=== PATIENT | female | born 1950 | race Caucasian/White ===

== ENCOUNTER 2023-11-10 07:20 | Day surgery (SDC) | payer MEDICARE, SELFPAY ==
[2023-08-15 13:33] VITALS: BMI 27.5
[2023-10-28 14:02] VITALS: BMI 26.4
--- NOTE | 2023-11-04 12:11 | PM.HPGS ---
History of Present Illness History of Present Illness Consent: Risks, benefits, and alternatives have been discussed and questions answered. Patient agrees to proceed with procedure. Chief complaint: Neoplasm Screening Narrative: Liz Palacios is a 73 year old female Colonoscopy with possible biopsy or polypectomy or cautery or injection of substances. Review of Systems Review of Systems: All systems reviewed & are unremarkable except as noted in HPI and below PMFSH Family History Family History Mother Heart disease Social History Social History Smoking status: Never smoker Tobacco type: cigarettes Alcohol intake: current Substance use: never Substance use type: does not use Living arrangements: with family Spiritual care concerns: No Meds Home Medications and Allergies Home Medications Medication Instructions Recorded Confirmed Type acyclovir 400 mg tablet 400 mg PO PRN PRN Cold Symptoms 09/04/21 11/10/23 History albuterol sulfate 90 mcg/actuation 1 inh inhalation PRN PRN Shortness 09/04/21 11/10/23 History aerosol inhaler (Ventolin HFA) Of Breath aspirin 81 mg tablet,delayed 81 mg PO DAILY 09/04/21 11/10/23 History release (Adult Aspirin Regimen) azelastine 137 mcg (0.1 %) nasal 1 spray intranasal Q12H 09/04/21 11/10/23 History spray levothyroxine 88 mcg capsule 88 mcg PO DAILY 09/04/21 11/10/23 History lisinopril 20 1 tablet PO DAILY 09/04/21 11/10/23 History mg-hydrochlorothiazide 12.5 mg tablet multivitamin 1 tablet PO DAILY 09/04/21 11/10/23 History sertraline 50 mg tablet 50 mg PO DAILY 09/04/21 11/10/23 History simvastatin 20 mg tablet 20 mg PO DAILY 09/04/21 11/10/23 History Allergies Allergy/AdvReac Type Severity Reaction Status Date / Time No Known Allergies Allergy Mild Verified 11/10/23 07:49 Exam Resp: Auscultation: clear to auscultation bilaterally Cardio: Rate: regular rate Rhythm: regular rhythm GI: GI Palp: Yes Soft to palpation and No Tenderness to palpation present (GI) Assessment and Plan Assessment and plan (1) Colon cancer screening: Code(s): Z12.11 - Encounter for screening for malignant neoplasm of colon Status: Acute Assessment and Plan: Colonoscopy with possible biopsy or polypectomy or cautery or injection of substances.
--- NOTE | 2023-11-10 06:54 | WPDANESEPPF ---
Anes - Initial Pre Proc Eval Procedure: Operation Date: 11/10/23 09:00 Proposed Procedures p Screening Colonoscopy - Paramjit Iqbal MD Date/Time: 11/10/23 06:54 Surgeon: Paramjit Iqbal MD Pre Op Diagnosis: Neoplasm Screening Patient Data Age: 73 Gender: F Height: 1.63 m Weight: 70 kg Allergies Allergy/AdvReac Type Severity Reaction Status Date / Time No Known Allergies Allergy Mild Verified 11/10/23 07:49 Home Medications Medication Instructions Recorded Confirmed Type acyclovir 400 mg tablet 400 mg PO PRN PRN Cold Symptoms 09/04/21 11/10/23 History albuterol sulfate 90 mcg/actuation 1 inh inhalation PRN PRN Shortness 09/04/21 11/10/23 History aerosol inhaler (Ventolin HFA) Of Breath aspirin 81 mg tablet,delayed 81 mg PO DAILY 09/04/21 11/10/23 History release (Adult Aspirin Regimen) azelastine 137 mcg (0.1 %) nasal 1 spray intranasal Q12H 09/04/21 11/10/23 History spray levothyroxine 88 mcg capsule 88 mcg PO DAILY 09/04/21 11/10/23 History lisinopril 20 1 tablet PO DAILY 09/04/21 11/10/23 History mg-hydrochlorothiazide 12.5 mg tablet multivitamin 1 tablet PO DAILY 09/04/21 11/10/23 History sertraline 50 mg tablet 50 mg PO DAILY 09/04/21 11/10/23 History simvastatin 20 mg tablet 20 mg PO DAILY 09/04/21 11/10/23 History Patient hx anesthesia problems: none Family hx anesthesia problems: none Results Review: All pre-operative results and documents have been reviewed as part of the pre-operative evaluation. [facility] Past Medical History Medical History (Updated 11/10/23 @ 08:37 by Boom Shane DO) CAD (coronary artery disease) Hyperlipidemia Hypertension Surgical History Surgical History (Updated 11/10/23 @ 08:37 by Boom Shane DO) History of coronary artery stent placement 2003, 2004 Family History Family History Mother Heart disease Social History Social History Smoking status: Never smoker Tobacco type: cigarettes Alcohol intake: current Substance use: never Substance use type: does not use Living arrangements: with family Spiritual care concerns: No Anes - Eval Final PreProcedure Day of Procedure 11/10/23 06:54 Patient weight: overweight Heart: regular rate and rhythm Lungs: clear to auscultation Airway: Mallampati scale class II Neurological: alert and oriented Last oral intake: >/= 8 hours ASA classification: III Emergent: no Anesthetic plan: proceed Anesthesia type and monitoring: general GIVS and standard monitoring Results Review: All pre-operative results and documents have been reviewed as part of the pre-operative evaluation. Informed Consent: The patient's anesthetic plan and its attendant risks and benefits were discussed with the patient/family/POA. Questions were solicited and answers provided to the satisfaction of the patient/family/POA.
[2023-11-10 07:59] VITALS: BP 130/76; PULSE 72; RESP 20; TEMP 36.7; O2SAT 98; BMI 26.0
[2023-11-10] MEDS: LACTATED RINGERS 1,000 ML 150 ML IV CONT (08:16)
[2023-11-10 08:59] VITALS: BP 96/57; PULSE 58; RESP 18; O2SAT 97
[2023-11-10 09:09] VITALS: BP 83/52; PULSE 58; RESP 18; O2SAT 97
[2023-11-10 09:19] VITALS: BP 120/57; PULSE 65; RESP 20; O2SAT 100
[2023-11-10 09:27] VITALS: BP 121/72; PULSE 58; RESP 20; O2SAT 100
--- NOTE | 2023-11-10 11:13 | WPDANESPN ---
Anes - Prog Note Post-Op Date/Time: 11/10/23 11:13 Cardiovascular status: normal Respiratory status: normal Airway patency: baseline Mental status: baseline Post-Op hydration status: normal Vital Signs: Last Vital Signs Temp 36.7 C 11/10/23 07:59 Pulse 58 L 11/10/23 09:27 Resp 20 11/10/23 09:27 BP 121/72 11/10/23 09:27 Pulse Ox 100 11/10/23 09:27 O2 Del Method Room Air 11/10/23 09:27 Pain Score (VAS): 0 I/O: Intake & Output 11/09/23 11/10/23 11/10/23 23:59 07:59 15:59 Intake Total 575 Balance 575 Post-procedural complaints: none Patient Feedback: Patient satisfied with anesthetic care. Other Findings: Patient vital signs back to baseline. Patient denies nausea and vomiting. Patient's pain under control. Patient OK for discharge.
== END 2023-11-10 09:35 | disposition home or self-care (01) ==
PROVIDERS: PCP Nurse Practitioner Family; Visit Provider Internal Medicine Gastroenterology
PROC: 0DJD8ZZ Inspection of Lower Intestinal Tract, Via Natural or Artificial Opening Endoscopic (ICD-10-PCS; CPT 45378; principal; 2023-11-10 09:00)
DX: Z12.11 Encounter for screening for malignant neoplasm of colon (principal); D12.2 Benign neoplasm of ascending colon; K57.30 Diverticulosis of large intestine without perforation or abscess without bleeding; K64.8 Other hemorrhoids
CPT/HCPCS: 45380

== ENCOUNTER 2023-11-11 06:48 | Outpatient (RCR) | payer MEDICARE, SELFPAY | END 2023-11-11 07:00 | disposition home or self-care (01) | LOC: ANHLAB 06:48 | PROVIDERS: PCP Nurse Practitioner Family; Visit Provider Nurse Practitioner Family | DX: Z12.11 Encounter for screening for malignant neoplasm of colon (principal) | CPT/HCPCS: 88305 ==

== ENCOUNTER 2024-06-28 14:14 | Outpatient (CLI) | payer MEDICARE, SELFPAY ==
--- NOTE | ~2024-06-28 | DEXA_ITS ---
Bone Density Report Name: EZRA OLIVIER Age: 73 Sex: Female Ethnicity: White Date of : 1950 Indication: postmenopausal; screening for osteoporosis; height loss; Referring Provider: BERTIN BRITT Study: Bone densitometry was performed. Exam Date: June 28, 2024 Accession number: [id number] Bone Density: Region BMD T-score Z-score Classification AP Spine(L1-L4) 0.733 -2.9 -0.5 Osteoporosis Femoral Neck (Left) 0.562 -2.6 -0.6 Osteoporosis Total Hip (Left) 0.755 -1.5 0.2 Osteopenia Femoral Neck (Right) 0.576 -2.5 -0.4 Osteoporosis Total Hip (Right) 0.757 -1.5 0.2 Osteopenia Total Hip Mean 0.756 -1.5 0.2 Osteopenia World Health Organization criteria for BMD impression classify patients as: Normal (T-score at or above -1.0), Osteopenia (T-score between -1.0 and -2.5), or Osteoporosis (T-score at or below -2.5). 10-year Fracture Risk: FRAX not reported because: Some T-score for Spine Total or Hip Total or Femoral Neck at or below -2.5 Treated for osteoporosis Clinical Information Provided by Patient: Is being treated for osteoporosis Has used the following medications: Vitamin D, Calcium Patient maximum height was 66.0 Menopause Age: 55 No regular weight bearing exercise Drinks caffeinated beverages Onset of menses at age 14 Number of children 1 Impression: The patient has osteoporosis, based on the Total Spine T-score. Discussion: It is important to ask patients whether they are taking their medications and to encourage continued and appropriate compliance with their osteoporosis therapies to reduce fracture risk. It is also important to review their risk factors and encourage appropriate calcium and vitamin D intakes, exercise, fall prevention and other lifestyle measures. Follow-Up: Consider a repeat BMD and Vertebral Fracture Assessment (VFA) exam in 2 years or sooner if medically necessary, to reassess this patient's status. Reported by: PHILIP on 06/28/2024 2:47:00 PM. Reviewed, dictated and finalized at location A. SIL[facility]
--- OUTSIDE RECORDS SUMMARY | 2024-06-28 15:53 | XMS_ITS | Clinical Summary ---
Author Organization [facility] [address] Address [address] [place] [address] Care Team Providers Care Inspector Final [employer] Conveyor Line Name Role Phone Raymond Vitale MD Primary Care Provider + [phone] Allergies Active Allergy Reactions Criticality Noted Date Comments Prednisone Other (See comments) High 12/06/2014 Leg swelling with high dose, has done fine on lower doses Medications lisinopril-hydr oCHLOROthiazide (ZESTORETIC) 20-25 mg per tablet Take 1 tablet by mouth daily 2 Active levothyroxine (SYNTHROID) 88 mcg tablet daily Active montelukast (SINGULAIR) 10 mg tablet montelukast 10 mg tablet Active simvastatin (ZOCOR) 20 mg tablet simvastatin 20 mg tablet TAKE 1 TABLET BY MOUTH EVERY DAY 9 Active sertraline (ZOLOFT) 50 mg tablet Take 1 tablet (50 mg total) by mouth daily 2 Active azelastine (ASTELIN) 137 mcg (0.1 %) nasal spray azelastine 137 mcg (0.1 %) nasal spray aerosol USE 2 SPRAYS IN EACH NOSTRIL TWICE DAILY 9 Active aspirin 81 mg enteric coated tablet ASPIRIN 81 MG ORAL TABLET 0 Active albuterol HFA (PROVENTIL HFA,VENTOLIN HFA,PROAIR HFA) 90 mcg/actuation inhaler Ventolin HFA 90 mcg/actuation aerosol inhaler INHALE 2 PUFFS BY MOUTH EVERY 4 HOURS Active multivitamin tablet multivitamin tablet TAKE 1 TABLET BY MOUTH EVERY DAY Active alendronate (FOSAMAX) 70 mg tablet Take 1 tablet (70 mg total) by mouth once a week Active Active Problems No known active problems Surgical History Surgery Date Site/Laterality Comments CARDIAC STENT PLACEMENT Social History Tobacco Use Types Packs/Day Years Used Date Smoking Tobacco: Former Personal Safety Answer Date Recorded Getting School Help Needed Not on file 04/26 Comments Unknown Sex and Gender Information Value Date Recorded Sex Assigned at Not on file Legal Sex Female 8:14 PM [employer] Gender Identity Not on file Sexual Orientation Not on file Obstetrics History Last Filed Vital Signs Vital Sign Reading Time Taken Comments Blood Pressure 130/72 04/26/2023 5:37 PM [employer] Pulse 63 04/26/2023 5:37 PM [employer] Temperature 36.6 C (97.9 F) 04/26/2023 5:37 PM [employer] Respiratory Rate 22 04/26/2023 5:37 PM [employer] Oxygen Saturation 99% 04/26/2023 5:37 PM [employer] Inhaled Oxygen Concentration - - Weight 70.3 kg (155 lb) 04/26/2023 5:37 PM [employer] Height 165.1 cm (5' 5 ) 06/16/2021 5:31 PM CDT Body Mass Index 25.79 06/16/2021 5:31 PM CDT Plan of Treatment Health Maintenance Due Date Last Done Comments Colon Cancer Screening-Colonoscopy 1950 Depression Screening 1950 Fall Risk Assessment 1950 Hepatitis C Screening 1950 Osteoporosis Screening-Bone Density Scan 1950 DTaP/Tdap/Td Vaccine (1 - Tdap) 1961 Hepatitis B Screening 1968 Zoster Vaccine (1 of 2) 2000 Breast Cancer Screening-Mammogram 06/09/2015 06/08/2014, 06/10/2013, 06/03/2012, Additional history exists Well Visit 65+ 07/24/2015 Covid-19 Vaccine (4 - 2023-2 5 season) 2023 01/02/2021, 06/02/2020, 05/09/2020 Influenza Vaccine (#1) 2023 , 01/07/2020, 12/30/2018, Additional history exists Pneumococcal vaccine 65+ Completed 12/20/2021, 01/15 Procedures Procedure Name Priority Date/Time Associated Diagnosis Comments SCREENING MAMMOGRAM 2D BILATERAL Routine 06/08/2014 10:36 AM CDT from Last 3 Months or Most Recently Relevant to Health Maintenance Results * Screening Mammogram 2D Bilateral (06/08/2014 10:36 AM CDT) Anatomical Region Laterality Modality Breast Bilateral Mammography 06/08/2014 10:3 6 AM CDT Impressions 06/09/2014 10:39 AM CDT BIRADS 1: NEGATIVE There is no mammographic evidence of malignancy. A 1 year screening mammogram is recommended. The patient has been or will be contacted. The patient will be entered into an automated reminder system to schedule a mammogram in one year. Electronically signed by: Dr. Joel Ly nh/:06/09/2014 10:37:38 Motor Vehicle Light Assembler: Emperatriz MEANS (R)(M), [facility] letter sent: Normal Exam Reading location: BI-RADS: 1 Negative [EOD] Narrative 06/09/2014 10:39 AM CDT - [facility] BILATERAL SCREENING W/CAD BILATERAL DIGITAL SCREENING MAMMOGRAM WITH CAD: 06/08/2014 The study was acquired using full field digital technology and interpreted from soft copy. Current study was also evaluated with ICAD version 7.2. COMPARISONS: Comparison is made to exams dated: 06/10/2013 mammogram and 06/03/2012 mammogram - [facility]. BREAST TISSUE: There are scattered areas of fibroglandular density. FINDINGS: No significant masses, calcifications, or other findings are seen in either breast. There has been no significant interval change. Procedure Note Provider, MD Amairani - 08/01/2020 - [facility] BILATERAL SCREENING W/CAD BILATERAL DIGITAL SCREENING MAMMOGRAM WITH CAD: 06/08/2014 The study was acquired using full field digital technology and interpretedfrom soft copy. Current study was also evaluated with ICAD version 7.2. COMPARISONS: Comparison is made to exams dated: 06/10/2013 mammogram and 06/03/2012 mammogram - [facility]. BREAST TISSUE: There are scattered areas of fibroglandular density. FINDINGS: No significant masses, calcifications, or other findings areseen in either breast. There has been no significant interval change. IMPRESSION: BIRADS 1: NEGATIVE There is no mammographic evidence of malignancy. A 1 year screeningmammogram is recommended. The patient has been or will be contacted. The patient will be entered into an automated reminder system to schedulea mammogram in one year. Electronically signed by: Dr. Joel Ly nh/:06/09/2014 10:37:38 Motor Vehicle Light Assembler: Emperatriz Paez RT (R)(M), [facility] letter sent: Normal Exam Reading location: BI-RADS: 1 Negative [EOD] Ethan Mcrae MD IMG MAMMO PROCEDURES Final Result from Last 3 Months or Most Recently Relevant to Health Maintenance Insurance MEDICARE AET MEDICARE AETNA Care Teams Inspector Final Assembly Conveyor Line Relationship Specialty Start Date End Date Raymond Vitale MD PCP - General Internal Medicine 06/16/21
--- OUTSIDE RECORDS SUMMARY | 2024-06-28 15:53 | XMS_ITS | Data Portability ---
Author Organization [facility] [employer], Main Office Address [address] [place] [address] Care Team Providers Care Rolled Gold Plater Name Role Phone DIANE VITALE Primary Care Provider DIANE VITALE Referring Provider Assessment Encounter Date Assessment Date Assessment LastModified by Organization Details LastModified Time 10/24/2022 10/24/2022 Diagnosis in the assessment and plan have been discussed will continue with current therapy blood work been ordered to evaluate her disease processes biochemically see me back in 4 months [email or web address] Not available 01/12/2023 17:18:12 01/21/2023 01/21/2023 Had DEXA and mammogram this fall started fosamax this fall based on DEXA Need CT lung for lung cancer screen in May Take covid test at home today, okto continue levofloxacin 750 mg daily x 5 days (has old script at home) cardiology Dr. Giles [email or web address] Not available 01/21/2023 10:01:24 Plan of Treatment Reminders Order Date Submit Date Provider Last Modified By Organization Details Last Modified Time Details Appointments None recorded. Lab urinalysis, dipstick 2023 024 TARA [facility] [address], [place], [address], 4 09:43:42 urinalysis complete, reflex culture 2023 024 [email or web address] [facility] (Lab), [address] [facility], [place], [address], 4 09:42:55 urinalysis complete, reflex culture 2023 024 TARA Not available 4 07:41:49 CBC w/ auto diff 2023 024 TARA Not available 4 20:27:45 BMP, serum or plasma 2023 024 TARA Not available 4 20:38:43 lipid panel, serum 2023 024 TARA Not available 4 20:38:27 hepatic function panel, serum 2023 024 TARA Not available 4 20:38:32 TSH, serum or plasma 2023 024 TARA Not available 4 20:58:48 T4, free, serum 2023 024 TARA Not available 4 20:49:23 vitamin B12 + folate, serum or blood 2022 023 TARA Not available 3 08:27:50 CBC w/ auto diff 2022 023 TARA Not available 3 08:27:47 lipid panel, serum 2022 023 Not available 3 15:01:09 CMP, serum or plasma 2022 023 Not available 3 15:01:08 T3, free, serum or plasma 2022 023 TARA Not available 3 08:27:52 T4, free, serum 2022 023 TARA Not available 3 08:27:51 TSH, serum or plasma 2022 023 TARA Not available 3 15:01:29 vitamin B12 + folate, serum or blood 2022 023 [email or web address] Not available 4 11:14:07 CBC w/ auto diff 2022 023 [email or web address] Not available 4 11:14:06 lipid panel, serum 2022 023 [email or web address] Not available 4 11:14:06 CMP, serum or plasma 2022 023 [email or web address] Not available 4 11:14:06 T3, free, serum or plasma 2022 023 [email or web address] 25 Not available 4 11:14:06 T4, free, serum 2022 023 [email or web address] 25 Not available 4 11:14:06 TSH, serum or plasma 2022 023 [email or web address] 25 Not available 4 11:14:06 Referral None recorded. Procedures colonoscopy screening (PROC) - *Please call pt to schedule* 2023 024 [email or web address] 256 Paramjit Iqbal MD, [address], [address], [place], [address], 4 09:22:55 Surgeries None recorded. Imaging CT, chest, w/o contrast - *Please call pt to schedule* 2023 024 [email or web address] 256 [facility] (Radiology), [address] [place], [address], 4 09:17:50 Medication Orders sertraline 100 mg tablet 2023 024 [id number], [address], [place], [id number], 4 12:54:46 montelukast 10 mg tablet 2023 024 [facility] #[id number], [address], [place], [id number], 4 14:41:23 lisinopril 20 mg-hydrochl orothiazide 25 mg tablet 2023 024 [facility] #27655, [address], [place], [id number], 4 14:41:24 simvastatin 20 mg tablet 2023 024 [facility] #[id number], [address], [place], [id number], 4 14:41:22 levothyroxi ne 88 mcg tablet 2023 024 [facility] [employer] [facility] #36678, [address], [place], [id number], 4 14:41:23 levofloxaci n 750 mg tablet 2022 023 [email or web address] [address] [facility] [employer] [facility] #71970, [address], [place], [id number], 4 14:05:33 COVID-19 At-Home Test kit 2022 023 [facility] [employer] [facility] #[id number] [place], [id number], 3 09:49:10 Patient TargetsNo targets recorded. Patient Instructions Encounter Date Encounter Id Patient Instructions Last Modified By Organization Details Last Modified Time 07/22/2023 [id number] dementia rating scale-2* [email or web address] Not available 2023 08:02:20 physical therapy for pelvic health Not available 07/22/2023 14:41:16 Personalized [facility] Plan and Screening Recommendations Advance Directives - Do you have one? Advance Directives - Do we have your advance directive on file in your health record? Primary Prevention/Interven tion (prevents or decreases the chance of common diseases from occurring) Smoking Risk: Alcohol Misuse Screening: Weight: Physical activity: Nutrition: Fall Risk (screened today): Vaccines Pneumococcal: Influenza: Your next one in the fall of this year Chronic Disease Risks Stroke: I have no recommendations Act geovany diagnosis, Continue current treatment plan Heart Attack: I have no recommendations Act geovany diagnosis, Continue current treatment plan Clogging of the Arteries: I have no recommendations Act geovany diagnosis, Continue current treatment plan Diabetes: Active diagnosis, Continue current treatment plan Secondary Prevention/Interven tion (detects treatable diseases before they may cause symptoms, disability, or ) Breast Cancer Screening with mammogram: Cervical/Uterine/Ov eulogio Cancer Screening: Osteoporosis Screening: Date Screening Last Performed: Colon Cancer Screening: Date Screening Last Performed: Eye Disease Screening: Dementia Risk: Depression Screening: Active diagnosis, Continue current treatment plan Not available 08/03/2023 13:06:54 Reason for Referral None Reported. Results Created Date Observation Date Name Description Value Unit Range Abnormal Flag Note LastModifiedBy Organization Detail LastModifiedTime 02/14/2002/14/2023 CBC/D IFF AMBIG UOUS DEFAU LT WBC 3.0 x10e3 /uL 3.4-10 .8 below low normal Not Available [facility] ([facility]) [address] [place], [address], 02/14/2023 08:27:46 02/14/20 23 02/14/2023 CBC/D IFF AMBIG UOUS DEFAU LT RBC 4.42 x10e6 /uL 3.77-5 .28 Ovalo cytes prese nt. Not Available [facility] ([facility]) [address] [place], [address], 02/14/2023 08:27:46 02/14/20 23 02/14/2023 CBC/D IFF AMBIG UOUS DEFAU LT hemoglobin 14.2 g/dL 11.1-1 5.9 Not Available [facility] ([facility]) [address] [place], [address], 02/14/2023 08:27:46 11/30/02/14/2023 CBC/D IFF AMBIG UOUS DEFAU LT hematocrit 40.8 % 34.0-4 6.6 Not Available [facility] ([facility]) [address] [facility], [place], [address], 02/14/2023 08:27:46 02/14/20 23 02/14/2023 CBC/D IFF AMBIG UOUS DEFAU LT MCV 92 fL 79-97 Not Available [facility] ([facility]) [address] [facility], [place], [address], 02/14/2023 08:27:46 02/14/20 23 02/14/2023 CBC/D IFF AMBIG UOUS DEFAU LT MCH 32.1 pg 26.6-3 3.0 Not Available [facility] ([facility]) [address] [facility], [place], [address], 02/14/2023 08:27:46 02/14/20 23 02/14/2023 CBC/D IFF AMBIG UOUS DEFAU LT MCHC 34.8 g/dL 31.5-3 5.7 Not Available [facility] ([facility]) [address] [facility], [place], [address], 02/14/2023 08:27:46 02/14/20 23 02/14/2023 CBC/D IFF AMBIG UOUS DEFAU LT RDW 12.2 % 11.7-1 5.4 Not Available [facility] ([facility]) [address] [place], [address], 02/14/2023 08:27:46 02/14/20 23 02/14/2023 CBC/D IFF AMBIG UOUS DEFAU LT platelets 217 x10e3 /uL 150-45 0 Not Available [facility] ([facility]) [address] [facility], [place], [address], 02/14/2023 08:27:46 02/14/20 23 02/14/2023 CBC/D IFF AMBIG UOUS DEFAU LT neutrophils 37 % not estab. Not Available [facility] ([facility]) [address] [facility], [place], [address], 02/14/2023 08:27:46 02/14/20 23 02/14/2023 CBC/D IFF AMBIG UOUS DEFAU LT lymphs 52 % not estab. Not Available [facility] ([facility]) [address] [facility], [place], [address], 02/14/2023 08:27:46 02/14/20 23 02/14/2023 CBC/D IFF AMBIG UOUS DEFAU LT monocytes 9 % not estab. Not Available [facility] ([facility]) [address] [facility], [place], [address], 02/14/2023 08:27:46 02/14/20 23 02/14/2023 CBC/D IFF AMBIG UOUS DEFAU LT eos 1 % not estab. Not Available [facility] ([facility]) [address] [facility], [place], [address], 02/14/2023 08:27:46 02/14/20 23 02/14/2023 CBC/D IFF AMBIG UOUS DEFAU LT basos 1 % not estab. Not Available [facility] ([facility]) [address] [place], [address], 02/14/2023 08:27:46 02/14/20 23 02/14/2023 CBC/D IFF AMBIG UOUS DEFAU LT immature cells TAGMAN Not Available [facility] ([facility]) [address] [place], [address], 02/14/2023 08:27:46 02/14/20 23 02/14/2023 CBC/D IFF AMBIG UOUS DEFAU LT neutrophils (absolute) 1.1 x10e3 /uL 1.4-7. 0 below low normal Not Available [facility] ([facility]) [address] [place], [address], 02/14/2023 08:27:46 02/14/20 23 02/14/2023 CBC/D IFF AMBIG UOUS DEFAU LT lymphs (absolute) 1.6 x10e3 /uL 0.7-3. 1 Not Available [facility] ([facility]) [address] [facility], [place], [address], 02/14/2023 08:27:46 02/14/20 23 02/14/2023 CBC/D IFF AMBIG UOUS DEFAU LT monocytes(ab solute) 0.3 x10e3 /uL 0.1-0. 9 Not Available [facility] ([facility]) [address] [facility], [place], [address], 02/14/2023 08:27:46 02/14/20 23 02/14/2023 CBC/D IFF AMBIG UOUS DEFAU LT eos (absolute) 0.0 x10e3 /uL 0.0-0. 4 Not Available [facility] ([facility]) [address] [facility], [place], [address], 02/14/2023 08:27:46 02/14/20 23 02/14/2023 CBC/D IFF AMBIG UOUS DEFAU LT baso (absolute) 0.0 x10e3 /uL 0.0-0. 2 Not Available [facility] ([facility]) [address] [facility], [place], [address], 02/14/2023 08:27:46 02/14/20 23 02/14/2023 CBC/D IFF AMBIG UOUS DEFAU LT immature granulocytes TAGMAN Not Available [facility] ([facility]) [address] [facility], [place], [address], 02/14/2023 08:27:46 02/14/20 23 02/14/2023 CBC/D IFF AMBIG UOUS DEFAU LT immature grans (abs) TAGMAN Not Available [facility]) [address] [facility], [place], [address], 02/14/2023 08:27:46 02/14/20 23 02/14/2023 CBC/D IFF RICH ROTH ARGENT[place] LT NRBC TAGMAN Not Available [facility] ([facility]) [address] [facility], [place], [address], 02/14/2023 08:27:46 02/14/20 23 02/14/2023 CBC/D IFF RICH UOUS DEFAU LT hematology comments: NOTE: Amanda browning was perfo rmed. A hand- writt en panel /prof ile was recei lucinda from your offic e. In accor dance with the [facility] Rich roth Test Code Polic y dated September 2002, we have assig donovan CBC with Cherise browning/Pl dorcas t, Test Code #[address]. If this is not the testi ng you wishe d to recei ve on this speci men, pleas e conta ct the [facility] Clien t Inqui ry/ Techn ical Servi vaishali Depar tment to vaughn fy the test order . We appre ciate your busin ess. Not Available [facility] ([facility]) [address] [facility], [place], [address], 02/14/2023 08:27:46 02/14/20 23 02/14/2023 COMP. METAB OLIC PANEL (14) glucose 94 mg/dL 70-99 Not Available [facility] ([facility]) [address] [facility], [place], [address], 02/14/2023 08:27:48 02/14/20 23 02/14/2023 COMP. METAB OLIC PANEL (14) BUN 21 mg/dL 8-27 Not Available [facility] ([facility]) [address] [facility], [place], [address], 02/14/2023 08:27:48 02/14/20 23 02/14/2023 COMP. METAB OLIC PANEL (14) creatinine 0.95 mg/dL 0.57-1 .00 Not Available [facility] ([facility]) [address] [facility], [place], [address], 02/14/2023 08:27:48 02/14/20 23 02/14/2023 COMP. METAB OLIC PANEL (14) eGFR 64 mL/mi n/1.7 3 >59 Not Available [facility] ([facility]) [address] [facility], [place], [address], 02/14/2023 08:27:48 02/14/20 23 02/14/2023 COMP. METAB OLIC PANEL (14) BUN/creatini ne ratio 22 12-28 Not Available [facility] ([facility]) [address] [facility], [place], [address], 02/14/2023 08:27:48 02/14/20 23 02/14/2023 COMP. METAB OLIC PANEL (14) sodium 141 mmol/ L 134-14 4 Not Available [facility] ([facility]) [address] [facility], [place], [address], 02/14/2023 08:27:48 02/14/20 23 02/14/2023 COMP. METAB OLIC PANEL (14) potassium 4.7 mmol/ L 3.5-5. 2 Not Available [facility] ([facility]) [address] [place], [address], 02/14/2023 08:27:48 02/14/20 23 02/14/2023 COMP. METAB OLIC PANEL (14) chloride 102 mmol/ L 96-106 Not Available [facility] ([facility]) [address] [place], [address], 02/14/2023 08:27:48 02/14/20 23 02/14/2023 COMP. METAB OLIC PANEL (14) carbon dioxide, total 24 mmol/ L 20-29 Not Available [facility] ([facility]) [address] [place], [address], 02/14/2023 08:27:48 02/14/20 23 02/14/2023 COMP. METAB OLIC PANEL (14) calcium 9.6 mg/dL 8.7-10 .3 Not Available [facility] ([facility]) [address] [place], [address], 02/14/2023 08:27:48 02/14/20 23 02/14/2023 COMP. METAB OLIC PANEL (14) protein, total 7.0 g/dL 6.0-8. 5 Not Available [facility] ([facility]) [address] [place], [address], 02/14/2023 08:27:48 02/14/20 23 02/14/2023 COMP. METAB OLIC PANEL (14) albumin 4.6 g/dL 3.8-4. 8 Not Available [facility] ([facility]) [address] [place], [address], 02/14/2023 08:27:48 02/14/20 23 02/14/2023 COMP. METAB OLIC PANEL (14) globulin, total 2.4 g/dL 1.5-4. 5 Not Available [facility] ([facility]) [address] [place], [address], 02/14/2023 08:27:48 02/14/20 23 02/14/2023 COMP. METAB OLIC PANEL (14) A/G ratio 1.9 1.2-2. 2 Not Available [facility] ([facility]) [address] [place], [address], 02/14/2023 08:27:48 02/14/20 23 02/14/2023 COMP. METAB OLIC PANEL (14) bilirubin, total 0.6 mg/dL 0.0-1. 2 Not Available [facility] ([facility]) [address] [facility], [place], [address], 02/14/2023 08:27:48 02/14/20 23 02/14/2023 COMP. METAB OLIC PANEL (14) alkaline phosphatase 89 IU/L 44-121 Not Available [facility]) [address] [facility], [place], [address], 02/14/2023 08:27:48 02/14/20 23 02/14/2023 COMP. METAB OLIC PANEL (14) AST (SGOT) 19 IU/L 0-40 Not Available [facility] ([facility]) [address] [facility], [place], [address], 02/14/2023 08:27:48 02/14/20 23 02/14/2023 COMP. METAB OLIC PANEL (14) ALT (SGPT) 18 IU/L 0-32 Not Available [facility] ([facility]) [address] [facility], [place], [address], 02/14/2023 08:27:48 02/14/20 23 02/14/2023 LIPID PANEL cholesterol, total 152 mg/dL 100-19 9 Not Available [facility] ([facility]) [address] [facility], [place], [address], 02/14/2023 08:27:49 02/14/20 23 02/14/2023 LIPID PANEL triglyceride s 58 mg/dL 0-149 Not Available [facility]) [address] [facility], [place], [address], 02/14/2023 08:27:49 02/14/20 23 02/14/2023 LIPID PANEL HDL cholesterol 64 mg/dL >39 Not Available [facility]) [address] [facility], [place], [address], 02/14/2023 08:27:49 02/14/20 23 02/14/2023 LIPID PANEL VLDL cholesterol xander 12 mg/dL 5-40 Not Available [facility]) [address] [place], [address], 02/14/2023 08:27:49 02/14/20 23 02/14/2023 LIPID PANEL LDL chol calc ([facility]) 76 mg/dL 0-99 Not Available [facility]) [address] [place], [address], 02/14/2023 08:27:49 02/14/20 23 02/14/2023 LIPID PANEL comment: TAGMAN Not Available [facility] ([facility]) [address] [place], [address], 02/14/2023 08:27:49 02/14/20 23 02/14/2023 VITAM IN B12 AND FOLAT E vitamin B12 667 pg/mL 232-12 45 Not Available [facility] ([facility]) [address] [facility], [place], [address], 02/14/2023 08:27:50 02/14/2002/14/2023 VITAM IN B12 AND FOLAT E folate (folic acid), serum 17.5 NG/mL >3.0 A serum folat e jayden ntrat ion of less than 3.1 ng/mL is consi dered to repre sent clini xander defic iency . Not Available [facility] ([facility]) [address] [facility], [place], [address], 02/14/2023 08:27:50 02/14/20 23 02/14/2023 THYRO XINE (T4) FREE, DIREC T T4,free(dire ct) 1.48 NG/dL 0.82-1 .77 Not Available [facility] ([facility]) [address] [facility], [place], [address], 02/14/2023 08:27:51 02/14/20 23 02/14/2023 TSH TSH 1.700 uIU/m L 0.450- 4.500 Not Available Not Available 02/14/2023 08:27:52 02/14/20 23 02/14/2023 TRIIO DOTHY NELSON E (T3), FREE triiodothyro nine (T3), free 2.6 pg/mL 2.0-4. 4 Not Available [facility] ([facility]) [address] [facility], [place], [address], 02/14/2023 08:27:52 07/22/19 24 07/22/2023 CBC/C OMPLE TE BLD COUNT W/DIF F white blood cells 3.4 x10'3 /uL 4.2-10 .8 low Not Available [facility] ([facility]) [address] [place], [address], 07/22/2023 20:27:45 07/22/19 24 07/22/2023 CBC/C OMPLE TE BLD COUNT W/DIF F red blood cells 4.28 x10'6 /uL 3.80-5 .20 Not Available [facility] ([facility]) [address] [place], [address], 07/22/2023 20:27:45 07/22/19 24 07/22/2023 CBC/C OMPLE TE BLD COUNT W/DIF F hemoglobin 14.2 g/dL 12.0-1 5.6 Not Available [facility] ([facility]) [address] [place], [address], 07/22/2023 20:27:45 07/22/19 24 07/22/2023 CBC/C OMPLE TE BLD COUNT W/DIF F hematocrit 39.6 % 35.7-4 5.7 Not Available [facility] ([facility]) [address] [place], [address], 07/22/2023 20:27:45 07/22/19 24 07/22/2023 CBC/C OMPLE TE BLD COUNT W/DIF F mean red cell volume 92.5 fL 82.0-9 9.0 Not Available [facility] ([facility]) [address] [place], [address], 07/22/2023 20:27:45 07/22/19 24 07/22/2023 CBC/C OMPLE TE BLD COUNT W/DIF F mean red cell hemoglobin 33.2 pg 27.0-3 3.0 high Not Available [facility] ([facility]) [address] [place], [address], 07/22/2023 20:27:45 07/22/19 24 07/22/2023 CBC/C OMPLE TE BLD COUNT W/DIF F mean RBC HGB concentratio n 35.9 g/dL 31.0-3 6.0 Not Available [facility] ([facility]) [address] [place], [address], 07/22/2023 20:27:45 07/22/19 24 07/22/2023 CBC/C OMPLE TE BLD COUNT W/DIF F red cell distribution width 12.4 % 11.8-1 5.5 Not Available [facility] ([facility]) [address] [place], [address], 07/22/2023 20:27:45 07/22/19 24 07/22/2023 CBC/C OMPLE TE BLD COUNT W/DIF F platelets 237 x10'3 /uL 150-40 0 Not Available [facility] ([facility]) [address] [place], [address], 07/22/2023 20:27:45 07/22/19 24 07/22/2023 CBC/C OMPLE TE BLD COUNT W/DIF F mean platelet volume 11.3 fL 9.0-12 .4 Not Available [facility] ([facility]) [address] [place], [address], 07/22/2023 20:27:45 07/22/19 24 07/22/2023 CBC/C OMPLE TE BLD COUNT W/DIF F neutrophils 35.9 % 39.0-7 2.0 low Not Available [facility] ([facility]) [address] [place], [address], 07/22/2023 20:27:45 07/22/19 24 07/22/2023 CBC/C OMPLE TE BLD COUNT W/DIF F lymphocytes 40.9 % 16.0-4 7.0 Not Available [facility] ([facility]) [address] [place], [address], 07/22/2023 20:27:45 07/22/19 24 07/22/2023 CBC/C OMPLE TE BLD COUNT W/DIF F monocytes 19.4 % 5.0-12 .0 high Not Available [facility] ([facility]) [address] [place], [address], 07/22/2023 20:27:45 07/22/19 24 07/22/2023 CBC/C OMPLE TE BLD COUNT W/DIF F eosinophils 2.6 % 1.0-7. 0 Not Available [facility] ([facility]) [address] [place], [address], 07/22/2023 20:27:45 07/22/19 24 07/22/2023 CBC/C OMPLE TE BLD COUNT W/DIF F basophils 1.2 % 0.0-2. 0 Not Available [facility] ([facility]) [address] [place], [address], 07/22/2023 20:27:45 07/22/19 24 07/22/2023 CBC/C OMPLE TE BLD COUNT W/DIF F immature granulocytes 0.0 % 0.00-0 .50 Not Available [facility] ([facility]) [address] [place], [address], 07/22/2023 20:27:45 07/22/19 24 07/22/2023 CBC/C OMPLE TE BLD COUNT W/DIF F neutrophils, absolute count 1.22 x10'3 /uL 1.5-8. 0 low Not Available [facility] ([facility]) [address] [place], [address], 07/22/2023 20:27:45 07/22/19 24 07/22/2023 CBC/C OMPLE TE BLD COUNT W/DIF F lymphocytes, absolute count 1.39 x10'3 /uL 1.07-3 .43 Not Available [facility] ([facility]) [address] [place], [address], 07/22/2023 20:27:45 07/22/19 24 07/22/2023 CBC/C OMPLE TE BLD COUNT W/DIF F monocytes, absolute count 0.66 x10'3 /uL 0.29-0 .99 Not Available [facility] ([facility]) [address] [place], [address], 07/22/2023 20:27:45 07/22/19 24 07/22/2023 CBC/C OMPLE TE BLD COUNT W/DIF F eosinophils, absolute count 0.09 x10'3 /uL 0.02-0 .53 Not Available [facility] ([facility]) [address] [place], [address], 07/22/2023 20:27:45 07/22/19 24 07/22/2023 CBC/C OMPLE TE BLD COUNT W/DIF F basophils, absolute count 0.04 x10'3 /uL 0.01-0 .08 Not Available [facility] ([facility]) [address] [place], [address], 07/22/2023 20:27:45 07/22/19 24 07/22/2023 CBC/C OMPLE TE BLD COUNT W/DIF F immature granulocytes ,absolute 0.00 x10'3 /uL 0.00-0 .05 Not Available [facility] ([facility]) [address] [place], [address], 07/22/2023 20:27:45 07/22/19 24 07/22/2023 CBC/C OMPLE TE BLD COUNT W/DIF F nucleated red blood cells 0.0 % -0 Not Available [facility] (Lab) [address] [place], [address], 07/22/2023 20:27:45 07/22/19 24 07/22/2023 CBC/C OMPLE TE BLD COUNT W/DIF F NRBC# 0.00 x10'3 /uL Not Available [facility] ([facility]) [address] [place], [address], 07/22/2023 20:27:45 07/22/19 24 07/22/2023 LIPID PANEL cholesterol 161 mg/dL 140-19 9 NIH JAYDEN NSUS RECOM MENDA TION FOR IBIS STERO L: ADULT CHILD LOW RISK: <200 <170 BORDE RLINE : <200- 239 ----- HIGH RISK: >240 >200 Not Available [facility] ([facility]) [address] [place], [address], 07/22/2023 20:38:27 07/22/19 24 07/22/2023 LIPID PANEL triglyceride s 104 mg/dL 0-150 NIH JAYDEN NSUS REPOR T RECOM MENDA TION FOR TRIGL YCERI CAROLINE: ADULT CHILD LOW RISK: <150 ----- BODER LINE: 150-1 99 ----- HIGH RISK: >200 ----- Not Available [facility] ([facility]) [address] [place], [address], 07/22/2023 20:38:27 07/22/19 24 07/22/2023 LIPID PANEL HDL cholesterol 66 mg/dL 40- Not Available [facility] (Lab) [address] [place], [address], 07/22/2023 20:38:27 07/22/19 24 07/22/2023 LIPID PANEL LDL cholesterol, calculated 74 mg/dL 0-130 NIH JAYDEN NSUS REPOR T RECOM MENDA TIONS FOR LDL: ADULT CHILD LOW RISK <130 <110 (OPTI MAL LDL) <100 ----- BORDE RLINE : 130-1 59 ----- HIGH RISK: >160 >130 A TRIGL YCERI DE RESUL T >400 INVAL IDATE S THE CALCU LATIO N FOR LDL FRACT IONAT ION - THE LDL RESUL T WILL NOT BE REPOR ZEE. Not Available [facility] (Lab) [address] [place], [address], 07/22/2023 20:38:27 07/22/19 24 07/22/2023 HEPAT IC/LI ADRIEL PANEL alkaline phosphatase 83 U/L 38-126 Not Available [facility] (Lab) [address] [place], [address], 07/22/2023 20:38:32 07/22/19 24 07/22/2023 HEPAT IC/LI ADRIEL PANEL alanine aminotransfe rase 21 U/L 0-35 Not Available [facility] (Lab) [address] [place], [address], 07/22/2023 20:38:32 07/22/19 24 07/22/2023 HEPAT IC/LI ADRIEL PANEL aspartate aminotransfe rase 28 U/L 15-37 Not Available [facility] (Lab) [address] [place], [address], 07/22/2023 20:38:32 07/22/19 24 07/22/2023 HEPAT IC/LI ADRIEL PANEL bilirubin, total 0.90 mg/dL 0.20-1 .30 Not Available [facility] (Lab) [address] [place], [address], 07/22/2023 20:38:32 07/22/19 24 07/22/2023 HEPAT IC/LI ADRIEL PANEL bilirubin, conjugated (direct) 0.00 mg/dL 0.00-0 .30 Not Available [facility] (Lab) [address] [place], [address], 07/22/2023 20:38:32 07/22/19 24 07/22/2023 HEPAT IC/LI ADRIEL PANEL biliurubin,u ncong. (indirect) 0.70 mg/dL 0.00-1 .1 Not Available [facility] (Lab) [address] [place], [address], 07/22/2023 20:38:32 07/22/19 24 07/22/2023 HEPAT IC/LI ADRIEL PANEL total protein 7.2 g/dL 6.3-8. 2 Not Available [facility] (Lab) [address] [place], [address], 07/22/2023 20:38:32 07/22/19 24 07/22/2023 HEPAT IC/LI ADRIEL PANEL albumin 4.4 g/dL 3.0-4. 4 Not Available [facility] (Lab) [address] [place], [address], 07/22/2023 20:38:32 07/22/19 24 07/22/2023 HEPAT IC/LI ADRIEL PANEL globulin 2.8 g/dL 2.6-4. 2 Not Available [facility] (Lab) [address] [place], [address], 07/22/2023 20:38:32 07/22/19 24 07/22/2023 HEPAT IC/LI ADRIEL PANEL A/G ratio 1.6 ratio 1.0-2. 0 Not Available [facility] (Lab) [address] [place], [address], 07/22/2023 20:38:32 07/22/19 24 07/22/2023 BASIC METAB OLIC PANEL sodium 138 mmol/ L 137-14 5 Not Available [facility] (Lab) [address] [place], [address], 07/22/2023 20:38:43 07/22/19 24 07/22/2023 BASIC METAB OLIC PANEL potassium 4.1 mmol/ L 3.5-5. 1 Not Available [facility] (Lab) [address] [place], [address], 07/22/2023 20:38:43 07/22/19 24 07/22/2023 BASIC METAB OLIC PANEL chloride 104 mmol/ L 98-107 Not Available [facility] (Lab) [address] [place], [address], 07/22/2023 20:38:43 07/22/19 24 07/22/2023 BASIC METAB OLIC PANEL carbon dioxide 26 mmol/ L 22-30 Not Available [facility] (Lab) [address] [place], [address], 07/22/2023 20:38:43 07/22/19 24 07/22/2023 BASIC METAB OLIC PANEL anion gap 12.1 mmol/ L 14-22 low Not Available [facility] (Lab) [address] [place], [address], 07/22/2023 20:38:43 07/22/19 24 07/22/2023 BASIC METAB OLIC PANEL glucose 95 mg/dL 70-99 Not Available [facility] (Lab) [address] [place], [address], 07/22/2023 20:38:43 07/22/19 24 07/22/2023 BASIC METAB OLIC PANEL BUN 20 mg/dL 8-19 high Not Available [facility] (Lab) [address] [place], [address], 07/22/2023 20:38:43 07/22/19 24 07/22/2023 BASIC METAB OLIC PANEL creatinine 0.78 mg/dL 0.66-1 .25 Not Available [facility] (Lab) [address] [place], [address], 07/22/2023 20:38:43 07/22/19 24 07/22/2023 BASIC METAB OLIC PANEL GFR >60 Refer ence Range : Andrews ge GFR Healt hy Adult : >60 mL/mi n/1.7 3 m2 Chron ic Kidne y Disea se: 15-60 mL/mi n/1.7 3 m2 Kidne y Failu re: <15/m L/min /1.73 m2 www.n iddk. nih.g ov The MDRD study equat ion has not been valid ated in child ravi <18 years of age; pregn ant women ; the elder ly >85 years of age; or in some racia l or ethni c subgr oups, such as Hispa nics. Outsi de the valid ated silvestre eters , estim ated GFR is less accur ate, requi ring clini xander judgm ent on a case- by-ca se basis . Clini xander inter preta tion for other races and ages must be made by the clini afua. The MDRD study equat ion has not been valid ated for the evalu ation of serum creat inine relat ed to nutri jodi l statu s or medic ation usage . For perso ns <18 years of age, a pedia tric GFR calcu lator is avail able on the [facility] websi te: https ://cj [email or web address].damien gray/pr gissell buial s/kdo qi/gf r_cal culat or Not Available [facility] (Lab) [address] [place], [address], 07/22/2023 20:38:43 07/22/19 24 07/22/2023 BASIC METAB OLIC PANEL calcium 10.0 mg/dL 8.4-10 .2 Not Available [facility] (Lab) [address] [place], [address], 07/22/2023 20:38:43 07/22/19 24 07/22/2023 URINA LYSIS COMPL ETE/I RIS W/RFX color YELLOW Not Available Not Availa ble 07/22/2023 20:42:22 07/22/19 24 07/22/2023 URINA LYSIS COMPL ETE/I RIS W/RFX appear CLEAR Not Available Not Availa ble 07/22/2023 20:42:22 07/22/19 24 07/22/2023 URINA LYSIS COMPL ETE/I RIS W/RFX specific gravity 1.020 1.001- 1.030 Not Available Not Available 07/22/2023 20:42:22 07/22/19 24 07/22/2023 URINA LYSIS COMPL ETE/I RIS W/RFX pH 7.0 pH_un its 5.0-9. 0 Not Available Not Available 07/22/2023 20:42:22 07/22/19 24 07/22/2023 URINA LYSIS COMPL ETE/I RIS W/RFX leukocytes NEGATI VE girish/u L negati ve- Not Available Not Available 07/22/2023 20:42:22 07/22/19 24 07/22/2023 URINA LYSIS COMPL ETE/I RIS W/RFX nitrite NEGATI VE negati ve- Not Available Not Available 07/22/2023 20:42:22 07/22/19 24 07/22/2023 URINA LYSIS COMPL ETE/I RIS W/RFX protein NEGATI VE mg/dL negati ve- Not Available Not Available 07/22/2023 20:42:22 07/22/19 24 07/22/2023 URINA LYSIS COMPL ETE/I RIS W/RFX glucose NORMAL mg/dL normal - Not Available Not Available 07/22/2023 20:42:22 07/22/19 24 07/22/2023 URINA LYSIS COMPL ETE/I RIS W/RFX ketones NEGATI VE mg/dL negati ve- Not Available Not Available 07/22/2023 20:42:22 07/22/19 24 07/22/2023 URINA LYSIS COMPL ETE/I RIS W/RFX urobilinogen NORMAL mg/dL normal - Not Available Not Available 07/22/2023 20:42:22 07/22/19 24 07/22/2023 URINA LYSIS COMPL ETE/I RIS W/RFX bilirubin NEGATI VE mg/dL negati ve- Not Available Not Available 07/22/2023 20:42:22 07/22/19 24 07/22/2023 URINA LYSIS COMPL ETE/I RIS W/RFX blood NEGATI VE mg/dL negati ve- Not Available Not Available 07/22/2023 20:42:22 07/22/19 24 07/22/2023 URINA LYSIS COMPL ETE/I RIS W/RFX white blood cells 0-8 /i??h pfi?? 0-8 Not Available Not Available 07/22/19 20:42:22 07/22/19 24 07/22/2023 URINA LYSIS COMPL ETE/I RIS W/RFX red blood cells 0-4 /i??h pfi?? 0-4 Not Available Not Available 07/22/19 20:42:22 07/22/19 24 07/22/2023 URINA LYSIS COMPL ETE/I RIS W/RFX bacteria NONE Not Available Not Avail able 07/22/2023 20:42:22 07/22/19 24 07/22/2023 URINA LYSIS COMPL ETE/I RIS W/RFX squamous epithelial OCCASI ONAL /i??l pfi?? abnormal Not Available Not Available 07/22/19 20:42:22 07/22/19 24 07/22/2023 T4 FREE free T4 1.82 NG/dL 0.78-2 .19 Not Available [facility] (Lab) [address] [place], [address], 07/22/2023 20:49:23 07/22/19 24 07/22/2023 TSH thyroid-stim ulating hormone 1.330 uIU/m L 0.465- 4.680 Not Available [facility] (Lab) [address] [place], [address], 07/22/2023 20:58:48 09/26/19 24 09/26/2023 urina lysis , dipst ick Leukocytes (reference range: negative girish/ l) Negati ve Not Available [facility] [address], [place], [address], 09/26/2023 09:22:46 09/26/19 24 09/26/2023 urina lysis , dipst ick Nitrite (reference rage: negative mg/dl) negati ve Not Available [address], [place], [address], 09/26/2023 09:22:46 09/26/19 24 09/26/2023 urina lysis , dipst ick Urobilinogen (reference range: 0.2-1 mg/dl) 0.2 Not Available [address], [place], [address], 09/26/2023 09:22:46 09/26/1909/26/2023 urina lysis , dipst ick Protein (reference range: negative mg/dl) Negati ve Not Available [address], [place], [address], 09/26/2023 09:22:46 09/26/19 24 09/26/2023 urina lysis , dipst ick pH (reference range: 5-7) 7.5 Not Available [address], [place], [address], 09/26/2023 09:22:46 09/26/19 24 09/26/2023 urina lysis , dipst ick Blood (reference range: negative Quan/ l) Negati ve Not Available [address], [place], [address], 09/26/2023 09:22:46 09/26/1909/26/2023 urina lysis , dipst ick Specific [place] (reference range: 1.005-1.030) 1.030 Not Available [address], [place], [address], 09/26/2023 09:22:46 09/26/19 24 09/26/2023 urina lysis , dipst ick Ketone (reference range: negative mg/dl) Negati ve Not Available [address], [place], [address], 09/26/2023 09:22:46 09/26/19 24 09/26/2023 urina lysis , dipst ick Bilirubin (reference range: negative mg/dl) Negati ve Not Available [address], [place], [address], 09/26/2023 09:22:46 09/26/19 24 09/26/2023 urina lysis , dipst ick Glucose (reference range: negative mg/dl) Negati ve Not Available [address], [place], [address], 09/26/2023 09:22:46 09/26/19 24 09/26/2023 urina lysis , dipst ick Appearance Clear Not Available [address], [place], [address], 09/26/2023 09:22:46 09/26/19 24 09/26/2023 urina lysis , dipst ick Color Yellow Not Available [address], [place], [address], 09/26/2023 09:22:46 10/31/19 24 05/29/2022 CT, chest , w/o contr ast No observ ation record ed. [email or web address] [facility] [address] [place], [address], 11/06/2023 23:25:53 Result Notes None recorded. Problems Name Problem SNOMED Code Status Onset Date Resolution Date Notes Provider Name and Address Organization Details Recorded Time Acute bronchit is 67281618 Completed Not Available [facility] 3 01:37:17 Fracture of great toe 003345738 Active 2021 Not Available [facility] 4 05:10:22 Fracture of great toe 845750144 Active 2021 Not Available [facility] 4 05:10:22 Neuropat hy 970766551 Active 2022 Not Available [facility] 4 05:10:22 Hypothyr oidism 86185124 Active Not Available [facility] 4 05:10:23 Anxiety 29687979 Active 2018 Not Available [facility] 4 05:10:23 Cough 88224926 Active 2022 Not Available [facility] 4 05:10:23 Coronary arterios clerosis 82906472 Active Not Available [facility] 4 05:10:23 Upper respirat ory infectio n 77611270 Active 2021 Not Available [facility] 4 05:10:23 Essentia l hyperten jacque 98734649 Active Not Available [facility] 4 05:10:23 Urinary tract infectio us disease 58036485 Completed Not Available [facility] 3 01:37:18 Rhinitis 63317505 Completed Not Available [facility] 3 01:37:19 Nodule of lung 638708177 Active 2019 Not Available [facility] 4 05:10:23 Closed fracture of phalanx of foot 52423313 Active 2021 Not Available [facility] 4 05:10:23 Sciatica 50773810 Active 2022 Not Available [facility] 4 05:10:22 Sore throat 607587936 Active 2022 Not Available [facility] 4 05:10:22 Osteopor osis 91744588 Active 2022 Not Available [facility] 4 05:10:23 Pain in throat 178822696 Active 2022 Not Available [facility] 4 05:10:22 Leukopen ia 37637888 Active 2022 Normal work up with hematolo gy Morelia Gudino MD [address], [place], [address] , [facility] [employer] [facility] [employer] [facility] 4 14:34:54 Nausea 414851040 Active 2022 Not Available [facility] 4 05:10:23 Diarrhea 42017957 Active 2022 Not Available [facility] 4 05:10:23 Acute sinusiti s 22529206 Active 2022 Not Available [facility] 4 05:10:22 Microsco pic hematuri a 422308858 Active 2023 had normal work up with urology Morelia Gudino MD [address], [place], [address] , [facility] [employer] [facility] [email or web address] [facility] 4 14:34:08 Female stress incontin ence 57412141 Active 2023 Morelia Gudino MD [address] [email or web address], [place], [address] , [employer] [facility] [email or web address] [facility] 4 14:35:36 Urge incontin ence of urine 14752190 Active 2023 Morelia Gudino MD [address], [place], [address] , [employer] [facility] [email or web address] [facility] 4 14:38:20 Nausea, vomiting and diarrhea 7655295 Active 2023 SARAHI Morales [address], [place], [address] , [employer] [facility] [email or web address] [facility] 4 09:11:48 Dysuria 87654250 Active 2023 SARAHI Morales [address], [place], [address] , [employer] [facility] [email or web address] [facility] 4 09:22:44 Viral gastroen teritis 363820175 Active 2023 SARAHI Morales [address], [place], [address] , [facility] [employer] 4 12:42:59 Problem Notes None recorded. Procedures Surgical History Date Name Laterality Status Provider Name and Address Organization Details Recorded Time 07/22/19 24 Medicare Wellness CPT Code, subsequent completed Catherine Begum RN [facility] [employer] 07/22/2023 14:02:44 04/11/19 21 Most Recent Bone Density completed Not Available [facility] 05/15/2022 01:22:49 07/03/19 18 Date of Last Colonoscopy completed Not Available [facility] 05/15/2022 01:22:49 Tubal Ligation completed Not Available [facility] 05/15/2022 01:22:56 Cardiac Stent Placement completed Not Available [facility] 05/15/2022 01:22:56 Imaging Results Imaging Date Name Status LastModified by Organiz ation Details LastModified Time 05/29/2022 CT, chest, w/o contrast completed [email or web address] [address], [address], 11/06/2023 23:25:53 Procedure Notes None recorded. Medical Equipment None Reported. Allergies Allergen ID Allergen Name Allergen Category Reaction Reaction Severity Criticality Documentation Date Start Date Code Code System Note Provider Name and Address Organization Details Recorded Time 3030 prednison e medicatio n Not available Not available Not available 05/15/2022 8640 RxNorm bilat eral leg swell ing Not Available [facility] 3 01:55:14 Medications Name Sig Start Date Stop Date Status Note LastModified by Organization Details LastModified Time multivitami n tablet TAKE 1 TABLET BY MOUTH EVERY DAY active Not Available Not Available No t Available amoxicillin 500 mg capsule TAKE 1 CAPSULE BY MOUTH THREE TIMES DAILY UNTIL GONE active Not Available Not Available No t Available latanoprost 0.005 % eye drops INSTILL 1 DROP IN EACH EYE EVERY DAY IN THE EVENING active Not Available Not Available No t Available buspirone 5 mg tablet 05/20 completed Not Available Not Available Not Available bupropion HCl SR 150 mg tablet,12 hr sustained-r elease TK 1 T PO BID 10/31 completed Not Available Not Available Not Available prednisone 10 mg tablet Take 1 tablet every day by oral route. active Not Available Not Available No t Available cefuroxime axetil 250 mg tablet TK 1 T PO BID 11/11 completed Not Available Not Available Not Available Carafate 100 mg/mL oral suspension SHAKE LQ AND TK 10 ML PO B MEALS AND HS 04/03 completed Not Available Not Available Not Available albuterol sulfate 2.5 mg/3 mL (0.083 %) solution for nebulizatio n USE 3 ML VIA NEBULIZER EVERY 4 TO 6 HOURS NEEDED active Not Available Not Available No t Available cetirizine 10 mg tablet TAKE 1 TABLET BY MOUTH EVERY DAY active Not Available Not Available No t Available azithromyci n 250 mg tablet TAKE 2 TABLETS (500 MG) BY ORAL ROUTE ONCE DAILY FOR 1 DAY THEN 1 TABLET (250 MG) BY ORAL ROUTE ONCE DAILY FOR 4 DAYS 10/24 completed Not Available Not Available Not Available fluconazole 150 mg tablet 05/20 completed Not Available Not Available Not Available valacyclovi r 1 gram tablet TAKE 1 TABLET EVERY DAY BY MOUTH 06/27 completed Not Available Not Available Not Available hydrocodone 5 mg-acetamin ophen 325 mg tablet TAKE 1-2 TABLETS BY MOUTH EVERY 6 HOURS NEEDED FOR PAIN active Not Available Not Available No t Available ondansetron HCl 4 mg tablet TAKE 1 TABLET BY MOUTH EVERY 8 HOURS active Not Available Not Available No t Available methylpheni date 5 mg tablet TK 1 T PO QAM AND AT NOON 07/10 completed Not Available Not Available Not Available prednisone 20 mg tablet TAKE 2 TABLETS BY MOUTH EVERY DAY FOR 5 DAYS 07/21 completed Not Available Not Available Not Available alendronate 70 mg tablet TAKE 1 TABLET BY MOUTH EVERY WEEK active Not Available Not Available No t Available sertraline 100 mg tablet TAKE 1 TABLET BY MOUTH EVERY DAY active Not Available Not Available No t Available simvastatin 10 mg tablet TAKE 1 TABLET BY MOUTH EVERY DAY active Not Available Not Available No t Available Anucort-HC 25 mg suppository 07/04 completed Not Available Not Available Not Available diphenoxyla te-atropine 2.5 mg-0.025 mg tablet TAKE 1 TO 2 TABLETS BY MOUTH EVERY 6 HOURS NEEDED FOR DIARRHEA active Not Available Not Available No t Available penicillin V potassium 500 mg tablet 04/03 completed Not Available Not Available Not Available acetaminoph en 300 mg-codeine 30 mg tablet TK 1-2 TS PO Q 6 H PRN P 01/07 completed Not Available Not Available Not Available acyclovir 400 mg tablet TAKE 1 TABLET BY MOUTH TWICE DAILY active Not Available Not Available No t Available ciprofloxac in 500 mg tablet active Not Available Not Available Not Available sulfamethox azole 800 mg-trimetho prim 160 mg tablet 05/20 completed Not Available Not Available Not Available peg-electro lyte solution 420 gram oral solution 07/07 completed Not Available Not Available Not Available aspirin 81 mg tablet,golden yed release Take 1 tablet every day by oral route. 2020 active Not Available Not Available Not Avai lable triamcinolo ne acetonide 0.1 % topical cream APPLY TOPICALLY TO THE AFFECTED AREA TWICE DAILY active Not Available Not Available No t Available acyclovir 800 mg tablet TAKE 1 TABLET BY MOUTH EVERY DAY 06/21 completed Not Available Not Available Not Available ondansetron 8 mg disintegrat ing tablet DISSOLVE 1 TABLET ON THE TONGUE THREE TIMES DAILY NEEDED FOR NAUSEA active Not Available Not Available No t Available pantoprazol e 20 mg tablet,golden yed release TK 1 T PO D 04/03 completed Not Available Not Available Not Available levothyroxi ne 75 mcg tablet TK 1 T PO QD active Not Available Not Available No t Available levothyroxi ne 100 mcg tablet TAKE 1 TABLET BY MOUTH EVERY DAY active Not Available Not Available No t Available Tessalon Perles 100 mg capsule Take 2 capsules 3 times a day by oral route for 7 days. 03/04 completed Not Available Not Available Not Available levothyroxi ne 88 mcg tablet TAKE 1 TABLET BY MOUTH EVERY DAY active Not Available Not Available No t Available amoxicillin 875 mg tablet TAKE 1 TABLET BY MOUTH EVERY 12 HOURS FOR 7 DAYS 07/21 completed Not Available Not Available Not Available Nitrostat 0.4 mg sublingual tablet PRN 12/20 completed Not Available Not Available Not Available PreviDent 1.1 % gel USE UTD active Not Available Not Available No t Available ciprofloxac in 0.3 % eye drops INT 1 GTT IN EACH EYE QID FOR 1 WEEK. 10/31 completed Not Available Not Available Not Available simvastatin 20 mg tablet TAKE 1 TABLET BY MOUTH EVERY DAY active Not Available Not Available No t Available buspirone 10 mg tablet 06/10 completed Not Available Not Available Not Available lidocaine 5 % topical patch 12/05 completed Not Available Not Available Not Available gabapentin 300 mg capsule TAKE 1 CAPSULE BY MOUTH EVERY DAY AT NOON 06/27 completed Not Available Not Available Not Available sertraline 25 mg tablet TK 1 T PO QD 06/10 completed Not Available Not Available Not Available lisinopril 20 mg-hydrochl orothiazide 25 mg tablet TAKE 1 TABLET BY MOUTH DAILY active Not Available Not Available No t Available amoxicillin 250 mg capsule TK 1 C PO Q 8 H TAT 01/07 completed Not Available Not Available Not Available montelukast 10 mg tablet TAKE 1 TABLET BY MOUTH EVERY DAY active Not Available Not Available No t Available acyclovir 200 mg capsule TK 2 CS PO QD FOR GENITAL HERPES 02/28 completed Not Available Not Available Not Available mupirocin 2 % topical ointment APPLY TOPICALLY TO THE AFFECTED AREA TWICE DAILY 05/16 completed Not Available Not Available Not Available azelastine 137 mcg (0.1 %) nasal spray USE 2 SPRAYS IN EACH NOSTRIL TWICE DAILY 12/20 completed Not Available Not Available Not Available budesonide DR - ER 3 mg capsule,del ayed,extend ed release 11/11 completed Not Available Not Available Not Available cefuroxime axetil 500 mg tablet TAKE 1 TABLET BY MOUTH EVERY 12 HOURS FOR 7 DAYS 07/21 completed Not Available Not Available Not Available levofloxaci n 500 mg tablet TK 1 T PO Q 24 H 06/10 completed Not Available Not Available Not Available levofloxaci n 750 mg tablet TAKE 1 TABLET BY MOUTH EVERY DAY FOR 3 DAYS 07/21 completed Not Available Not Available Not Available methylpredn isolone 4 mg tablets in a dose pack FOLLOW PACKAGE DIRECTION S active Not Available Not Available No t Available albuterol sulfate HFA 90 mcg/actuati on aerosol inhaler INHALE 2 PUFFS BY MOUTH EVERY 4 HOURS active Not Available Not Available No t Available norethindro ne (contracept geovany) 0.35 mg tablet 12/08 completed Not Available Not Available Not Available fluticasone propionate 50 mcg/actuati on nasal spray,suspe nsion SHAKE LIQUID AND USE 1 TO 2 SPRAYS IN EACH NOSTRIL TWICE DAILY active Not Available Not Available No t Available sertraline 50 mg tablet TAKE 1 TABLET BY MOUTH EVERY DAY active Not Available Not Available No t Available diazepam 5 mg tablet TAKE 1 TABLET PO BID PRN 07/10 completed Not Available Not Available Not Available amoxicillin 875 mg-potassiu m clavulanate 125 mg tablet TAKE 1 TABLET BY MOUTH TWICE DAILY FOR 7 DAYS 07/21 completed Not Available Not Available Not Available Estrace 0.01% (0.1 mg/gram) vaginal cream APPLY 2 GRAMS PER VAGINA THREE TIMES PER WEEK 11/03 completed Not Available Not Available Not Available moxifloxaci n 0.5 % eye drops INSTILL 1 DROP IN RIGHT EYE FOUR TIMES DAILY FOR 5 DAYS 07/21 completed Not Available Not Available Not Available Benicar HCT 20 mg-12.5 mg tablet TK 1 T PO QD 01/29 completed Not Available Not Available Not Available bupropion HCl XL 150 mg 24 hr tablet, extended release 05/20 completed Not Available Not Available Not Available nitrofurant oin monohydrate /macrocryst als 100 mg capsule TAKE 1 CAPSULE BY MOUTH EVERY 12 HOURS WITH MEALS FOR 5 DAYS. DRINK PLENTY OF FLUIDS active Not Available Not Available No t Available duloxetine 60 mg capsule,del ayed release 07/10 completed Not Available Not Available Not Available chlorhexidi ne gluconate 0.12 % mouthwash RINSE WITH OUNCE BID AFTER BREAKFAST AND AT BEDTIME FOR 30 SECONDS . AVOID RINSING OR EATING FOR 30 MINUTES FOLLOWING TREATMENT 07/04 completed Not Available Not Available Not Available Oysco 500/D 500 mg-5 mcg (200 unit) tablet TAKE 2 TABLETS BY MOUTH EVERY DAY active Not Available Not Available No t Available calcium 600 mg (as carbonate)- vitamin D3 10 mcg (400 unit) tablet TAKE 1 TABLET BY MOUTH TWICE DAILY active Not Available Not Available No t Available Vyvanse 30 mg capsule 07/10 completed Not Available Not Available Not Available PreviDent 5000 Dry Mouth 1.1 % dental paste USE DIRECTED 01/10 completed Not Available Not Available Not Available Lumigan 0.01 % eye drops INT 1 GTT IN EACH EYE QD IN THE CHACE 01/10 completed Not Available Not Available Not Available Vicodin 5 mg-300 mg tablet TK 1 TO 2 TS PO Q 4 TO 6 H PRN P MAX OF 8 TABLETS PER 24 HOURS 11/03 completed Not Available Not Available Not Available Breo Ellipta 100 mcg-25 mcg/dose powder for inhalation INHALE 1 PUFF PO QD 04/03 completed Not Available Not Available Not Available Fluzone High-Dose Quad 2020-21 (PF) 240 mcg/0.7 mL IM syringe PHARMACY ADMINISTE RED 05/23 completed Not Available Not Available Not Available COVID-19 At-Home Test kit Use as directed 2022 active Not Available Not Available Not Avai lable Vitals Date Recorded Body height Body mass index (BMI) Body weight Body temperature Heart rate Systolic blood pressure Diastolic blood pressure Provider Name and Address Organization Details Last Updated DateTime 3 160.02 cm 27.6 kg/m2 24927.4 1 g 98.2 [degF] 76 /min 112 mm[Hg] 72 mm[Hg] Dedra dupree RN [facility] [employer] [facility] 3 15:06:12 Date Recorded Body height Body mass index (BMI) Body weight Body temperature Heart rate Oxygen saturation Oxygen saturation in Arterial blood by Pulse oximetry Systolic blood pressure Diastolic blood pressure Provider Name and Address Organization Details Last Updated DateTime 3 160.02 cm 28.2 kg/m2 80274.1 9 g 97.8 [degF] 68 /min 96 % 96 % 122 mm[Hg] 70 mm[Hg] Catherine Begum RN [facility] [employer] [facility] 3 09:26:32 Date Recorded Body height Body mass index (BMI) Body weight Body temperature Heart rate Oxygen saturation Oxygen saturation in Arterial blood by Pulse oximetry Systolic blood pressure Diastolic blood pressure Provider Name and Address Organization Details Last Updated DateTime 4 160.02 cm 28.3 kg/m2 75602.7 8 g 97.2 [degF] 67 /min 98 % 98 % 120 mm[Hg] 74 mm[Hg] Catherine Begum RN [facility] [employer] [facility] 4 14:04:52 Date Recorded Body height Body mass index (BMI) Body weight Body temperature Heart rate Oxygen saturation Oxygen saturation in Arterial blood by Pulse oximetry Systolic blood pressure Diastolic blood pressure Provider Name and Address Organization Details Last Updated DateTime 4 160.02 cm 27.5 kg/m2 23848.8 2 g 97.4 [degF] 69 /min 94 % 94 % 128 mm[Hg] 74 mm[Hg] Griselda Galvin RN [place] - [employer] 4 09:06:26 Date Recorded Body height Body mass index (BMI) Body weight Body temperature Heart rate Oxygen saturation Oxygen saturation in Arterial blood by Pulse oximetry Systolic blood pressure Diastolic blood pressure Provider Name and Address Organization Details Last Updated DateTime 4 160.02 cm 27.3 kg/m2 97523.2 2 g 97.7 [degF] 79 /min 95 % 95 % 122 mm[Hg] 76 mm[Hg] TIMOTHY Zacarias - [employer] 4 12:34:49 Social History Question Answer Notes LastModified by Organization Details LastModified Time Tobacco Smoking Status Former Smoker quit 01/[address] [facility] 05/15/2022 01:18:30 Do You Have An Advance Directive? No Information Provided MIGRATION.903 [id number] Information not available 05/15/2022 What Is Your Level Of Alcohol Consumption? Occasional MIGRATION.008 [id number] Information not available 05/15/2022 Are You Blind Or Do You Have Difficulty Seeing? No MIGRATION.538 4944451 Information not available 05/15/2022 What Is Your Level Of Caffeine Consumption? Moderate MIGRATION.437 1827329 Information not available 05/15/2022 How Much Tobacco Do You Chew? None MIGRATION.518 8249101 Information not available 05/15/2022 In The 14 Days Before Symptom Onset, Have You Had Close Contact With A Laboratory-conf irmed COVID-19 While That Case Was Ill? No MIGRATION.134 8474749 Information not available 05/15/2022 In The 14 Days Before Symptom Onset, Have You Had Close Contact With A Person Who Is Under Investigation For COVID-19 While That Person Was Ill? No MIGRATION.945 [id number] Information not available 05/15/2022 Are You Currently Employed? No [email or web address] Information not available 10/24/2022 Are You Deaf Or Do You Have Serious Difficulty Hearing? No MIGRATION.815 8277863 Information not available 05/15/2022 What Type Of Diet Are You Following? REGULAR MIGRATION.042 5654021 Information not available 05/15/2022 Which Illicit Or Recreational Drugs Have You Used? None MIGRATION.951 7102407 Information not available 05/15/2022 Do You Or Have You Ever Used E-cigarettes Or Vape? Never Used Electronic Cigarettes MIGRATION.307 5498181 Information not available 05/15/2022 What Is The Highest Grade Or Level Of School You Have Completed Or The Highest Degree You Have Received? 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 No MIGRATION.428 8757791 Information not available 05/15/2022 What Is The Fluoride Status Of Your Home? Unknown MIGRATION.755 6283068 Information not available 05/15/2022 When Did You Quit Smoking? 1-5yearssincelastc igarette MIGRATION.454 1815643 Information not available 05/15/2022 Are There Any Guns Present In Your Home? No MIGRATION.606 1109567 Information not available 05/15/2022 Do You Use Insect Repellent Routinely? Yes MIGRATION.983 8354490 Information not available 05/15/2022 Where Do You Live? SingleLevelHouse With Basement MIGRATION.775 4145099 Information not available 05/15/2022 Do You Have A Medical Power Of Building Components Designer? No MIGRATION.202 4502215 Information not available 05/15/2022 What Was The Date Of Your Most Recent Tobacco Screening? 01/21/2023 Information not available 01/21/2023 What Is Your Current Pack Years? 30ormorepackyears MIGRATION.369 5146158 Information not available 05/15/2022 Have You Ever Been Counseled For Unhealthy Alcohol Use? No MIGRATION.868 7050660 Information not available 05/15/2022 Do You Have Any Pets? No MIGRATION.441 7975308 Information not available 05/15/2022 What Is Your Relationship Status? MIGRATION.517 6610020 Information not available 05/15/2022 Do You Use Your Seat Belt Or Car Seat Routinely? Yes MIGRATION.007 3377090 Information not available 05/15/2022 Do You Have Smoke And Carbon Monoxide Detectors In Your Home? Yes MIGRATION.339 5043007 Information not available 05/15/2022 At What Age Did You Start Smoking Tobacco? 20 MIGRATION.439 0941305 Information not available 05/15/2022 Are You Passively Exposed To Smoke? No MIGRATION.155 1920058 Information not available 05/15/2022 Do You Or Have You Ever Used Smokeless Tobacco? Never Used Smokeless Tobacco MIGRATION.867 6934095 Information not available 05/15/2022 Are There Any Smokers In Your House? No MIGRATION.209 5008338 Information not available 05/15/2022 How Much Tobacco Do You Smoke? No MIGRATION.030 8260403 Information not available 05/15/2022 What Types Of Sporting Activities Do You Participate In? None MIGRATION.130 5472827 Information not available 05/15/2022 Do You Feel Stressed (tense, Restless, Nervous, Or Anxious, Or Unable To Sleep At Night)? [id number] MIGRATION.863 7261009 Information not available 05/15/2022 Do You Use Any Illicit Or Recreational Drugs? No MIGRATION.079 7216462 Information not available 05/15/2022 Do You Use Sunscreen Routinely? Yes MIGRATION.361 9351045 Information not available 05/15/2022 Has Tobacco Cessation Counseling Been Provided? No MIGRATION.796 5235108 Information not available 05/15/2022 Have You Recently Traveled Abroad? No MIGRATION.135 1104636 Information not available 05/15/2022 Do You Have Any Dietary Restrictions? No MIGRATION.328 5425533 Information not available 05/15/2022 Do You Or Have You Ever Used Any Other Forms Of Tobacco Or Nicotine? No MIGRATION.190 2267673 Information not available 05/15/2022 Sex: Female Functional Status Question Answer Note LastModified by Organizat ion Details LastModified Time Do you have difficulty walking or climbing stairs? No MIGRATION.[id number] 026 Information not available 05/15/2022 Do you have transportation difficulties? No MIGRATION.3899600 026 Information not available 05/15/2022 Are you able to walk? YESWOREST MIGRATION.5615423 026 Information not available 05/15/2022 Do you have difficulty doing errands alone? No MIGRATION.8632304 026 Information not available 05/15/2022 Are you able to care for yourself? Yes MIGRATION.4653304 026 Information not available 05/15/2022 Do you have difficulty dressing or bathing? No MIGRATION.4230666 026 Information not available 05/15/2022 What is your exercise level? Occasional MIGRATION.0459344 026 Information not available 05/15/2022 Mental Status Question Answer Note LastModified by Organizat ion Details LastModified Time Do you have difficulty concentrating, remembering or making decisions? No MIGRATION.[id number] 6 Information not available 05/15/2022 Family History Relationship Description Onset Age of this Age Resolved Age Notes LastModified by Organization Details LastModified Time Mother Rupture of aorta [email or web address] Not available 11/2023 12:28:57 Father Myocardial infarction MIGRATION.083 [id number] Not available 05/15/2022 01:23:04 Medical History Condition Response NERVE DISEASE N BLINDNESS N RHEUMATIC FEVER N KIDNEY STONES N BLADDER PROBLEMS N OTHER # 1 N POLIO N LUNG DISEASE/DISORDER Y RADIATION / CHEMOTHERAPY N COPD N Other # 2 N BLOOD DISEASES N SURGERY N EAR OR HEARING PROBLEMS N MUMPS N BOWEL PROBLEMS N DEPRESSION (INCLUDING POST ) N STROKE/TIA N ULCERS N BENIGN PROSTATIC HYPERPLASIA N MEASLES N MYOCARDIAL INFARCTION N OBESITY N GERD/NAUSEA N ANEURYSM N URINARY/BLADDER/KIDNEY PROBLEMS N INPATIENT PSYCH CARE N CORONARY ARTERY DISEASE (CAD) Y ADDICTION CONCERNS N ENDOMETRIOSIS N Impotence N USE OF BLOOD THINNERS N SKIN PROBLEMS N GASTROINTESTINAL DISORDER N PERIPHERAL VASCULAR DISEASE N MUSCLE,JOINT OR BONE PROBLEMS N GASTROINTESTINAL BLEEDING N BLOOD CLOTS N ASTHMA N CATARACTS N ERECTILE DYSFUNCTION N VARICOSITIES N GI PROBLEMS N Low Testosterone N INFERTILITY N AIDS/HIV N LIVER DISEASE N MALE HYPOGONADISM N HYPERTENSION Y Deficiency N ANXIETY DISORDER Y BLOOD TRANSFUSION N ANEMIA/BLOOD DISORDER N CHRONIC EAR INFECTIONS N BRONCHITIS Y TUBERCULOSIS N GLAUCOMA N FOOT PROBLEM N DIVERTICULITIS N SLEEP APNEA N CHICKENPOX N INFECTIOUS DISEASE N HEART ARRHYTHMIA N PROSTATE N INSOMNIA N HIGH CHOLESTEROL / HYPERLIPIDEMIA Y HYPERTHYROIDISM N EYE PROBLEMS N NEUROLOGICAL PROBLEMS N EDEMA N CHRONIC PAIN SYNDROME N HYPOTHYROIDISM Y CAROTID BLOCKAGE N CONSTIPATION N BACK / NECK PROBLEMS N HAVE YOU BEEN HOSPITALIZED OR SEEN IN [facility] IN THE PAST YEAR ? N ATHEROSCLEROSIS N BREAST PROBLEMS N DIALYSIS N ECZEMA N OSTEOPOROSIS N ARTHRITIS N APPENDICITIS N DIABETES, TYPE N BAD TEETH N ENT N HEARTBURN / REFLUX Y AUTISM SPECTRUM DISORDER (ASD) N HEPATITIS / LIVER DISEASE N PULMONARY DISEASE N GOUT N SLEEP DISORDER N ALZHEIMER'S DISEASE N Brain Problems N HERPES Y DEMENTIA N HEADACHES/MIGRAINES N SEIZURES/EPILEPSY N VASCULAR DISEASE N PACEMAKER N Blood Disorder N DIZZINESS N HEART DISEASE/HEART PROBLEMS N KIDNEY DISEASE N MULTIPLE SCLEROSIS N CARDIAC ARRHYTHMIA N CANCER: SPECIFY N ANESTHESIA COMPLICATIONS N ATRIAL FIBRILLATION N Gall Stones N PULMONARY EMBOLISM N AUTOIMMUNE DISEASE N Gynecological History Statement/Question Response Date of Last Pap Date of Last Mammogram Date of Last Colonoscopy 07/02/2017 Most Recent Bone Density 04/11/2020 Obstetrics History GPAL:G 0 P 0 0 0 0 Immunizations Vaccine Type Date Status Note Provider Nam e and Address Organization Details Recorded Time COVID-19, mRNA, LNP-S, PF, 30 mcg/0.3 mL dose 1 completed Not Available [facility] 04/09/2023 05:10:23 Influenza, split virus, trivalent, preservative 9 completed Not Available [facility] 04/09/2023 05:10:23 COVID-19, mRNA, LNP-S, PF, 30 mcg/0.3 mL dose 1 completed Not Available [facility] 04/09/2023 05:10:23 Influenza, high-dose, quadrivalent, PF 0 completed Not Available [facility] 04/09/2023 05:10:23 pneumococcal polysaccharide PPV23 2 completed Not Available [facility] 04/09/2023 05:10:23 Influenza, high-dose, trivalent, PF 8 completed Not Available [facility] 04/09/2023 05:10:23 Influenza, high-dose, trivalent, PF 7 completed Not Available [facility] 04/09/2023 05:10:23 Pneumococcal conjugate PCV 13 4 completed Not Available [facility] 04/09/2023 05:10:23 Past Encounters Encounter ID Performer Location Encounter Start Date Encounter Closed Date Diagnosis/Indication Diagnosis SNOMED-CT Code Diagnosis ICD10 Code Diagnosis Note [id number] [facility] Internal Med Aleena armendariz [address] [facility] [place] [address] 05/23/2020 00:00:00 05/23/2020 20:38:38 [id number] S_[facility] General Surgery [address], [address] [place] [address] 06/13/2020 00:00:00 06/13/2020 14:17:10 [id number] [facility] Internal Med [place] [address] [place] [address] y , [place] [address] 11/14/2020 00:00:00 11/20/2020 13:06:17 [id number] [facility] Internal Med [place] [address] [place] [address] y , [place] [address] 03/13/2021 00:00:00 03/15/2021 14:00:57 [id number] [facility] Internal Med [place] [address] [place] [address] y , [place] [address] 05/01/2021 00:00:00 05/12/2021 20:33:11 [id number] [facility] Internal Med [place] [address] [place] [address] y , [place] [address] 06/21/2021 00:00:00 06/21/2021 22:19:05 [id number] [facility] Podiatry [address], [address] [address] 06/25/2021 00:00:00 07/12/2021 13:49:39 [id number] [facility] Podiatry [address], [address] [address] 2021 00:00:00 2021 12:56:02 [id number] [facility] Internal Med [place] [address] [place] [address] y , [place] [address] 08/16/2021 00:00:00 09/17/2021 21:59:01 [id number] [facility] Internal Med [place] [address] [place] [address] [place] [address] 12/20/2021 00:00:00 12/20/2021 22:45:32 [id number] Diane Vitale MD [facility] Internal Med [place] [address] [place] [address] y , [place] [address] 05/16/2022 15:06:49 05/16/2022 16:06:01 Essential hypertension 08756185 I10 Nodule of lung 211064288 R91.1 Sciatica 70763274 M54.31 Anxiety 53677215 F41.9 Hypothyroidism 66833330 E03.9 [id number] Diane Vitale MD [facility] Internal [facility] [place] [address] [facility] y [facility] [place] [address] 06/27/2022 14:59:20 06/27/2022 16:14:33 Anxiety 60705648 F41.9 Nodule of lung 884844254 R91.1 Coronary arteriosclerosis 40534981 I25.10 Essential hypertension 58151028 I10 Sciatica 03253041 M54.31 [id number] Diane Vitale MD [facility] Internal Med [place] [address] [place] [address] Mic[place] [facility] [facility] [place] [address] 10/24/2022 14:57:05 10/24/2022 16:00:53 Essential hypertension 46375594 I10 Hypothyroidism 01216135 E03.9 Long-term drug therapy 664621665 Z79.899 Coronary arteriosclerosis 97497715 I25.10 Anxiety 23902719 F41.9 [id number] Morelia Gudino MD [facility] Primary Care [address] [place] [address] 01/21/2023 09:17:38 01/21/2023 10:05:15 Pain in throat 826963202 R07.0 take home covid test Coronary arteriosclerosis 86461831 I25.10 s/p cardiac stentsees Dr. Giles Osteoporosis 63993768 M8 1.0 DEXA 11/06starte d fosamax this yeardaily walking Essential hypertension 29897143 I10 stable Hypothyroidism 62725489 E03.9 stable Long-term drug therapy 176079535 Z79.944 [id number] Morelia Gudino MD [facility] Primary Care [facility] [address] [facility] [address] [facility] [place] [address] 07/22/2023 14:00:05 07/22/2023 14:59:21 Adult health examination 596855547 Z00.00 Mammogram done 8/23DEXA done 11/06RSV given 02/06Covid given 02/06Flu vaccine annuallyPr evnar 13 given 01/28Shing les series given 10/06, 01/06Pneum ovax 23 given 01/05Colon oscopy referral given Screening for disorder 698559341 Z13.9 Osteoporosis 73535367 M8 1.0 DEXA 11/06starte d fosamax this yeardaily walking 07/22/23: was on fosamax but had to d/c while having dental work doneshe is not done yet with dental workwill restart fosamax when dental work is completede clines referral to endocrinol ogycontinu e daily walking Screening for malignant neoplasm of colon 355729600 Z12.11 Coronary arteriosclerosis 48427893 I25.10 Z79.899 E78.5 s/p cardiac stentsees Dr. 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 Primary Care [facility] [address] [employer] [facility] [address] [place] [address] 09/26/2023 09:01:02 09/26/2023 09:46:40 Nausea, vomiting and diarrhea 1552282 R19.7 recently seen in UC for diarrhea and nauseawas given antibiotic s, completedw as given nausea medsdiarrh ea and nausea has resolvedco lonoscopy scheduled for end october Nodule of lung 969884025 R91.1 Dysuria 89903002 R30.0 [id number] SIRENA Morales-Sunil [facility] Primary Care [facility] [address] [employer] [facility] [address] [place] [address] 10/24/2023 12:27:28 10/24/2023 12:57:05 Viral gastroenteritis 030871984 A08.4 Anxiety 35326877 F41.9 currently uses sertraline 50mgfinds that it doesn't help on most daysincrea sing to sertraline 100mg Health Concerns Section Related Observation LastModified by Organization Detai ls LastModified Time None Recorded Concern Status LastModified by Organization Details LastModified Time None Recorded Advance Directives Directive N: Information provided Payers Encounter Date Sequence Insurance Name Policy Number Policy Roth Covered Member ID Roth Member ID Guarantor Name 10/24/2022 1 [place] Liz D Warrington [id number] Liz Yoanna Warrington 10/24/2022 2 [employer] LIFE [employer] (MEDICARE SUPPLEMENT) Liz D Warrington [id number] Liz Yoanna Warrington 01/21/2023 1 [place] Liz D Warrington [id number] Liz Yoanna Warrington 01/21/2023 2 [employer] LIFE [employer]URANCE [employer] (MEDICARE SUPPLEMENT) Liz D Warrington [id number] Liz Yoanna Warrington 07/22/2023 1 [place] Liz D Warrington [id number] Liz Yoanna Warrington 07/22/2023 2 [employer] LIFE INSURANCE [employer] (MEDICARE SUPPLEMENT) Liz D Warrington [id number] Liz Yoanna Warrington 09/26/2023 1 [place] Liz D Warrington [id number] Liz Yoanna Warrington 09/26/2023 2 [employer] LIFE INSURANCE [employer] (MEDICARE SUPPLEMENT) Liz D Warrington [id number] Liz Yoanna Warrington 10/24/2023 1 [place] Liz D Warrington [id number] Liz Yoanna Warrington 10/24/2023 2 [employer] LIFE [employer]URANCE [employer] (MEDICARE SUPPLEMENT) Liz D Warrington [id number] Liz Yoanna Warrington Notes Date Note Type Note Provider Name and Address Organization Details Recorded Time 10/24/2022 text/html hypertension no headache or dizzines LDCT largely unchanged maybe a little bit of fibrosi CAD no chest pain anxiety stabl dyslipidemia following low-fat diet. Hypothyroid no heat or cold intolerance and her anxiety stable Diane Vitale MD [address] [place] [address], [address], [place], [address], [employer] [facility] [employer] [facility] 01/12/2023 17:18:44 01/21/2023 text/html Here to ree rnig, started feeling a bit sick over weekend. Yesterday had hoarse voice. She found some old levofloxacin 750 mg and took 1 yesterday. She was able to cough up some sputum yesterday. Morelia Gudino MD [address], [address], [place], [address], [facility] [employer] [facility] [email or web address] [facility] 02/11/2023 21:04:43 07/22/2023 text/html Here for wellnes s exam increased urinary frequency, but not urinating as much at a timeno dysuria, no hematuria but she has h/o microscopic hematuria and had normal work up in past she has h/o stress incontinence, considered bladder lift in the past Morelia Gudino MD [address], [address], [place], [address], [employer] [facility] [email or web address] [facility] 08/03/2023 13:07:13 09/26/2023 text/html pt is here for U C f/u SARAHI Morales [address], [place], [address], [employer] [facility] [email or web address] [facility] 09/26/2023 09:26:08 10/24/2023 text/html pt is here for f/u SARAHI Velasquez [address], [address], [place], [address], [employer] [facility] [email or web address] [facility] 10/24/2023 12:55:11 OBGyn Episode No OBEpisode recorded.
--- OUTSIDE RECORDS SUMMARY | 2024-06-28 15:53 | XMS_ITS | CONTINUITY OF CARE DOCUMENT ---
Author Name joanne rubio Address Unknown Organization [facility] Address [address] [facility] [address] [place] [address] Phone [phone] Care Team Providers Care Hide Or Skin Buffer Name Role Phone Tisha MAYES, Wallace Unavailable [phone] DIANE COURTNEY MD Unavailable BALWINDER MAYES, BERTIN Unavailable [phone] PROBLEMS Condition Status Date Provider Notes HYPOTHYROIDISM active Fe Stahlschmidt OBESITY active Fe Stahlschmidt DEPRESSION active Fe Stahlschmidt HTN ESSENTIAL active Fe Stahlschmidt CAD active Fe Stahlschmidt Hyperlipidemia active Wallace Giles MD TOBACCO USE active Wallace Giles MD GERD-esophageal reflux active Wallace Giles MD Shortness of breath active 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 COPD active Irlanda Ventimiglia 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 ENCOUNTERS Date Type Provider Location Encounter Diag nosis - In-person encounter Office Visit Wallace Giles MD [facility] - In-person encounter Office Visit Wallace Giles MD [facility] COPD - In-person encounter Office Visit Wallace Giles MD [facility] - In-person encounter Office Visit Wallace Giles MD [facility] Shortness of breath - In-person encounter Office Visit Wallace Giles MD [facility] - In-person encounter Office Visit Wallace Giles MD [facility] - In-person encounter Office Visit Wallace Giles MD [facility] - In-person encounter Office Visit Wallace Giles MD [facility] Hyperlipidemia - In-person encounter Office Visit Wallace Giles MD [facility] - In-person encounter Office Visit Wallace Giles MD [facility] - In-person encounter Office Visit Wallace Giles MD [facility] GERD-esophageal reflux - In-person encounter Office Visit Candice Mejía MD [facility] - In-person encounter Office Visit Wallace Giles MD [facility] - In-person encounter Office Visit Wallace Giles MD [facility] - In-person encounter Office Visit Wallace Giles MD [facility] - In-person encounter Office Visit Wallace Giles MD [facility] TOBACCO USE - In-person encounter Office Visit Wallace Giles MD [facility] - In-person encounter Office Visit Wallace Giles MD [facility] - In-person encounter Office Visit Wallace Giles MD [facility] - In-person encounter Office Visit Wallace Giles MD [facility] - In-person encounter Office Visit Wallace Giles MD [facility] VITAL SIGNS Date Observation Value Provider Body Mass Index (Ratio) 26.62 kg/m2 Estevan Giles MD blood pressure, diastolic 74 mm[Hg] Randi lea Lynn blood pressure, systolic 133 mm[Hg] Monica steele Lynn oxygen saturation, oximetry 97 % Kiara Lynn pulse rate 61 /min Kiara Lynn respiratory rate E&M 12 /[facility] [lb_av] [facility] height E&M 65 [in_i] [facility] blood [facility], cuff size regular Randi lea Lynn Body Mass Index (Ratio) 26.62 kg/m2 Estevan Giles MD blood pressure, diastolic 70 mm[Hg] Randi lea Lynn blood pressure, systolic 124 mm[Hg] [facility], oximetry 97 % [facility] pulse [facility] 62 /min [facility] respiratory rate E&M 12 /min [facility] weight E&M 160 [lb_av] [facility] height E&M 65 [in_i] [facility] blood [facility], cuff size regular Randi lea Lynn blood pressure, diastolic 71 mm[Hg] nkLog blood pressure, systolic 120 mm[Hg] Erica kLog Body Mass Index (Ratio) 26.46 kg/m2 Estevan Giles MD blood pressure, cuff size regular Ja rret blood pressure, diastolic 71 mm[Hg] Ja rret blood pressure, systolic 120 mm[Hg] Jar ret pulse rate 63 /min Ken respiratory rate E&M 12 /min Ken oxygen saturation, oximetry 97 % Ken weight E&M 159 [lb_av] Ken y height E&M 65 [in_i] Ken y Body Mass Index (Ratio) 26.79 kg/m2 Estevan Giles MD blood pressure, diastolic 70 mm[Hg] Li nkLogic blood pressure, systolic 121 mm[Hg] Erica kLogic oxygen saturation, oximetry 95 % Peggy [place] pulse rate 63 /min Peggy Lexi perez blood pressure, diastolic 70 mm[Hg] Nona thomas [place] blood pressure, systolic 121 mm[Hg] [facility] nisreen [place] respiratory rate E&M 16 /min Daly jenny [place] blood pressure, cuff size large Nona thomas [place] weight E&M 161 [lb_av] Peggy perez height E&M 65 [in_i] Peggy perez Body Mass Index (Ratio) 27.62 kg/m2 Estevan Giles MD blood pressure, diastolic 70 mm[Hg] Li nkLogleatha blood pressure, systolic 110 mm[Hg] Erica Bermudezleatha blood pressure, cuff size large Tr gopal Sosa blood pressure, diastolic 70 mm[Hg] Tr gopal Sosa blood pressure, systolic 110 mm[Hg] Try misha Sosa oxygen saturation, oximetry 95 % Artemio Sosa respiratory rate E&M 18 /min Artemio Sosa pulse rate 70 /min Artemio Sosa weight E&M 166 [lb_av] Artemio Sosa height E&M 65 [in_i] Artemio Sosa Body Mass Index (Ratio) 26.96 kg/m2 Estevan Giles MD blood pressure, cuff size regular Erich La blood pressure, diastolic 60 mm[Hg] Erich Alvarezuenenfelder blood pressure, systolic 122 mm[Hg] Chung Gomezer oxygen saturation, oximetry 98 % Jacinda Gomezer respiratory rate E&M 18 /min Jacinda Presley gaganenenfelder pulse rate 65 /min Jacinda Metzger lder weight E&M 162 [lb_av] Jacinda Vernone lder height E&M 65 [in_i] Jacinda Metzger er Body Mass Index (Ratio) 24.96 kg/m2 Estevan Giles MD blood pressure, resting Yes Tom Levy weight E&M 150 [lb_av] Flavia Bowser blood pressure, diastolic 66 mm[Hg] Fazal ica Mildred blood pressure, systolic 120 mm[Hg] Santa yulisa Levy oxygen saturation, oximetry 97 % Flavia Levy pulse rate 59 /min Flavia Bowser height E&M 65 [in_i] Flavia Bowser Body Mass Index (Ratio) 24.13 kg/m2 Estevan Giles MD blood pressure, diastolic 80 mm[Hg] Da macho Haseeb blood pressure, systolic 130 mm[Hg] Dac ia Haseeb oxygen saturation, oximetry 96 % Mariana Haseeb respiratory rate E&M 16 /min Mariana V oss pulse rate 67 /min Mariana Haseeb weight E&M 145 [lb_av] Mariana Haseeb height E&M 65 [in_i] Mariana Haseeb Body Mass Index (Ratio) 24.39 kg/m2 Estevan Giles MD blood pressure, diastolic 78 mm[Hg] Fide Brower blood pressure, systolic 129 mm[Hg] Francisca Camarilloshalomerica Brower oxygen saturation, oximetry 97 % Jun Inocente respiratory rate E&M 18 /min Ethan Brower pulse rate 92 /min Jun molinaon weight E&M 146.6 [lb_av] Jun paezon height E&M 65 [in_i] Jun Zamorano on blood pressure, diastolic 70 mm[Hg] Me lozoya Quintanilla blood pressure, systolic 124 mm[Hg] Henna biswas Quintanilla pulse rate 92 /min Morelia Quintanilla oxygen saturation, oximetry 97 % Morelia Quintanilla respiratory rate E&M 15 /min Morelia Quintanilla Body Mass Index (Ratio) 27.12 kg/m2 Marcia heart Quintanilla weight E&M 163 [lb_av] Morelia Quintanilla blood pressure, diastolic 70 mm[Hg] Fide Brower blood pressure, systolic 124 mm[Hg] Francisca Camarilloshalomerica Brower pulse rate 74 /min Jun lopes oxygen saturation, oximetry 94 % Jun Inocente respiratory rate E&M 16 /min Ethan erica Inocente Body Mass Index (Ratio) 27.69 kg/m2 Chiqui Brower weight E&M 166.4 [lb_av] Jun paezon blood pressure, diastolic 92 mm[Hg] Fide Rick Brower blood pressure, systolic 154 mm[Hg] Francisca Brower pulse rate 93 /min Jun Zamorano tracyvladimir oxygen saturation, oximetry 95 % Jun Sarahenson respiratory rate E&M 16 /min LinaBrenda Sarahenson Body Mass Index (Ratio) 28.55 kg/m2 ChiquiKeyonna Brower weight E&M 171.6 [lb_av] Jun schneider blood pressure, diastolic 79 mm[Hg] Fide Brower blood pressure, systolic 135 mm[Hg] Francisca Brower pulse rate 73 /min Jun lopes oxygen saturation, oximetry 95 % Jun Brower respiratory rate E&M 16 /min Ethan Brower Body Mass Index (Ratio) 27.69 kg/m2 Lina Brower weight E&M 166.4 [lb_av] Jun schneider Body Mass Index (Ratio) 28.29 kg/m2 Ash carmelo Lloyd weight E&M 170 [lb_av] Kathy Lloyd blood pressure, diastolic 80 mm[Hg] As carmelo Desai blood pressure, systolic 126 mm[Hg] Jony divina Lloyd pulse rate 100 /min Kathy Lloyd oxygen saturation, oximetry 96 % Kathy Wheelerjose respiratory rate E&M 16 /min Kathy Lloyd blood pressure, diastolic 65 mm[Hg] Aj Perez blood pressure, systolic 108 mm[Hg] Kwasi Perez Body Mass Index (Ratio) 28.06 kg/m2 Maisha Perez pulse rate 74 /min Jeannine Perez oxygen saturation, oximetry 97 % Jeannine Perez respiratory rate E&M 16 /min Jeannine Perez weight E&M 168 [lb_av] Jeannine Perez height E&M 65 [in_i] Jeannine Perez blood pressure, diastolic 73 mm[Hg] Ch alden Rosen blood pressure, systolic 124 mm[Hg] Linda Rosen pulse rate 91 /min Angely Rosen oxygen saturation, oximetry 97 % Angely Rosen respiratory rate E&M 16 /min Angely Rosen weight E&M 160 [lb_av] Angely Rosen blood pressure, diastolic 68 mm[Hg] Fide ballard O'Paul blood pressure, systolic 122 mm[Hg] Francisca holden O'Paul pulse rate 101 /min Caryl O'Paul oxygen saturation, oximetry 99 % Caryl O'Paul respiratory rate E&M 18 /min Caryl O'Paul weight E&M 158 [lb_av] Caryl O'Paul blood pressure, diastolic, left arm 77 mm [Hg] Andrewsjeronimo Bruce MA blood pressure, systolic, left arm 134 mm [Hg] Reba Teo MA blood pressure, diastolic, right arm 74 m m[Hg] Reba Teo WILSON blood pressure, systolic, right arm 132 m m[Hg] Reba Kearneycristhian WILSON blood pressure, diastolic 74 mm[Hg] farhan Dukeslisa [place] blood pressure, systolic 132 mm[Hg] Hellen aviles Teo WILSON pulse rate 91 /min Reba Dukes rn, [place] oxygen saturation, oximetry 96 % Andrewsjeronimo Bruce MA respiratory rate E&M 16 /min Andrewsjeronimo Bruce MA weight E&M 151 [lb_av] Reba Dukes rn, [place] oxygen saturation, oximetry 98 % Latonia Mark MA blood pressure, diastolic 81 mm[Hg] Jessie Mark MA blood pressure, systolic 129 mm[Hg] Mauricio Mark MA pulse rate 68 /min Latonia Mark MA respiratory rate E&M 16 /min Latonia Mark MA weight E&M 149 [lb_av] Latonia Mark MA blood pressure, diastolic 92 mm[Hg] Jessie Mark MA blood pressure, systolic 152 mm[Hg] Mauricio Mark MA pulse rate 69 /min Latonia Mark MA oxygen saturation, oximetry 98 % Latonia Mark MA respiratory rate E&M 18 /min Latonia Mark MA weight E&M 138 [lb_av] Latonia Mark MA weight E&M 140 [lb_av] Salud Arianna blood pressure, diastolic 81 mm[Hg] Fe aniceto [place] blood pressure, systolic 163 mm[Hg] Fel icia [place] pulse rate 73 /min Salud Arianna oxygen saturation, oximetry 99 % Salud [place] respiratory rate E&M 16 /min Salud Arianna ALLERGIES Allergy Name Onset Date Reaction Criticality Status PREDNISONE High Criticality active RESULTS Date Observation Value Provider Reference Range Interpretation Location lipoprotein, beta, serum, point, quantitative, calculated 71 mg/dL [facility] 0-99 HDL cholesterol, serum 57 mg/dL [facility] >39 triglyceride, serum, random 97 mg/dL [facility] 0-149 cholesterol, serum 146 mg/dL [facility] [id number] 3434/05/ 17 thyroid stimulating hormone, serum 0.270 ??IU/ML [facility] 0.270 - 4.200 pro brain natriuretic peptide 178.1 pg/mL [facility] 0.0 - 125.0 High very low density lipoproteins 19.0 mg/dL [facility] 5.0 - 40.0 LDL/HDL (low-density lipoprotein/high-den sity lipoprotein) ratio 1.7 RATIO [facility] - lipoprotein, beta, serum, point, quantitative, calculated 118.0 (?) [facility] 0.0 - 100.0 High HDL cholesterol, serum 68.0 mg/dL [facility] 45.0 - 65.0 High cholesterol, serum 205.0 mg/dL [facility] 0.0 - 200.0 High triglyceride, serum, fasting 95.0 mg/dL [facility] 0.0 - 150.0 anion gap, serum 15.1 [facility] - albumin/globulin ratio, serum 2.9 g/dL [facility] 1.1 - 2.5 High globulin, serum 3.0 [facility] 2.3 - 3.8 urea nitrogen/creatinine ratio, serum 22.5 [facility] - Estimated Glomerular Filtration Rate (calc) 76.5 (?) [facility] 59.0 - chloride, serum 101.9 mmol/L [facility] 98.0 - 107.0 potassium, serum 4.0 mmol/L [facility] 3.5 - 5.1 sodium, serum 145.0 mmol/L [facility] 136.0 - 145.0 creatinine, serum 0.8 mg/dL [facility] 0.5 - 1.0 carbon dioxide, venous blood 28.0 mmol/L [facility] 23.0 - 31.0 albumin, serum 4.7 g/dL [facility] 3.5 - 5.2 calcium, serum 10.6 mg/dL [facility] 8.6 - 10.2 High aspartate aminotransferase (SGOT), serum 24.0 1/L [facility] 0.0 - 32.0 alkaline phosphatase, serum 113.0 1/L [facility] 40.0 - 130.0 alanine aminotransferase (SGPT), serum 24.0 1/L [facility] 0.0 - 33.0 protein, total, serum 7.7 g/dL [facility] 6.6 - 8.7 bilirubin, serum, total 0.5 mg/dL [facility] 0.0 - 1.2 urea nitrogen, blood 18.0 mg/dL [facility] 8.0 - 23.0 blood glucose, random 97.0 mg/dL [facility] 74.0 - 99.0 red blood cell distribution width, size density 40.2 fL [facility] - immature granulocytes, percentage of total cells, blood 0.0 % [facility] - nucleated red blood cells as percent of blood leukocytes 0.0 % [facility] - red blood cell (erythrocyte) count, per high power field 0.0 10*3/UL [facility] - eosinophils as percent of blood leukocytes 2.8 % [facility] - neutrophils as percent of blood leukocytes 29.1 % [facility] - Absolute Neutrophils 1.1 CELLS/UL [facility] 1.5 - 7.8 Low basophils as percent of blood leukocytes 1.1 % [facility] - Absolute Basophils 0.0 CELLS/UL [facility] 0.0 - 0.2 monocytes as percent of blood leukocytes 20.4 % [facility] - Absolute Monocytes 0.7 CELLS/UL [facility] 0.2 - 1.0 lymphocytes as percent of blood leukocytes 46.6 % [facility] - Absolute Lymphocytes 1.7 CELLS/UL [facility] 0.9 - 3.9 mean platelet volume 10.8 (?) [facility] - platelet count 294.0 THOUSAND/ UL [facility] 100.0 - 400.0 mean corpuscular hemoglobin concentration, RBC 34.8 G/DL [facility] 31.0 - 38.0 mean corpuscular hemoglobin, RBC 31.8 pg [facility] 25.0 - 35.0 mean corpuscular volume, RBC 91.3 fL [facility] 75.0 - 100.0 hematocrit, blood 43.1 % [facility] 35.0 - 55.0 hemoglobin, blood 15.0 g/dL [facility] 11.5 - 16.5 erythrocyte count, whole blood 4.7 MILLION/U L [facility] 3.5 - 5.5 hemoglobin A1C, blood, as % of total hemoglobin 5.6 % [facility] 4.0 - 6.0 alanine aminotransferase (SGPT), serum 13 L [facility] aspartate aminotransferase (SGOT), serum 16 1/L [facility] creatinine, serum 0.7 mg/dL [facility] urea nitrogen, blood 20 mg/dL [facility] potassium, serum 4.6 mmol/L [facility] sodium, serum 143 mmol/L [facility] triglyceride, serum, fasting 59 mg/dL [facility] HDL cholesterol, serum 60 mg/dL [facility] LDL cholesterol, serum 98 mg/dL [facility] cholesterol, serum 170 mg/dL [facility] HISTORY OF MEDICATION USE Medication Status Instructions Dates Provider Indications Com ments amoxicillin-pot clavulanate 875-125 mg tablet completed 1 tablet twice a day - Irlanda Ventimiglia 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 Take as directed - Wallace Giles MD Nitrostat 0.4 mg tablet, sublingual active Place 1 tablet under tongue as needed Candice Mejía MD CENTRUM ORAL TABLET active once a day Frank Hawk MD BUSPIRONE HCL 5 MG ORAL TABLET completed as needed - Mariana Membreno SYNTHROID 100 MCG TABS (LEVOTHYROXINE SODIUM) completed 1 tab by mouth daily - Kathy Al 0.01% drops active 1 drop into both eyes every night Frank Hawk MD ESTRACE CREAM completed 3 times a weeek - Jun Brower JENNIFER ALLERGY 60 MG ORAL TABLET completed ONE TAB. DAILY - Flavia Levy SIMVASTATIN 10 MG ORAL TABLET completed ONE TAB. AT BEDTIME - Flavia Levy CRESTOR 10 MG ORAL TABLET completed ONE TAB. DAILY - Angely Rosen CYMBALTA 60 MG ORAL CAPSULE DELAYED RELEASE PARTICLES completed once dialy - Jun Brower LEXAPRO 10 MG ORAL TABLET completed one per day - Reba Bruce MA lisinopril-hydro chlorothiazide 20-25 mg tablet completed Take 1 tablet by mouth once a day - Aidee Hugo LORAZEPAM TABLET completed .5 MG QD - Salud Keller BUPROPION HCL 150MG TABS (BUPROPION HCL TABS) completed take one tablet daily - Caryl Moran'Paul PROTONIX 40 MG ORAL TABLET DELAYED RELEASE completed ONE TAB. DAILY - Latonia Mark MA levothyroxine 75 mcg tablet completed 1 tablet once a day - Irlanda Ventimiglia [facility] ASPIRIN 81 MG ORAL TABLET active 1 tablet once a day Frank Hawk MD ZOCOR 40 MG ORAL TABLET completed ONE TAB. 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 cigar use no Irlanda Ventimig vikash 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 number of years as a smoker 10 years or m ore Irlanda Ventimiglia 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 smoking, date started 2011 Irlanda Ventimiglia 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 smoking history, tot al pack/year 5 Irlanda Ventimiglia 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 smoking history, tot al pack/day 1 Irlanda Ventimiglia 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 cigarette use yes Irlanda Ventimi glia 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 smoking status Former smoker Irlanda Venti miglia 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 personal history of marijuana use no Irlanda Ventimiglia [facility] drug use no Irlanda Ventimig vikash [facility] alcohol use, average drinks per day social Irlanda Ventimiglia [facility] alcohol use yes Irlanda Ventimig vikash [facility] passive cigarette sm andrea exposure no Irlanda Ventimiglia [facility] chewing tobacco use no Irlanda V entimiglia 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 cigar use no Irlanda Ventimig vikash [facility] number of years as a smoker 10 years or m ore Irlanda Ventimiglia 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 smoking, date started 2011 Irlanda Ventimiglia 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 smoking history, tot al pack/year 5 Irlanad Ventimiglia 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 smoking history, tot al pack/day 1 Irlanda Ventimiglia 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 cigarette use yes Irlanda Ventimi glia 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 smoking status Former smoker Irlanda Venti miglia [facility] drug use no Wallace Perez alcohol use, average drinks per day social Wallace Giles MD alcohol use yes Wallace Perez passive cigarette sm andrea exposure no Wallace Giles MD chewing tobacco use no Wallace cha MD cigar use no Wallace Mclaughlin D number of years as a smoker 10 years or m ore Wallace Giles MD smoking, date started 2011 Wallace Giles MD smoking history, tot al pack/year 5 Wallace Giles MD smoking history, tot al pack/day 1 Wallace Giles MD cigarette use yes Wallace Giles MD smoking status Former smoker Wallace dean MD drug use no Irlanda Ventimig vikash [facility] alcohol use, average drinks per day social 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 alcohol use yes Irlanda Ventimig vikash [facility] seatbelt usage 100 % Peggy Jackman physical exercise, frequency, days per week yes Peggy Concepcion caffeine use, averag e drinks per day yes Peggy Concepcion passive cigarette sm andrea exposure no Peggy Concepcion chewing tobacco use no Peggy Concepcion cigar use no Peggy perez number of years as a smoker 10 years or m ore Peggy Concepcion smoking, date started 2011 Larry evgeny Concepcion smoking history, tot al pack/year 5 Peggy Concepcion smoking history, tot al pack/day 1 Peggy Concepcion cigarette use yes Peggy Paulino nd smoking status Former smoker Peggy Menon dequan social history E&M Marital Statu s: L juan daniel alone E thnicity: Smoking History: Katie goodwin is a former smoker. Wallace Giles MD social history reviewed E&M revi ewed - no changes required Wallace Giles MD cigarette use yes Artemio Rojas s smoking status Former smoker Artemio landon social history E&M Marital Statu s: L juan daniel alone E thnicity: Smoking History: Katie goodwin is a former smoker. Wallace Giles MD social history reviewed E&M revi ewed - no changes required Wallace Giles MD smoking status Former smoker Jacinda alcantara social history E&M Marital Statu s: L juan daniel alone E thnicity: Smoking History: P atient currently smokes every day. P atient has been counseled to quit. Wallace Giles MD seatbelt usage 100 % Flavia Castano physical exercise, frequency, days per week yes Flavia Levy caffeine use, averag e drinks per day yes Flavia Levy passive cigarette sm andrea exposure no Flavia Levy smoking/tobacco cess ation, patient education and counseling yes Flavia Levy chewing tobacco use no Flavia Johnson cigar use no Flavia Bowser number of years as a smoker 10 years or m ore Flavia Levy smoking, date started 2011 Flavia Levy smoking history, tot al pack/year 5 Flavia Levy smoking history, tot al pack/day 1 Flavia Levy cigarette use yes Flavia Hoskins smoking status Current every day smoker Jenny Levy social history reviewed E&M revi ewed - no changes required Flavia Levy social history reviewed E&M revi ewed - no changes required Wallace Giles MD social history E&M Marital Statu s: L juan daniel alone E thnicity: Smoking History: Katie goodwin currently smokes every day. P atbetty has been counseled to quit. Wallace Giles MD seatbelt usage 100 % Mariana Membreno physical exercise, frequency, days per week yes Mariana Membreno alcohol counseling no Mariana Adri s alcohol use, average drinks per day social basis only [facility] alcohol use yes Mariana Haseeb caffeine use, averag e drinks per day yes [facility] drug use no Mariana Haseeb smoking/tobacco cess ation, patient education and counseling yes [facility] passive cigarette sm andrea exposure no Mariana Everett chewing tobacco use no Mariana Vo cigar use no [facility] number of years as a smoker 10 years or m ore [facility] smoking, date started 2011 [facility] smoking history, tot al pack/year 5 [facility] smoking history, tot al pack/day 1 [facility] cigarette use yes [facility] smoking status Current every day smoker [facility] social history E&M Marital Statu s: L juan daniel alone E thnicity: Smoking History: P christa currently smokes every day. P atbetty has been counseled to quit. Wallace Giles MD social history reviewed E&M jose r lorenzo - no changes required Wallace Giles MD seatbelt usage 100 % Jun Modi physical exercise, frequency, days per week yes Jun Brower alcohol counseling no Jun Brower alcohol use, average drinks per day social basis only Jun Brower alcohol use yes Jun lopes caffeine use, averag e drinks per day yes Jun Brower drug use no Jun lopes smoking/tobacco cess ation, patient education and counseling yes Jun Brower passive cigarette sm andrea exposure no Jun rBower chewing tobacco use no Adan Brower cigar use no Jun lopes number of years as a smoker 10 years or m ore Jun Brower smoking, date started 2011 Kiesha Brower smoking history, tot al pack/year 5 Jun Brower smoking history, tot al pack/day 1 Jun Brower cigarette use yes Jun schneider smoking status Current every day smoker Lissette Last Inocente smoking history, tot al pack/year 5 Jacinda Abhinav smoking history, tot al pack/year 5 Jacinda Abhinav smoking history, tot al pack/year 4 Alen Watts RN social history reviewed E&M revi ewed - no changes required Wallace Giles MD seatbelt usage 100 % Morelia dean physical exercise, frequency, days per week yes Morelia Quintanilla alcohol counseling no Moreliatrue Rhoades alcohol use, average drinks per day social basis only Morelia Quintanilla alcohol use yes Morelia Quintanilla caffeine use, averag e drinks per day yes Morelia Quintanilla drug use no Morelia Quintanilla smoking/tobacco cess ation, patient education and counseling yes Morelia Quintanilla passive cigarette sm andrea exposure no Morelia Quintanilla chewing tobacco use no Morelia Quintanilla cigar use no Morelia Quintanilla number of years as a smoker 10 years or m ore Morelia Quintanilla smoking, date started 2011 Lala rucker Quintanilla smoking history, tot al pack/year 4 Morelia Quintanilla smoking history, tot al pack/day 1 Morelia Quintanilla cigarette use yes Morelia Quintanilla smoking status Current every day smoker Lissette contreras Dwight smoking history, tot al pack/year 4 Lina Kerr RN social history reviewed E&M revi ewed - no changes required Wallace Giles MD seatbelt usage 100 % JunKeyonna Modi physical exercise, frequency, days per week yes JunKeyonna Sarahenson alcohol counseling no JunKeyonna Sarahenson alcohol use, average drinks per day social basis only Jun Brower alcohol use yes Jun Zamorano moses caffeine use, averag e drinks per day yes Jun Inocente drug use no Jun Zamorano tracyvladimir smoking/tobacco cess ation, patient education and counseling yes JunKeyonna Sarahenson passive cigarette sm andrea exposure no JunKeyonna Sarahenson chewing tobacco use no LinaCarol Brower cigar use no Jun Jaun tracyvladimir number of years as a smoker 10 years or m ore Jun Brower smoking, date started 2011 LinaJose briseida Brower smoking history, tot al pack/day 1 Jun Brower cigarette use yes Jun Tyrel wyatt smoking status Current every day smoker Lissette Hansenbriseida Brower social history reviewed E&M revi ewed - no changes required Candice Mejía MD seatbelt usage 100 % Jun Modi physical exercise, frequency, days per week yes Jun Brower alcohol counseling no Jun Sarahenson alcohol use, average drinks per day social basis only Jun Brower alcohol use yes JunKeyonna Sarahe moses caffeine use, averag e drinks per day yes Jun Brower drug use no Jun Jaun moses smoking/tobacco cess ation, patient education and counseling yes JunKeyonna Brower passive cigarette sm andrea exposure no Jun Sarahenson chewing tobacco use no Adan Brower cigar use no Jun Jaun moses number of years as a smoker 10 years or m ore Jun Brower smoking, date started 2011 Kiesha Brower smoking history, tot al pack/day 1 Jun Brower cigarette use yes Jun schneider smoking status Current every day smoker Lissette Brower social history reviewed E&M revi ewed - no changes required Wallace Giles MD seatbelt usage 100 % Jun Modi physical exercise, frequency, days per week yes Jun Brower alcohol counseling no JunKeyonna Sarahenson alcohol use, average drinks per day social basis only Jun Inocente alcohol use yes Jun Zamorano moses caffeine use, averag e drinks per day yes Jun Brower drug use no JunKeyonna Sarahe moses smoking/tobacco cess ation, patient education and counseling yes Jun Inocente passive cigarette sm andrea exposure no Jun Brower chewing tobacco use no Adan jermaine Inocente cigar use no Jun Zamorano tracyvladimir number of years as a smoker 10 years or m ore Jun Brower smoking, date started 2011 Kiesha Brower smoking history, tot al pack/day 0.5 Jun Inocente cigarette use yes Jun Tyrel vladimir smoking status Current every day smoker Lissette Brower smoking/tobacco cess ation, patient education and counseling yes Wallace Giles MD social history reviewed E&M revi ewed - no changes required Wallace Giles MD smoking, date started 2011 Kathy Desai smoking history, tot al pack/day 1 Kathy Desai cigarette use yes Kathy Desai smoking status Current every day smoker A sydni Desai seatbelt usage 100 % Wallace Giles MD alcohol counseling no Wallace del toro MD drug use no Wallace Perez passive cigarette sm andrea exposure no Wallace Giles MD smoking/tobacco cess ation, patient education and counseling yes Wallace Giles MD chewing tobacco use no Wallace cha MD cigar use no Wallace Perez cigarette use yes Wallace Giles MD social history reviewed E&M reviewed Wallace Giles MD smoking status smoker - current status unknown Tashia Mahan smoking status Smoker Wallace Giles MD social history reviewed E&M reviewed Wallace Giles MD social history reviewed E&M reviewed Wallace Giles MD social history reviewed E&M reviewed Wallace Giles MD social history reviewed E&M reviewed Wallace Giles MD social history reviewed E&M reviewed Wallace iGles MD social history E&M Marital Statu s: L juan daniel alone E thnicity: Wallace Giles MD drug use none Wallace Perez social history reviewed E&M reviewed Wallace Giles MD physical exercise, frequency, days per week yes LinkLogic caffeine use, averag e drinks per day yes [employer]Logic alcohol use, average drinks per day social basis only [employer] number of years as a smoker 10 years or m ore [employer]Logic smoking status Quit LinkLog FUNCTIONAL STATUS Date Observation Value Provider HRA, CV Assess/Plan, Angina (inactive) Management Plan continue current therapy Irlanda PRUITTP HRA, CV Assess/Plan, Angina (inactive) Management Plan continue current therapy Irlanda PRUITTP HRA, CV Assess/Plan, Angina (inactive) Management Plan continue current therapy Wallace Giles MD HRA, CV Assess/Plan, Angina (inactive) Management Plan continue current therapy Wallace Giles MD HRA, CV Assess/Plan, Angina (inactive) Management Plan continue current therapy Wallace Giles MD HRA, CV Assess/Plan, Angina (inactive) Management Plan continue current therapy Wallace Giles MD HRA, CV Assess/Plan, Angina (inactive) Management Plan continue current therapy Wallace Giles MD HRA, CV Assess/Plan, Angina (inactive) Management Plan continue current therapy Wallace Giles MD HRA, CV Assess/Plan, Angina (inactive) Management Plan continue current therapy Wallace Giles MD HRA, CV Assess/Plan, Angina (inactive) Management Plan continue current therapy Candice Mejía MD MENTAL STATUS Date Observation Value Provider assessment of judgme nt and insight E&M Alert and oriented to time, place and person. Mood and affect are normal. Wallace Giles MD assessment of judgme nt and insight E&M Alert and oriented to time, place and person. Mood and affect are normal. Wallace Giles MD assessment of judgme nt and insight E&M Alert and oriented to time, place and person. Mood and affect are normal. Wallace Giles MD assessment of judgme nt and insight E&M Alert and oriented to time, place and person. Mood and affect are normal. Wallace Giles MD assessment of judgme nt and insight E&M Alert and oriented to time, place and person. Mood and affect are normal. Wallace Giles MD assessment of judgme nt and insight E&M Alert and oriented to time, place and person. Mood and affect are normal. Wallace Giles MD assessment of judgme nt and insight E&M Alert and oriented to time, place and person. Mood and affect are normal. 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 continued cessation encouraged Irlanda Wright [facility] [id number],C,L DL 82 on recent labs per PCP. Will continue statin therapy H er updated medication list for this problem includes: Simvastatin 20 Mg Tablet (Simvastatin) ..... 1 tablet once a day Irlanda Wright [facility] [id number],C,c urrently chest pain free. EKG done and reviewed no acute ST/T wave changes. Will update echo. f/u in a year or sooner if needed. H er updated medication list for this problem includes: Lisinopril-hydrochlorothiazide 20-25 Mg Tablet (Lisinopril-hydrochlorothiazide) ..... Take 1 tablet by mouth daily Nitrostat 0.4 Mg Tablet, Sublingual (Nitroglycerin) ..... Place 1 tablet under tongue as needed Irlanda Wright [facility] [id number],C,P christa has had chronic SOB every since PNA in 2018. She has had f/u CT of chest per PCP. She is reporting exertional SOB. Will do f/u echo and PFT. H er updated medication list for this problem includes: Lisinopril-hydrochlorothiazide 20-25 Mg Tablet (Lisinopril-hydrochlorothiazide) ..... Take 1 tablet by mouth daily Orders: 9 9214 MOD 30-39min (CPT-50816) Complete Echo (CPT-67897) F VC - 03193 (12837) F RC - 46200 (31830) D LCO - 75736 (40070) Irlanda Wright [facility] [id number],B, Wallace dean MD [id number],S, Wallace dean MD [id number],S, Wallace dean MD [id number],S, Wallace dean MD [id number],S, Wallace dean MD Cardiology [place] [facility] Cardiology: H er updated medication list for this problem includes: Simvastatin 20 Mg Tablet (Simvastatin) ..... 1 tablet once a day [place] [facility] Cardiology:BP at goa l continue present medication regimen H er updated medication list for this problem includes: Lisinopril-hydrochlorothiazide 20-25 Mg Tablet (Lisinopril-hydrochlorothiazide) ..... Take 1 tablet by mouth daily [place] [facility] Cardiology:No new ch est pain or shortness of breath S he had PET/CT stress that showed small fixed lateral wall defect c ontinues medical management at this time H er updated medication list for this problem includes: Lisinopril-hydrochlorothiazide 20-25 Mg Tablet (Lisinopril-hydrochlorothiazide) ..... Take 1 tablet by mouth daily Nitrostat 0.4 Mg Tablet, Sublingual (Nitroglycerin) ..... Place 1 tablet under tongue as needed Irlanda Shayydom [facility] Cardiology: H er updated medication list for this problem includes: Levothyroxine 88 Mcg Tablet (Levothyroxine) [facility] Cardiology:continued cessation e ncouraged [facility] Cardiology: H er updated medication list for this problem includes: Simvastatin 20 Mg Tablet (Simvastatin) ..... 1 tablet once a day [place] [facility] [facility] Cardiology:severe ob structive airway disease r ecommend f/u PFTs C onsgoleta Tharos study [facility] Cardiology:BP 124/70 well controlled c ontinue present medication regimen H er updated medication list for this problem includes: Lisinopril-hydrochlorothiazide 20-25 Mg Tablet (Lisinopril-hydrochlorothiazide) ..... Take 1 tablet by mouth daily Irlandadaryn Wright [facility] Cardiology:She has r emote history of stents H ad chest discomfort while shoveling snow G najmaen known CAD have recommended PET/CT stress Her updated medication list for this problem includes: Lisinopril-hydrochlorothiazide 20-25 Mg Tablet (Lisinopril-hydrochlorothiazide) ..... Take 1 tablet by mouth daily Nitrostat 0.4 Mg Tablet, Sublingual (Nitroglycerin) ..... Place 1 tablet under tongue as needed [facility] Cardiology Wallace Giles MD Cardiology Wallace Giles MD Cardiology Wallace Giles MD Cardiology Wallace Giles MD Cardiology Wallace Giles MD Cardiology:lifestyle modificatio n encouraged [facility] Cardiology:she quit 12 years ago. continued cessation encouraged [facility] Cardiology:LDL 82 on recent labs per PCP. Will continue statin therapy H er updated medication list for this problem includes: Simvastatin 20 Mg Tablet (Simvastatin) ..... 1 tablet once a day [facility] Cardiology:currently chest pain free. EKG done and reviewed no acute ST/T wave changes. Will update echo. f/u in a year or sooner if needed. H er updated medication list for this problem includes: Lisinopril-hydrochlorothiazide 20-25 Mg Tablet (Lisinopril-hydrochlorothiazide) ..... Take 1 tablet by mouth daily Nitrostat 0.4 Mg Tablet, Sublingual (Nitroglycerin) ..... Place 1 tablet under tongue as needed [facility] Cardiology:Patient h as had chronic SOB every since PNA in 2018. She has had f/u CT of chest per PCP. She is reporting exertional SOB. Will do f/u echo and PFT. H er updated medication list for this problem includes: Lisinopril-hydrochlorothiazide 20-25 Mg Tablet (Lisinopril-hydrochlorothiazide) ..... Take 1 tablet by mouth daily Orders: 9 9214 MOD 30-39min (CPT-44988) C omplete Echo (CPT-90594) F VC - 88513 (18853) F RC - 53140 (41858) D LCO - 30706 (23269) Irlanda Wright 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 Cardiology Wallace Tisha MAYES Cardiology Wallace Giles MD Cardiology Wallace Giles MD Cardiology Wallace Giles MD Cardiology Wallace Giles MD Cardiology Follow up Wallace waters MD Cardiology Follow up Wallace waters MD Cardiology Follow up Wallace waters MD Cardiology Follow up Wallacemarybeth waters MD Cardiology Follow up Wallace waters MD Cardiology Wallace Tisha MAYES Cardiology Wallace Giles MD Cardiology Wallace Giles MD Cardiology Wallace Tisha MAYES Cardiology Wallace Giles MD Cardiology follow up Wallace waters MD Cardiology follow up Wallace waters MD Cardiology follow up Wallace waters MD Cardiology follow up Wallace waters MD Cardiology follow up Wallace waters MD Cardiology Wallace Giles MD Cardiology Wallace Giles MD Cardiology Wallace Tisha MAYES Cardiology Wallace Tisha MAYES Cardiology Wallace Tisha MAYES Cardiology Wallace Giles MD Cardiology Wallace Giles MD Cardiology Wallace Tisha MAYES Cardiology Wallace Giles MD Cardiology Wallace Giles MD Cardiology Wallace Giles MD Cardiology Wallace Giles MD Cardiology Wallace Giles MD Cardiology Wallace Giles MD Cardiology Wallace Giles MD Cardiology Wallace Giles MD Cardiology Wallace Giles MD Cardiology Wallacemarybeth Giles MD Cardiology Wallace Giles MD Cardiology Wallace Giles MD Cardiology Candice Mejía MD Cardiology Candice Mejía MD Cardiology Candice Mejía MD Cardiology Candice Mejía MD Cardiology Wallace Giles MD Cardiology Wallace Giles MD Cardiology Wallace Giles MD Cardiology Wallace Giles MD Cardiology:S/P LA wi th stent 2003 S econd stent 2004 Wallace Giles MD f/u Wallace Giles MD f/u Wallace Giles MD f/u Wallace Giles MD f/u Wallace Giles MD f/u: H er updated medication list for this problem includes: Levothroid 100 Mcg Tabs (Levothyroxine sodium) ..... One tab. daily Wallace Giles MD f/u: H er updated medication list for this problem includes: Aspirin 81 Mg Tabs (Aspirin) ..... One tab. daily Benicar Hct 20-12.5 Mg Tabs (Olmesartan medoxomil-hctz) ..... One tab. daily Orders: E KG (CPT-21279) C omplete Echo (CPT-69335) Wallace Giles MD follow up: O rders: E KG (CPT-59263) Wallace Giles MD follow up: H er updated medication list for this problem includes: Levothroid 100 Mcg Tabs (Levothyroxine sodium) ..... One tab. daily Wallace Giles MD follow up: T he following medications were removed from the medication list: Crestor 10 Mg Tabs (Rosuvastatin calcium) ..... One tab. daily Her updated medication list for this problem includes: Simvastatin 10 Mg Tabs (Simvastatin) ..... One tab. at bedtime BP today: 124/73 Prior BP: 122/68 (04/29/2011) C HOL: 170 (12/04/2007) LDL: 98 (12/04/2007) HDL: 60 (12/04/2007) T (12/04/2007) Wallace Giles MD follow up: H er updated medication list for this problem includes: Levothroid 100 Mcg Tabs (Levothyroxine sodium) ..... One tab. daily Synthroid 25 Mcg Tabs (Levothyroxine sodium) ..... 1 tab by mouth daily Labs Reviewed: C hol: 170 (12/04/2007) HDL: 60 (12/04/2007) LDL: 98 (12/04/2007) T (12/04/2007) Wallace Giles MD follow up: T he following medications were removed from the medication list: Crestor 10 Mg Tabs (Rosuvastatin calcium) ..... One tab. daily Her updated medication list for this problem includes: Aspirin 81 Mg Tabs (Aspirin) ..... One tab. daily Simvastatin 10 Mg Tabs (Simvastatin) ..... One tab. at bedtime BP today: 124/73 Prior BP: 122/68 (04/29/2011) N uclear Stress Findings: 1. Normal Josue protocol exercise tolerance test. 2 . Normal left ventricular size and function with a calculated ejection fraction of 69%. 3 . Myocardial scintigraphy is normal without evidence for previous myocardial infarction or reversible ischemia. CNE (05/13/2011) C ardiac Cath: EF 60%. Progressive CAD with involvement of new LAD lesion. Moderate in-stent restenosis, circumflex artery. Normal LV wall motion systolic function. Successful LAD stent implantation. Successful cutting balloon angioplasty of the circumflex artery with no residual stenosis. (10/21/2003) C ardiac Cath Comments: 2.5 x 12mm Taxus medicated stent LAD (10/21/2003) C HOL: 170 (12/04/2007) LDL: 98 (12/04/2007) HDL: 60 (12/04/2007) T (12/04/2007) B UN: 20 (12/04/2007) Creat: 0.7 (12/04/2007) Na+: 143 (12/04/2007) K+: 4.6 (12/04/2007) Wallace Giles MD follow up: H er updated medication list for this problem includes: Levothroid 100 Mcg Tabs (Levothyroxine sodium) ..... One tab. daily Synthroid 25 Mcg Tabs (Levothyroxine sodium) ..... 1 tab by mouth daily Labs Reviewed: C hol: 170 (12/04/2007) HDL: 60 (12/04/2007) LDL: 98 (12/04/2007) T (12/04/2007) Wallace Giles MD follow up: H er updated medication list for this problem includes: Crestor 10 Mg Tabs (Rosuvastatin calcium) ..... One tab. daily BP today: 122/68 Prior BP: 132/74 (05/10/2010) C HOL: 170 (12/04/2007) LDL: 98 (12/04/2007) HDL: 60 (12/04/2007) T (12/04/2007) Wallace Giles MD follow up: H er updated medication list for this problem includes: Aspirin 81 Mg Tabs (Aspirin) ..... One tab. daily Benicar Hct 20-12.5 Mg Tabs (Olmesartan medoxomil-hctz) ..... One tab. daily Orders: C omplete Echo (CPT-42647) BP today: 122/68 P rior BP: 132/74 (05/10/2010) Labs Reviewed: C reat: 0.7 (12/04/2007) C hol: 170 (12/04/2007) HDL: 60 (12/04/2007) LDL: 98 (12/04/2007) T (12/04/2007) Wallace Giles MD follow up: H er updated medication list for this problem includes: Aspirin 81 Mg Tabs (Aspirin) ..... One tab. daily Crestor 10 Mg Tabs (Rosuvastatin calcium) ..... One tab. daily & #13;Orders: E KG (CPT-48997) S tress Test - Nuclear (20633) C omplete Echo (CPT-96769) BP today: 122/68 Prior BP: 132/74 (05/10/2010) N uclear Stress Findings: 1. Normal Josue protocol exercise tolerance test. 2 . Normal left ventricular size and function with a calculated ejection fraction of 66%. 3 . Myocardial scintigraphy is normal without evidence for previous myocardial infarction or reversible ischemia. CNE (10/17/2009) C ardiac Cath: EF 60%. Progressive CAD with involvement of new LAD lesion. Moderate in-stent restenosis, circumflex artery. Normal LV wall motion systolic function. Successful LAD stent implantation. Successful cutting balloon angioplasty of the circumflex artery with no residual stenosis. (10/21/2003) C ardiac Cath Comments: 2.5 x 12mm Taxus medicated stent LAD (10/21/2003) C HOL: 170 (12/04/2007) LDL: 98 (12/04/2007) HDL: 60 (12/04/2007) T (12/04/2007) B UN: 20 (12/04/2007) Creat: 0.7 (12/04/2007) Na+: 143 (12/04/2007) K+: 4.6 (12/04/2007) Wallace Giles MD follow up: H er updated medication list for this problem includes: Levothroid 100 Mcg Tabs (Levothyroxine sodium) ..... One tab. daily Synthroid 25 Mcg Tabs (Levothyroxine sodium) ..... 1 tab by mouth daily Labs Reviewed: C hol: 170 (12/04/2007) HDL: 60 (12/04/2007) LDL: 98 (12/04/2007) T (12/04/2007) Wallace Giles MD follow up: B P today: 132/74 Prior BP: 129/81 (10/09/2009) C HOL: 170 (12/04/2007) LDL: 98 (12/04/2007) HDL: 60 (12/04/2007) T (12/04/2007) Wallace Giles MD follow up: H er updated medication list for this problem includes: Aspirin 81 Mg Tabs (Aspirin) ..... One tab. daily Benicar Hct 20-12.5 Mg Tabs (Olmesartan medoxomil-hctz) ..... One tab. daily BP today: 132/74 P rior BP: 129/81 (10/09/2009) Labs Reviewed: C reat: 0.7 (12/04/2007) C hol: 170 (12/04/2007) HDL: 60 (12/04/2007) LDL: 98 (12/04/2007) T (12/04/2007) Wallace Giles MD follow up: H er updated medication list for this problem includes: Aspirin 81 Mg Tabs (Aspirin) ..... One tab. daily BP today: 132/74 Prior BP: 129/81 (10/09/2009) N uclear Stress Findings: 1. Normal Josue protocol exercise tolerance test. 2 . Normal left ventricular size and function with a calculated ejection fraction of 66%. 3 . Myocardial scintigraphy is normal without evidence for previous myocardial infarction or reversible ischemia. CNE (10/17/2009) C ardiac Cath: EF 60%. Progressive CAD with involvement of new LAD lesion. Moderate in-stent restenosis, circumflex artery. Normal LV wall motion systolic function. Successful LAD stent implantation. Successful cutting balloon angioplasty of the circumflex artery with no residual stenosis. (10/21/2003) C ardiac Cath Comments: 2.5 x 12mm Taxus medicated stent LAD (10/21/2003) C HOL: 170 (12/04/2007) LDL: 98 (12/04/2007) HDL: 60 (12/04/2007) T (12/04/2007) B UN: 20 (12/04/2007) Creat: 0.7 (12/04/2007) Na+: 143 (12/04/2007) K+: 4.6 (12/04/2007) Wallace Giles MD fo;;ow up: H er updated medication list for this problem includes: Aspirin 81 Mg Tabs (Aspirin) ..... One tab. daily Benicar Hct 20-12.5 Mg Tabs (Olmesartan medoxomil-hctz) ..... One tab. daily BP today: 129/81 P rior BP: 152/92 (02/03/2008) Labs Reviewed: C reat: 0.7 (12/04/2007) C hol: 170 (12/04/2007) HDL: 60 (12/04/2007) LDL: 98 (12/04/2007) T (12/04/2007) Orders: C omplete Echo (CPT-[id number]) Wallace Giles MD fo;;ow up: H er updated medication list for this problem includes: Aspirin 81 Mg Tabs (Aspirin) ..... One tab. daily Orders: E KG (CPT-15942) S tress Test - Nuclear (31421) BP today: 129/81 Prior BP: 152/92 (02/03/2008) N uclear Stress Findings: 1. Normal Josue protocol exercise tolerance test. 2 . Normal left ventricular size and function with a calculated ejection fraction of 75%. 3 . Myocardial scintigraphy is normal without evidence for previous myocardial infarction or reversible ischemia. (01/12/2008) C ardiac Cath: EF 60%. Progressive CAD with involvement of new LAD lesion. Moderate in-stent restenosis, circumflex artery. Normal LV wall motion systolic function. Successful LAD stent implantation. Successful cutting balloon angioplasty of the circumflex artery with no residual stenosis. (10/21/2003) C ardiac Cath Comments: 2.5 x 12mm Taxus medicated stent LAD (10/21/2003) C HOL: 170 (12/04/2007) LDL: 98 (12/04/2007) HDL: 60 (12/04/2007) T (12/04/2007) B UN: 20 (12/04/2007) Creat: 0.7 (12/04/2007) Na+: 143 (12/04/2007) K+: 4.6 (12/04/2007) Wallace Giles MD fo;;ow up: H er updated medication list for this problem includes: Levothroid 100 Mcg Tabs (Levothyroxine sodium) ..... One tab. daily Labs Reviewed: C hol: 170 (12/04/2007) HDL: 60 (12/04/2007) LDL: 98 (12/04/2007) T (12/04/2007) Wallace Giles MD fo;;ow up: B P today: 129/81 Prior BP: 152/92 (02/03/2008) C HOL: 170 (12/04/2007) LDL: 98 (12/04/2007) HDL: 60 (12/04/2007) T (12/04/2007) Wallace Giles MD fo;;ow up: H er updated medication list for this problem includes: Aspirin 81 Mg Tabs (Aspirin) ..... One tab. daily Benicar Hct 20-12.5 Mg Tabs (Olmesartan medoxomil-hctz) ..... One tab. daily BP today: 129/81 P rior BP: 152/92 (02/03/2008) Labs Reviewed: C reat: 0.7 (12/04/2007) C hol: 170 (12/04/2007) HDL: 60 (12/04/2007) LDL: 98 (12/04/2007) T (12/04/2007) Wallace Giles MD fo;;ow up: H er updated medication list for this problem includes: Aspirin 81 Mg Tabs (Aspirin) ..... One tab. daily Orders: E KG (CPT-44430) BP today: 129/81 Prior BP: 152/92 (02/03/2008) N uclear Stress Findings: 1. Normal Josue protocol exercise tolerance test. 2 . Normal left ventricular size and function with a calculated ejection fraction of 75%. 3 . Myocardial scintigraphy is normal without evidence for previous myocardial infarction or reversible ischemia. (01/12/2008) C ardiac Cath: EF 60%. Progressive CAD with involvement of new LAD lesion. Moderate in-stent restenosis, circumflex artery. Normal LV wall motion systolic function. Successful LAD stent implantation. Successful cutting balloon angioplasty of the circumflex artery with no residual stenosis. (10/21/2003) C ardiac Cath Comments: 2.5 x 12mm Taxus medicated stent LAD (10/21/2003) C HOL: 170 (12/04/2007) LDL: 98 (12/04/2007) HDL: 60 (12/04/2007) T (12/04/2007) B UN: 20 (12/04/2007) Creat: 0.7 (12/04/2007) Na+: 143 (12/04/2007) K+: 4.6 (12/04/2007) Wallace Giles MD FU: H er updated medication list for this problem includes: Levothroid 100 Mcg Tabs (Levothyroxine sodium) ..... One tab. daily Labs Reviewed: C hol: 170 (12/04/2007) HDL: 60 (12/04/2007) LDL: 98 (12/04/2007) T (12/04/2007) Wallace Giles MD FU: B P today: 152/92 Prior BP: 163/81 (12/30/2007) C HOL: 170 (12/04/2007) LDL: 98 (12/04/2007) HDL: 60 (12/04/2007) T (12/04/2007) Wallace Giles MD FU: H er updated medication list for this problem includes: Aspirin 81 Mg Tabs (Aspirin) ..... One tab. daily Benicar Hct 20-12.5 Mg Tabs (Olmesartan medoxomil-hctz) ..... One tab. daily B P today: 152/92 P rior BP: 163/81 (12/30/2007) Labs Reviewed: C reat: 0.7 (12/04/2007) C hol: 170 (12/04/2007) HDL: 60 (12/04/2007) LDL: 98 (12/04/2007) T (12/04/2007) Wallace Giles MD FU: H er updated medication list for this problem includes: Aspirin 81 Mg Tabs (Aspirin) ..... One tab. daily BP today: 152/92 Prior BP: 163/81 (12/30/2007) N uclear Stress Findings: 1. Normal Josue protocol exercise tolerance test. 2 . Normal left ventricular size and function with a calculated ejection fraction of 75%. 3 . Myocardial scintigraphy is normal without evidence for previous myocardial infarction or reversible ischemia. (01/12/2008) C ardiac Cath: EF 60%. Progressive CAD with involvement of new LAD lesion. Moderate in-stent restenosis, circumflex artery. Normal LV wall motion systolic function. Successful LAD stent implantation. Successful cutting balloon angioplasty of the circumflex artery with no residual stenosis. (10/21/2003) C ardiac Cath Comments: 2.5 x 12mm Taxus medicated stent LAD (10/21/2003) C HOL: 170 (12/04/2007) LDL: 98 (12/04/2007) HDL: 60 (12/04/2007) T (12/04/2007) B UN: 20 (12/04/2007) Creat: 0.7 (12/04/2007) Na+: 143 (12/04/2007) K+: 4.6 (12/04/2007) Wallace Giles MD : H er updated medication list for this problem includes: Levothroid 100 Mcg Tabs (Levothyroxine sodium) ..... One tab. daily Wallace Giles MD : T he following medications were removed from the medication list: Zocor 40 Mg Tabs (Simvastatin) ..... One tab. at bedtime BP today: 163/81 Prior BP: / () Wallace Giles MD : H er updated medication list for this problem includes: Aspirin 81 Mg Tabs (Aspirin) ..... One tab. daily Orders: E KG (CPT-28928) C omplete Echo (CPT-76644) BP today: 163/81 Wallace Giles MD : T he following medications were removed from the medication list: Zocor 40 Mg Tabs (Simvastatin) ..... One tab. at bedtime Her updated medication list for this problem includes: Aspirin 81 Mg Tabs (Aspirin) ..... One tab. daily Orders: S tress Test - Nuclear (86827) BP today: 163/81 Prior BP: / () N uclear Stress Findings: Excellent exercise tolerance. No EKG changes diagnostic of ischemia at 92% of the maimum predicted heart rate. Normal myocardial perfusion without infarct or ischemia. Normal gated study with LVEF of 50%. (01/29/2006) C ardiac Cath: EF 60%. Progressive CAD with involvement of new LAD lesion. Moderate in-stent restenosis, circumflex artery. Normal LV wall motion systolic function. Successful LAD stent implantation. Successful cutting balloon angioplasty of the circumflex artery with no residual stenosis. (10/21/2003) C ardiac Cath Comments: 2.5 x 12mm Taxus medicated stent LAD (10/21/2003) Wallace Giles MD Date Name LIPID PANEL LIPID PANEL myocardial blood fabien w (PET) Stress Cardiac PET-C T DLCO - 61443 FRC - 37129 FVC - 30050 DLCO - 61035 FRC - 60342 FVC - 37623 Complete Echo TSH, 3RD GENERATION W/REFLEX TO FT4 HEMOGLOBIN A1c CBC (INCLUDES DIFF/P LT) LIPID PANEL COMPREHENSIVE METABO LIC PANEL W/EGFR B TYPE NATRIURETIC P EPTIDE (BNP) Complete Echo Complete Echo Stress Test - Nuclea r Stress Test - Nuclea r Complete Echo Stress Test - Nuclea r Complete Echo Stress Test - Nuclea r HISTORY OF PROCEDURES Procedure Date Procedure Name Provider Procedure Notes S tatus EKG Wallace Giles MD complete d Spirometry Wallace Giles MD complete d FVC / MVV with bronchodilator - 42586 Wallace Giles MD completed BLOOD COUNT HEMOGLOBIN Wallace Giles MD completed FRC - 99604 Wallace Giles MD complet ed SpO2 w/o 6min walk/titration Wallace Giles MD completed SVC - 10825 Wallace Giles MD complet ed DLCO - 39933 Wallace Giles MD comple apolonia EKG Wallace Giles MD complete d EKG Wallace Giles MD complete d EKG Wallace Giles MD complete d EKG Wallace Giles MD complete d SNOMED-CT: 633199253 836373 Current Medications Documented Wallace Giles MD completed SNOMED-CT: 544682454 784960 Current Medications Documented Wallace Giles MD completed SNOMED-CT: 718676366 Smoking Cessation Counseling Wallace Giles MD completed SNOMED-CT: 613774816 743367 Current Medications Documented Wallace Giles MD completed Stress EKG Rogelio Fu MD complete d Regadenoson, 4 units Wallace Giles MD completed Cardiolite, 2 units Wallace Giles MD completed SPECT Images Candice Mejía MD complet ed SNOMED-CT: 71082015 Physical Exam, Performed: Pulse Exam of Foot Candice Mejía MD completed EKG Candice Mejía MD completed SNOMED-CT: 396231021 868999 Current Medications Documented Candice Mejía MD completed SNOMED-CT: 933621862 583991 Current Medications Documented Wallace Giles MD completed SNOMED-CT: 689427448 Smoking Cessation Counseling Wallace Giles MD completed EKG Wallace Giles MD complete d EKG Wallace Giles MD complete d EKG Wallace Giles MD complete d EKG Wallace Giles MD complete d EKG Wallace Giles MD complete d EKG Wallace Giles MD complete d
--- OUTSIDE RECORDS SUMMARY | 2024-06-28 15:53 | XMS_ITS | Referral Summary ---
Author Organization [facility] [address] Address [address] [place] [id number] Care Team Providers Care Parks Recreation Coordinator Name Role Phone Raymond Vitale MD Primary Care Provider + [phone] Allergies Active Allergy Reactions Criticality Noted Date [...] Active Active Problems No known active problems Social History Tobacco Use Types Packs/Day Years Used Date Smoking Tobacco: Former Personal Safety Answer Date Recorded Getting School Help Needed Not on file 04/26 Comments Unknown Sex and Gender Information Value Date Recorded Sex Assigned at Not on file 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 Gender Identity Not on file Sexual Orientation Not on file Last Filed Vital Signs Vital Sign Reading Time Taken Comments Blood Pressure 130/72 04/26/2023 5:37 PM GLOBAL CMO Pulse 63 04/26/2023 5:37 PM GLOBAL CMO Temperature 36.6 C (97.9 F) 04/26/2023 5:37 PM GLOBAL CMO Respiratory Rate 22 04/26/2023 5:37 PM GLOBAL CMO Oxygen Saturation 99% 04/26/2023 5:37 PM GLOBAL CMO Inhaled Oxygen Concentration - - Weight 70.3 kg (155 lb) 04/26/2023 5:37 PM GLOBAL CMO Height 165.1 cm (5' 5 ) 06/16/2021 5:31 PM CDT Body Mass Index 25.79 06/16/2021 5:31 PM CDT Plan of Treatment Not on file Procedures Procedure Name Priority Date/Time Associated Diagnosis [...] signed by: Dr. Joel Ly nh/:06/09/2014 10:37:38 Radio Maintainer: Emperatriz Paez RT (R)(M), [facility] letter sent: Normal Exam Reading location: BI-RADS: 1 Negative [EOD] Narrative 06/09/2014 10:39 AM CDT - TERESA BILATERAL SCREENING W/CAD BILATERAL DIGITAL SCREENING MAMMOGRAM WITH CAD: 06/08/2014 The study was acquired using full field digital technology and interpreted from soft copy. Current study was also evaluated with ICAD version 7.2. COMPARISONS: Comparison is made to exams dated: 06/10/2013 mammogram and 06/03/2012 mammogram - [facility]. BREAST TISSUE: There are scattered areas of fibroglandular density. FINDINGS: No significant masses, calcifications, or other findings are seen in either breast. There has been no significant interval change. Procedure Note Provider, MD Amairani - 08/01/2020 - TERESA BILATERAL SCREENING W/CAD BILATERAL DIGITAL SCREENING MAMMOGRAM WITH CAD: 06/08/2014 The study was acquired using full field digital technology and interpretedfrom soft copy. Current study was also evaluated with ICAD version 7.2. COMPARISONS: Comparison is made to exams dated: 06/10/2013 mammogram and 06/03/2012 mammogram - [facility]. BREAST TISSUE: There are scattered areas of [...] signed by: Dr. Joel Ly nh/:06/09/2014 10:37:38 Radio Maintainer: Emperatriz Paez RT (R)(M), [facility] letter sent: Normal Exam Reading location: BI-RADS: 1 Negative [EOD] us Ethan Mcrae MD IMG MAMMO PROCEDURES Final Result from Last 3 Months or Most Recently Relevant to Health Maintenance Insurance MEDICARE AETNA MEDICARE AETNA Care Teams Parks Recreation Coordinator Relationship Specialty Start Date End Date Raymond Vitale MD PCP - General Internal Medicine 06/16/21
--- OUTSIDE RECORDS SUMMARY | 2024-06-28 15:54 | XMS_ITS | Clinical Summary ---
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 Gender Identity Not on file Sexual Orientation Not on file Plan of Treatment Health Maintenance Due Date Last Done Comments DTAP/TDAP/TD VACCINES (1 - Tdap) 1969 COLORECTAL SCREENING 07/24/1995 Colorectal Cancer Screening 07/24/1995 FIT-DNA Q 3 years 07/24/1995 FIT/FOBT Q 1 year 07/24/1995 Flex Sig/CT Colonography Q 5 years 07/24/1995 PNEUMOCOCCAL VACCINE 50+ YEARS (1 of 1 - PCV) 07/24/19 ZOSTER VACCINE (1 of 2) 2000 BREAST CANCER SCREENING 05/30/2010 05/30/2009 OSTEOPOROSIS SCREENING 07/24/2015 INFLUENZA VACCINE (#1) 2023 RSV VACCINE (60+ or ) (1 - 1-dose 75+ series) 2025 Procedures Procedure Name Priority Date/Time Associated Diagnosis Comments MAMMO SCREENING BILAT Routine 05/30/2009 from Last 3 Months or Most Recently Relevant to Health Maintenance Results * MAMMO SCREENING BILAT (05/30/2009) Anatomical Region Laterality Modality Breast Bilateral Other us Herve Mcrae MD MAMMO ORDERABLES Final Resul t from Last 3 Months or Most Recently Relevant to Health Maintenance
--- OUTSIDE RECORDS SUMMARY | 2024-06-28 15:54 | XMS_ITS | Data Portability ---
Author Organization [facility] Address [address] [place] [address] Care Team Providers Care Dye Expert Name Role Phone KING DUCKWORTH Top Executive Assessment Encounter Date Assessment Date Assessment LastModified by Organization Details LastModified Time 06/05/2021 06/05/2021 IMMANUEL Moore Not available 06/05/2021 22:26:39 Plan of Treatment Reminders Order Date Submit Date Provider Last Modified By Organization Details Last Modified Time Details Appointments None recorded . Lab urinalys is, dipstick 2021 022 [email or web address] In-Office Order, Internal Use Only DO Not Attach Compendium DO Not Attach Compendium, Do Not Delete/merge, [id number] 17:27:43 urinalys is, dipstick 2018 019 meenu In-Office Order, Internal Use Only DO Not Attach Compendium DO Not Attach Compendium, Do Not Delete/merge, [id number] 9 12:58:41 methicil ofelia resistan t staphylo coccus aureus, culture, unspecif ied specimen 2018 019 [place] [facility], [address], [address] [address], [place], [address], 9 16:08:20 Referral None recorded . Procedures None recorded . Surgeries None recorded . [facility] , [place], [address], 3 22:53:32 MAMMO, screenin g, bilatera l 2022 023 [facility], [address] [place], [address], 3 13:23:40 MAMMO, screenin g, bilatera l [email or web address] ([facility]), [address] [place], [address], 2 10:04:21 Medication Orders acyclovi r 400 mg tablet [address] [facility]80, [address], [place], [id number], 3 14:24:06 Calcium 600 with Vitamin D3 600 mg-10 mcg (400 unit) chewable tablet [address] [facility]70, [address], [place], [id number], 3 15:35:28 acyclovi r 400 mg tablet 2021 022 [facility] #97407, [address], [place], [id number], 2 15:46:18 multivit garcia tablet 2018 019 [address] [facility] #78298, [address], [place], [id number], 3 09:26:46 Calcium with Vitamin D 600 mg-10 mcg (400 unit) tablet [address] [facility] #22862, [address], [place], [id number], 14:56:16 norethin drone (contrac eptive) 0.35 mg tablet [address] [facility] #03615, [address], [place], [id number], 14:57:44 sertrali ne 100 mg tablet [address] [facility] #77533, [address], [place], [id number], 14:57:08 Cipro [address] [facility] [address], [place], [id number], 14:56:21 Patient TargetsNo targets recorded. Patient Instructions Encounter Date Encounter Id Patient Instructions Last Modified By Organization Details Last Modified Time 11/12/2018 [id number] learning about mood disorders mwasserman Not available 11/12/2018 13:00:45 06/05/2021 [id number] learning about breast cancer screening Not available 06/05/2021 15:45:57 angelica exercises: care instructions [email or web address] Not available 06/05/2021 16:00:30 10/23/2022 [id number] learning about breast cancer screening Not available 10/23/2022 15:50:46 Reason for Referral None Reported. Results Created Date Observation Date Name Description Value Unit Range Abnormal Flag Note LastModifiedBy Organization Detail LastModifiedTime 11/13/1911/12/2018 urina lysis , dipst ick Leukocytes Negati ve Not Available In-Office Order Internal Use Only DO Not Attach Compendium DO Not Attach Compendium, Do Not Delete/merge, [id number] 11/12/2018 12:37:00 11/13/19 19 11/12/2018 urina lysis , dipst ick Nitrite negati ve Not Available In-Office Order Internal Use Only DO Not Attach Compendium DO Not Attach Compendium, Do Not Delete/merge, 11/12/2018 12:37:00 11/13/1911/12/2018 urina lysis , dipst ick Urobilinogen .2 Not Available In-Of fice Order Internal Use Only DO Not Attach Compendium DO Not Attach Compendium, Do Not Delete/merge, 11/12/2018 12:37:00 11/13/19 19 11/12/2018 urina lysis , dipst ick Protein Negati ve Not Available In-Office Order Internal Use Only DO Not Attach Compendium DO Not Attach Compendium, Do Not Delete/merge, 11/12/2018 12:37:00 11/13/1911/12/2018 urina lysis , dipst ick pH 6.0 Not Available In-Office Order Internal Use Only DO Not Attach Compendium DO Not Attach Compendium, Do Not Delete/merge, 11/12/2018 12:37:00 11/13/1911/12/2018 urina lysis , dipst ick Blood Non-He molyze d: Trace Not Available In-Office Order Internal Use Only DO Not Attach Compendium DO Not Attach Compendium, Do Not Delete/merge, 11/12/2018 12:37:00 11/13/1911/12/2018 urina lysis , dipst ick Specific Chelsea 1.020 Not Available In-Off ice Order Internal Use Only DO Not Attach Compendium DO Not Attach Compendium, Do Not Delete/merge, 11/12/2018 12:37:00 11/13/1911/12/2018 urina lysis , dipst ick Ketone Negati ve Not Available In-Office Order Internal Use Only DO Not Attach Compendium DO Not Attach Compendium, Do Not Delete/merge, 11/12/2018 12:37:00 11/13/1911/12/2018 urina lysis , dipst ick Bilirubin Negati ve Not Available In-Office Order Internal Use Only DO Not Attach Compendium DO Not Attach Compendium, Do Not Delete/merge, 11/12/2018 12:37:00 11/13/19 19 11/12/2018 urina lysis , dipst ick Glucose Negati ve Not Available In-Office Order Internal Use Only DO Not Attach Compendium DO Not Attach Compendium, Do Not Delete/merge, [id number] 11/12/2018 12:37:00 11/13/19 19 11/14/2018 methi cilli n resis tant staph yloco ccus aureu s, cultu re, unspe cifie d speci men MRSA screening culture Negati ve Not Available [facility] ([facility]) [address] [facility], [place], [address], 11/14/2018 16:08:20 06/06/19 22 06/05/2021 urina lysis , dipst ick Leukocytes Negati ve Not Available In-Office Order Internal Use Only DO Not Attach Compendium DO Not Attach Compendium, Do Not Delete/merge, [id number] 06/05/2021 15:51:32 06/06/19 22 06/05/2021 urina lysis , dipst ick Nitrite negati ve Not Available In-Office Order Internal Use Only DO Not Attach Compendium DO Not Attach Compendium, Do Not Delete/merge, [id number] 06/05/2021 15:51:32 06/06/19 22 06/05/2021 urina lysis , dipst ick Urobilinogen .2 Not Available In-Of fice Order Internal Use Only DO Not Attach Compendium DO Not Attach Compendium, Do Not Delete/merge, [id number] 06/05/2021 15:51:32 06/06/19 22 06/05/2021 urina lysis , dipst ick Protein Negati ve Not Available In-Office Order Internal Use Only DO Not Attach Compendium DO Not Attach Compendium, Do Not Delete/merge, 06/05/2021 15:51:32 06/06/1906/05/2021 urina lysis , dipst ick pH 6.0 Not Available In-Office Order Internal Use Only DO Not Attach Compendium DO Not Attach Compendium, Do Not Delete/merge, 06/05/2021 15:51:32 03/22/06/05/2021 urina lysis , dipst ick Blood Negati ve Not Available In-Office Order Internal Use Only DO Not Attach Compendium DO Not Attach Compendium, Do Not Delete/merge, 06/05/2021 15:51:32 06/06/19 22 06/05/2021 urina lysis , dipst ick Specific Chelsea 1.030 Not Available In-Off ice Order Internal Use Only DO Not Attach Compendium DO Not Attach Compendium, Do Not Delete/merge, 06/05/2021 15:51:32 06/06/19 22 06/05/2021 urina lysis , dipst ick Ketone Negati ve Not Available In-Office Order Internal Use Only DO Not Attach Compendium DO Not Attach Compendium, Do Not Delete/merge, 06/05/2021 15:51:32 06/06/19 22 06/05/2021 urina lysis , dipst ick Bilirubin Negati ve Not Available In-Office Order Internal Use Only DO Not Attach Compendium DO Not Attach Compendium, Do Not Delete/merge, 06/05/2021 15:51:32 06/06/19 22 06/05/2021 urina lysis , dipst ick Glucose Negati ve Not Available In-Office Order Internal Use Only DO Not Attach Compendium DO Not Attach Compendium, Do Not Delete/merge, 06/05/2021 15:51:32 12/19/19 23 12/19/2022 CREAT ININE creatinine 0.76 mg/dL 0.57-1 .00 Not Available [facility] ([facility]) [address] [facility], [place], [address], 12/19/2022 20:08:51 12/19/19 23 12/19/2022 CREAT ININE eGFR 83 mL/mi n/1.7 3 >59 Not Available [facility] ([facility]) [address] [facility], [place], [address], 12/19/2022 20:08:51 12/19/19 23 12/19/2022 CALCI UM, IONIZ ED, SERUM calcium, ionized, serum 5.0 mg/dL 4.5-5. 6 Not Available [facility] ([facility]) [address] [facility], [place], [address], 12/19/2022 20:08:51 12/19/19 23 12/19/2022 VITAM IN D, 25-HY DROXY vitamin D, 25-hydroxy 43.7 NG/mL 30.0-1 00.0 Vitam in D defic iency has been defin ed by the Insti tute of Medic ine and an Endoc rine Socie ty pract ice guide line as a level of serum 25-OH vitam in D less than 20 ng/mL (1,2) . The Endoc rine Socie ty went on to furth er defin e vitam in D insuf ficie ncy as a level betwe en 21 and 29 ng/mL (2). 1. IOM (Inst itute of Medic ine). 2010. Shaun ry refer ence mariely es for calci um and D. Bill muller [place]: The [facility] Press . 2. Mohit chavira MF, Bon johnson [place], Debbi off-F errar i MORRIS, et al. Evalu ation , treat ment, and preve ntion of vitam in D defic iency : an Endoc rine Socie ty clini xander pract ice guide line. JCEM. 2010; 96(7) :1911 -30. Not Available [facility] ([facility]) [address] [facility], [place], [address], 12/19/2022 20:08:52 04/12/19 21 04/11/2020 DEXA No observ ation record ed. [address] ([facility]) [address] [place], [address], 06/05/2021 15:21:05 04/14/19 21 04/11/2020 MAMMO , scree alex, digit al, bilat eral No observ ation record ed. [address] ([facility]) [address] [place], [address], 06/05/2021 15:21:05 10/12/19 22 10/11/2021 MAMMO , scree alex, bilat eral No observ ation record ed. [address] [facility] [address] [place], [address], 10/23/2022 15:42:04 10/25/19 22 10/24/2021 MAMMO , diagn ostic , unila teral No observ ation record ed. [address] [facility] [address] [place], [address], 10/23/2022 15:42:04 10/25/19 22 10/24/2021 US, breas t, unila teral No observ ation record ed. [address] [facility] [address] [place], [address], 10/23/2022 15:42:04 12/06/19 23 12/05/2022 DEXA No observ ation record ed. [facility] [address] [place], [address], 12/11/2022 15:25:32 12/10/19 23 12/05/2022 MAMMO , scree alex, bilat eral No observ ation record ed. [facility] [address] [place], [address], 12/10/2022 23:28:27 05/25/19 25 05/17/2024 PET-C T, myoca rdial perfu jacque, multi ple studi es at rest and stres s No observ ation record ed. [facility] [address], [place], [address], 05/25/2024 09:46:26 05/26/19 25 05/17/2024 PET-C T, myoca rdial perfu jacque, singl e study at rest or stres s No observ ation record ed. nathan [facility] [address], [place], [address], 05/25/2024 10:05:03 Result Notes None recorded. 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 Procedures Surgical History Date Name Laterality Status Provider Name and Address Organization Details Recorded Time 2 Date of Last Mammogram completed Louise Marcial MA [facility] 10/22/2022 11:08:02 8 Most Recent Mammogram completed Louise Marcial MA [facility] 11/25/2018 17:17:38 Tubal Ligation completed Lina Lees MA [facility] 05/21/2016 16:34:57 Other completed Lina Lees MA [facility] 05/21/2016 16:35:47 Heart Surgery completed Lina Lees MA [facility] 05/21/2016 16:36:06 Imaging Results Imaging Date Name Status LastModified by [facility] Details LastModified Time 04/11/2020 DEXA completed [address] ([facility]) [address] [place], [address], 06/05/2021 15:21:05 04/11/2020 MAMMO, screening, digital, bilateral completed [address] ([facility]) [address] [place], [address], 06/05/2021 15:21:05 10/11/2021 MAMMO, screening, bilateral completed [email or web address] [facility] [address] [place], [address], 10/23/2022 15:42:04 10/24/2021 MAMMO, diagnostic, unilateral completed [email or web address] [facility] [address] [place], [address], 10/23/2022 15:42:04 10/24/2021 US, breast, unilateral completed [email or web address] [facility] [address] [place], [address], 10/23/2022 15:42:04 12/05/2022 DEXA completed [facility] [address] [place], [address], 12/11/2022 15:25:32 12/05/2022 MAMMO, screening, bilateral completed [facility] [address] [place], [address], 12/10/2022 23:28:27 05/17/2024 PET-CT, myocardial perfusion, multiple studies at rest and stress completed [facility] [address], [place], [address], 05/25/2024 09:46:26 05/17/2024 PET-CT, myocardial perfusion, single study at rest or stress completed [facility] [address], [place], [address], 05/25/2024 10:05:03 Procedure Notes None recorded. Medical Equipment None Reported. Allergies No known drug allergies Medications Name Sig Start Date Stop Date Status Note LastModified by Organization Details LastModified Time multivitami n tablet TAKE 1 TABLET BY MOUTH EVERY DAY active Not Available Not Available No t Available amoxicillin 500 mg capsule TAKE 1 CAPSULE BY MOUTH THREE TIMES DAILY FOR 7 DAYS 09/04 completed Not Available Not Available Not Available latanoprost 0.005 % eye drops INSTILL 1 DROP IN EACH EYE EVERY DAY IN THE EVENING active Not Available Not Available No t Available cefuroxime axetil 250 mg tablet 11/12 completed Not Available Not Available Not Available albuterol sulfate 2.5 mg/3 mL (0.083 %) solution for nebulizatio n USE 3 ML VIA NEBULIZER EVERY 4 TO 6 HOURS NEEDED active Not Available Not Available No t Available azithromyci n 250 mg tablet 10/23 completed Not Available Not Available Not Available valacyclovi r 1 gram tablet TAKE 1 TABLET EVERY DAY BY MOUTH 06/05 completed Not Available Not Available Not Available prednisone 20 mg tablet TAKE 3 TABLETS BY MOUTH EVERY DAY FOR 5 DAYS 06/05 completed Not Available Not Available Not Available alendronate 70 mg tablet TAKE 1 TABLET BY MOUTH EVERY WEEK active Not Available Not Available No t Available sertraline 100 mg tablet Take 1 tablet every day by oral route. 06/05 completed Not Available Not Available Not Available penicillin V potassium 500 mg tablet 09/01 completed Not Available Not Available Not Available acyclovir 400 mg tablet Take 1 tablet twice a day by oral route. active Not Available Not Available No t Available ciprofloxac in 500 mg tablet TAKE 1 TABLET BY MOUTH EVERY 12 HOURS FOR 7 DAYS 06/05 completed Not Available Not Available Not Available peg-electro lyte solution 420 gram oral solution 06/05 completed Not Available Not Available Not Available acyclovir 800 mg tablet TAKE 1 TABLET BY MOUTH EVERY DAY 04/13 completed Not Available Not Available Not Available hydrocortis one acetate 25 mg rectal suppository Insert 1 supposito ry twice a day by rectal route for 14 days. 09/01 completed Not Available Not Available Not Available pantoprazol e 20 mg tablet,golden yed release 05/21 completed Not Available Not Available Not Available levothyroxi ne 75 mcg tablet TK 1 T PO QD 06/05 completed Not Available Not Available Not Available levothyroxi ne 100 mcg tablet TAKE 1 TABLET BY MOUTH EVERY DAY 06/05 completed Not Available Not Available Not Available levothyroxi ne 88 mcg tablet TAKE 1 TABLET BY MOUTH EVERY DAY active Not Available Not Available No t Available Nitrostat 0.4 mg sublingual tablet 09/01 completed Not Available Not Available Not Available PreviDent 1.1 % gel 06/05 completed Not Available Not Available Not Available simvastatin 20 mg tablet TAKE 1 TABLET BY MOUTH EVERY DAY active Not Available Not Available No t Available buspirone 10 mg tablet 09/01 completed Not Available Not Available Not Available gabapentin 300 mg capsule TAKE 1 CAPSULE BY MOUTH EVERY DAY AT NOON active Not Available Not Available No t Available sertraline 25 mg tablet 09/01 completed Not Available Not Available Not Available lisinopril 20 mg-hydrochl orothiazide 25 mg tablet TAKE 1 TABLET BY MOUTH DAILY active Not Available Not Available No t Available montelukast 10 mg tablet TAKE 1 TABLET BY MOUTH EVERY DAY active Not Available Not Available No t Available azelastine 137 mcg (0.1 %) nasal spray USE 2 SPRAYS IN EACH NOSTRIL TWICE DAILY active Not Available Not Available No t Available levofloxaci n 500 mg tablet 11/12 completed Not Available Not Available Not Available levofloxaci n 750 mg tablet TAKE 1 TABLET BY MOUTH EVERY DAY FOR 10 DAYS 06/05 completed Not Available Not Available Not Available methylpredn isolone 4 mg tablets in a dose pack FOLLOW PACKAGE DIRECTION S 10/23 completed Not Available Not Available Not Available albuterol sulfate HFA 90 mcg/actuati on aerosol inhaler INHALE 2 PUFFS BY MOUTH EVERY 4 HOURS active Not Available Not Available No t Available norethindro ne (contracept geovany) 0.35 mg tablet Take 1 tablet every day by oral route. 06/05 completed Not Available Not Available Not Available sertraline 50 mg tablet TAKE 1 TABLET BY MOUTH EVERY DAY active Not Available Not Available No t Available acyclovir 5 % topical cream APPLY TO THE AFFECTED AREA(S) BY TOPICAL ROUTE 2 TIMES PER DAY 06/05 completed Not Available Not Available Not Available Benicar HCT 20 mg-12.5 mg tablet 05/21 completed Not Available Not Available Not Available nitrofurant oin monohydrate /macrocryst als 100 mg capsule TAKE 1 CAPSULE BY MOUTH TWICE DAILY FOR 5 DAYS 06/05 completed Not Available Not Available Not Available duloxetine 60 mg capsule,del ayed release 05/21 completed Not Available Not Available Not Available Oysco 500/D 500 mg-5 mcg (200 unit) tablet TAKE 2 TABLETS BY MOUTH EVERY DAY active Not Available Not Available No t Available calcium 600 mg (as carbonate)- vitamin D3 10 mcg (400 unit) tablet TAKE 1 TABLET BY MOUTH TWICE DAILY active Not Available Not Available No t Available Vyvanse 30 mg capsule 05/21 completed Not Available Not Available Not Available Calcium 600 with Vitamin D3 600 mg-10 mcg (400 unit) chewable tablet Take 2 tablets every day by oral route. 10/23 completed Not Available Not Available Not Available PreviDent 5000 Dry Mouth 1.1 % dental paste 06/05 completed Not Available Not Available Not Available BinaxNOW COVID-19 Ag Self Test kit TEST DIRECTED TODAY 10/23 completed Not Available Not Available Not Available Vitals Date Recorded Body height Body mass index (BMI) Body weight Systolic blood pressure Diastolic blood pressure Provider Name and Address Organization Details Last Updated DateTime 11/12/2018 162.56 cm 24.2 kg/m2 15636.52 g 116 mm[Hg] 60 mm[Hg] Morelia Bruno MA [facility] SI 9 12:44:42 Date Recorded Body height Body mass index (BMI) Body weight Systolic blood pressure Diastolic blood pressure Provider Name and Address Organization Details Last Updated DateTime 11/25/2018 162.56 cm 24.5 kg/m2 23804.71 g 108 mm[Hg] 74 mm[Hg] Louise Marcial MA [facility] SIF 9 17:19:32 Date Recorded Body height Body mass index (BMI) Body weight Systolic blood pressure Diastolic blood pressure Provider Name and Address Organization Details Last Updated DateTime 06/05/2021 165.1 cm 27.3 kg/m2 25170.15 g 114 mm[Hg] 70 mm[Hg] Louise Marcial MA [facility] SIF 2 15:03:20 Date Recorded Body height Body mass index (BMI) Body weight Systolic blood pressure Diastolic blood pressure Provider Name and Address Organization Details Last Updated DateTime 10/23/2022 165.1 cm 25.8 kg/m2 10263.82 g 122 mm[Hg] 72 mm[Hg] Louise Marcial MA [facility] SIF 3 15:38:45 Social History Question Answer Notes LastModified by Organizat ion Details LastModified Time Tobacco Smoking Status Former Smoker Louise STEVE Marcial [facility], [place] - SI 06/05/2021 15:01:26 Do You Have An Advance Directive? No Information not available 05/21/2016 What Is Your Level Of Alcohol Consumption? Occasional Information not available 05/21/2016 Is Blood Transfusion Acceptable In An Emergency? Yes Information not available 05/21/2016 What Is Your Level Of Caffeine Consumption? Moderate Information not available 05/21/2016 How Much Tobacco Do You Chew? None Information not available 05/21/2016 Are You Currently Employed? Yes Information not available 05/21/2016 What Type Of Diet Are You Following? REGULAR Information not available 05/21/2016 Which Illicit Or Recreational Drugs Have You Used? None Information not available 05/21/2016 Do You Or Have You Ever Used E-cigarettes Or Vape? Never Used Electronic Cigarettes Information not available 11/12/2018 Education 12 Information no t available 05/21/2016 What Is Your Occupation? Retired [email or web address] Information not available 09/01/2018 Live Alone Or With Others? Alone Information not available 05/21/2016 What Was The Date Of Your Most Recent Tobacco Screening? 10/23/2022 Information not available 10/23/2022 How Many Children Do You Have? 1 Information not available 05/21/2016 What Is Your Current Pack Years? 10-19packyears Information not available 06/05/2021 Performs Monthly Self-breast Exam? Yes Information not available 05/21/2016 What Is Your Relationship Status? Information not available 05/21/2016 Seat Belts Used Routinely Yes Information not available 05/21/2016 Are You Sexually Active? No Information not available 05/21/2016 Do You Have Smoke And Carbon Monoxide Detectors In Your Home? Yes Information not available 06/05/2021 At What Age Did You Start Smoking Tobacco? 18 Information not available 05/21/2016 Are You Passively Exposed To Smoke? No Information not available 06/05/2021 Do You Or Have You Ever Used Smokeless Tobacco? Never Used Smokeless Tobacco [email or web address] Information not available 11/12/2018 How Much Tobacco Do You Smoke? 0.5 PPD Information not available 05/21/2016 General Stress Level Medium Information not available 05/21/2016 Do You Use Any Illicit Or Recreational Drugs? No Information not available 06/05/2021 Do You Use Sunscreen Routinely? Yes Information not available 05/21/2016 Has Tobacco Cessation Counseling Been Provided? Yes Information not available 10/23/2022 On What Date Was Tobacco Cessation Counseling Provided? 10/23/2022 Information not available 10/23/2022 How Many Years Have You Smoked Tobacco? 2 06/05/2021 Pt Stopped Smoking 2 Yrs Ago, Cb-rma Information not available 06/05/2021 Do You Or Have You Ever Used Any Other Forms Of Tobacco Or Nicotine? No Information not available 06/05/2021 Sex: Unknown Functional Status Question Answer Note LastModified by [employer] ion Details LastModified Time What is your exercise level? Occasional Information not available 05/21/2016 Mental Status None recorded. Family History Relationship Description Onset Age of this Age Resolved Age Notes LastModified by Organization Details LastModified Time Mother Osteoporosis Not availa ble 05/21/2016 16:31:12 Mother Heart disease Not available 2016 16:31:31 Medical History Condition Response Other N High Blood Pressure Y Breast Cancer N Thyroid Problems N Kidney or Bladder Problems N GI Problems N Depression Y Blood Clots N Lung Disease N Acne N Breast Problem N Eating Disorder N Anemia N Anesthesia Complications N Headaches/Migraines N Anxiety Disorder N Diabetes N Ovarian Cancer N Muscle, Joint, or Bone Problems N Blood Transfusions N Seizures/Epilepsy N Polyps N Infertility N Acid Reflux (GERD) N Cancer N Abuse/Domestic Violence N Asthma N Endometriosis N High Cholesterol Y Hepatitis Y Liver Disease N Heart Disease N Pre-Eclampsia N Osteoporosis N Gynecological History Statement/Question Response Abnormal Pap N Date of Last Mammogram 10/24/2021 On BCP's at Conception? N STIs/STDs Y HPV Vaccine N Most Recent Mammogram 03/13/2018 Age at Menarche 13 Current Control Method Tubal Ligat ion Age at First Child 18 If Post Menopausal, Age at Menopause 52 Sexually Active? N Menses Monthly N Sexual Problems? N LMP Unknown Desired Control Method Unknown Obstetrics History GPAL:G 1 P 0 1 0 1 Type Value Multiple Births 0 Full Term 0 Induced 0 Spontaneous 0 Premature 1 Living 1 Ectopics 0 Total 1 Immunizations Vaccine Type Date Status Note Provider Nam e and Address Organization Details Recorded Time Influenza, split virus, quadrivalent, preservative 6 completed MARGARITA LOYOLA Attn: Accounting,[address] [place], [place], [address] [place] [address], [place] [facility] 10/23/2022 15:49:57 zoster recombinant 3 completed MARGARITA LOYOLA Attn: Accounting,[address] [place], [place], [address] [place] [address], [place] [facility] 10/23/2022 15:49:57 Influenza, high-dose, quadrivalent, PF 1 completed MARGARITA LOYOLA Attn: Accounting,[address] [place], [place], [address] [place] [address], [place] [facility] 10/23/2022 15:49:57 Influenza, high-dose, quadrivalent, PF 2 completed MARGARITA LOYOLA Attn: Accounting,[address] [place], [address] [place] [address], [place] [facility] 10/23/2022 15:49:57 Influenza, high-dose, quadrivalent, PF 0 completed MARGARITA LOYOLA Attn: Accounting,[address] [place], [address] [place] [address], [place] [facility] 10/23/2022 15:49:57 COVID-19, mRNA, LNP-S, PF, 30 mcg/0.3 mL dose 1 completed MARGARITA LOYOLA Attn: Accounting,[address] [place], [address] [place] [address], [place] [facility] 10/23/2022 15:49:57 COVID-19, mRNA, LNP-S, PF, 30 mcg/0.3 mL dose 1 completed MARGARITA LOYOLA Attn: Accounting,[address] [facility], [place], [place], [address] [place] [address], [place] [facility] 10/23/2022 15:49:57 COVID-19, mRNA, LNP-S, PF, 30 mcg/0.3 mL dose 1 completed MARGARITA LOYOLA Attn: Accounting,[address] [facility], [place], [address] [place] [address], [facility] - [facility] 10/23/2022 15:49:57 pneumococcal polysaccharide PPV23 2 completed MARGARITA LOYOLA Attn: Accounting,[address] [facility], [place], [address] [place] [address], [facility] - [facility] 10/23/2022 15:49:57 Pneumococcal conjugate PCV 13 4 completed MARGARITA LOYOLA Attn: Accounting,[address] [facility], [place], [address] [place] [address], [facility] - [facility] 10/23/2022 15:49:57 Influenza, high-dose, trivalent, PF 8 completed MARGARITA LOYOLA Attn: Accounting,[address] [facility], [place], [address] [place] [address], [place] [facility] 10/23/2022 15:49:57 Influenza, high-dose, trivalent, PF 7 completed MARGARITA LOYOLA Attn: Accounting,[address] [facility], [place], [address] [place] [address], [place] [facility] 10/23/2022 15:49:57 Influenza, split virus, trivalent, preservative 9 completed MARGARITA LOYOLA Attn: Accounting,[address] 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) [address] [place] [id number] 05/21/2016 16:03:14 05/22/2016 16:06:13 Screening mammography 14945204 Z12.31 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 Hemorrhoids 38870421 K64 .9 Gynecologi c examination 81451018 Z01.441 [id number] 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) [address] [place] [address] 0 09/01/2018 11:04:57 09/02/2018 12:05:41 Gynecologic examination 04538468 Z01.419 Z11.51 Herpes simplex 32499169 B00.9 Female str ess incontinence 69408042 N39.3 Screening for malignant neoplasm of ovary 101833216 Z12.73 Screening for osteoporosis 065713258 Z13.820 Vitamin B1 2 deficiency (non anemic) 14755021 E53.8 [id number] 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) [address] [place] [id number] 11/12/2018 11:35:19 11/13/2018 13:53:39 Folliculitis 39988670 L73.9 Menopausal flushing 1984 03428 N95.1 Depressive disorder 3548 9007 F32.9 Gynecologi c examination 79551933 Z01.419 Z11.51 [id number] 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 No breast complaints such as lumps, tenderness , or discharge. MAMMO ordered as part of routine annual screening. Herpes simplex 89071620 B00.9 Patient takes antiviral when she feels the onset of an outbreak with tingling/p ruritis on her lips. Her last outbreak was about 3 years ago. Seeking return to acyclovir as valacyclov ir caused her jitterinmehran s. Osteoporosis 56772724 M8 1.0 DEXA scan performed 04/11/2020 demonstrat es osteoporos is of the lumbar spine and osteopenia of the bilateral hips. She takes a vitamin D3 pill daily. Reports history of poor tolerance to alendronat e due to nausea and difficulty taking pills. No history of pathologic fractures. Ordered chewable Calcium and D3 supplement to assist patient in taking pills. Discussed weight bearing exercises. Urinary incontinence 165 795146 R32 Patient complains of urinary incontinen ce x several years. She explains that she has dribbling urination several times per day that is worse with coughing or laughing. Reports a normal post-void residual volume. She had a surgical consult, but was nervous about an invasive procedure. Educated on conservati ve options available such as pelvic floor PT, pessary, kegel exercises. Pt ultimately opting for kegel exercises as conservati ve first-line approach. 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 MAMMO ordered as part of routine annual screening. Osteoporosis 32296140 M8 1.0 DEXA scan performed 04/11/2020 demonstrat es osteoporos is of the lumbar spine and osteopenia of the bilateral hips. She takes Calcium/Vi tamin D pill daily. Repeat DEXA this year. Discussed weight bearing exercises. Herpes simplex 87688569 B00.9 Patient takes antiviral when she feels the onset of an outbreak with tingling/p ruritis. Seeking return to acyclovir. Health Concerns Section Related Observation LastModified by Organization Detai ls LastModified Time None Recorded Concern Status LastModified by Organization Details LastModified Time None Recorded Advance Directives Directive N: Payers Encounter Date Sequence Insurance Name Policy Number Policy Roth Covered Member ID Roth Member ID Guarantor Name 11/12/2018 1 [place] Liz D [place] [id number] Liz [place] 11/12/2018 2 [employer] (MEDICARE SUPPLEMENT) Liz [place] [id number] Liz [place] 11/25/2018 1 [place] Liz D [place] [id number] Liz [place] 11/25/2018 2 [employer] (MEDICARE SUPPLEMENT) Liz [place] [id number] Liz [place] 06/05/2021 1 [place] Liz D [place] [id number] Liz [place] 06/05/2021 2 [employer] [place] ON [place] AFTER 2020 (MEDICAID REPLACEMENT - HMO) Liz D [place] [id number] Liz [place] 10/23/2022 1 [place] Liz D [place] [id number] Liz [place] 10/23/2022 2 [employer] [place] AFTER 2020 (MEDICAID REPLACEMENT - [place]MO) Liz D [place] [id number] Liz [place] Notes Date Note Type Note Provider Name and Address Organization Details Recorded Time 11/12/2018 text/html 68 YO post menopausal CF presents today with c/o infected hair follicle on left inner thigh and groin x 3 weeks. Patient also states she is having hot flashes and flushing at night as well as increased irritability. Ethan sellers, [place] - [facility] 11/12/2018 18:44:07 11/25/2018 text/html 68 YO post menopausal CF presents today with c/o infected hair follicle on left inner thigh and groin x 3 weeks. Patient also states she is having hot flashes and flushing at night as well as increased irritability. Ethan sellers, [facility] 11/25/2018 17:59:01 06/05/2021 text/html 70 yo femal e presenting for clinical breast exam and mammogram order. She reports no breast complaints such as lumps, tenderness, or discharge. She also complains of urinary incontinence x several years. Patient explains that she has dribbling urination several times per day that is worse with coughing or laughing. When she does use the bathroom, she feels like she is able to completely empty her bladder. She explains that her test for post-void residual volume was normal. Further explains that she had a consult for surgery, but is hesitant to move forward with surgery. She denies vaginal bulge or prolapse, dysuria, hematuria. Patient takes valacyclovir 1g daily when she feels an outbreak coming on, such as when she has tingling or pruritis of her lip. Last outbreak ~3 years ago. Seeking return to acyclovir instead of valacyclovir as she has experienced some jitteriness with valacyclovir. Patient also reports history of osteoporosis. She had previously been prescribed Alendronate, but she was unable to continue due to nausea and difficulty taking pills. She has continued taking vitamin D3 daily. Denies history of pathologic fractures. Pt further denies pelvic pain, abnormal bleeding, vaginal symptoms, n/v/f, or chest pain. MARGARITA LOYOLA Attn: Accounting,[address] [place], [address], [facility] 06/05/2021 22:29:19 10/23/2022 text/html 72 yo femal e with h/o HSV presenting for clinical breast exam and mammogram order. She reports no breast complaints such as lumps, tenderness, or discharge. Patient takes valacyclovir 1g daily when she feels an outbreak coming on, such as when she has tingling. Seeking return to acyclovir instead of valacyclovir as she has experienced some jitteriness with valacyclovir. Patient also reports history of osteoporosis. She had previously been prescribed Alendronate, but she was unable to continue due to nausea and difficulty taking pills. She has continued taking Calcium/vitamin D3 daily. Denies history of pathologic fractures. Pt further denies pelvic pain, abnormal bleeding, vaginal symptoms, n/v/f, or chest pain. MARGARITA LOYOLA Attn: Accounting[address] , [place], [address], [place] - [facility] 10/30/2022 14:29:24 OBGyn Episode Ob Episode Information Episode Created Date Number of Fetuses Patient Bloodtype Patient rh Status Prepregnancy Weight lbs Domestic Partner Domestic Partner Phone Father Name Youth Care Professional Status 05/22/19 17 1 CLOSED Fetus Data First Name Last Name Admitted to NICU Weight (g) Sex Living Outcome Pediatric Complications Fetus ID Race Codes Race Delivery Type 1983.46 5 F Prematur e [id number] Vaginal Javan Calculation Initial Javan Date Initial Exam Date Initial Exam Provider Initial Ultrasound Date Last Menstrual Period Date Ultra Sound Weeks Gestation 0 Eighteen To Twenty Week Javan Update Ultra Sound Date Fundal Height At Umbil Quickening Date Ultra Sound Latest Weeks Gestation Final Javan Confirmed By Final Javan Confirmed Date Final Javan Date Ultra Sound Latest Days Gestation 0 0 Menstrual History Last Menstrual Date Menses Monthly On Bcp Conception Prior Menses Frequency Hcg Plus Date Menarche Onset Age Delivery Information Delivery Date Delivery Type Labor Anesthesia Weeks Gestation Incision Type Labor Labor Length Hrs Delivered By Post Complications Tubal Sterilization Discharge Date Comments 8 None 36 false Discharge Information Feeding Method Contraceptive Method Maternal HG B and HCT Levels
--- OUTSIDE RECORDS SUMMARY | 2024-06-28 15:54 | XMS_ITS | Continuity of Care Document ---
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 [address] [facility], [place], [address], [place]. tel: [phone] Family History Family Member Type Diagnosis Age At Onset No Information Payers Payer name Insurance type Covered constitution party ID Authoriza tivladimir(s) [employer] CI [id number] Social History Type Description Quantity Date Captured [...]
== END 2024-06-28 14:15 | disposition home or self-care (01) ==
LOC: ANHIMG 14:15
PROVIDERS: PCP Family Medicine; Visit Provider Family Medicine
DX: Z78.0 Asymptomatic menopausal state (principal); M81.0 Age-related osteoporosis without current pathological fracture; M85.852 Other specified disorders of bone density and structure, left thigh; M85.851 Other specified disorders of bone density and structure, right thigh
CPT/HCPCS: 77080

== ENCOUNTER 2024-07-23 14:23 | Outpatient (CLI) | payer MEDICARE, SELFPAY ==
--- NOTE | ~2024-07-23 | MM_ITS ---
EXAMINATION: MM screening leonora BI w ariane HISTORY: Screening TECHNIQUE: Craniocaudal and mediolateral oblique 3-D tomosynthesis images were obtained and synthetic 2-D images were generated. CAD analysis was submitted and interpreted. COMPARISON: No prior mammogram is available for comparison at this institution. BREAST PARENCHYMAL COMPOSITION: Not dense: There are scattered areas of fibroglandular density. FINDINGS: There are asymmetries in the left breast. There is no mammographic evidence for malignancy in the right breast. IMPRESSION: 1. Left breast asymmetries. 2. Additional mammographic views and possible breast ultrasound are recommended. BI-RADS Category 0: Incomplete: Needs additional imaging evaluation. Reviewed, dictated and finalized at location A. IMPRESSION: 1. Left breast asymmetries. 2. Additional mammographic views and possible breast ultrasound are recommended . BI-RADS Category 0: Incomplete: Needs additional imaging evaluation.
--- OUTSIDE RECORDS SUMMARY | 2024-07-23 14:26 | XMS_ITS | Data Portability ---
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 Lab urinalysis, dipstick 2023 024 [facility] [address], [place], [address], 4 09:43:42 urinalysis complete, reflex culture 2023 024 [email or web address] [facility] (Lab), [address] [facility], [place], [address], 4 09:42:55 urinalysis complete, reflex culture 2023 [...] MD, [address], [address], [place], [address], 4 09:22:55 Surgeries None recorded. Imaging CT, chest, w/o contrast - *Please call pt to schedule* 2023 024 [email or web address] 256 [facility] (Radiology), [address] [place], [address], 4 09:17:50 Medication Orders sertraline 100 mg tablet 2023 024 [facility] #[id number], [address] [place], [place], [id number], 4 12:54:46 montelukast 10 mg tablet 2023 024 [facility] #[id number], [address] [place], [place], [id number], 4 14:41:23 lisinopril 20 mg-hydrochl orothiazide 25 mg tablet 2023 024 [facility] #[id number], [address] [place], [place], [id number], 4 14:41:24 simvastatin 20 mg tablet 2023 024 [facility] #[id number], [address] [place], [place], [id number], 4 14:41:22 levothyroxi ne 88 mcg tablet 2023 024 [facility] #[id number], [address] [place], [place], [id number], 4 14:41:23 levofloxaci n 750 mg tablet 2022 023 [email or web address] 477 [facility] #[id number], [address] [place], [place], [id number], 4 14:05:33 COVID-19 At-Home Test kit 2022 023 [facility] #[id number] [place], [place], [id number], 3 09:49:10 Patient TargetsNo targets recorded. Patient Instructions Encounter Date Encounter Id Patient Instructions Last Modified By Organization Details Last Modified Time 07/22/2023 [id number] dementia rating scale-2* Not available 2023 08:02:20 physical therapy for pelvic health Not available 07/22/2023 14:41:16 Personalized a [employer] health Plan and Screening Recommendations Advance Directives - [...] .8 below low normal Not Available [facility] ([facility]) [address] [place], [address], 02/14/2023 08:27:46 02/14/20 23 02/14/2023 CBC/D IFF AMBIG UOUS DEFAU LT RBC 4.42 x10e6 /uL 3.77-5 .28 Ovalo cytes prese nt. Not Available [facility] ([facility]) [address] [place], [address], 02/14/2023 08:27:46 02/14/20 23 02/14/2023 CBC/D IFF AMBIG UOUS DEFAU LT hemoglobin 14.2 g/dL 11.1-1 5.9 Not Available [facility] ([facility]) [address] [place], [address], 02/14/2023 08:27:46 11/30/02/14/2023 CBC/D IFF AMBIG UOUS DEFAU LT hematocrit 40.8 % 34.0-4 6.6 Not Available [facility] ([facility]) [address] [facility], [place], [address], 02/14/2023 08:27:46 02/14/20 23 02/14/2023 CBC/D IFF AMBIG UOUS DEFAU LT MCV 92 fL 79-97 Not Available [facility] ([facility]) [address] [facility], [place], [address], 02/14/2023 08:27:46 02/14/20 23 02/14/2023 CBC/D IFF AMBIG UOUS DEFAU LT MCH 32.1 pg 26.6-3 3.0 Not Available [facility] ([facility]) [address] [facility], [place], [address], 02/14/2023 08:27:46 02/14/20 23 02/14/2023 CBC/D IFF AMBIG UOUS DEFAU LT MCHC 34.8 g/dL 31.5-3 5.7 Not Available [facility] ([facility]) [address] [facility], [place], [address], 02/14/2023 08:27:46 02/14/20 23 02/14/2023 CBC/D IFF AMBIG UOUS DEFAU LT RDW 12.2 % 11.7-1 5.4 Not Available [facility] ([facility]) [address] [place], [address], 02/14/2023 08:27:46 02/14/20 23 02/14/2023 CBC/D IFF AMBIG UOUS DEFAU LT platelets 217 x10e3 /uL 150-45 0 Not Available [facility] ([facility]) [address] [facility], [place], [address], 02/14/2023 08:27:46 02/14/20 23 02/14/2023 CBC/D IFF AMBIG UOUS DEFAU LT neutrophils 37 % not estab. Not Available [facility] ([facility]) [address] [facility], [place], [address], 02/14/2023 08:27:46 02/14/20 23 02/14/2023 CBC/D IFF AMBIG UOUS DEFAU LT lymphs 52 % not estab. Not Available [facility] ([facility]) [address] [facility], [place], [address], 02/14/2023 08:27:46 02/14/20 23 02/14/2023 CBC/D IFF AMBIG UOUS DEFAU LT monocytes 9 % not estab. Not Available [facility] ([facility]) [address] [facility], [place], [address], 02/14/2023 08:27:46 02/14/20 23 02/14/2023 CBC/D IFF AMBIG UOUS DEFAU LT eos 1 % not estab. Not Available [facility] ([facility]) [address] [facility], [place], [address], 02/14/2023 08:27:46 02/14/20 23 02/14/2023 CBC/D IFF AMBIG UOUS DEFAU LT basos 1 % not estab. 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 0 below low normal Not Available [facility] ([facility]) [address] [facility] [place], [address], 02/14/2023 08:27:46 02/14/20 23 02/14/2023 CBC/D IFF AMBIG UOUS DEFAU LT lymphs (absolute) 1.6 x10e3 /uL 0.7-3. 1 Not Available [facility] ([facility]) [address] [facility], [place], [address], 02/14/2023 08:27:46 02/14/20 23 02/14/2023 CBC/D IFF AMBIG UOUS DEFAU LT monocytes(ab solute) 0.3 x10e3 /uL 0.1-0. 9 Not Available [facility] ([facility]) [address] [facility], [place], [address], 02/14/2023 08:27:46 02/14/20 23 02/14/2023 CBC/D IFF AMBIG UOUS DEFAU LT eos (absolute) 0.0 x10e3 /uL 0.0-0. 4 Not Available [facility] ([facility]) [address] [facility], [place], [address], 02/14/2023 08:27:46 02/14/20 23 02/14/2023 CBC/D IFF AMBIG UOUS DEFAU LT baso (absolute) 0.0 x10e3 /uL 0.0-0. 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 Not Available [facility] ([facility]) [address] [facility], [place], [address], 02/14/2023 08:27:46 02/14/20 23 02/14/2023 COMP. METAB OLIC PANEL (14) glucose 94 mg/dL 70-99 Not Available [facility] ([facility]) [address] [facility], [place], [address], 02/14/2023 08:27:48 02/14/20 23 02/14/2023 COMP. METAB OLIC PANEL (14) BUN 21 mg/dL 8-27 Not Available [facility] ([facility]) [address] [facility], [place], [address], 02/14/2023 08:27:48 02/14/20 23 02/14/2023 COMP. METAB OLIC PANEL (14) creatinine 0.95 mg/dL 0.57-1 .00 Not Available [facility] ([facility]) [address] [facility], [place], [address], 02/14/2023 08:27:48 02/14/20 23 02/14/2023 COMP. METAB OLIC PANEL (14) eGFR 64 mL/mi n/1.7 3 >59 Not Available [facility] ([facility]) [address] [facility], [place], [address], 02/14/2023 08:27:48 02/14/20 23 02/14/2023 COMP. METAB OLIC PANEL (14) BUN/creatini ne ratio 22 12-28 Not Available [facility] ([facility]) [address] [facility], [place], [address], 02/14/2023 08:27:48 02/14/20 23 02/14/2023 COMP. METAB OLIC PANEL (14) sodium 141 mmol/ L 134-14 4 Not Available [facility] ([facility]) [address] [facility], [place], [address], 02/14/2023 08:27:48 02/14/20 23 02/14/2023 COMP. METAB OLIC PANEL (14) potassium 4.7 mmol/ L 3.5-5. 2 Not Available [facility] ([facility]) [address] [facility] [place], [address], 02/14/2023 08:27:48 02/14/20 23 02/14/2023 COMP. METAB OLIC PANEL (14) chloride 102 mmol/ L 96-106 Not Available [facility] ([facility]) [address] [place], [address], 02/14/2023 08:27:48 02/14/20 23 02/14/2023 COMP. METAB OLIC PANEL (14) carbon dioxide, total 24 mmol/ L 20-29 Not Available [facility] ([facility]) [address] [place], [address], 02/14/2023 08:27:48 02/14/20 23 02/14/2023 COMP. METAB OLIC PANEL (14) calcium 9.6 mg/dL 8.7-10 .3 Not Available [facility] ([facility]) [address] [place], [address], 02/14/2023 08:27:48 02/14/20 23 02/14/2023 COMP. METAB OLIC PANEL (14) protein, total 7.0 g/dL 6.0-8. 5 Not Available [facility] ([facility]) [address] [place], [address], 02/14/2023 08:27:48 02/14/20 23 02/14/2023 COMP. METAB OLIC PANEL (14) albumin 4.6 g/dL 3.8-4. 8 Not Available [facility] ([facility]) [address] [place], [address], 02/14/2023 08:27:48 02/14/20 23 02/14/2023 COMP. METAB OLIC PANEL (14) globulin, total 2.4 g/dL 1.5-4. 5 Not Available [facility] ([facility]) [address] [place], [address], 02/14/2023 08:27:48 02/14/20 23 02/14/2023 COMP. METAB OLIC PANEL (14) A/G ratio 1.9 1.2-2. 2 Not Available [facility] ([facility]) [address] [place], [address], 02/14/2023 08:27:48 02/14/20 23 02/14/2023 COMP. METAB OLIC PANEL (14) bilirubin, total 0.6 mg/dL 0.0-1. 2 Not Available [facility] ([facility]) [address] [facility], [place], [address], 02/14/2023 08:27:48 02/14/20 23 02/14/2023 COMP. METAB OLIC PANEL (14) alkaline phosphatase 89 IU/L 44-121 Not Available [facility] ([facility]) [address] [facility], [place], [address], 02/14/2023 08:27:48 02/14/20 23 02/14/2023 COMP. METAB OLIC PANEL (14) AST (SGOT) 19 IU/L 0-40 Not Available [facility] ([facility]) [address] [facility], [place], [address], 02/14/2023 08:27:48 02/14/20 23 02/14/2023 COMP. METAB OLIC PANEL (14) ALT (SGPT) 18 IU/L 0-32 Not Available [facility] ([facility]) [address] [facility], [place], [address], 02/14/2023 08:27:48 02/14/20 23 02/14/2023 LIPID PANEL cholesterol, total 152 mg/dL 100-19 9 Not Available [facility] ([facility]) [address] [facility], [place], [address], 02/14/2023 08:27:49 02/14/20 23 02/14/2023 LIPID PANEL triglyceride s 58 mg/dL 0-149 Not Available [facility] ([facility]) [address] [facility], [place], [address], 02/14/2023 08:27:49 02/14/20 23 02/14/2023 LIPID PANEL HDL cholesterol 64 mg/dL >39 Not Available [facility] ([facility]) [address] [facility], [place], [address], 02/14/2023 08:27:49 02/14/20 23 02/14/2023 LIPID PANEL VLDL cholesterol xander 12 mg/dL 5-40 Not Available [facility] ([facility]) [address] [facility] [place], [address], 02/14/2023 08:27:49 02/14/20 23 02/14/2023 LIPID PANEL LDL chol calc ([facility]) 76 mg/dL 0-99 Not Available [facility] ([facility]) [address] [facility] [place], [address], 02/14/2023 08:27:49 02/14/20 23 02/14/2023 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 Not Available [facility] ([facility]) [address] [facility], [place], [address], 02/14/2023 08:27:50 02/14/20 23 02/14/2023 THYRO XINE (T4) FREE, DIREC T T4,free(dire ct) 1.48 NG/dL 0.82-1 .77 Not Available [facility] ([facility]) [address] [facility], [place], [address], 02/14/2023 08:27:51 02/14/20 23 02/14/2023 TSH TSH 1.700 uIU/m L 0.450- 4.500 Not Available Not Available 02/14/2023 08:27:52 02/14/20 23 02/14/2023 TRIIO DOTHY NELSON E (T3), FREE triiodothyro nine (T3), free 2.6 pg/mL 2.0-4. 4 Not Available [facility] ([facility]) [address] [facility], [place], [address], 02/14/2023 08:27:52 07/22/19 24 07/22/2023 CBC/C OMPLE TE BLD COUNT W/DIF F white blood cells 3.4 x10'3 /uL 4.2-10 .8 low Not Available [facility] (Lab) [address] [place], [address], 07/22/2023 20:27:45 07/22/19 24 07/22/2023 CBC/C OMPLE TE BLD COUNT W/DIF F red blood cells 4.28 x10'6 /uL 3.80-5 .20 Not Available [facility] (Lab) [address] [place], [address], 07/22/2023 20:27:45 07/22/19 24 07/22/2023 CBC/C OMPLE TE BLD COUNT W/DIF F hemoglobin 14.2 g/dL 12.0-1 5.6 Not Available [facility] (Lab) [address] [place], [address], 07/22/2023 20:27:45 07/22/19 24 07/22/2023 CBC/C OMPLE TE BLD COUNT W/DIF F hematocrit 39.6 % 35.7-4 5.7 Not Available [facility] (Lab) [address] [place], [address], 07/22/2023 20:27:45 07/22/19 24 07/22/2023 CBC/C OMPLE TE BLD COUNT W/DIF F mean red cell volume 92.5 fL 82.0-9 9.0 Not Available [facility] (Lab) [address] [place], [address], 07/22/2023 20:27:45 07/22/19 24 07/22/2023 CBC/C OMPLE TE BLD COUNT W/DIF F mean red cell hemoglobin 33.2 pg 27.0-3 3.0 high Not Available [facility] (Lab) [address] [place], [address], 07/22/2023 20:27:45 07/22/19 24 07/22/2023 CBC/C OMPLE TE BLD COUNT W/DIF F mean RBC HGB concentratio n 35.9 g/dL 31.0-3 6.0 Not Available [facility] (Lab) [address] [place], [address], 07/22/2023 20:27:45 07/22/19 24 07/22/2023 CBC/C OMPLE TE BLD COUNT W/DIF F red cell distribution width 12.4 % 11.8-1 5.5 Not Available [facility] (Lab) [address] [place], [address], 07/22/2023 20:27:45 07/22/19 24 07/22/2023 CBC/C OMPLE TE BLD COUNT W/DIF F platelets 237 x10'3 /uL 150-40 0 Not Available [facility] (Lab) [address] [place], [address], 07/22/2023 20:27:45 07/22/19 24 07/22/2023 CBC/C OMPLE TE BLD COUNT W/DIF F mean platelet volume 11.3 fL 9.0-12 .4 Not Available [facility] (Lab) [address] [place], [address], 07/22/2023 20:27:45 07/22/19 24 07/22/2023 CBC/C OMPLE TE BLD COUNT W/DIF F neutrophils 35.9 % 39.0-7 2.0 low Not Available [facility] (Lab) [address] [place], [address], 07/22/2023 20:27:45 07/22/19 24 07/22/2023 CBC/C OMPLE TE BLD COUNT W/DIF F lymphocytes 40.9 % 16.0-4 7.0 Not Available [facility] (Lab) [address] [place], [address], 07/22/2023 20:27:45 07/22/19 24 07/22/2023 CBC/C OMPLE TE BLD COUNT W/DIF F monocytes 19.4 % 5.0-12 .0 high Not Available [facility] (Lab) [address] [place], [address], 07/22/2023 20:27:45 07/22/19 24 07/22/2023 CBC/C OMPLE TE BLD COUNT W/DIF F eosinophils 2.6 % 1.0-7. 0 Not Available [facility] (Lab) [address] [place], [address], 07/22/2023 20:27:45 07/22/19 24 07/22/2023 CBC/C OMPLE TE BLD COUNT W/DIF F basophils 1.2 % 0.0-2. 0 Not Available [facility] (Lab) [address] [place], [address], 07/22/2023 20:27:45 07/22/19 24 07/22/2023 CBC/C OMPLE TE BLD COUNT W/DIF F immature granulocytes 0.0 % 0.00-0 .50 Not Available [facility] (Lab) [address] [place], [address], 07/22/2023 20:27:45 07/22/19 24 07/22/2023 CBC/C OMPLE TE BLD COUNT W/DIF F neutrophils, absolute count 1.22 x10'3 /uL 1.5-8. 0 low Not Available [facility] (Lab) [address] [place], [address], 07/22/2023 20:27:45 07/22/19 24 07/22/2023 CBC/C OMPLE TE BLD COUNT W/DIF F lymphocytes, absolute count 1.39 x10'3 /uL 1.07-3 .43 Not Available [facility] (Lab) [address] [place], [address], 07/22/2023 20:27:45 07/22/19 24 07/22/2023 CBC/C OMPLE TE BLD COUNT W/DIF F monocytes, absolute count 0.66 x10'3 /uL 0.29-0 .99 Not Available [facility] (Lab) [address] [place], [address], 07/22/2023 20:27:45 07/22/19 24 07/22/2023 CBC/C OMPLE TE BLD COUNT W/DIF F eosinophils, absolute count 0.09 x10'3 /uL 0.02-0 .53 Not Available [facility] (Lab) [address] [place], [address], 07/22/2023 20:27:45 07/22/19 24 07/22/2023 CBC/C OMPLE TE BLD COUNT W/DIF F basophils, absolute count 0.04 x10'3 /uL 0.01-0 .08 Not Available [facility] (Lab) [address] [place], [address], 07/22/2023 20:27:45 07/22/19 24 07/22/2023 CBC/C OMPLE TE BLD COUNT W/DIF F immature granulocytes ,absolute 0.00 x10'3 /uL 0.00-0 .05 Not Available [facility] (Lab) [address] [place], [address], 07/22/2023 20:27:45 07/22/19 24 07/22/2023 CBC/C OMPLE TE BLD COUNT W/DIF F nucleated red blood cells 0.0 % -0 Not Available [facility] (Lab) [address] [place], [address], 07/22/2023 20:27:45 07/22/19 24 07/22/2023 CBC/C OMPLE TE BLD COUNT W/DIF F NRBC# 0.00 x10'3 /uL Not Available [facility] (Lab) [address] [place], [address], 07/22/2023 20:27:45 07/22/19 24 07/22/2023 LIPID PANEL cholesterol 161 mg/dL 140-19 9 NIH JAYDEN NSUS RECOM MENDA TION FOR IBIS STERO L: ADULT CHILD LOW RISK: <200 <170 BORDE RLINE : <200- 239 ----- HIGH RISK: >240 >200 Not Available [facility] (Lab) [address] [place], [address], 07/22/2023 20:38:27 07/22/19 24 07/22/2023 LIPID PANEL triglyceride s 104 mg/dL 0-150 NIH JAYDEN NSUS REPOR T RECOM MENDA TION FOR TRIGL YCERI CAROLINE: ADULT CHILD LOW RISK: <150 ----- BODER LINE: 150-1 99 ----- HIGH RISK: >200 ----- Not Available [facility] (Lab) [address] [place], [address], 07/22/2023 20:38:27 07/22/19 24 07/22/2023 LIPID PANEL HDL cholesterol 66 mg/dL 40- Not Available [facility] (Lab) [address] [place], [address], 07/22/2023 20:38:27 07/22/19 24 07/22/2023 LIPID PANEL [...] WILL NOT BE REPOR ZEE. Not Available [facility] (Lab) [address] [place], [address], 07/22/2023 20:38:27 07/22/19 24 07/22/2023 HEPAT IC/LI ADRIEL PANEL alkaline phosphatase 83 U/L 38-126 Not Available [facility] (Lab) [address] [place], [address], 07/22/2023 20:38:32 07/22/19 24 07/22/2023 HEPAT IC/LI ADRIEL PANEL alanine aminotransfe rase 21 U/L 0-35 Not Available [facility] (Lab) [address] [place], [address], 07/22/2023 20:38:32 07/22/19 24 07/22/2023 HEPAT IC/LI ADRIEL PANEL aspartate aminotransfe rase 28 U/L 15-37 Not Available [facility] (Lab) [address] [place], [address], 07/22/2023 20:38:32 07/22/19 24 07/22/2023 HEPAT IC/LI ADRIEL PANEL bilirubin, total 0.90 mg/dL 0.20-1 .30 Not Available [facility] (Lab) [address] [place], [address], 07/22/2023 20:38:32 07/22/19 24 07/22/2023 HEPAT IC/LI ADRIEL PANEL bilirubin, conjugated (direct) 0.00 mg/dL 0.00-0 .30 Not Available [facility] (Lab) [address] [place], [address], 07/22/2023 20:38:32 07/22/19 24 07/22/2023 HEPAT IC/LI ADRIEL PANEL biliurubin,u ncong. (indirect) 0.70 mg/dL 0.00-1 .1 Not Available [facility] (Lab) [address] [place], [address], 07/22/2023 20:38:32 07/22/19 24 07/22/2023 HEPAT IC/LI ADRIEL PANEL total protein 7.2 g/dL 6.3-8. 2 Not Available [facility] (Lab) [address] [place], [address], 07/22/2023 20:38:32 07/22/19 24 07/22/2023 HEPAT IC/LI ADRIEL PANEL albumin 4.4 g/dL 3.0-4. 4 Not Available [facility] (Lab) [address] [place], [address], 07/22/2023 20:38:32 07/22/19 24 07/22/2023 HEPAT IC/LI ADRIEL PANEL globulin 2.8 g/dL 2.6-4. 2 Not Available [facility] (Lab) [address] [place], [address], 07/22/2023 20:38:32 07/22/19 24 07/22/2023 HEPAT IC/LI ADRIEL PANEL A/G ratio 1.6 ratio 1.0-2. 0 Not Available [facility] (Lab) [address] [place], [address], 07/22/2023 20:38:32 07/22/19 24 07/22/2023 BASIC METAB OLIC PANEL sodium 138 mmol/ L 137-14 5 Not Available [facility] (Lab) [address] [place], [address], 07/22/2023 20:38:43 07/22/19 24 07/22/2023 BASIC METAB OLIC PANEL potassium 4.1 mmol/ L 3.5-5. 1 Not Available [facility] (Lab) [address] [place], [address], 07/22/2023 20:38:43 07/22/19 24 07/22/2023 BASIC METAB OLIC PANEL chloride 104 mmol/ L 98-107 Not Available [facility] (Lab) [address] [place], [address], 07/22/2023 20:38:43 07/22/19 24 07/22/2023 BASIC METAB OLIC PANEL carbon dioxide 26 mmol/ L 22-30 Not Available [facility] (Lab) [address] [place], [address], 07/22/2023 20:38:43 07/22/19 24 07/22/2023 BASIC METAB OLIC PANEL anion gap 12.1 mmol/ L 14-22 low Not Available [facility] (Lab) [address] [place], [address], 07/22/2023 20:38:43 07/22/19 24 07/22/2023 BASIC METAB OLIC PANEL glucose 95 mg/dL 70-99 Not Available [facility] (Lab) [address] [place], [address], 07/22/2023 20:38:43 07/22/19 24 07/22/2023 BASIC METAB OLIC PANEL BUN 20 mg/dL 8-19 high Not Available [facility] (Lab) [address] [place], [address], 07/22/2023 20:38:43 07/22/19 24 07/22/2023 BASIC METAB OLIC PANEL creatinine 0.78 mg/dL 0.66-1 .25 Not Available [facility] (Lab) [address] [place], [address], 07/22/2023 20:38:43 07/22/19 24 07/22/2023 BASIC METAB OLIC PANEL GFR >60 Refer ence Range : [place] ge GFR Healt hy Adult : >60 [...] calcu lator is avail able on the [facility] websi te: [email or web address] or Not Available [facility] (Lab) [address] [place], [address], 07/22/2023 20:38:43 07/22/19 24 07/22/2023 BASIC METAB OLIC PANEL calcium 10.0 mg/dL 8.4-10 .2 Not Available [facility] (Lab) [address] [place], [address], 07/22/2023 20:38:43 07/22/19 24 07/22/2023 URINA LYSIS [...] T4 1.82 NG/dL 0.78-2 .19 Not Available [facility] (Lab) [address] [place], [address], 07/22/2023 20:49:23 07/22/19 24 07/22/2023 TSH thyroid-stim ulating hormone 1.330 uIU/m L 0.465- 4.680 Not Available [facility] (Lab) [address] [place], [address], 07/22/2023 20:58:48 09/26/19 24 09/26/2023 urina lysis , dipst ick Leukocytes (reference range: negative girish/ l) Negati ve Not Available [facility] [address], [place], [address], 09/26/2023 09:22:46 09/26/19 24 09/26/2023 urina lysis , dipst ick Nitrite (reference rage: negative mg/dl) negati ve Not Available [address], [place], [address], 09/26/2023 09:22:46 09/26/19 24 09/26/2023 urina lysis , dipst ick Urobilinogen (reference range: 0.2-1 mg/dl) 0.2 Not Available [address], [place], [address], 09/26/2023 09:22:46 09/26/1909/26/2023 urina lysis , dipst ick Protein (reference range: negative mg/dl) Negati ve Not Available [address], [place], [address], 09/26/2023 09:22:46 09/26/19 24 09/26/2023 urina lysis , dipst ick pH (reference range: 5-7) 7.5 Not Available [address], [place], [address], 09/26/2023 09:22:46 09/26/19 24 09/26/2023 urina lysis , dipst ick Blood (reference range: negative Quan/ l) Negati ve Not Available [address], [place], [address], 09/26/2023 09:22:46 09/26/1909/26/2023 urina lysis , dipst ick Specific [place] (reference range: 1.005-1.030) 1.030 Not Available [address], [place], [address], 09/26/2023 09:22:46 09/26/19 24 09/26/2023 urina lysis , dipst ick Ketone (reference range: negative mg/dl) Negati ve Not Available [address], [place], [address], 09/26/2023 09:22:46 09/26/19 24 09/26/2023 urina lysis , dipst ick Bilirubin (reference range: negative mg/dl) Negati ve Not Available [address], [place], [address], 09/26/2023 09:22:46 09/26/19 24 09/26/2023 urina lysis , dipst ick Glucose (reference range: negative mg/dl) Negati ve Not Available [address], [place], [address], 09/26/2023 09:22:46 09/26/19 24 09/26/2023 urina lysis , dipst ick Appearance Clear Not Available [address], [place], [address], 09/26/2023 09:22:46 09/26/19 24 09/26/2023 urina lysis , dipst ick Color Yellow Not Available [address], [place], [address], 09/26/2023 09:22:46 10/31/19 24 05/29/2022 CT, chest , w/o contr ast No observ ation record ed. [email or web address] [facility] [address] [place], [address], 11/06/2023 23:25:53 Result Notes None recorded. Problems Name Problem SNOMED Code Status Onset Date Resolution Date Notes Provider Name and Address Organization Details Recorded Time Acute bronchit is 22132193 Completed Not Available [facility] 3 01:37:17 Fracture of great toe 485125721 Active 2021 Not Available [facility] 4 05:10:22 Fracture of great toe 777844026 Active 2021 Not Available [facility] 4 05:10:22 Neuropat hy 501680456 Active 2022 Not Available [facility] 4 05:10:22 Hypothyr oidism 57666611 Active Not Available [facility] 4 05:10:23 Anxiety 18550600 Active 2018 Not Available [facility] 4 05:10:23 Cough 03863701 Active 2022 Not Available [facility] 4 05:10:23 Coronary arterios clerosis 78146945 Active Not Available [facility] 4 05:10:23 Upper respirat ory infectio n 77930436 Active 2021 Not Available [facility] 4 05:10:23 Essentia l hyperten jacque 17036188 Active Not Available [facility] 4 05:10:23 Urinary tract infectio us disease 64020912 Completed Not Available [facility] 3 01:37:18 Rhinitis 94264797 Completed Not Available [facility] 3 01:37:19 Nodule of lung 012374634 Active 2019 Not Available [facility] 4 05:10:23 Closed fracture of phalanx of foot 05181500 Active 2021 Not Available [facility] 4 05:10:23 Sciatica 62063615 Active 2022 Not Available [facility] 4 05:10:22 Sore throat 881019373 Active 2022 Not Available [facility] 4 05:10:22 Osteopor osis 03042590 Active 2022 Not Available [facility] 4 05:10:23 Pain in throat 871366230 Active 2022 Not Available [facility] 4 05:10:22 Leukopen ia 83687287 Active 2022 Normal work up with hematolo gy Morelia Gudino MD [address], [place], [address] , [facility] [employer] [facility] [employer] [facility] 4 14:34:54 Nausea 362432940 Active 2022 Not Available [facility] 4 05:10:23 Diarrhea 71183221 Active 2022 Not Available [facility] 4 05:10:23 Acute sinusiti s 01803568 Active 2022 Not Available [facility] 4 05:10:22 Microsco pic hematuri a 120661103 Active 2023 had normal work up with urology Morelia Gudino MD [address], [address], [place], [address] , [facility] [employer] [facility] [employer] [facility] 4 14:34:08 Female stress incontin ence 17428493 Active 2023 Morelia Gudino MD [address], [address] [employer], [place], [address] , [employer] [facility] [employer] [facility] 4 14:35:36 Urge incontin ence of urine 56177194 Active 2023 Morelia Gudino MD [address], [address], [place], [address] , [employer] [facility] [employer] [facility] 4 14:38:20 Nausea, vomiting and diarrhea 6676917 Active 2023 SARAHI Morales [address], [place], [address] , [employer] [facility] [employer] [facility] 4 09:11:48 Dysuria 33388190 Active 2023 SARAHI Morales [address], [place], [address] , [employer] [facility] [employer] [facility] 4 09:22:44 Viral gastroen teritis 651041325 Active 2023 SARAHI Morales [address], [place], [address] , [facility] [employer] 4 12:42:59 Problem Notes None recorded. Procedures Surgical History Date Name Laterality Status Provider Name and Address Organization Details Recorded Time 07/22/19 24 Medicare Wellness CPT Code, subsequent completed Catherine Begum RN [facility] [employer] 07/22/2023 14:02:44 04/11/19 21 Most Recent Bone Density completed Not Available [facility] 05/15/2022 01:22:49 07/03/19 18 Date of Last Colonoscopy completed Not Available [facility] 05/15/2022 01:22:49 Tubal Ligation completed Not Available [facility] 05/15/2022 01:22:56 Cardiac Stent Placement completed Not Available [facility] 05/15/2022 01:22:56 Imaging Results Imaging Date Name Status LastModified by Organiz ation Details LastModified Time 05/29/2022 CT, chest, w/o contrast completed [email or web address] [address], [address], 11/06/2023 23:25:53 Procedure Notes None recorded. Medical Equipment None Reported. Allergies Allergen ID Allergen Name Allergen Category Reaction Reaction Severity Criticality Documentation Date Start Date Code Code System Note Provider Name and Address Organization Details Recorded Time 3030 prednison e medicatio n Not available Not available Not available 05/15/2022 8640 RxNorm bilat eral leg swell ing Not Available [facility] 3 01:55:14 Medications Name Sig Start Date [...] Updated DateTime 3 160.02 cm 27.6 kg/m2 96027.4 1 g 98.2 [degF] 76 /min 112 mm[Hg] 72 mm[Hg] Dedra dupree RN [facility] [employer] [facility] 3 15:06:12 Date Recorded Body height Body mass index (BMI) Body weight Body temperature Heart rate Oxygen saturation Oxygen saturation in Arterial blood by Pulse oximetry Systolic blood pressure Diastolic blood pressure Provider Name and Address Organization Details Last Updated DateTime 3 160.02 cm 28.2 kg/m2 08066.1 9 g 97.8 [degF] 68 /min 96 % 96 % 122 mm[Hg] 70 mm[Hg] Catherine Begum RN [facility] [employer] [facility] 3 09:26:32 Date Recorded Body height Body mass index (BMI) Body weight Body temperature Heart rate Oxygen saturation Oxygen saturation in Arterial blood by Pulse oximetry Systolic blood pressure Diastolic blood pressure Provider Name and Address Organization Details Last Updated DateTime 4 160.02 cm 28.3 kg/m2 12406.7 8 g 97.2 [degF] 67 /min 98 % 98 % 120 mm[Hg] 74 mm[Hg] Catherine Begum RN [facility] [employer] [facility] 4 14:04:52 Date Recorded Body height Body mass index (BMI) Body weight Body temperature Heart rate Oxygen saturation Oxygen saturation in Arterial blood by Pulse oximetry Systolic blood pressure Diastolic blood pressure Provider Name and Address Organization Details Last Updated DateTime 4 160.02 cm 27.5 kg/m2 46929.8 2 g 97.4 [degF] 69 /min 94 % 94 % 128 mm[Hg] 74 mm[Hg] Griselda Galvin RN [place] - [employer] 4 09:06:26 Date Recorded Body height Body mass index (BMI) Body weight Body temperature Heart rate Oxygen saturation Oxygen saturation in Arterial blood by Pulse oximetry Systolic blood pressure Diastolic blood pressure Provider Name and Address Organization Details Last Updated DateTime 4 160.02 cm 27.3 kg/m2 06899.2 2 g 97.7 [degF] 79 /min 95 % 95 % 122 mm[Hg] 76 mm[Hg] TIMOTHY Zacarias - [employer] 4 12:34:49 Social History Question Answer Notes LastModified by Organization Details LastModified Time Tobacco Smoking Status Former Smoker quit 01/2019 Not Available [facility] 05/15/2022 01:18:30 Do You Have An Advance Directive? No Information Provided MIGRATION.240 [id number] Information not available 05/15/2022 What Is Your Level Of Alcohol Consumption? Occasional MIGRATION.065 0244500 Information not available 05/15/2022 Are You Blind Or Do You Have Difficulty Seeing? No MIGRATION.845 0123500 Information not available 05/15/2022 What Is Your Level Of Caffeine Consumption? Moderate MIGRATION.988 3447040 Information not available 05/15/2022 How Much Tobacco Do You Chew? None MIGRATION.372 6353407 Information not available 05/15/2022 In The 14 Days Before Symptom Onset, Have You Had Close Contact With A Laboratory-conf irmed COVID-19 While That Case Was Ill? No MIGRATION.378 0602239 Information not available 05/15/2022 In The 14 Days Before Symptom Onset, Have You Had Close Contact With A Person Who Is Under Investigation For COVID-19 While That Person Was Ill? No MIGRATION.860 3900818 Information not available 05/15/2022 Are You Currently Employed? No [email or web address] Information not available 10/24/2022 Are You Deaf Or Do You Have Serious Difficulty Hearing? No MIGRATION.809 8259460 Information not available 05/15/2022 What Type Of Diet Are You Following? REGULAR MIGRATION.195 9660539 Information not available 05/15/2022 Which Illicit Or Recreational Drugs Have You Used? None MIGRATION.062 4158375 Information not available 05/15/2022 Do You Or Have You Ever Used E-cigarettes Or Vape? Never Used Electronic Cigarettes MIGRATION.341 5387606 Information not available 05/15/2022 What Is The Highest Grade Or Level Of School You Have Completed Or The Highest Degree You Have Received? 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 No MIGRATION.054 6490865 Information not available 05/15/2022 What Is The Fluoride Status Of Your Home? Unknown MIGRATION.609 7629054 Information not available 05/15/2022 When Did You Quit Smoking? 1-5yearssincelastc igarette MIGRATION.296 5033656 Information not available 05/15/2022 Are There Any Guns Present In Your Home? No MIGRATION.567 4172554 Information not available 05/15/2022 Do You Use Insect Repellent Routinely? Yes MIGRATION.425 0595058 Information not available 05/15/2022 Where Do You Live? SingleLevelHouse With Basement MIGRATION.531 6621038 Information not available 05/15/2022 Do You Have A Medical Power Of Boiler Tender? No MIGRATION.985 9605419 Information not available 05/15/2022 What Was The Date Of Your Most Recent Tobacco Screening? 01/21/2023 Information not available 01/21/2023 What Is Your Current Pack Years? 30ormorepackyears MIGRATION.892 8601410 Information not available 05/15/2022 Have You Ever Been Counseled For Unhealthy Alcohol Use? No MIGRATION.435 0398511 Information not available 05/15/2022 Do You Have Any Pets? No MIGRATION.012 2329402 Information not available 05/15/2022 What Is Your Relationship Status? MIGRATION.215 0622772 Information not available 05/15/2022 Do You Use Your Seat Belt Or Car Seat Routinely? Yes MIGRATION.014 4916471 Information not available 05/15/2022 Do You Have Smoke And Carbon Monoxide Detectors In Your Home? Yes MIGRATION.066 3403037 Information not available 05/15/2022 At What Age Did You Start Smoking Tobacco? 20 MIGRATION.377 7744539 Information not available 05/15/2022 Are You Passively Exposed To Smoke? No MIGRATION.402 0949484 Information not available 05/15/2022 Do You Or Have You Ever Used Smokeless Tobacco? Never Used Smokeless Tobacco MIGRATION.277 9696854 Information not available 05/15/2022 Are There Any Smokers In Your House? No MIGRATION.333 4368693 Information not available 05/15/2022 How Much Tobacco Do You Smoke? No MIGRATION.439 3235619 Information not available 05/15/2022 What Types Of Sporting Activities Do You Participate In? None MIGRATION.274 0094940 Information not available 05/15/2022 Do You Feel Stressed (tense, Restless, Nervous, Or Anxious, Or Unable To Sleep At Night)? [id number] MIGRATION.391 0609374 Information not available 05/15/2022 Do You Use Any Illicit Or Recreational Drugs? No MIGRATION.458 6565810 Information not available 05/15/2022 Do You Use Sunscreen Routinely? Yes MIGRATION.726 2474403 Information not available 05/15/2022 Has Tobacco Cessation Counseling Been Provided? No MIGRATION.805 0159185 Information not available 05/15/2022 Have You Recently Traveled Abroad? No MIGRATION.467 0814503 Information not available 05/15/2022 Do You Have Any Dietary Restrictions? No MIGRATION.773 9468092 Information not available 05/15/2022 Do You Or Have You Ever Used Any Other Forms Of Tobacco Or Nicotine? No MIGRATION.363 3292727 Information not available 05/15/2022 Sex: Female Functional Status Question Answer Note LastModified by Organizat ion Details LastModified Time Do you have difficulty walking or climbing stairs? No MIGRATION.3651467 026 Information not available 05/15/2022 Do you have transportation difficulties? No MIGRATION.2205622 026 Information not available 05/15/2022 Are you able to walk? YESWOREST MIGRATION.3491643 026 Information not available 05/15/2022 Do you have difficulty doing errands alone? No MIGRATION.6161711 026 Information not available 05/15/2022 Are you able to care for yourself? Yes MIGRATION.0145390 026 Information not available 05/15/2022 Do you have difficulty dressing or bathing? No MIGRATION.9148017 026 Information not available 05/15/2022 What is your exercise level? Occasional MIGRATION.5895827 026 Information not available 05/15/2022 Mental Status Question Answer Note LastModified by Organizat ion Details LastModified Time Do you have difficulty concentrating, remembering or making decisions? No MIGRATION.274754980 6 Information not available 05/15/2022 Family History Relationship Description Onset Age of this Age Resolved Age Notes LastModified by Organization Details LastModified Time Mother Rupture of aorta frivastorres Not available 11/2023 12:28:57 Father Myocardial infarction MIGRATION.577 [id number] Not available 05/15/2022 01:23:04 Medical History Condition [...] HAVE YOU BEEN HOSPITALIZED OR SEEN IN [facility] IN THE PAST YEAR ? N ATHEROSCLEROSIS [...] mcg/0.3 mL dose 1 completed Not Available [facility] 04/09/2023 05:10:23 Influenza, split virus, trivalent, preservative 9 completed Not Available [facility] 04/09/2023 05:10:23 COVID-19, mRNA, LNP-S, PF, 30 mcg/0.3 mL dose 1 completed Not Available [facility] 04/09/2023 05:10:23 Influenza, high-dose, quadrivalent, PF 0 completed Not Available [facility] 04/09/2023 05:10:23 pneumococcal polysaccharide PPV23 2 completed Not Available [facility] 04/09/2023 05:10:23 Influenza, high-dose, trivalent, PF 8 completed Not Available [facility] 04/09/2023 05:10:23 Influenza, high-dose, trivalent, PF 7 completed Not Available [facility] 04/09/2023 05:10:23 Pneumococcal conjugate PCV 13 4 completed Not Available [facility] 04/09/2023 05:10:23 Past Encounters Encounter ID Performer Location Encounter Start Date Encounter Closed Date Diagnosis/Indication Diagnosis SNOMED-CT Code Diagnosis ICD10 Code Diagnosis Note [id number] [facility] Internal Med Aleena armendariz [address] [facility] [place] [address] 05/23/2020 00:00:00 05/23/2020 20:38:[id number] [facility] General Surgery [address] , [facility] [address] [place] [address] 06/13/2020 00:00:00 06/13/2020 14:17:[id number] [facility] Internal Med [place] [address] [facility] y , [place] [address] 11/14/2020 00:00:00 11/20/2020 13:06:[id number] [facility] Internal Med [place] [address] [facility] [address] , [place] [address] 03/13/2021 00:00:00 03/15/2021 14:00:[id number] [facility] Internal Med [place] [address] [place] [address] y , [place] [address] 05/01/2021 00:00:00 05/12/2021 20:33:11 [id number] Diane Vitale MD [facility] Internal Med [place] [address] [place] [address] y , [place] [address] 06/21/2021 00:00:00 06/21/2021 22:19:05 [id number] Jairo Munoz DPM [facility] Podiatry [address] [address] 06/25/2021 00:00:00 07/12/2021 13:49:39 [id number] Jairo Munoz DPM [facility] Podiatry [address] [address] 2021 00:00:00 2021 12:56:[id number] [facility] Internal Med [place] [address] [place] [address] y , [place] [address] 08/16/2021 00:00:00 09/17/2021 21:59:[id number] [facility] Internal Med [place] [address] [place] [address] y , [place] [address] 12/20/2021 00:00:00 12/20/2021 22:45:32 [id number] Diane Vitale MD [facility] Internal Med [place] [address] [facility] [place] [address] 05/16/2022 15:06:49 05/16/2022 16:06:01 Essential hypertension 42281269 I10 Nodule of lung 666101134 R91.1 Sciatica 32396186 M54.31 Anxiety 82518828 F41.9 Hypothyroidism 93497634 E03.9 [id number] Diane Vitale MD [facility] Internal Med [place] [address] [place] [address] [place] [address] 06/27/2022 14:59:20 06/27/2022 16:14:33 Anxiety 80543726 F41.9 Nodule of lung 495652235 R91.1 Coronary arteriosclerosis 39136511 I25.10 Essential hypertension 47909815 I10 Sciatica 85030407 M54.31 [id number] Diane Vitale MD [facility] Internal Med [place] [address] [place] [address] [place] [address] 10/24/2022 14:57:05 10/24/2022 16:00:53 Essential hypertension 47208890 I10 Hypothyroidism 09104071 E03.9 Long-term drug therapy 806971884 Z79.899 Coronary arteriosclerosis 03530221 I25.10 Anxiety 36499104 F41.9 [id number] Morelia Gudino MD [facility] Primary Care [facility] [address] [facility] [address] [place] [address] 01/21/2023 09:17:38 01/21/2023 10:05:15 Pain in throat 243455223 R07.0 take home covid test Coronary arteriosclerosis 92508511 I25.10 s/p cardiac stentsees Dr. Giles Osteoporosis 76134746 M8 1.0 DEXA 11/06starte d fosamax this yeardaily walking Essential hypertension 72770813 I10 stable Hypothyroidism 12639123 E03.9 stable Long-term drug therapy 925120985 Z79.681 [id number] Morelia Gudino MD [facility] Primary Care [facility] [address] [facility] [address] [place] [address] 07/22/2023 14:00:05 07/22/2023 14:59:21 Adult health examination 423915760 Z00.00 Mammogram done 11/06DEXA done 11/06RSV given 02/06Covid given 02/06Flu vaccine annuallyPr evnar 13 given 01/28Shing les series given 10/06, 01/06Pneum ovax 23 given 01/05Colon oscopy referral given Screening for disorder 358703800 Z13.9 Osteoporosis 11845995 M8 1.0 DEXA 11/06starte d fosamax this yeardaily walking 07/22/23: was on fosamax but had to d/c while having dental work doneshe is not done yet with dental workwill restart fosamax when dental work is completede clines referral to endocrinol ogycontinu e daily walking Screening for malignant neoplasm of colon 284889751 Z12.11 Coronary arteriosclerosis 72192913 I25.10 Z79.899 E78.5 s/p cardiac stentsees Dr. Giles Essential hypertension 62789866 I10 stable Hypothyroidism 00371397 E03.9 stable Renewal of prescription 060666816 Z76.[address] ess incontinence 66046600 N39.3 Urge incon tinence of urine 42975515 N39.41 [id number] SARAHI Morales [facility] Primary Care [facility] [address] [facility] [address] [place] [address] 09/26/2023 09:01:02 09/26/2023 09:46:40 Nausea, vomiting and diarrhea 1886847 R19.7 recently seen in UC for diarrhea and nauseawas given antibiotic s, completedw as given nausea medsdiarrh ea and nausea has resolvedco lonoscopy scheduled for end october Nodule of lung 586395422 R91.1 Dysuria 52386235 R30.0 [id number] SARAHI Morales [facility] Primary Care [facility] [address] [facility] [address] [place] [address] 10/24/2023 12:27:28 10/24/2023 12:57:05 Viral gastroenteritis 367518801 A08.4 Anxiety 84667885 F41.9 currently uses sertraline 50mgfinds that it [...] Name 10/24/2022 1 [place] Liz D Bussey [id number] Liz Yoanna Bussey 10/24/2022 2 [employer] (MEDICARE SUPPLEMENT) Liz Chris Bussey [id number] Liz Yoanna Bussey 01/21/2023 1 [place] Liz D Bussey [id number] Liz Yoanna Bussey 01/21/2023 2 [employer] (MEDICARE SUPPLEMENT) Liz D Bussey [id number] Liz Yoanna Bussey 07/22/2023 1 [place] Liz D Bussey [id number] Liz Yoanna Bussey 07/22/2023 2 [employer] (MEDICARE SUPPLEMENT) Liz D Bussey [id number] Liz Yoanna Bussey 09/26/2023 1 [place] Liz D Bussey [id number] Liz Yoanna Bussey 09/26/2023 2 [employer] (MEDICARE SUPPLEMENT) Liz D Bussey [id number] Liz Yoanna Bussey 10/24/2023 1 [place] Liz D Bussey [id number] Liz Yoanna Bussey 10/24/2023 2 [employer] (MEDICARE SUPPLEMENT) Liz D Bussey [id number] Liz Yoanna Bussey Notes Date Note Type Note Provider Name and Address Organization Details Recorded Time 10/24/2022 text/html hypertension no headache or dizzines LDCT largely unchanged maybe a little bit of fibrosi CAD no chest pain anxiety stabl dyslipidemia following low-fat diet. Hypothyroid no heat or cold intolerance and her anxiety stable Diane Vitale MD [address], [address], [place], [address], [employer] [facility] [employer] 01/12/2023 17:18:44 01/21/2023 text/html Here to errolvincent ring, started feeling a bit sick over weekend. Yesterday had hoarse voice. She found some old levofloxacin 750 mg and took 1 yesterday. She was able to cough up some sputum yesterday. Morelia Gudino MD [address], [address], [place], [address], [employer] [facility] [employer] 02/11/2023 21:04:43 07/22/2023 text/html Here for wellnes s exam increased urinary frequency, but not urinating as much at a timeno dysuria, no hematuria but she has h/o microscopic hematuria and had normal work up in past she has h/o stress incontinence, considered bladder lift in the past Morelia Gudino MD [address], [address], [place], [address], [employer] [facility] [employer] 08/03/2023 13:07:13 09/26/2023 text/html pt is here for U C f/u SIRENA Morales-C [address], [address], [place], [address], [employer] [facility] [employer] 09/26/2023 09:26:08 10/24/2023 text/html pt is here for f/u EDMOND VelasquezP-C [address], [address], [place], [address], [employer] [facility] [employer] 10/24/2023 12:55:11 OBGyn Episode No OBEpisode recorded.
--- OUTSIDE RECORDS SUMMARY | 2024-07-23 14:26 | XMS_ITS | Clinical Summary ---
Author Organization [facility] [address] [place] Address [address] [place] [phone] Care Team Providers Care Associate Professor Of Medicine Name Role Phone Raymond Vitale MD Primary Care Provider + [phone] Allergies Active Allergy Reactions Criticality Noted Date [...] on file Legal Sex Female 8:14 PM RN CAMP Gender Identity Not on file Sexual Orientation Not on file Obstetrics History Last Filed Vital Signs Vital Sign Reading Time Taken Comments Blood Pressure 130/72 04/26/2023 5:37 PM RN CAMP Pulse 63 04/26/2023 5:37 PM RN CAMP Temperature 36.6 C (97.9 F) 04/26/2023 5:37 PM RN CAMP Respiratory Rate 22 04/26/2023 5:37 PM RN CAMP Oxygen Saturation 99% 04/26/2023 5:37 PM RN CAMP Inhaled Oxygen Concentration - - Weight 70.3 kg (155 lb) 04/26/2023 5:37 PM RN CAMP Height 165.1 cm (5' 5 ) 06/16/2021 [...] season) 2023 01/02/2021, 06/02/2020, 05/09/2020 Influenza Vaccine (Season Ended) 2024 12/14/2020, 01/07/2020, 12/30/2018, Additional history exists Pneumococcal vaccine [...] signed by: Dr. Joel Ly nh/:06/09/2014 10:37:38 Administration Clerk: Emperatriz MEANS (R)(M), [facility] letter sent: Normal Exam Reading location: BI-RADS: 1 Negative [EOD] Narrative 06/09/2014 10:39 AM CDT - [facility] BILATERAL SCREENING W/CAD BILATERAL DIGITAL SCREENING MAMMOGRAM WITH CAD: 06/08/2014 The study was acquired using full field digital technology and interpreted from soft copy. Current study was also evaluated with ICAD version 7.2. COMPARISONS: Comparison is made to exams dated: 06/10/2013 mammogram and 06/03/2012 mammogram - [facility]. BREAST TISSUE: There are scattered areas of fibroglandular density. FINDINGS: No significant masses, calcifications, or other findings are seen in either breast. There has been no significant interval change. Procedure Note Provider, MD Amairani - 08/01/2020 - [facility] BILATERAL SCREENING W/CAD BILATERAL DIGITAL SCREENING MAMMOGRAM WITH CAD: 06/08/2014 The study was acquired using full field digital technology and interpretedfrom soft copy. Current study was also evaluated with ICAD version 7.2. COMPARISONS: Comparison is made to exams dated: 06/10/2013 mammogram and 06/03/2012 mammogram - [facility]. BREAST TISSUE: There are scattered areas [...] signed by: Dr. Joel Ly nh/:06/09/2014 10:37:38 Administration Clerk: Emperatriz Paez RT (R)(M), [facility] letter sent: Normal Exam Reading location: BI-RADS: 1 Negative [EOD] Ethan Mcrae MD IMG MAMMO PROCEDURES Final Result from Last 3 Months or Most Recently Relevant to Health Maintenance Insurance MEDICARE AET MEDICARE AETNA Care Teams Associate Professor Of Medicine Relationship Specialty Start Date End Date Raymond Vitale MD PCP - General Internal Medicine 06/16/21
--- OUTSIDE RECORDS SUMMARY | 2024-07-23 14:26 | XMS_ITS | CONTINUITY OF CARE DOCUMENT ---
Author Name joanne rubio Address Unknown Organization [facility] [address] [address] Address [address] [facility] [address] [place] [address] Phone [phone] Care Team Providers Care Sleeve Turner Name Role Phone Tisha MAYES, Wallace Unavailable DIANE COURTNEY MD Unavailable BALWINDER MAYES, BERTIN Unavailable [phone] PROBLEMS Condition Status Date Provider Notes HYPOTHYROIDISM active Fe Stahlschmidt OBESITY active Fe Stahlschmidt DEPRESSION active Fe Stahlschmidt HTN ESSENTIAL active Fe Stahlschmidt CAD active Fe Stahlschmidt Hyperlipidemia active Wallace Giles MD TOBACCO USE active Wallace Giles MD GERD-esophageal reflux active Wallace Giles MD Shortness of breath active Irlanda Ventimigl ia [employer] COPD active Irlanda Ventimiglia [employer] ENCOUNTERS Date Type Provider Location Encounter Diag nosis - In-person encounter Office Visit Wallace Giles MD [facility] - In-person encounter Office Visit Wallace Giles MD [facility] COPD - In-person encounter Office Visit Wallace Giles MD [facility] - In-person encounter Office Visit Wallace Giles MD [facility] Shortness of breath - In-person encounter Office Visit Wallace Giles MD [facility] - In-person encounter Office Visit Wallace Giles MD [facility] - In-person encounter Office Visit Wallace Giles MD [facility] - In-person encounter Office Visit Wallace Giles MD [facility] Hyperlipidemia - In-person encounter Office Visit Wallace Giles MD [facility] - In-person encounter Office Visit Wallace Giles MD [facility] - In-person encounter Office Visit Wallace Giles MD [facility] GERD-esophageal reflux - In-person encounter Office Visit Candice Mejía MD [facility] - In-person encounter Office Visit Wallace Giles MD [facility] - In-person encounter Office Visit Wallace Giles MD [facility] - In-person encounter Office Visit Wallace Giles MD [facility] - In-person encounter Office Visit Wallace Giles MD [facility] TOBACCO USE - In-person encounter Office Visit Wallace Giles MD [facility] - In-person encounter Office Visit Wallace Giles MD [facility] - In-person encounter Office Visit Wallace Giles MD [facility] - In-person encounter Office Visit Wallace Giles MD [facility] - In-person encounter Office Visit Wallace Giles MD [facility] VITAL SIGNS Date Observation Value Provider Body Mass Index (Ratio) 26.62 kg/m2 Estevan Giles MD blood pressure, diastolic 74 mm[Hg] Randi lea [place] blood pressure, systolic 133 mm[Hg] Monica steele [place] oxygen saturation, oximetry 97 % Kiara [place] pulse rate 61 /min Kiara [place] respiratory rate E&M 12 /[facility] 160 [lb_av] [facility] height E&M 65 [in_i] [facility] blood pressure, cuff size regular Randi lea [place] Body Mass Index (Ratio) 26.62 kg/m2 Estevan Giles MD blood pressure, diastolic 70 mm[Hg] Randi lea [place] blood pressure, systolic 124 mm[Hg] [facility], oximetry 97 % [facility] pulse [facility] 62 /min [facility] respiratory rate E&M 12 /min [facility] weight E&M 160 [lb_av] [facility] height E&M 65 [in_i] [facility] blood pressure, cuff size regular Randi lea [place] blood pressure, diastolic 71 mm[Hg] [facility]Log blood [...] [facility]ic oxygen saturation, oximetry 95 % Peggy [place] pulse rate 63 /min Peggy Lexi perez blood pressure, diastolic 70 mm[Hg] Nona thomas [place] blood pressure, systolic 121 mm[Hg] [facility] nisreen [place] respiratory rate E&M 16 /min Daly jneny [place] blood pressure, cuff size large Nona thomas [place] weight E&M 161 [lb_av] Peggy perez height [...] Quintanilla blood pressure, diastolic 70 mm[Hg] Fide Brwoer blood pressure, systolic 124 mm[Hg] Francisca Camarilloshalomerica [...] Lloyd blood pressure, diastolic 80 mm[Hg] As carmeol Desai blood pressure, systolic 126 mm[Hg] Jony [...] blood pressure, diastolic 74 mm[Hg] farhan Dukeslisa [place] blood pressure, systolic 132 mm[Hg] Hellen aviles [...] blood pressure, diastolic 81 mm[Hg] Fe aniceto Arianna blood pressure, systolic 163 mm[Hg] Fel icia [place] pulse rate 73 /min Salud [place] oxygen saturation, oximetry 99 % Salud [place] respiratory rate E&M 16 /min Salud [place] ALLERGIES Allergy Name Onset Date Reaction Criticality Status PREDNISONE High Criticality active RESULTS Date Observation Value Provider Reference Range Interpretation Location lipoprotein, beta, serum, point, quantitative, calculated 71 mg/dL [facility] 0-99 HDL cholesterol, serum 57 mg/dL [facility] >39 triglyceride, serum, random 97 mg/dL [facility] 0-149 cholesterol, serum 146 mg/dL [facility] [id number] 0678/05/ 17 thyroid stimulating hormone, serum 0.270 ??IU/ML [...] 6.0 alanine aminotransferase (SGPT), serum 13 L [facility] aspartate aminotransferase (SGOT), serum 16 1/L [facility] creatinine, serum 0.7 mg/dL [facility] urea nitrogen, blood 20 mg/dL [facility] potassium, serum 4.6 mmol/L [facility] sodium, serum 143 mmol/L [facility] triglyceride, serum, fasting 59 mg/dL [facility] HDL cholesterol, serum 60 mg/dL [facility] LDL cholesterol, serum 98 mg/dL [facility] cholesterol, serum 170 mg/dL [facility] HISTORY OF MEDICATION USE Medication Status Instructions Dates Provider Indications Com ments amoxicillin-pot clavulanate 875-125 mg tablet completed 1 tablet twice a day - Irlanda Ventimiglia [employer] ART[employer] levothyroxine 88 mcg tablet active 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 AT BEDTIME - Salud Arianna SOCIAL HISTORY Date Observation Value Provider personal history of marijuana use no Irlanda Ventimiglia [facility] drug use no Irlanda Ventimig vikash [employer] alcohol use, average drinks per day social Irlanda Ventimiglia [facility] alcohol use yes Irlanda Ventimig vikash [facility] passive cigarette sm andrea exposure no Irlanda Ventimiglia [employer] chewing tobacco use no Irlanda V entimiglia [employer]IST cigar use no Irlanda Ventimig vikash [employer] number of years as a smoker 10 years or m ore Irlanda Ventimiglia [employer] smoking, date started 2011 Irlanda Ventimiglia [employer] smoking history, tot al pack/year 5 Irlanda Ventimiglia [employer] smoking history, tot al pack/day 1 Irlanda Ventimiglia [employer] cigarette use yes Irlanda Ventimi glia [employer] smoking status Former smoker Irlanda Venti miglia [employer] ARTIST personal history of marijuana use no Irlanda Ventimiglia [facility] drug use no Irlanda Ventimig vikash [facility] alcohol use, average drinks per day social Irlanda Ventimiglia [facility] alcohol use yes Irlanda Ventimig vikash [facility] passive cigarette sm andrea exposure no Irlanda Ventimiglia [facility] chewing tobacco use no Irlanda V entimiglia [employer] ARTIST cigar use no Irlanda Ventimig vikash [facility] number of years as a smoker 10 years or m ore Irlanda Ventimiglia [employer] ART[employer] smoking, date started 2011 Irlanda Ventimiglia [employer] ARTIST smoking history, tot al pack/year 5 Irlanda Ventimiglia [employer] ART[employer] smoking history, tot al pack/day 1 Irlanda Ventimiglia [employer] ARTIST cigarette use yes Irlanda Ventimi glia [employer] ARTIST smoking status Former smoker Irlanda Venti miglia [facility] drug use no Wallace Perez alcohol use, [...] MD drug use no Irlanda Ventimig vikash [facility] alcohol use, average drinks per day social Irlanda Ventimiglia [employer] alcohol use yes Irlanda Ventimig vikash [facility] seatbelt usage 100 % Peggy Jackman physical exercise, frequency, days per week yes Peggy Concepcion caffeine use, averag e drinks per day yes Peggy Concepcion passive cigarette sm anrdea exposure no Peggy Concepcion chewing tobacco use no Peggy Concepcion cigar use no Pegyg perez number of years as a smoker [...] Artemio Rojas s smoking status Former smoker Artemoi landon social history E&M Marital Statu s: [...] average drinks per day social basis only [facility] alcohol use yes Mariana Haseeb caffeine use, averag e drinks per day yes [facility] drug use no Mariana Haseeb smoking/tobacco cess ation, patient education and counseling yes [facility] passive cigarette sm andrea exposure no Mariana [place] chewing tobacco use no Mariana Vo cigar use no [facility] number of years as a smoker 10 years or m ore [facility] smoking, date started 2011 [facility] smoking history, tot al pack/year 5 [facility] smoking history, tot al pack/day 1 [facility] cigarette use yes [facility] smoking status Current every day smoker D 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 continued cessation encouraged Irlanda Wright [facility] [id number],C,L DL 82 on recent labs per PCP. Will continue statin therapy H er updated medication list for this problem includes: Simvastatin 20 Mg Tablet (Simvastatin) ..... 1 tablet once a day Irlanda Wright [facility] [id number],C,c urrently chest pain free. EKG done and reviewed no acute ST/T wave changes. Will update echo. f/u in a year or sooner if needed. H er updated medication list for this problem includes: Lisinopril-hydrochlorothiazide 20-25 Mg Tablet (Lisinopril-hydrochlorothiazide) ..... Take 1 tablet by mouth daily Nitrostat 0.4 Mg Tablet, Sublingual (Nitroglycerin) ..... Place 1 tablet under tongue as needed Irlanda Wright [facility] [id number],C,P christa has had chronic SOB every since PNA in 2018. She has had f/u CT of chest per PCP. She is reporting exertional SOB. Will do f/u echo and PFT. H er updated medication list for this problem includes: Lisinopril-hydrochlorothiazide 20-25 Mg Tablet (Lisinopril-hydrochlorothiazide) ..... Take 1 tablet by mouth daily Orders: 9 9214 MOD 30-39min (CPT-03334) Complete Echo (CPT-15390) F VC - 22800 (92216) F RC - 31429 (03290) D LCO - 11539 (75413) Irlanda Wright [facility] [id number],B, Wallace dean MD [id number],S, Wallace dean MD [id number],S, Wallace dean MD [id number],S, Wallace dean MD [id number],S, Wallace dean MD Cardiology [place] Shayydereje bla [facility] Cardiology: H er updated medication list for this problem includes: Simvastatin 20 Mg Tablet (Simvastatin) ..... 1 tablet once a day Denton Hersonnonadom [facility] Cardiology:BP at goa l continue present medication regimen H er updated medication list for this problem includes: Lisinopril-hydrochlorothiazide 20-25 Mg Tablet (Lisinopril-hydrochlorothiazide) ..... Take 1 tablet by mouth daily [place] Hersonnonadom [facility] Cardiology:No new ch est pain or shortness [...] tablet under tongue as needed Irlanda Shayydom [facility] Cardiology: H er updated medication list for this problem includes: Levothyroxine 88 Mcg Tablet (Levothyroxine) [facility] Cardiology:continued cessation e ncouraged [facility] Cardiology: H er updated medication list for this problem includes: Simvastatin 20 Mg Tablet (Simvastatin) ..... 1 tablet once a day [place] Shayyglmally [facility] Cardiology:severe ob structive airway disease r ecommend f/u PFTs C onsbut[place]field Tharos study [facility] Cardiology:BP 124/70 well controlled c ontinue present medication regimen H er updated medication list for this problem includes: Lisinopril-hydrochlorothiazide 20-25 Mg Tablet (Lisinopril-hydrochlorothiazide) ..... Take 1 tablet by mouth daily Irlandadaryn rWight [facility] Cardiology:She has r emote history of stents H ad chest discomfort while shoveling snow G najmaen known CAD have recommended PET/CT stress Her updated medication list for this problem includes: Lisinopril-hydrochlorothiazide 20-25 Mg Tablet (Lisinopril-hydrochlorothiazide) ..... Take 1 tablet by mouth daily Nitrostat 0.4 Mg Tablet, Sublingual (Nitroglycerin) ..... Place 1 tablet under tongue as needed [facility] Cardiology Wallace Giles MD Cardiology Wallace Giles MD Cardiology Wallace Giles MD Cardiology Wallace Giles MD Cardiology Wallace Giles MD Cardiology:lifestyle modificatio n [facility] Cardiology:she quit 12 years ago. continued cessation [facility] Cardiology:LDL 82 on recent labs per PCP. Will continue statin therapy H er updated medication list for this problem includes: Simvastatin 20 Mg Tablet (Simvastatin) ..... 1 tablet once a day [facility] Cardiology:currently chest pain free. EKG done and reviewed no acute ST/T wave changes. Will update echo. f/u in a year or sooner if needed. H er updated medication list for this problem includes: Lisinopril-hydrochlorothiazide 20-25 Mg Tablet (Lisinopril-hydrochlorothiazide) ..... Take 1 tablet by mouth daily Nitrostat 0.4 Mg Tablet, Sublingual (Nitroglycerin) ..... Place 1 tablet under tongue as needed [facility] Cardiology:Patient h as had chronic SOB every since PNA in 2018. She has had f/u CT of chest per PCP. She is reporting exertional SOB. Will do f/u echo and PFT. H er updated medication list for this problem includes: Lisinopril-hydrochlorothiazide 20-25 Mg Tablet (Lisinopril-hydrochlorothiazide) ..... Take 1 tablet by mouth daily Orders: 9 9214 MOD 30-39min (CPT-28838) C omplete Echo (CPT-24389) F VC - 62133 (44167) F RC - 70393 (53047) D LCO - 57061 (77216) Irlanda Wright [employer] Cardiology Wallace Tisha MAYES Cardiology Wallace Giles [...] Giles MD Cardiology Wallace Giles MD Cardiology:S/P SC wi th stent 2003 S econd stent [...] ..... One tab. daily Orders: E KG (CPT-81171) C omplete Echo (CPT-09073) Wallace Giles MD follow up: O rders: E KG (CPT-27047) Wallace Giles MD follow up: H er [...] One tab. daily Orders: C omplete Echo (CPT-28275) BP today: 122/68 P rior BP: 132/74 (05/10/2010) Labs Reviewed: C reat: 0.7 (12/04/2007) C hol: 170 (12/04/2007) HDL: 60 (12/04/2007) LDL: 98 (12/04/2007) T (12/04/2007) Wallace Giles MD follow up: H er updated medication list for this problem includes: Aspirin 81 Mg Tabs (Aspirin) ..... One tab. daily Crestor 10 Mg Tabs (Rosuvastatin calcium) ..... One tab. daily & #13;Orders: E KG (CPT-58684) S tress Test - Nuclear (34050) C omplete Echo (CPT-90600) BP today: 122/68 Prior BP: 132/74 (05/10/2010) [...] (12/04/2007) T (12/04/2007) Orders: C omplete Echo (CPT-46159) Wallace Giles MD fo;;ow up: H er updated medication list for this problem includes: Aspirin 81 Mg Tabs (Aspirin) ..... One tab. daily Orders: E KG (CPT-24349) S tress Test - Nuclear (34539) BP today: 129/81 Prior BP: 152/92 (02/03/2008) [...] ..... One tab. daily Orders: E KG (CPT-70683) BP today: 129/81 Prior BP: 152/92 (02/03/2008) [...] (12/04/2007) HDL: 60 (12/04/2007) T (12/04/2007) Wallace Giels MD FU: H er updated medication list [...] ..... One tab. daily Orders: E KG (CPT-23201) C omplete Echo (CPT-84732) BP today: 163/81 Wallace Giles MD : T he following medications were removed from the medication list: Zocor 40 Mg Tabs (Simvastatin) ..... One tab. at bedtime Her updated medication list for this problem includes: Aspirin 81 Mg Tabs (Aspirin) ..... One tab. daily Orders: S tress Test - Nuclear (94211) BP today: 163/81 Prior BP: / () [...] (PET) Stress Cardiac PET-C T DLCO - 38888 FRC - 50766 FVC - 99700 DLCO - 74220 FRC - 59168 FVC - 25121 Complete Echo TSH, 3RD GENERATION W/REFLEX TO [...] d FVC / MVV with bronchodilator - 07254 Wallace Giles MD completed BLOOD COUNT HEMOGLOBIN Wallace Giles MD completed FRC - 92077 Wallace Giles MD complet ed SpO2 w/o 6min walk/titration Wallace Giles MD completed SVC - 10696 Wallace Giles MD complet ed DLCO - 30818 Wallace Giles MD comple apolonia EKG Wallace Giles MD complete d EKG Wallace Giles MD complete d EKG Wallace Giles MD complete d EKG Wallace Giles MD complete d SNOMED-CT: 459793420 401799 Current Medications Documented Wallace Giles MD completed SNOMED-CT: 626591248 598448 Current Medications Documented Wallace Giles MD completed SNOMED-CT: 857524433 Smoking Cessation Counseling Wallace Giles MD completed SNOMED-CT: 398188114 387579 Current Medications Documented Wallace Giles MD completed Stress EKG Rogelio Fu MD complete d Regadenoson, 4 units Wallace Giles MD completed Cardiolite, 2 units Wallace Giles MD completed SPECT Images Candice Mejía MD complet ed SNOMED-CT: 25401003 Physical Exam, Performed: Pulse Exam of Foot Candice Mejía MD completed EKG Candice Mejía MD completed SNOMED-CT: 915359047 203791 Current Medications Documented Candice Mejía MD completed SNOMED-CT: 428725215 740379 Current Medications Documented Wallace Giles MD completed SNOMED-CT: 003700341 Smoking Cessation Counseling Wallace Giles MD completed EKG Wallace Giles MD complete d EKG Wallace Giles MD complete d EKG Wallace Giles MD complete d EKG Wallace Giles MD complete d EKG Wallace Giles MD complete d EKG Wallace Giles MD complete d
--- OUTSIDE RECORDS SUMMARY | 2024-07-23 14:26 | XMS_ITS | Referral Summary ---
Author Organization [facility] [address] [place] [address] Care Team Providers Care Ui Architect Name Role Phone Raymond Vitale MD Primary Care Provider + [phone] Allergies Active Allergy Reactions Criticality Noted Date [...] on file Legal Sex Female 8:14 PM GAMING MANAGER Gender Identity Not on file Sexual Orientation Not on file Last Filed Vital Signs Vital Sign Reading Time Taken Comments Blood Pressure 130/72 04/26/2023 5:37 PM GAMING MANAGER Pulse 63 04/26/2023 5:37 PM GAMING MANAGER Temperature 36.6 C (97.9 F) 04/26/2023 5:37 PM GAMING MANAGER Respiratory Rate 22 04/26/2023 5:37 PM GAMING MANAGER Oxygen Saturation 99% 04/26/2023 5:37 PM GAMING MANAGER Inhaled Oxygen Concentration - - Weight 70.3 kg (155 lb) 04/26/2023 5:37 PM GAMING MANAGER Height 165.1 cm (5' 5 ) 06/16/2021 [...] signed by: Dr. Joel Ly nh/:06/09/2014 10:37:38 Tearer Press Clipping: Emperatriz Paez RT (R)(M), [facility] letter sent: Normal Exam Reading location: BI-RADS: 1 Negative [EOD] Narrative 06/09/2014 10:39 AM CDT - TERESA BILATERAL SCREENING W/CAD BILATERAL DIGITAL SCREENING MAMMOGRAM WITH CAD: 06/08/2014 The study was acquired using full field digital technology and interpreted from soft copy. Current study was also evaluated with ICAD version 7.2. COMPARISONS: Comparison is made to exams dated: 06/10/2013 mammogram and 06/03/2012 mammogram - [facility]. BREAST TISSUE: There are scattered areas [...] dated: 06/10/2013 mammogram and 06/03/2012 mammogram - [facility]. BREAST TISSUE: There are scattered areas [...] signed by: Dr. Joel Ly nh/:06/09/2014 10:37:38 Tearer Press Clipping: Emperatriz Paez RT (R)(M), [facility] letter sent: Normal Exam Reading location: BI-RADS: 1 Negative [EOD] us Ethan Mcrae MD IMG MAMMO PROCEDURES Final Result from Last 3 Months or Most Recently Relevant to Health Maintenance Insurance MEDICARE AETNA MEDICARE AETNA Care Teams Ui Architect Relationship Specialty Start Date End Date Raymond Vitale MD PCP - General Internal Medicine 06/16/21
--- OUTSIDE RECORDS SUMMARY | 2024-07-23 14:27 | XMS_ITS | Continuity of Care Document ---
Author Organization [facility] Address [address] [place] [address] Phone Care Team Providers Care Wharf Labourer Name Role Phone Bishnu Newman DO Unavailable Unavailable Advance Directives Directive Yes / No Effective Date File Name No Information Encounters Encounter Description Practice Location Reason(s) For Visit Diagnoses Date Provider Providers Copied on Encounter [facility], [id number] [place] [address] [address], [place], [place], [id number], [place] tel:[phone] [facility] No Information Paty Sow. [address] [facility], [place], [address], [place]. tel: [phone] Family History Family Member Type Diagnosis Age At Onset No Information Payers Payer name Insurance type Covered libertarian ID Authoriza tivladimir(s) [employer] SOI CI [id number] Social History Type Description Quantity Date Captured [...]
--- OUTSIDE RECORDS SUMMARY | 2024-07-23 14:27 | XMS_ITS | Data Portability ---
Author Organization [facility] Address [address] [place] [address] Care Team Providers Care Director Industrial Name Role Phone KING DUCKWORTH Traveling Clerk Assessment Encounter Date Assessment Date Assessment LastModified [...] DO Not Attach Compendium, Do Not Delete/merge, [id number] 17:27:43 urinalys is, dipstick 2018 019 meenu In-Office Order, Internal Use Only DO Not Attach Compendium DO Not Attach Compendium, Do Not Delete/merge, [id number] 9 12:58:41 methicil ofelia resistan t staphylo coccus aureus, culture, unspecif ied specimen 2018 019 TARA [facility], [address], [address] [address], [place], [address], 9 16:08:20 Referral None recorded . Procedures None recorded . Surgeries None recorded . [facility] 2022 023 [facility] , [place], [address], 3 22:53:32 MAMMO, screenin g, bilatera l 2022 023 [facility], [address] [place], [address], 3 13:23:40 MAMMO, screenin g, bilatera l [address] ([facility]), [address] [place], [address], 2 10:04:21 Medication Orders acyclovi r 400 mg tablet [address] [facility], [address], [place], [id number], 3 14:24:06 Calcium 600 with Vitamin D3 600 mg-10 mcg (400 unit) chewable tablet 2021 022 [facility]77069, [address], [place], [id number], 3 15:35:28 acyclovi r 400 mg tablet 2021 022 [facility] #21941, [address], [place], [id number], 2 15:46:18 multivit garcia tablet 2018 019 [address] [facility] #22039, [address], [place], [id number], 3 09:26:46 Calcium with Vitamin D 600 mg-10 mcg (400 unit) tablet 2018 019 [facility] #16125, [address], [place], [id number], 14:56:16 norethin drone (contrac eptive) 0.35 mg tablet 2018 019 [facility] #77092, [address], [place], [id number], 14:57:44 sertrali ne 100 mg tablet 2018 019 [facility] #07291, [address], [place], [id number], 14:57:08 Cipro 500 mg tablet 2018 [facility]11174, [address], [place], [id number], 14:56:21 Patient TargetsNo targets recorded. Patient Instructions Encounter Date Encounter Id Patient Instructions Last Modified By Organization Details Last Modified Time 11/12/2018 [id number] learning about mood disorders [email or web address] Not available 11/12/2018 13:00:45 06/05/2021 [id number] learning about breast cancer screening Not available 06/05/2021 15:45:57 angelica exercises: care instructions [email or web address] Not available 06/05/2021 16:00:30 10/23/2022 [id number] learning about breast cancer screening Not available 10/23/2022 15:50:46 Reason for Referral None Reported. Results Created Date Observation Date Name Description Value Unit Range Abnormal Flag Note LastModifiedBy Organization Detail LastModifiedTime 11/13/1911/12/2018 urina lysis , dipst ick Leukocytes Negati ve Not Available In-Office Order Internal Use Only DO Not Attach Compendium DO Not Attach Compendium, Do Not Delete/merge, [id number] 11/12/2018 12:37:00 11/13/19 19 11/12/2018 urina lysis [...] 11/13/1911/12/2018 urina lysis , dipst ick Specific Newell 1.020 Not Available In-Off ice Order Internal [...] DO Not Attach Compendium, Do Not Delete/merge, [id number] 11/12/2018 12:37:00 11/13/19 19 11/14/2018 methi cilli n resis tant staph yloco ccus aureu s, cultu re, unspe cifie d speci men MRSA screening culture Negati ve Not Available [facility] ([facility]) [address] [facility], [place], [address], 11/14/2018 16:08:20 06/06/19 22 06/05/2021 urina lysis , dipst ick Leukocytes Negati ve Not Available In-Office Order Internal Use Only DO Not Attach Compendium DO Not Attach Compendium, Do Not Delete/merge, [id number] 06/05/2021 15:51:32 06/06/19 22 06/05/2021 urina lysis , dipst ick Nitrite negati ve Not Available In-Office Order Internal Use Only DO Not Attach Compendium DO Not Attach Compendium, Do Not Delete/merge, [id number] 06/05/2021 15:51:32 06/06/19 22 06/05/2021 urina lysis , dipst ick Urobilinogen .2 Not Available In-Of fice Order Internal Use Only DO Not Attach Compendium DO Not Attach Compendium, Do Not Delete/merge, [id number] 06/05/2021 15:51:32 06/06/19 22 06/05/2021 urina lysis [...] 06/05/2021 urina lysis , dipst ick Specific Newell 1.030 Not Available In-Off ice Order Internal [...] mg/dL 0.57-1 .00 Not Available [facility] ([facility]) [address] [facility], [place], [address], 12/19/2022 20:08:51 12/19/19 23 12/19/2022 CREAT ININE eGFR 83 mL/mi n/1.7 3 >59 Not Available [facility] ([facility]) [address] [facility], [place], [address], 12/19/2022 20:08:51 12/19/19 23 12/19/2022 CALCI UM, IONIZ ED, SERUM calcium, ionized, serum 5.0 mg/dL 4.5-5. 6 Not Available [facility] ([facility]) [address] [facility], [place], [address], 12/19/2022 20:08:51 12/19/19 23 12/19/2022 VITAM IN [...] um and D. Bill muller [place]: The [facility] Press . 2. Mohit chavira MF, Bon johnson [place], Debbi off-F errar i MORRIS, et al. Evalu ation , treat ment, and preve ntion of vitam in D defic iency : an Endoc rine Socie ty clini xander pract ice guide line. JCEM. 2010; 96(7) :1911 -30. Not Available [facility] ([facility]) [address] [facility], [place], [address], 12/19/2022 20:08:52 04/12/19 21 04/11/2020 DEXA No observ ation record ed. [address] ([facility]) [address] [place], [address], 06/05/2021 15:21:05 04/14/19 21 04/11/2020 MAMMO , scree alex, digit al, bilat eral No observ ation record ed. [address] ([facility]) [address] [place], [address], 06/05/2021 15:21:05 10/12/19 22 10/11/2021 MAMMO , scree alex, bilat eral No observ ation record ed. [address] [facility] [address] [place], [address], 10/23/2022 15:42:04 10/25/19 22 10/24/2021 MAMMO , diagn ostic , unila teral No observ ation record ed. [address] [facility] [address] [place], [address], 10/23/2022 15:42:04 10/25/19 22 10/24/2021 [place], breas t, unila teral No observ ation record ed. [address] [facility] [address] [place], [address], 10/23/2022 15:42:04 12/06/19 23 12/05/2022 DEXA No observ ation record ed. [facility] [address] [place], [address], 12/11/2022 15:25:32 12/10/19 23 12/05/2022 MAMMO , scree alex, bilat eral No observ ation record ed. [facility] [address] [place], [address], 12/10/2022 23:28:27 05/25/19 25 05/17/2024 PET-C T, myoca rdial perfu jacque, multi ple studi es at rest and stres s No observ ation record ed. [facility] [address], [place], [address], 05/25/2024 09:46:26 05/26/19 25 05/17/2024 PET-C T, myoca rdial perfu jacque, singl e study at rest or stres s No observ ation record ed. nathan [facility] [address], [place], [address], 05/25/2024 10:05:03 Result Notes None recorded. Problems Name Problem SNOMED Code Status Onset Date Resolution Date Notes Provider Name and Address Organization Details Recorded Time Depressive disorder 55754590 Active 2018 Ethan sellers, [place] - [place] 9 13:00:23 Osteoporosis 01029063 Active 2020 Ethan sellers, [place] - [facility] 1 19:34:40 Herpes simplex 77755118 Active Ethan sellers, [place] - [facility] 5 10:19:04 Hemorrhoids 04026587 Active 2016 Ethan sellers, [place] - [facility] 7 16:55:44 Problem Notes None recorded. Procedures Surgical History Date Name Laterality Status Provider Name and Address Organization Details Recorded Time 2 Date of Last Mammogram completed Louise Marcial MA [facility] 10/22/2022 11:08:02 8 Most Recent Mammogram completed Louise Marcial MA [facility] 11/25/2018 17:17:38 Tubal Ligation completed Lina Lees MA [facility] 05/21/2016 16:34:57 Other completed Lina Lees MA [facility] 05/21/2016 16:35:47 Heart Surgery completed Lina Lees MA [facility] 05/21/2016 16:36:06 Imaging Results Imaging Date Name Status LastModified by [facility] Details LastModified Time 04/11/2020 DEXA completed [address] ([facility]) [address] [place], [address], 06/05/2021 15:21:05 04/11/2020 MAMMO, screening, digital, bilateral completed [address] ([facility]) [address] [place], [address], 06/05/2021 15:21:05 10/11/2021 MAMMO, screening, bilateral completed [email or web address] [address] [place], [address], 10/23/2022 15:42:04 10/24/2021 MAMMO, diagnostic, unilateral completed [email or web address] [facility] [address] [place], [address], 10/23/2022 15:42:04 10/24/2021 US, breast, unilateral completed [email or web address] [facility] [address] [place], [address], 10/23/2022 15:42:04 12/05/2022 DEXA completed [facility] [address] [place], [address], 12/11/2022 15:25:32 12/05/2022 MAMMO, screening, bilateral completed [facility] [address] [place], [address], 12/10/2022 23:28:27 05/17/2024 PET-CT, myocardial perfusion, multiple studies at rest and stress completed [facility] [address], [place], [address], 05/25/2024 09:46:26 05/17/2024 PET-CT, myocardial perfusion, single study at rest or stress completed [facility] [address], [place], [address], 05/25/2024 10:05:03 Procedure Notes None recorded. Medical [...] Updated DateTime 11/12/2018 162.56 cm 24.2 kg/m2 92623.52 g 116 mm[Hg] 60 mm[Hg] Morelia Bruno MA [facility] SI 9 12:44:42 Date Recorded Body height Body mass index (BMI) Body weight Systolic blood pressure Diastolic blood pressure Provider Name and Address Organization Details Last Updated DateTime 11/25/2018 162.56 cm 24.5 kg/m2 25373.71 g 108 mm[Hg] 74 mm[Hg] Louise Marcial MA [facility] SIF 9 17:19:32 Date Recorded Body height Body mass index (BMI) Body weight Systolic blood pressure Diastolic blood pressure Provider Name and Address Organization Details Last Updated DateTime 06/05/2021 165.1 cm 27.3 kg/m2 51337.15 g 114 mm[Hg] 70 mm[Hg] Louise Marcial MA [facility] SIF 2 15:03:20 Date Recorded Body height Body mass index (BMI) Body weight Systolic blood pressure Diastolic blood pressure Provider Name and Address Organization Details Last Updated DateTime 10/23/2022 165.1 cm 25.8 kg/m2 00130.82 g 122 mm[Hg] 72 mm[Hg] Louise Marcial MA [facility] SIF 3 15:38:45 Social History Question Answer Notes LastModified by Organizat ion Details LastModified Time Tobacco Smoking Status Former Smoker Louise STEVE Marcial [facility], [place] - [place] 06/05/2021 15:01:26 Do You [...] E-cigarettes Or Vape? Never Used Electronic Cigarettes [email or web address] Information not available 11/12/2018 Education 12 Information [...] Used Smokeless Tobacco? Never Used Smokeless Tobacco Information not available 11/12/2018 How Much Tobacco [...] Functional Status Question Answer Note LastModified by Forcuraizat ion Details LastModified Time What is your [...] 6 completed MARGARITA LOYOLA Attn: Accounting,[address] [place], [place], [address] [place] [address], [place] [facility] 10/23/2022 15:49:57 zoster recombinant 3 completed MARGARITA LOYOLA Attn: Accounting[address] [place], [place], [address] [place] [address], [place] [facility] 10/23/2022 15:49:57 Influenza, high-dose, quadrivalent, PF 1 completed MARGARITA LOYOLA Attn: Accounting,[address] [place], [place], [address] [place] [address], [place] [facility] 10/23/2022 15:49:57 Influenza, high-dose, quadrivalent, PF 2 completed MARGARITA LOYOLA Attn: Accounting,[address] [place], [place], [address] [place] [address], [place] [facility] 10/23/2022 15:49:57 Influenza, high-dose, quadrivalent, PF 0 completed MARGARITA LOYOLA Attn: Accounting[address] [place], [place], [address] [place] [address], [place] [facility] 10/23/2022 15:49:57 COVID-19, mRNA, LNP-S, PF, 30 mcg/0.3 mL dose 1 completed MARGARITA LOYOLA Attn: Accounting[address] [place], [place], [address] [place] [address], [place] [facility] 10/23/2022 15:49:57 COVID-19, mRNA, LNP-S, PF, 30 mcg/0.3 mL dose 1 completed MARGARITA LOYOLA Attn: Accounting,[address] [facility], [place], [place], [address] [place] [address], [place] [facility] 10/23/2022 15:49:57 COVID-19, mRNA, LNP-S, PF, 30 mcg/0.3 mL dose 1 completed MARGARITA LOYOLA Attn: Accounting,[address] [facility], [place], [place], [address] [place] [address], [facility] 10/23/2022 15:49:57 pneumococcal polysaccharide PPV23 2 completed MARGARITA LOYOLA Attn: Accounting,[address] [facility], [place], [place], [address] [place] [address], [facility] 10/23/2022 15:49:57 Pneumococcal conjugate PCV 13 4 completed MARGARITA LOYOLA Attn: Accounting,[address] [facility], [place], [place], [address] [place] [address], [facility] 10/23/2022 15:49:57 Influenza, high-dose, trivalent, PF 8 completed MARGARITA LOYOLA Attn: Accounting,[address] [facility], [place], [place], [address] [place] [address], [place] [facility] 10/23/2022 15:49:57 Influenza, high-dose, trivalent, PF 7 completed MARGARITA LOYOLA Attn: Accounting,[address] [facility], [place], [place], [address] [place] [address], [place] [facility] 10/23/2022 15:49:57 Influenza, split virus, trivalent, preservative 9 completed MARGARITA LOYOLA Attn: Accounting,[address] [facility], [place], [place], [address] [place] [address], [place] [facility] 10/23/2022 15:49:57 Influenza, split virus, trivalent, preservative 3 completed MARGARITA LOYOLA Attn: Accounting,[address] [facility], [place], [address], [facility] 10/23/2022 15:49:57 Past Encounters Encounter ID Performer Location Encounter Start Date Encounter Closed Date Diagnosis/Indication Diagnosis SNOMED-CT Code Diagnosis ICD10 Code Diagnosis Note [id number] MD Demarcus Figueroa (HOUSE SHORER) [address] [place] [id number] 05/21/2016 16:03:14 05/22/2016 16:06:13 Screening mammography 66704738 Z12.31 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 Hemorrhoids 71260447 K64 .9 Gynecologi c examination 60763309 Z01.468 [id number] [facility] [address] [place] [phone] 09/01/2018 11:04:57 09/02/2018 12:05:41 Gynecologic examination 18729419 Z01.419 Z11.51 Herpes simplex 07778436 B00.9 Female str ess incontinence 37077239 N39.3 Screening for malignant neoplasm of ovary 555527938 Z12.73 Screening for osteoporosis 642658661 Z13.820 Vitamin B1 2 deficiency (non anemic) 11053682 E53.8 [id number] [facility] [address] [place] [id number] 11/12/2018 11:35:19 11/13/2018 13:53:39 Folliculitis 68681707 L73.9 Menopausal flushing 1984 66212 N95.1 Depressive disorder 3548 9007 F32.9 Gynecologi c examination 24799671 Z01.419 Z11.51 [id number] MD Demarcus Figueroa (HOUSE SHORER) [address] [place] [id number] 11/25/2018 16:33:04 11/27/2018 10:58:41 Folliculitis 38207976 L73.9 [id number] MARGARITA LOYOLA [facility] (HOUSE SHORER) [address] [place] [address] 06/05/2021 14:49:10 06/06/2021 13:47:36 Screening for malignant neoplasm of breast 194140387 Z12.31 Last MAMMO on 04/11/2020, WNL. No breast complaints such as lumps, tenderness , or discharge. MAMMO ordered as part of routine annual screening. Herpes simplex 62822962 B00.9 Patient takes antiviral when she feels the onset of an outbreak with tingling/p ruritis on her lips. Her last outbreak was about 3 years ago. Seeking return to acyclovir as valacyclov ir caused her jitterinmehran s. Osteoporosis 17843639 M8 1.0 DEXA scan performed 04/11/2020 demonstrat [...] Discussed weight bearing exercises. Urinary incontinence 165 270374 R32 Patient complains of urinary incontinen ce [...] kegel exercises as conservati ve first-line approach. [id number] MARGARITA LOYOLA (HOUSE SHORER) [address] [place] [address] 10/23/2022 15:20:08 11/05/2022 10:33:31 Screening for malignant neoplasm of breast 612687204 Z12.31 Last MAMMO on 10/24/21 WNL. MAMMO ordered as part of routine annual screening. Osteoporosis 49547492 M8 1.0 DEXA scan performed 04/11/2020 demonstrat es osteoporos is of the lumbar spine and osteopenia of the bilateral hips. She takes Calcium/Vi tamin D pill daily. Repeat DEXA this year. Discussed weight bearing exercises. Herpes simplex 84700245 B00.9 Patient takes antiviral when she feels [...] Name 11/12/2018 1 [place] Liz D Hugo [id number] Liz Hugo 11/12/2018 2 [employer] INSURANCE (MEDICARE SUPPLEMENT) Liz Hugo [id number] Liz Hugo 11/25/2018 1 [place] Liz D Hugo [id number] Liz Hugo 11/25/2018 2 [employer]URANCE (MEDICARE SUPPLEMENT) Liz Hugo [id number] Liz Hugo 06/05/2021 1 [place] Liz D Hugo [id number] Liz Hugo 06/05/2021 2 [place] - [place] ON [place] AFTER 2020 (MEDICAID REPLACEMENT - HMO) Liz D Hugo [id number] Liz Hugo 10/23/2022 1 [place] Liz D Hugo [id number] Liz Hugo 10/23/2022 2 [employer] ON [place] AFTER 2020 (MEDICAID REPLACEMENT - HMO) Liz D Hugo [id number] Liz Hugo Notes Date Note Type Note Provider Name and Address Organization Details Recorded Time 11/12/2018 text/html 68 YO post menopausal CF presents today with c/o infected hair follicle on left inner thigh and groin x 3 weeks. Patient also states she is having hot flashes and flushing at night as well as increased irritability. Ethan sellers, [place] - [facility] 11/12/2018 18:44:07 11/25/2018 text/html 68 YO post menopausal CF presents today with c/o infected hair follicle on left inner thigh and groin x 3 weeks. Patient also states she is having hot flashes and flushing at night as well as increased irritability. Ethan Mcrae verito, [facility] 11/25/2018 17:59:01 06/05/2021 text/html 70 yo femal [...] chest pain. 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
--- OUTSIDE RECORDS SUMMARY | 2024-07-23 14:27 | XMS_ITS | Clinical Summary ---
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
== END 2024-07-23 14:24 | disposition home or self-care (01) ==
LOC: ANHIMG 14:24
PROVIDERS: PCP Family Medicine; Visit Provider Family Medicine
DX: Z12.31 Encounter for screening mammogram for malignant neoplasm of breast (principal); R92.8 Other abnormal and inconclusive findings on diagnostic imaging of breast
CPT/HCPCS: 77063; 77067

== ENCOUNTER 2024-09-01 16:17 | Outpatient (CLI) | payer MEDICARE, SELFPAY ==
--- NOTE | ~2024-09-01 | CT_ITS ---
CT Scan of the Chest without Contrast: Clinical Indication: Lung cancer screening, nicotine dependence Technique: Contiguous sections were acquired throughout the chest without intravenous contrast. Dose reduction technique was used on this scan by utilizing automated exposure control and iterative recon struction technique. The dose-length product (DLP) was 84.47 mGy-cm. Findings: There is no evidence of any significant mediastinal, hilar or axillary lymphadenopathy. The mediastin al soft tissues appear normal. There is no evidence of pleural or pericardial effusion. There is a groundglass/semisolid lesion in the peripheral right upper lobe (axial image 47), measurin g up to approximately 15 mm in maximum diameter. Images through the upper abdomen reveal no abnormalities. Impression: Lung RADS 2: Benign appearance. 12 month follow-up screening CT advised. Reviewed, dictated and finalized at [facility]. Impression: Lung RADS 2: Benign appearance. 12 month follow-up screening CT advised.
--- NOTE | ~2024-09-01 | XR_ITS ---
Cervical Spine: AP, lateral, open-mouth views Clinical History: Pain Findings: The normal lordotic curve is maintained. No fracture seen. There is minimal grade 1 retroli sthesis of C5 over C6. There is moderate degenerative disc narrowing at C5-6 and C6-C7. There is mild facet arthropathy throughout the cervical spine. Pre-vertebral soft tissues are unremarkable. Impression: Moderate degenerative spondylosis at C5-C6 and C6-C7. Mild degenerative change in the remainder of th e cervical spine. Minimal grade 1 retrolisthesis of C5 over C6. Reviewed, dictated and finalized at location . Impression: Moderate degenerative spondylosis at C5-C6 and C6-C7. Mild degenerative change in the remainder of the cervical spine. Minimal grade 1 retrolisthesis of C5 over C6.
--- OUTSIDE RECORDS SUMMARY | 2024-09-01 17:40 | XMS_ITS | Data Portability ---
Author Organization [facility] Address [address] [place] [address] Care Team Providers Care Remnants Cutter Name Role Phone KING DUCKWORTH Workforce Analyst Assessment Encounter Date Assessment Date Assessment LastModified [...] DO Not Attach Compendium, Do Not Delete/merge, [id number] 17:27:43 urinalys is, dipstick 2018 019 meenu In-Office Order, Internal Use Only DO Not Attach Compendium DO Not Attach Compendium, Do Not Delete/merge, [id number] 9 12:58:41 methicil ofelia resistan t staphylo coccus aureus, culture, unspecif ied specimen 2018 019 TARA [facility], 2022 Nan Vasques, [address], [address], 9 16:08:20 Referral None recorded . Procedures None recorded . Surgeries None recorded . [facility]22 023 [facility] , [place], [address], 3 22:53:32 MAMMO, screenin g, bilatera l 2022 023 [facility], [address] [place], [address], 3 13:23:40 MAMMO, screenin g, bilatera l [email or web address] ([facility]), [address] [place], [address], 2 10:04:21 Medication Orders acyclovi r 400 mg tablet [address] [facility], [address] [place], [place], [id number], 3 14:24:06 Calcium 600 with Vitamin D3 600 mg-10 mcg (400 unit) chewable tablet 2021 022 [facility] #54632, [address] [place], [place], [id number], 3 15:35:28 acyclovi r 400 mg tablet 2021 022 [facility] #61911, [address] [place], [place], [id number], 2 15:46:18 multivit garcia tablet 2018 019 [facility] #88830, [address] [place], [place], [id number], 3 09:26:46 Calcium with Vitamin D 600 mg-10 mcg (400 unit) tablet 2018 019 [facility] #71749, [address] [place], [place], [id number], 14:56:16 norethin drone (contrac eptive) 0.35 mg tablet 2018 [facility] #17954, [address] [place], [place], [id number], 14:57:44 sertrali ne 100 mg tablet 2018 019 [facility] #06721, [address] [place], [place], [id number], 14:57:08 Cipro 500 mg tablet 2018 [facility] #83622, [address] [place], [place], [id number], 14:56:21 Patient TargetsNo targets recorded. Patient Instructions Encounter Date Encounter Id Patient Instructions Last Modified By Organization Details Last Modified Time 11/12/2018 [id number] learning about mood disorders mwasserman Not available 11/12/2018 13:00:45 06/05/2021 [id number] learning about breast cancer screening Not available 06/05/2021 15:45:57 angelica exercises: care instructions [email or web address] Not available 06/05/2021 16:00:30 10/23/2022 [id number] learning about breast cancer screening Not available 10/23/2022 15:50:46 Reason for Referral None Reported. Results Created Date Observation Date Name Description Value Unit Range Abnormal Flag Note LastModifiedBy Organization Detail LastModifiedTime 11/13/1911/12/2018 urina lysis , dipst ick Leukocytes Negati ve Not Available In-Office Order Internal Use Only DO Not Attach Compendium DO Not Attach Compendium, Do Not Delete/merge, [id number] 11/12/2018 12:37:00 11/13/19 19 11/12/2018 urina lysis , dipst ick Nitrite negati ve Not Available In-Office Order Internal Use Only DO Not Attach Compendium DO Not Attach Compendium, Do Not Delete/merge, [id number] 11/12/2018 12:37:00 11/13/1911/12/2018 urina lysis , dipst ick Urobilinogen .2 Not Available In-Of fice Order Internal Use Only DO Not Attach Compendium DO Not Attach Compendium, Do Not Delete/merge, [id number] 11/12/2018 12:37:00 11/13/1911/12/2018 urina lysis , dipst ick Protein Negati ve Not Available In-Office Order Internal Use Only DO Not Attach Compendium DO Not Attach Compendium, Do Not Delete/merge, 11/12/2018 12:37:00 11/13/1911/12/2018 urina lysis , dipst ick pH 6.0 Not Available In-Office Order Internal Use Only DO Not Attach Compendium DO Not Attach Compendium, Do Not Delete/merge, [id number] 11/12/2018 12:37:00 11/13/1911/12/2018 urina lysis , dipst ick Blood Non-He molyze d: Trace Not Available In-Office Order Internal Use Only DO Not Attach Compendium DO Not Attach Compendium, Do Not Delete/merge, [id number] 11/12/2018 12:37:00 11/13/1911/12/2018 urina lysis , dipst ick Specific [place] 1.020 Not Available In-Off ice Order Internal Use Only DO Not Attach Compendium DO Not Attach Compendium, Do Not Delete/merge, [id number] 11/12/2018 12:37:00 11/13/1911/12/2018 urina lysis , dipst ick Ketone Negati ve Not Available In-Office Order Internal Use Only DO Not Attach Compendium DO Not Attach Compendium, Do Not Delete/merge, 11/12/2018 12:37:00 11/13/1911/12/2018 urina lysis , dipst ick Bilirubin Negati ve Not Available In-Office Order Internal Use Only DO Not Attach Compendium DO Not Attach Compendium, Do Not Delete/merge, [id number] 11/12/2018 12:37:00 11/13/19 19 11/12/2018 urina lysis , dipst ick Glucose Negati ve Not Available In-Office Order Internal Use Only DO Not Attach Compendium DO Not Attach Compendium, Do Not Delete/merge, 11/12/2018 12:37:00 11/13/19 19 11/14/2018 methi cilli n resis tant staph yloco ccus aureu s, cultu re, unspe cifie d speci men MRSA screening culture Negati ve Not Available [facility] ([facility]) [address] [facility], [place], [address], 11/14/2018 16:08:20 06/06/19 22 06/05/2021 urina lysis , dipst ick Leukocytes Negati ve Not Available In-Office Order Internal Use Only DO Not Attach Compendium DO Not Attach Compendium, Do Not Delete/merge, 06/05/2021 15:51:32 06/06/1906/05/2021 urina lysis , dipst ick Nitrite negati ve Not Available In-Office Order Internal Use Only DO Not Attach Compendium DO Not Attach Compendium, Do Not Delete/merge, 06/05/2021 15:51:32 06/06/1906/05/2021 urina lysis , dipst ick Urobilinogen .2 [...] 15:51:32 06/06/1906/05/2021 urina lysis , dipst ick Blood Negati ve Not Available In-Office Order Internal Use Only DO Not Attach Compendium DO Not Attach Compendium, Do Not Delete/merge, [facility] 06/05/2021 15:51:32 06/06/19 22 06/05/2021 urina lysis , dipst ick Specific [place] 1.030 Not Available In-Off ice Order Internal Use Only DO Not Attach Compendium DO Not Attach Compendium, Do Not Delete/merge, [facility] 06/05/2021 15:51:32 06/06/1906/05/2021 urina lysis , dipst ick Ketone Negati ve Not Available In-Office Order Internal Use Only DO Not Attach Compendium DO Not Attach Compendium, Do Not Delete/merge, [facility] 06/05/2021 15:51:32 06/06/1906/05/2021 urina lysis , dipst ick Bilirubin Negati ve Not Available In-Office Order Internal Use Only DO Not Attach Compendium DO Not Attach Compendium, Do Not Delete/merge, [facility] 06/05/2021 15:51:32 06/06/19 22 06/05/2021 urina lysis , dipst ick Glucose Negati ve Not Available In-Office Order Internal Use Only DO Not Attach Compendium DO Not Attach Compendium, Do Not Delete/merge, [facility] 06/05/2021 15:51:32 12/19/1912/19/2022 CREAT ININE creatinine 0.76 mg/dL 0.57-1 .00 Not Available [facility] ([facility]) [address] [facility], [place], [address], 12/19/2022 20:08:51 12/19/19 23 12/19/2022 CREAT ININE eGFR 83 mL/mi n/1.7 3 >59 Not Available [facility] ([facility]) [address] [facility], [place], [address], 12/19/2022 20:08:51 12/19/19 23 12/19/2022 CALCI UM, IONIZ ED, SERUM calcium, ionized, serum 5.0 mg/dL 4.5-5. 6 Not Available [facility] ([facility]) [address] [facility], [place], [address], 12/19/2022 20:08:51 12/19/19 23 12/19/2022 VITAM IN [...] um and D. Bill muller DC: [facility] Press . 2. Mohit chavira MF, Bon johnson [place], Debbi off-F errar i MORRIS, et al. Evalu ation , treat ment, and preve ntion of vitam in D defic iency : an Endoc rine Socie ty clini xander pract ice guide line. JCEM. 2010; 96(7) :1911 -30. Not Available [facility] ([facility]) [address] [facility], [place], [address], 12/19/2022 20:08:52 04/12/19 21 04/11/2020 DEXA No observ ation record ed. [address] ([facility]) [address] [place], [address], 06/05/2021 15:21:05 04/14/19 21 04/11/2020 MAMMO , scree alex, digit al, bilat eral No observ ation record ed. [address] ([facility]) [address] [place], [address], 06/05/2021 15:21:05 10/12/19 22 10/11/2021 MAMMO , scree alex, bilat eral No observ ation record ed. [address] [facility] [address] [place], [address], 10/23/2022 15:42:04 10/25/19 22 10/24/2021 MAMMO , diagn ostic , unila teral No observ ation record ed. [address] [facility] [address] [place], [address], 10/23/2022 15:42:04 10/25/19 22 10/24/2021 US, breas t, unila teral No observ ation record ed. [address] [facility] [address] [place], [address], 10/23/2022 15:42:04 12/06/19 23 12/05/2022 DEXA No observ ation record ed. [facility] [address] [place], [address], 12/11/2022 15:25:32 12/10/19 23 12/05/2022 MAMMO , scree alex, bilat eral No observ ation record ed. [facility] [address] [place], [address], 12/10/2022 23:28:27 05/25/19 25 05/17/2024 PET-C T, myoca rdial perfu jacque, multi ple studi es at rest and stres s No observ ation record ed. [facility] [address], [place], [address], 05/25/2024 09:46:26 05/26/19 25 05/17/2024 PET-C T, myoca rdial perfu jacque, singl e study at rest or stres s No observ ation record ed. [facility] [address], [place], [address], 05/25/2024 10:05:03 Result Notes None recorded. Problems Name Problem SNOMED Code Status Onset Date Resolution Date Notes Provider Name and Address Organization Details Recorded Time Depressive disorder 21663092 Active 2018 Ethan sellers, [place] - [place] 9 13:00:23 Osteoporosis 28038747 Active 2020 Ethan sellers, [place] 1 19:34:40 Herpes simplex 21636925 Active Ethan sellers, [facility] SI 5 10:19:04 Hemorrhoids 70427720 Active 2016 Ethan sellers, [facility] SI 7 16:55:44 Problem Notes None recorded. Procedures Surgical History Date Name Laterality Status Provider Name and Address Organization Details Recorded Time 2 Date of Last Mammogram completed Louise Marcial MA [facility] 10/22/2022 11:08:02 8 Most Recent Mammogram completed Louise Marcial MA [facility] 11/25/2018 17:17:38 Tubal Ligation completed Lina Lees MA [facility] 05/21/2016 16:34:57 Other completed Lina Lees MA [facility] 05/21/2016 16:35:47 Heart Surgery completed Lina Lees MA [facility] 05/21/2016 16:36:06 Imaging Results None recorded. Procedure Notes None recorded. Medical Equipment None [...] Updated DateTime 06/05/2021 165.1 cm 27.3 kg/m2 23369.15 g 114 mm[Hg] 70 mm[Hg] Louise Marcial MA [facility] 2 15:03:20 Date Recorded Body height Body mass index (BMI) Body weight Systolic blood pressure Diastolic blood pressure Provider Name and Address Organization Details Last Updated DateTime 10/23/2022 165.1 cm 25.8 kg/m2 26265.82 g 122 mm[Hg] 72 mm[Hg] Louise Marcial MA [facility] 3 15:38:45 Date Recorded Body height Body mass index (BMI) Body weight Systolic blood pressure Diastolic blood pressure Provider Name and Address Organization Details Last Updated DateTime 11/12/2018 162.56 cm 24.2 kg/m2 84339.52 g 116 mm[Hg] 60 mm[Hg] Morelia Bruno MA [facility] 9 12:44:42 Date Recorded Body height Body mass index (BMI) Body weight Systolic blood pressure Diastolic blood pressure Provider Name and Address Organization Details Last Updated DateTime 11/25/2018 162.56 cm 24.5 kg/m2 57863.71 g 108 mm[Hg] 74 mm[Hg] Louise Marcial MA [facility] 9 17:19:32 Social History Question Answer Notes LastModified by Organizat ion Details LastModified Time Tobacco Smoking Status Former Smoker Louise Marcial MA null, [facility] 06/05/2021 15:01:26 Do You Have An Advance Directive? No Information not available 05/21/2016 Is Blood Transfusion Acceptable In An Emergency? Yes Information not available 05/21/2016 What Is Your Level Of Caffeine Consumption? Moderate Information not available 05/21/2016 How Much Tobacco Do You Chew? None Information not available 05/21/2016 What Type Of Diet Are You Following? REGULAR Information not available 05/21/2016 Which Illicit Or Recreational Drugs Have You Used? None Information not available 05/21/2016 Education 12 Information no t available 05/21/2016 Live Alone Or With Others? Alone Information not available 05/21/2016 What Was The Date Of Your Most Recent Tobacco Screening? 10/23/2022 Information not available 10/23/2022 How Many Children Do You Have? 1 Information not available 05/21/2016 What Is Your Current Pack Years? 10-19packyea rs Information not available 06/05/2021 Performs Monthly Self-breast [...] To Smoke? No Information not available 06/05/2021 How Much Tobacco Do You Smoke? 0.5 PPD Information not available 05/21/2016 General Stress Level Medium Information not available 05/21/2016 Do You Use Sunscreen Routinely? Yes Information not available 05/21/2016 Has Tobacco Cessation Counseling Been Provided? Yes Information not available 10/23/2022 On What Date Was Tobacco Cessation Counseling Provided? 10/23/2022 Information not available 10/23/2022 How Many Years Have You Smoked Tobacco? 2 06/05/2021 Pt Stopped Smoking 2 Yrs Ago, Cb-rma Information not available 06/05/2021 Sex: Unknown Functional Status Question Answer Note LastModified by Organizat ion Details LastModified Time Do you use any illicit or recreational drugs? No Information not available 06/05/2021 Do you or have you ever used any other forms of tobacco or nicotine? No Information not available 06/05/2021 What is your level of alcohol consumption? Occasional Information not available 05/21/2016 Do you or have you ever used smokeless tobacco? Never used smokeless tobacco [email or web address] Information not available 11/12/2018 Are you currently employed? Yes Information not available 05/21/2016 What is your occupation? retired [email or web address] Information not available 09/01/2018 Do you or have you ever used e-cigarettes or vape? Never used electronic cigarettes [email or web address] Information not available 11/12/2018 What is your exercise level? Occasional Information [...] Problems N Kidney or Bladder Problems N Lung Disease N Depression Y Blood Clots N GI Problems N Acne N Breast Problem N Eating Disorder N Anemia N Anesthesia Complications N Headaches/Migraines N Ovarian Cancer N Diabetes N Anxiety Disorder N Muscle, Joint, or Bone Problems N [...] 6 completed MARGARITA LOYOLA Attn: Accounting,[address] [place], [place], [address] [place] [address], [place] [facility] 10/23/2022 15:49:57 zoster recombinant 3 completed MARGARITA LOYOLA Attn: Accounting,[address] [place], [address] [place] [address], [place] [facility] 10/23/2022 15:49:57 Influenza, high-dose, quadrivalent, PF 1 completed MARGARITA LOYOLA Attn: Accounting,[address] [place], [place], [address] [place] [address] [place] [facility] 10/23/2022 15:49:57 Influenza, high-dose, quadrivalent, PF 2 completed MARGARITA LOYOLA Attn: Accounting,[address] [place], [address] [place] [address] [place] [facility] 10/23/2022 15:49:57 Influenza, high-dose, quadrivalent, PF 0 completed MARGARITA LOYOAL Attn: Accounting,[address] [place], [address] [place] [address] [place] [facility] 10/23/2022 15:49:57 COVID-19, mRNA, LNP-S, PF, 30 mcg/0.3 mL dose 1 completed MARGARITA LOYOLA Attn: Accounting,[address] [place], [address] [place] [address] [place] [facility] 10/23/2022 15:49:57 COVID-19, mRNA, LNP-S, PF, 30 mcg/0.3 mL dose 1 completed MARGARITA LOYOLA Attn: Accounting,[address] [facility], [place], [place], [address] [place] [address], [facility] 10/23/2022 15:49:57 COVID-19, mRNA, LNP-S, PF, 30 mcg/0.3 mL dose 1 completed MARGARITA LOYOLA Attn: Accounting,[address] [facility], [place], [place], [address] [place] [address], [facility] 10/23/2022 15:49:57 pneumococcal polysaccharide PPV23 2 completed MARGARITA LOYOLA Attn: Accounting,[address] [facility], [place], [address] [place] [address], [facility] 10/23/2022 15:49:57 Pneumococcal conjugate PCV 13 4 completed MARGARITA LOYOLA Attn: Accounting,[address] [facility], [place], [address] [place] [address], [facility] 10/23/2022 15:49:57 Influenza, high-dose, trivalent, PF 8 completed MARGARITA LOYOLA Attn: Accounting,[address] [place], [address] [place] [address], [facility] 10/23/2022 15:49:57 Influenza, high-dose, trivalent, PF 7 completed MARGARITA LOYOLA Attn: Accounting,[address] [place], [address] [place] [address], [facility] 10/23/2022 15:49:57 Influenza, split virus, trivalent, preservative 9 completed MARGARITA LOYOLA Attn: Accounting,[address] [place], [address] [place] [address], [facility] 10/23/2022 15:49:57 Influenza, split virus, trivalent, preservative 3 completed MARGARITA LOYOLA Attn: Accounting,[address] [place], [address], [facility] 10/23/2022 15:49:57 Past Encounters Encounter ID Performer Location Encounter Start Date Encounter Closed Date Diagnosis/Indication Diagnosis SNOMED-CT Code Diagnosis ICD10 Code Diagnosis Note [id number] MD Demarcus Figueroa (BRAND INSPECTOR) [address] [place] [id number] 05/21/2016 16:03:14 05/22/2016 16:06:13 Screening mammography 89832882 Z12.31 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 Hemorrhoids 60687083 K64 .9 Gynecologi c examination 54460830 Z01.940 [id number] MD Demarcus Figueroa (BRAND INSPECTOR) [address] [place] [id number] 09/01/2018 11:04:57 09/02/2018 12:05:41 Gynecologic examination 99584516 Z01.419 Z11.51 Herpes simplex 78499121 B00.9 Female str ess incontinence 33142881 N39.3 Screening for malignant neoplasm of ovary 184047110 Z12.73 Screening for osteoporosis 725165461 Z13.820 Vitamin B1 2 deficiency (non anemic) 48323000 E53.8 [id number] MD Demarcus Figueroa (BRAND INSPECTOR) [address] [place] [id number] 11/12/2018 11:35:19 11/13/2018 13:53:39 Folliculitis 78748571 L73.9 Menopausal flushing 1984 83612 N95.1 Depressive disorder 3548 9007 F32.9 Gynecologi c examination 48151779 Z01.419 Z11.51 [id number] MD Demarcus Figueroa (BRAND INSPECTOR) [address] [place] [id number] 11/25/2018 16:33:04 11/27/2018 10:58:41 Folliculitis 69896193 L73.9 [id number] MARGARITA LOYOLA (BRAND INSPECTOR) [address] [place] [id number] 06/05/2021 14:49:10 06/06/2021 13:47:36 Screening for malignant neoplasm of breast 633841110 Z12.31 Last MAMMO on 04/11/2020, WNL. No breast complaints such as lumps, tenderness , or discharge. MAMMO ordered as part of routine annual screening. Herpes simplex 18903459 B00.9 Patient takes antiviral when she feels the onset of an outbreak with tingling/p ruritis on her lips. Her last outbreak was about 3 years ago. Seeking return to acyclovir as valacyclov ir caused her jittluz marina s. Osteoporosis 09297628 M8 1.0 DEXA scan performed 04/11/2020 demonstrat [...] Discussed weight bearing exercises. Urinary incontinence 165 295221 R32 Patient complains of urinary incontinen ce [...] kegel exercises as conservati ve first-line approach. [id number] MARGARITA LOYOLA (BRAND INSPECTOR) [facility] [place] [address] 10/23/2022 15:20:08 11/05/2022 10:33:31 Screening for malignant neoplasm of breast 748266315 Z12.31 Last MAMMO on 10/24/21 WNL. MAMMO ordered as part of routine annual screening. Osteoporosis 54022566 M8 1.0 DEXA scan performed 04/11/2020 demonstrat es osteoporos is of the lumbar spine and osteopenia of the bilateral hips. She takes Calcium/Vi tamin D pill daily. Repeat DEXA this year. Discussed weight bearing exercises. Herpes simplex 95792623 B00.9 Patient takes antiviral when she feels the onset of an outbreak with tingling/p ruritis. Seeking return to acyclovir. Health Concerns Section Related Observation LastModified by Organization Detai ls LastModified Time None Recorded Concern Status LastModified by Organization Details LastModified Time None Recorded Advance Directives Directive N: Payers Insurance Date Sequence Insurance Name Policy Number Policy Roth Covered Member ID Roth Member ID Guarantor Name 11/20/2022 1 [place] Liz Perez [place] [id number] Liz [place] 10/20/2022 [place] [facility] Liz [place] [id number] Liz [place] 06/05/2021 2 [employer] INSURANCE (MEDICARE SUPPLEMENT) Liz [place] [id number] Liz [place] 11/20/2022 2 [employer] [place] - [place] ON OR AFTER 2020 (MEDICAID REPLACEMENT - HMO) Liz D [place] [id number] Liz [place] 11/20/2022 [place] WHEN MEDICARE OR MEDICARE REPLACEMENT PRIMARY) Liz D [place] [id number] Liz [place] 06/05/2021 2 [employer] [place] ON [place] AFTER 2020 (MEDICAID REPLACEMENT - HMO) Liz [place] [id number] Liz [place] 09/01/[address] [facility] [id number] Liz [place] [id number] Liz [place] 11/20/2022 2 [employer] (MEDICARE SUPPLEMENT) Liz Perez [place] [id number] Liz [place] Notes Date Note Type Note Provider Name and Address Organization Details Recorded Time 11/12/2018 text/html 68 YO post menopausal CF presents today with c/o infected hair follicle on left inner thigh and groin x 3 weeks. Patient also states she is having hot flashes and flushing at night as well as increased irritability. TAPAN Mendez [facility] 11/12/2018 18:44:07 11/25/2018 text/html 68 YO post menopausal CF presents today with c/o infected hair follicle on left inner thigh and groin x 3 weeks. Patient also states she is having hot flashes and flushing at night as well as increased irritability. TAPAN Mendez [facility] 11/25/2018 17:59:01 06/05/2021 text/html 70 yo femal [...] chest pain. MARGARITA LOYOLA Attn: Accounting,[address] [place], [address], [facility] 06/05/2021 22:29:19 10/23/2022 text/html 72 yo femal [...] LOYOLA Attn: Accounting,[address] , [place], [address], [place] - [facility] 10/30/2022 14:29:24 OBGyn Episode Ob Episode Information Episode Created Date Number of Fetuses Patient Bloodtype Patient rh Status Prepregnancy Weight lbs Domestic Partner Domestic Partner Phone Father Name Stone Planer Status 05/22/19 17 1 CLOSED Fetus Data First Name Last Name Admitted to NICU Weight (g) Sex Living Outcome Pediatric Complications Fetus ID Race Codes Race Delivery Type 1983.46 5 F Prematur e [id number] Vaginal Javan Calculation Initial Javan Date Initial [...]
--- OUTSIDE RECORDS SUMMARY | 2024-09-01 17:40 | XMS_ITS | Data Portability ---
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 Lab urinalysis, dipstick [address] [facility] [address], [place], [address], 4 09:43:42 urinalysis complete, reflex culture [email or web address] [facility] (Lab), [address] [facility], [place], [address], 4 09:42:55 urinalysis complete, reflex culture 2023 [...] MD, [address], [address], [place], [address], 4 09:22:55 Surgeries None recorded. Imaging CT, chest, w/o contrast - *Please call pt to schedule* 2023 024 [email or web address] [address] [facility] (Radiology), [address] [place], [address], 4 09:17:50 Medication Orders sertraline 100 mg tablet 2023 024 [facility] #[id number], [address], [place], [id number], 4 12:54:46 montelukast 10 mg tablet 2023 024 [facility] #[id number], [address], [place], [id number], 4 14:41:23 lisinopril 20 mg-hydrochl orothiazide 25 mg tablet 2023 024 [facility] #[id number], [address], [place], [id number], 4 14:41:24 simvastatin 20 mg tablet 2023 024 [facility] #61645, [address], [place], [id number], 4 14:41:22 levothyroxi ne 88 mcg tablet 2023 024 [facility] [place] [facility] #91179, [address], [place], [id number], 4 14:41:23 levofloxaci n 750 mg tablet 2022 023 [email or web address] [address] [facility] [place] [facility] #87632, [address], [place], [id number], 4 14:05:33 COVID-19 At-Home Test kit 2022 023 [facility] [place] [facility] #[id number] [place], [place], [id number], 3 09:49:10 Patient TargetsNo targets recorded. Patient Instructions Encounter Date Encounter Id Patient Instructions Last Modified By Organization Details Last Modified Time 07/22/2023 [id number] dementia rating scale-2* [email or web address] Not available 2023 08:02:20 physical therapy for pelvic health Not available 07/22/2023 14:41:16 Personalized [facility] Plan and Screening Recommendations Advance Directives - [...] of this year Chronic Disease Risks Stroke: Active diagnosis, Continue current treatment plan Heart Attack: Active diagnosis, Continue current treatment plan Clogging of the Arteries: Active diagnosis, Continue current treatment plan Diabetes: Active diagnosis, Continue current treatment plan Secondary Prevention/Interven tion (detects treatable diseases before they may cause symptoms, disability, or ) Breast Cancer Screening with mammogram: Cervical/Uterine/Ov eulogio Cancer Screening: Osteoporosis Screening: Date Screening Last Performed: Colon Cancer Screening: Date Screening Last Performed: Eye Disease Screening: Your next exam in: Dementia Risk: Depression Screening: Active diagnosis, Continue current treatment plan Not available 08/03/2023 13:06:54 Reason for Referral None Reported. Results Created Date Observation Date Name Description Value Unit Range Abnormal Flag Note LastModifiedBy Organization Detail LastModifiedTime 02/14/2002/14/2023 CBC/D IFF AMBIG UOUS DEFAU LT WBC 3.0 x10e3 /uL 3.4-10 .8 below low normal Not Available [facility] ([facility]) [address] [facility], [place], [address], 02/14/2023 08:27:46 02/14/20 23 02/14/2023 CBC/D IFF AMBIG UOUS DEFAU LT RBC 4.42 x10e6 /uL 3.77-5 .28 Ovalo cytes prese nt. Not Available [facility] ([facility]) [address] [facility], [place], [address], 02/14/2023 08:27:46 02/14/20 23 02/14/2023 CBC/D IFF AMBIG UOUS DEFAU LT hemoglobin 14.2 g/dL 11.1-1 5.9 Not Available [facility] ([facility]) [address] [facility], [place], [address], 02/14/2023 08:27:46 02/14/20 23 02/14/2023 CBC/D IFF AMBIG UOUS DEFAU LT hematocrit 40.8 % 34.0-4 6.6 Not Available [facility] ([facility]) [address] [facility], [place], [address], 02/14/2023 08:27:46 02/14/20 23 02/14/2023 CBC/D IFF AMBIG UOUS DEFAU LT MCV 92 fL 79-97 Not Available [facility] ([facility]) [address] [facility], [place], [address], 02/14/2023 08:27:46 02/14/20 23 02/14/2023 CBC/D IFF AMBIG UOUS DEFAU LT MCH 32.1 pg 26.6-3 3.0 Not Available [facility] ([facility]) [address] [facility], [place], [address], 02/14/2023 08:27:46 02/14/20 23 02/14/2023 CBC/D IFF AMBIG UOUS DEFAU LT MCHC 34.8 g/dL 31.5-3 5.7 Not Available [facility] ([facility]) [address] [facility], [place], [address], 02/14/2023 08:27:46 02/14/20 23 02/14/2023 CBC/D IFF AMBIG UOUS DEFAU LT RDW 12.2 % 11.7-1 5.4 Not Available [facility] ([facility]) [address] [facility], [place], [address], 02/14/2023 08:27:46 02/14/20 23 02/14/2023 CBC/D IFF AMBIG UOUS DEFAU LT platelets 217 x10e3 /uL 150-45 0 Not Available [facility] ([facility]) [address] [facility], [place], [address], 02/14/2023 08:27:46 02/14/20 23 02/14/2023 CBC/D IFF AMBIG UOUS DEFAU LT neutrophils 37 % not estab. Not Available [facility] ([facility]) [address] [facility], [place], [address], 02/14/2023 08:27:46 02/14/20 23 02/14/2023 CBC/D IFF AMBIG UOUS DEFAU LT lymphs 52 % not estab. Not Available [facility] ([facility]) [address] [facility], [place], [address], 02/14/2023 08:27:46 02/14/20 23 02/14/2023 CBC/D IFF AMBIG UOUS DEFAU LT monocytes 9 % not estab. Not Available [facility] ([facility]) [address] [facility], [place], [address], 02/14/2023 08:27:46 02/14/20 23 02/14/2023 CBC/D IFF AMBIG UOUS DEFAU LT eos 1 % not estab. Not Available [facility] ([facility]) [address] [facility], [place], [address], 02/14/2023 08:27:46 02/14/20 23 02/14/2023 CBC/D IFF AMBIG UOUS DEFAU LT basos 1 % not estab. 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 0 below low normal Not Available [facility] ([facility]) [address] [facility], [place], [address], 02/14/2023 08:27:46 02/14/20 23 02/14/2023 CBC/D IFF AMBIG UOUS DEFAU LT lymphs (absolute) 1.6 x10e3 /uL 0.7-3. 1 Not Available [facility] ([facility]) [address] [facility], [place], [address], 02/14/2023 08:27:46 02/14/20 23 02/14/2023 CBC/D IFF AMBIG UOUS DEFAU LT monocytes(ab solute) 0.3 x10e3 /uL 0.1-0. 9 Not Available [facility] ([facility]) [address] [facility], [place], [address], 02/14/2023 08:27:46 02/14/20 23 02/14/2023 CBC/D IFF AMBIG UOUS DEFAU LT eos (absolute) 0.0 x10e3 /uL 0.0-0. 4 Not Available [facility] ([facility]) [address] [facility], [place], [address], 02/14/2023 08:27:46 02/14/20 23 02/14/2023 CBC/D IFF AMBIG UOUS DEFAU LT baso (absolute) 0.0 x10e3 /uL 0.0-0. 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 SUPERVISOR Not Available [facility] ([facility]) [address] [place], [address], 02/14/2023 08:27:46 02/14/20 23 02/14/2023 CBC/D IFF AMBIG UOUS DEFAU LT immature grans (abs) SURFACE SHIP USW SUPERVISOR Not Available [facility] ([facility]) [address] [place], [address], 02/14/2023 08:27:46 02/14/20 23 02/14/2023 CBC/D IFF RICH ELAINE LT NRBC SURFACE SHIP USW SUPERVISOR Not Available [facility] ([facility]) [address] [facility], [place], [address], 02/14/2023 08:27:46 02/14/20 23 02/14/2023 CBC/D IFF RICH ELAINE LT hematology comments: NOTE: Amanda hamilton al was perfo rmed. A hand- writt en panel /prof ile was recei lucinda from your offic e. In accor dance with the [facility] Rich roth Test Code Polic y dated September 2002, we have assig donovan CBC with Cherise hamilton al/Pl atele t, Test Code #[address]. If this is not the testi ng you wishe d to recei ve on this speci men, pleas e conta ct the [facility] Clien t Inqui ry/ Techn ical Servi vaishali Depar tment to vaughn fy the test order . We appre ciate your busin ess. Not Available [facility] ([facility]) [address] [facility], [place], [address], 02/14/2023 08:27:46 02/14/20 23 02/14/2023 COMP. METAB OLIC PANEL (14) glucose 94 mg/dL 70-99 Not Available [facility] ([facility]) [address] [facility], [place], [address], 02/14/2023 08:27:48 02/14/20 23 02/14/2023 COMP. METAB OLIC PANEL (14) BUN 21 mg/dL 8-27 Not Available [facility] ([facility]) [address] [facility], [place], [address], 02/14/2023 08:27:48 02/14/20 23 02/14/2023 COMP. METAB OLIC PANEL (14) creatinine 0.95 mg/dL 0.57-1 .00 Not Available [facility] ([facility]) [address] [facility] [place], [address], 02/14/2023 08:27:48 02/14/20 23 02/14/2023 COMP. METAB OLIC PANEL (14) eGFR 64 mL/mi n/1.7 3 >59 Not Available [facility] ([facility]) [address] [facility] [place], [address], 02/14/2023 08:27:48 02/14/20 23 02/14/2023 COMP. METAB OLIC PANEL (14) BUN/creatini ne ratio 22 12-28 Not Available [facility] ([facility]) [address] [place], [address], 02/14/2023 08:27:48 02/14/20 23 02/14/2023 COMP. METAB OLIC PANEL (14) sodium 141 mmol/ L 134-14 4 Not Available [facility] ([facility]) [address] [place], [address], 02/14/2023 08:27:48 02/14/20 23 02/14/2023 COMP. METAB OLIC PANEL (14) potassium 4.7 mmol/ L 3.5-5. 2 Not Available [facility] ([facility]) [address] [place], [address], 02/14/2023 08:27:48 02/14/20 23 02/14/2023 COMP. METAB OLIC PANEL (14) chloride 102 mmol/ L 96-106 Not Available [facility] ([facility]) [address] [place], [address], 02/14/2023 08:27:48 02/14/20 23 02/14/2023 COMP. METAB OLIC PANEL (14) carbon dioxide, total 24 mmol/ L 20-29 Not Available [facility] ([facility]) [address] [place], [address], 02/14/2023 08:27:48 02/14/20 23 02/14/2023 COMP. METAB OLIC PANEL (14) calcium 9.6 mg/dL 8.7-10 .3 Not Available [facility] ([facility]) [address] [place], [address], 02/14/2023 08:27:48 02/14/20 23 02/14/2023 COMP. METAB OLIC PANEL (14) protein, total 7.0 g/dL 6.0-8. 5 Not Available [facility] ([facility]) [address] [place], [address], 02/14/2023 08:27:48 02/14/20 23 02/14/2023 COMP. METAB OLIC PANEL (14) albumin 4.6 g/dL 3.8-4. 8 Not Available [facility] ([facility]) [address] [facility] [place], [address], 02/14/2023 08:27:48 02/14/20 23 02/14/2023 COMP. METAB OLIC PANEL (14) globulin, total 2.4 g/dL 1.5-4. 5 Not Available [facility] ([facility]) [address] [facility] [place], [address], 02/14/2023 08:27:48 02/14/20 23 02/14/2023 COMP. METAB OLIC PANEL (14) A/G ratio 1.9 1.2-2. 2 Not Available [facility] ([facility]) [address] [facility] [place], [address], 02/14/2023 08:27:48 02/14/20 23 02/14/2023 COMP. METAB OLIC PANEL (14) bilirubin, total 0.6 mg/dL 0.0-1. 2 Not Available [facility] ([place] [facility]) [address] [facility] [place], [address], 02/14/2023 08:27:48 02/14/20 23 02/14/2023 COMP. METAB OLIC PANEL (14) alkaline phosphatase 89 IU/L 44-121 Not Available [facility] ([facility]) [address] [place], [address], 02/14/2023 08:27:48 02/14/20 23 02/14/2023 COMP. METAB OLIC PANEL (14) AST (SGOT) 19 IU/L 0-40 Not Available [facility] ([facility]) [address] [place], [address], 02/14/2023 08:27:48 02/14/20 23 02/14/2023 COMP. METAB OLIC PANEL (14) ALT (SGPT) 18 IU/L 0-32 Not Available [facility] ([facility]) [address] [place], [address], 02/14/2023 08:27:48 02/14/20 23 02/14/2023 LIPID PANEL cholesterol, total 152 mg/dL 100-19 9 Not Available [facility] ([facility]) [address] [place], [address], 02/14/2023 08:27:49 02/14/20 23 02/14/2023 LIPID PANEL triglyceride s 58 mg/dL 0-149 Not Available [facility] ([facility]) [address] [place], [address], 02/14/2023 08:27:49 02/14/20 23 02/14/2023 LIPID PANEL HDL cholesterol 64 mg/dL >39 Not Available [facility] ([facility]) [address] [place], [address], 02/14/2023 08:27:49 02/14/20 23 02/14/2023 LIPID PANEL VLDL cholesterol xander 12 mg/dL 5-40 Not Available [facility] ([facility]) [address], [place], [address], 02/14/2023 08:27:49 02/14/20 23 02/14/2023 LIPID PANEL LDL chol calc ([facility]) 76 mg/dL 0-99 Not Available [facility] ([facility]) [address], [place], [address], 02/14/2023 08:27:49 02/14/20 23 02/14/2023 LIPID PANEL comment: SURFACE 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 Not Available [facility] ([facility]) [address] [facility], [place], [address], 02/14/2023 08:27:50 02/14/2002/14/2023 THYRO XINE (T4) FREE, DIREC T T4,free(dire ct) 1.48 NG/dL 0.82-1 .77 Not Available [facility] ([facility]) [address] [facility], [place], [address], 02/14/2023 08:27:51 02/14/20 23 02/14/2023 TSH TSH 1.700 uIU/m L 0.450- 4.500 Not Available Not Available 02/14/2023 08:27:52 02/14/20 23 02/14/2023 TRIIO DOTHY NELSON E (T3), FREE triiodothyro nine (T3), free 2.6 pg/mL 2.0-4. 4 Not Available [facility] ([facility]) [address] [facility], [place], [address], 02/14/2023 08:27:52 07/22/19 24 07/22/2023 CBC/C OMPLE TE BLD COUNT W/DIF F white blood cells 3.4 x10'3 /uL 4.2-10 [address] [facility] (Lab) [address] [place], [address], 07/22/2023 20:27:45 07/22/19 24 07/22/2023 CBC/C OMPLE TE BLD COUNT W/DIF F red blood cells 4.28 x10'6 /uL 3.80-[address] [facility] (Lab) [address] [place], [address], 07/22/2023 20:27:45 07/22/19 24 07/22/2023 CBC/C OMPLE TE BLD COUNT W/DIF F hemoglobin 14.2 g/dL 12.0-[address] [facility] (Lab) [address] [place], [address], 07/22/2023 20:27:45 07/22/19 24 07/22/2023 CBC/C OMPLE TE BLD COUNT W/DIF F hematocrit 39.6 % 35.7-[address] [facility] (Lab) [address] [place], [address], 07/22/2023 20:27:45 07/22/19 24 07/22/2023 CBC/C OMPLE TE BLD COUNT W/DIF F mean red cell volume 92.5 fL 82.0-[address] [facility] (Lab) [address] [place], [address], 07/22/2023 20:27:45 07/22/19 24 07/22/2023 CBC/C OMPLE TE BLD COUNT W/DIF F mean red cell hemoglobin 33.2 pg 27.0-3 3[address] [facility] (Lab) [address] [place], [address], 07/22/2023 20:27:45 07/22/19 24 07/22/2023 CBC/C OMPLE TE BLD COUNT W/DIF F mean RBC HGB concentratio n 35.9 g/dL 31.0-[address] [facility] (Lab) [address] [place], [address], 07/22/2023 20:27:45 07/22/19 24 07/22/2023 CBC/C OMPLE TE BLD COUNT W/DIF F red cell distribution width 12.4 % 11.8-[address] [facility] (Lab) [address] [place], [address], 07/22/2023 20:27:45 07/22/19 24 07/22/2023 CBC/C OMPLE TE BLD COUNT W/DIF F platelets 237 x10'3 /uL 150-[address] [facility] (Lab) [address] [place], [address], 07/22/2023 20:27:45 07/22/19 24 07/22/2023 CBC/C OMPLE TE BLD COUNT W/DIF F mean platelet volume 11.3 fL 9.0-[address] [facility] (Lab) [address] [place], [address], 07/22/2023 20:27:45 07/22/19 24 07/22/2023 CBC/C OMPLE TE BLD COUNT W/DIF F neutrophils 35.9 % 39.0-7 2.[address] [facility] (Lab) [address] [place], [address], 07/22/2023 20:27:45 07/22/19 24 07/22/2023 CBC/C OMPLE TE BLD COUNT W/DIF F lymphocytes 40.9 % 16.0-[address] [facility] (Lab) [address] [place], [address], 07/22/2023 20:27:45 07/22/19 24 07/22/2023 CBC/C OMPLE TE BLD COUNT W/DIF F monocytes 19.4 % 5.0-12 [address] [facility] (Lab) [address] [place], [address], 07/22/2023 20:27:45 07/22/19 24 07/22/2023 CBC/C OMPLE TE BLD COUNT W/DIF F eosinophils 2.6 % 1.0-7. [address] [facility] (Lab) [address] [place], [address], 07/22/2023 20:27:45 07/22/19 24 07/22/2023 CBC/C OMPLE TE BLD COUNT W/DIF F basophils 1.2 % 0.0-2. [address] [facility] (Lab) [address] [place], [address], 07/22/2023 20:27:45 07/22/19 24 07/22/2023 CBC/C OMPLE TE BLD COUNT W/DIF F immature granulocytes 0.0 % 0.00-[address] [facility] (Lab) [address] [place], [address], 07/22/2023 20:27:45 07/22/19 24 07/22/2023 CBC/C OMPLE TE BLD COUNT W/DIF F neutrophils, absolute count 1.22 x10'3 /uL 1.5-8. [address] [facility] (Lab) [address] [place], [address], 07/22/2023 20:27:45 07/22/19 24 07/22/2023 CBC/C OMPLE TE BLD COUNT W/DIF F lymphocytes, absolute count 1.39 x10'3 /uL 1.07-[address] [facility] (Lab) [address] [place], [address], 07/22/2023 20:27:45 07/22/19 24 07/22/2023 CBC/C OMPLE TE BLD COUNT W/DIF F monocytes, absolute count 0.66 x10'3 /uL 0.29-[address] [facility] (Lab) [address] [place], [address], 07/22/2023 20:27:45 07/22/19 24 07/22/2023 CBC/C OMPLE TE BLD COUNT W/DIF F eosinophils, absolute count 0.09 x10'3 /uL 0.02-[address] [facility] (Lab) [address] [place], [address], 07/22/2023 20:27:45 07/22/19 24 07/22/2023 CBC/C OMPLE TE BLD COUNT W/DIF F basophils, absolute count 0.04 x10'3 /uL 0.01-[address] [facility] (Lab) [address] [place], [address], 07/22/2023 20:27:45 07/22/19 24 07/22/2023 CBC/C OMPLE TE BLD COUNT W/DIF F immature granulocytes ,absolute 0.00 x10'3 /uL 0.00-[address] [facility] (Lab) [address] [place], [address], 07/22/2023 20:27:45 07/22/19 24 07/22/2023 CBC/C OMPLE TE BLD COUNT W/DIF F nucleated red blood cells 0.0 % -0 Not Available [facility] (Lab) [address] [place], [address], 07/22/2023 20:27:45 07/22/19 24 07/22/2023 CBC/C OMPLE TE BLD COUNT W/DIF F NRBC# 0.00 x10'3 /uL Not Available [facility] (Lab) [address] [place], [address], 07/22/2023 20:27:45 07/22/19 24 07/22/2023 LIPID PANEL cholesterol 161 mg/dL 140-19 9 NIH JAYDEN NSUS RECOM MENDA TION FOR IBIS STERO L: ADULT CHILD LOW RISK: <200 <170 BORDE RLINE : <200- 239 ----- HIGH RISK: >240 >[address] [facility] (Lab) [address] [place], [address], 07/22/2023 20:38:27 07/22/19 24 07/22/2023 LIPID PANEL triglyceride s 104 mg/dL 0-150 NIH JAYDEN NSUS REPOR T RECOM MENDA TION FOR TRIGL YCERI CAROLINE: ADULT CHILD LOW RISK: <150 ----- BODER LINE: 150-1 99 ----- HIGH RISK: >200 ----- Not [address] [facility] (Lab) [address] [place], [address], 07/22/2023 20:38:27 07/22/19 24 07/22/2023 LIPID PANEL HDL cholesterol 66 mg/dL 40- Not Available [facility] (Lab) [address] [place], [address], 07/22/2023 20:38:27 07/22/19 24 07/22/2023 LIPID PANEL [...] WILL NOT BE REPOR ZEE. Not Available [facility] (Lab) [address] [place], [address], 07/22/2023 20:38:27 07/22/19 24 07/22/2023 HEPAT IC/LI ADRIEL PANEL alkaline phosphatase 83 U/L 38-126 Not Available [facility] (Lab) [address] [place], [address], 07/22/2023 20:38:32 07/22/19 24 07/22/2023 HEPAT IC/LI ADRIEL PANEL alanine aminotransfe rase 21 U/L 0-35 Not Available [facility] (Lab) [address] [place], [address], 07/22/2023 20:38:32 07/22/19 24 07/22/2023 HEPAT IC/LI ADRIEL PANEL aspartate aminotransfe rase 28 U/L 15-37 Not Available [facility] (Lab) [address] [place], [address], 07/22/2023 20:38:32 07/22/19 24 07/22/2023 HEPAT IC/LI ADRIEL PANEL bilirubin, total 0.90 mg/dL 0.20-[address] [facility] (Lab) [address] [place], [address], 07/22/2023 20:38:32 07/22/19 24 07/22/2023 HEPAT IC/LI ADRIEL PANEL bilirubin, conjugated (direct) 0.00 mg/dL 0.00-[address] [facility] (Lab) [address] [place], [address], 07/22/2023 20:38:32 07/22/19 24 07/22/2023 HEPAT IC/LI ADRIEL PANEL biliurubin,u ncong. (indirect) 0.70 mg/dL 0.00-[address] [facility] (Lab) [address] [place], [address], 07/22/2023 20:38:32 07/22/19 24 07/22/2023 HEPAT IC/LI ADRIEL PANEL total protein 7.2 g/dL 6.3-8. [address] [facility] (Lab) [address] [place], [address], 07/22/2023 20:38:32 07/22/19 24 07/22/2023 HEPAT IC/LI ADRIEL PANEL albumin 4.4 g/dL 3.0-4. [address] [facility] (Lab) [address] [place], [address], 07/22/2023 20:38:32 07/22/19 24 07/22/2023 HEPAT IC/LI ADRIEL PANEL globulin 2.8 g/dL 2.6-4. [address] [facility] (Lab) [address] [place], [address], 07/22/2023 20:38:32 07/22/19 24 07/22/2023 HEPAT IC/LI ADRIEL PANEL A/G ratio 1.6 ratio 1.0-2. [address] [facility] (Lab) [address] [place], [address], 07/22/2023 20:38:32 07/22/19 24 07/22/2023 BASIC METAB OLIC PANEL sodium 138 mmol/ L 137-[address] [facility] (Lab) [address] [place], [address], 07/22/2023 20:38:43 07/22/19 24 07/22/2023 BASIC METAB OLIC PANEL potassium 4.1 mmol/ L 3.5-5. 1 Not Available [facility] (Lab) [address] [place], [address], 07/22/2023 20:38:43 07/22/19 24 07/22/2023 BASIC METAB OLIC PANEL chloride 104 mmol/ L 98-107 Not Available [facility] (Lab) [address] [place], [address], 07/22/2023 20:38:43 07/22/19 24 07/22/2023 BASIC METAB OLIC PANEL carbon dioxide 26 mmol/ L 22-30 Not Available [facility] (Lab) [address] [place], [address], 07/22/2023 20:38:43 07/22/19 24 07/22/2023 BASIC METAB OLIC PANEL anion gap 12.1 mmol/ L 14-22 low Not Available [facility] (Lab) [address] [place], [address], 07/22/2023 20:38:43 07/22/19 24 07/22/2023 BASIC METAB OLIC PANEL glucose 95 mg/dL 70-99 Not Available [facility] (Lab) [address] [place], [address], 07/22/2023 20:38:43 07/22/19 24 07/22/2023 BASIC METAB OLIC PANEL BUN 20 mg/dL 8-19 high Not Available [facility] (Lab) [address] [place], [address], 07/22/2023 20:38:43 07/22/19 24 07/22/2023 BASIC METAB OLIC PANEL creatinine 0.78 mg/dL 0.66-[address] [facility] (Lab) [address] [place], [address], 07/22/2023 20:38:43 07/22/19 24 07/22/2023 BASIC METAB OLIC PANEL GFR >60 Refer ence Range : [place] ge GFR Healt hy Adult : >60 [...] calcu lator is avail able on the [facility] websi te: [email or web address] :[email or web address] [email or web address]/gf r_[email or web address] culat or Not Available [facility] (Lab) [address] [place], [address], 07/22/2023 20:38:43 07/22/1907/22/2023 BASIC METAB OLIC PANEL calcium 10.0 mg/dL 8.4-[address] [facility] (Lab) [address] [place], [address], 07/22/2023 20:38:43 07/22/19 24 07/22/2023 URINA LYSIS [...] pfi?? 0-8 Not Available Not Available 07/22/19 24 20:42:22 07/22/19 24 07/22/2023 URINA LYSIS COMPL ETE/I RIS W/RFX red blood cells 0-4 /i??h pfi?? 0-4 Not Available Not Available 07/22/19 24 20:42:22 07/22/19 24 07/22/2023 URINA LYSIS COMPL ETE/I RIS W/RFX bacteria NONE Not Available Not Avail able 07/22/2023 20:42:22 07/22/19 24 07/22/2023 URINA LYSIS COMPL ETE/I RIS W/RFX squamous epithelial OCCASI ONAL /i??l pfi?? abnormal Not Available Not Available 07/22/19 24 20:42:22 07/22/19 24 07/22/2023 T4 FREE free T4 1.82 NG/dL 0.78-[address] [facility] (Lab) [address] [place], [address], 07/22/2023 20:49:23 07/22/19 24 07/22/2023 TSH thyroid-stim ulating hormone 1.330 uIU/m L 0.465- 4.[address] [facility] (Lab) [address] [place], [address], 07/22/2023 20:58:48 09/26/19 24 09/26/2023 urina lysis , dipst ick Leukocytes (reference range: negative girish/ l) Negati ve Not Available [facility] [address], [place], [address], 09/26/2023 09:22:46 09/26/19 24 09/26/2023 urina lysis , dipst ick Nitrite (reference rage: negative mg/dl) negati ve Not Available [address], [place], [address], 09/26/2023 09:22:46 09/26/19 24 09/26/2023 urina lysis , dipst ick Urobilinogen (reference range: 0.2-1 mg/dl) 0.2 Not Available [address], [place], [address], 09/26/2023 09:22:46 09/26/19 24 09/26/2023 urina lysis , dipst ick Protein (reference range: negative mg/dl) Negati ve Not Available [address], [place], [address], 09/26/2023 09:22:46 09/26/19 24 09/26/2023 urina lysis , dipst ick pH (reference range: 5-7) 7.5 Not Available [address], [place], [address], 09/26/2023 09:22:46 09/26/19 24 09/26/2023 urina lysis , dipst ick Blood (reference range: negative Quan/ l) Negati ve Not Available [address], [place], [address], 09/26/2023 09:22:46 09/26/19 24 09/26/2023 urina lysis , dipst ick Specific [place] (reference range: 1.005-1.030) 1.030 Not Available [address], [place], [address], 09/26/2023 09:22:46 09/26/19 24 09/26/2023 urina lysis , dipst ick Ketone (reference range: negative mg/dl) Negati ve Not Available [address], [place], [address], 09/26/2023 09:22:46 09/26/19 24 09/26/2023 urina lysis , dipst ick Bilirubin (reference range: negative mg/dl) Negati ve Not Available [address], [place], [address], 09/26/2023 09:22:46 09/26/19 24 09/26/2023 urina lysis , dipst ick Glucose (reference range: negative mg/dl) Negati ve Not Available [address], [place], [address], 09/26/2023 09:22:46 09/26/19 24 09/26/2023 urina lysis , dipst ick Appearance Clear Not Available [address], [place], [address], 09/26/2023 09:22:46 09/26/19 24 09/26/2023 urina lysis , dipst ick Color Yellow Not Available [address], [place], [address], 09/26/2023 09:22:46 10/31/19 24 05/29/2022 CT, chest , w/o contr ast No observ ation record ed. [email or web address] [facility] [address] [place], [address], 11/06/2023 23:25:53 Result Notes None recorded. Problems Name Problem SNOMED Code Status Onset Date Resolution Date Notes Provider Name and Address Organization Details Recorded Time Acute bronchit is 54482564 Completed Not Available [facility] 3 01:37:17 Fracture of great toe 721992574 Active 2021 Not Available [facility] 4 05:10:22 Fracture of great toe 583700540 Active 2021 Not Available [facility] 4 05:10:22 Neuropat hy 464425704 Active 2022 Not Available [facility] 4 05:10:22 Hypothyr oidism 95982095 Active Not Available [facility] 4 05:10:23 Anxiety 96064844 Active 2018 Not Available [facility] 4 05:10:23 Cough 31580649 Active 2022 Not Available [facility] 4 05:10:23 Coronary arterios clerosis 43478202 Active Not Available [facility] 4 05:10:23 Upper respirat ory infectio n 79170072 Active 2021 Not Available [facility] 4 05:10:23 Essentia l hyperten jacque 40355420 Active Not Available [facility] 4 05:10:23 Urinary tract infectio us disease 83074054 Completed Not Available [facility] 3 01:37:18 Rhinitis 98600199 Completed Not Available [facility] 3 01:37:19 Nodule of lung 070996900 Active 2019 Not Available [facility] 4 05:10:23 Closed fracture of phalanx of foot 72560421 Active 2021 Not Available [facility] 4 05:10:23 Sciatica 54989819 Active 2022 Not Available [facility] 4 05:10:22 Sore throat 858546196 Active 2022 Not Available [facility] 4 05:10:22 Osteopor osis 53869522 Active 2022 Not Available [facility] 4 05:10:23 Pain in throat 465790825 Active 2022 Not Available [facility] 4 05:10:22 Leukopen ia 39249704 Active 2022 Normal work up with hematolo gy Morelia Gudino MD [address] [facility], [place], [address] , [employer] [facility] [employer] [facility] 4 14:34:54 Nausea 277088364 Active 2022 Not Available [facility] 4 05:10:23 Diarrhea 04635637 Active 2022 Not Available [facility] 4 05:10:23 Acute sinusiti s 16006631 Active 2022 Not Available [facility] 4 05:10:22 Microsco pic hematuri a 045942937 Active 2023 had normal work up with urology Morelia Gudino MD [address], [address], [place], [address] , [employer] [facility] [employer] [facility] 4 14:34:08 Female stress incontin ence 36943501 Active 2023 Morelia Gudino MD [address], [address], [place], [address] , [employer] [facility] [employer] [facility] 4 14:35:36 Urge incontin ence of urine 42855671 Active 2023 Morelai Gudino MD [address], [address], [place], [address] , [employer] [facility] [employer] [facility] 4 14:38:20 Nausea, vomiting and diarrhea 7484356 Active 2023 SARAHI Morales [address], [address], [place], [address] , [employer] [facility] [employer] [facility] 4 09:11:48 Dysuria 51511007 Active 2023 SIRENA Morales-Sunil [address], [address], [place], [address] , [employer] [facility] [employer] [facility] 4 09:22:44 Viral gastroen teritis 701469478 Active 2023 SIRENA Morales-C [address], [address], [place], [address] , [employer] [facility] [place] [facility] 4 12:42:59 Problem Notes None recorded. Procedures Surgical History Date Name Laterality Status Provider Name and Address Organization Details Recorded Time 07/22/19 24 Medicare Wellness CPT Code, subsequent completed Catherine Begum RN [place] - [facility] 07/22/2023 14:02:44 04/11/19 21 Most Recent Bone Density completed Not Available [facility] 05/15/2022 01:22:49 07/03/19 18 Date of Last Colonoscopy completed Not Available [facility] 05/15/2022 01:22:49 Tubal Ligation completed Not Available [facility] 05/15/2022 01:22:56 Cardiac Stent Placement completed Not Available [facility] 05/15/2022 01:22:56 Imaging Results None recorded. Procedure Notes None recorded. Medical Equipment None Reported. Allergies Allergen ID Allergen Name Allergen Category Reaction Reaction Severity Criticality Documentation Date Start Date Code Code System Note Provider Name and Address Organization Details Recorded Time 3030 prednison e medicatio n Not available Not available Not available 05/15/2022 8640 RxNorm bilat eral leg swell ing Not Available [facility] 01:55:14 Medications Name Sig Start Date Stop [...] 2020 active Not Available Not Available Not [place] acetonide 0.1 % topical cream APPLY [...] budesonide DR - ER 3 mg capsule,del carol,extend ed release 11/11 completed Not Available Not [...] Available Not Available Not Available amoxicillin 875 mg-aldo gandhi clavulanate 125 mg tablet TAKE 1 TABLET [...] Not Available Not Available Fluzone High-Dose Quad 2020- (PF) 240 mcg/0.7 mL IM syringe PHARMACY [...] Updated DateTime 4 160.02 cm 28.3 kg/m2 60063.7 8 g 97.2 [degF] 67 /min 98 % 98 % 120 mm[Hg] 74 mm[Hg] Catherine Begum RN [facility] [employer] [facility] 4 14:04:52 Date Recorded Body height Body mass index (BMI) Body weight Body temperature Heart rate Oxygen saturation Oxygen saturation in Arterial blood by Pulse oximetry Systolic blood pressure Diastolic blood pressure Provider Name and Address Organization Details Last Updated DateTime 4 160.02 cm 27.5 kg/m2 29730.8 2 g 97.4 [degF] 69 /min 94 % 94 % 128 mm[Hg] 74 mm[Hg] Griselda Galvin RN [facility] [employer] [facility] 4 09:06:26 Date Recorded Body height Body mass index (BMI) Body weight Body temperature Heart rate Oxygen saturation Oxygen saturation in Arterial blood by Pulse oximetry Systolic blood pressure Diastolic blood pressure Provider Name and Address Organization Details Last Updated DateTime 4 160.02 cm 27.3 kg/m2 97873.2 2 g 97.7 [degF] 79 /min 95 % 95 % 122 mm[Hg] 76 mm[Hg] Griselda Galvin RN [facility] [employer] [facility] 4 12:34:49 Date Recorded Body height Body mass index (BMI) Body weight Body temperature Heart rate Systolic blood pressure Diastolic blood pressure Provider Name and Address Organization Details Last Updated DateTime 3 160.02 cm 27.6 kg/m2 27706.4 1 g 98.2 [degF] 76 /min 112 mm[Hg] 72 mm[Hg] Dedra dupree RN [facility] [employer] [facility] 3 15:06:12 Date Recorded Body height Body mass index (BMI) Body weight Body temperature Heart rate Oxygen saturation Oxygen saturation in Arterial blood by Pulse oximetry Systolic blood pressure Diastolic blood pressure Provider Name and Address Organization Details Last Updated DateTime 3 160.02 cm 28.2 kg/m2 49862.1 9 g 97.8 [degF] 68 /min 96 % 96 % 122 mm[Hg] 70 mm[Hg] Catherine Begum RN [place] - [facility] [employer] 3 09:26:32 Social History Question Answer Notes LastModified by Organization Details LastModified Time Tobacco Smoking Status Former Smoker quit 01/2019 Not Available [employer] 05/15/2022 01:18:30 Do You Have An Advance Directive? No Information Provided MIGRATION.183 [id number] Information not available 05/15/2022 Are You Blind Or Do You Have Difficulty Seeing? No MIGRATION.204 9162784 Information not available 05/15/2022 What Is Your Level Of Caffeine Consumption? Moderate MIGRATION.091 [id number] Information not available 05/15/2022 How Much Tobacco Do You Chew? None MIGRATION.699 [id number] Information not available 05/15/2022 In The 14 Days Before Symptom Onset, Have You Had Close Contact With A Laboratory-conf irmed COVID-19 While That Case Was Ill? No MIGRATION.370 3785255 Information not available 05/15/2022 In The 14 Days Before Symptom Onset, Have You Had Close Contact With A Person Who Is Under Investigation For COVID-19 While That Person Was Ill? No MIGRATION.031 [id number] Information not available 05/15/2022 Are You Deaf Or Do You Have Serious Difficulty Hearing? No MIGRATION.318 [id number] Information not available 05/15/2022 What Type Of Diet Are You Following? REGULAR MIGRATION.593 9981537 Information not available 05/15/2022 Which Illicit Or Recreational Drugs Have You Used? None MIGRATION.931 [id number] Information not available 05/15/2022 What Is The Highest Grade Or Level Of School You Have Completed Or The Highest Degree You Have Received? [id number] MIGRATION.447 6831774 Information not available 05/15/2022 Have There Been Any Changes To Your Family Or Social Situation? No MIGRATION.864 7526653 Information not available 05/15/2022 What Is The Fluoride Status Of Your Home? Unknown MIGRATION.946 4603310 Information not available 05/15/2022 When Did You Quit Smoking? 1-5yearssincelastc igarette MIGRATION.243 6764839 Information not available 05/15/2022 Are There Any Guns Present In Your Home? No MIGRATION.588 6156634 Information not available 05/15/2022 Do You Use Insect Repellent Routinely? Yes MIGRATION.601 5287084 Information not available 05/15/2022 Where Do You Live? SingleLevelHouse With Basement MIGRATION.557 1828562 Information not available 05/15/2022 Do You Have A Medical Power Of Nutrition Consultant? No MIGRATION.674 7905129 Information not available 05/15/2022 What Was The Date Of Your Most Recent Tobacco Screening? 01/21/2023 Information not available 01/21/2023 What Is Your Current Pack Years? 30ormorepackyears MIGRATION.936 7853420 Information not available 05/15/2022 Have You Ever Been Counseled For Unhealthy Alcohol Use? No MIGRATION.396 4879007 Information not available 05/15/2022 Do You Have Any Pets? No MIGRATION.157 4334573 Information not available 05/15/2022 What Is Your Relationship Status? MIGRATION.184 3284403 Information not available 05/15/2022 Do You Use Your Seat Belt Or Car Seat Routinely? Yes MIGRATION.128 8987033 Information not available 05/15/2022 Do You Have Smoke And Carbon Monoxide Detectors In Your Home? Yes MIGRATION.173 [id number] Information not available 05/15/2022 At What Age Did You Start Smoking Tobacco? 20 MIGRATION.926 [id number] Information not available 05/15/2022 Are You Passively Exposed To Smoke? No MIGRATION.507 9431811 Information not available 05/15/2022 Are There Any Smokers In Your House? No MIGRATION.172 3634172 Information not available 05/15/2022 How Much Tobacco Do You Smoke? No MIGRATION.936 7171923 Information not available 05/15/2022 What Types Of Sporting Activities Do You Participate In? None MIGRATION.822 2870819 Information not available 05/15/2022 Do You Use Sunscreen Routinely? Yes MIGRATION.892 3523315 Information not available 05/15/2022 Has Tobacco Cessation Counseling Been Provided? No MIGRATION.110 2236883 Information not available 05/15/2022 Have You Recently Traveled Abroad? No MIGRATION.223 1217875 Information not available 05/15/2022 Do You Have Difficulty Walking Or Climbing Stairs? No MIGRATION.796 7472761 Information not available 05/15/2022 Do You Have Any Dietary Restrictions? No MIGRATION.542 7294220 Information not available 05/15/2022 Sex: Female Functional Status Question Answer Note LastModified by Organizat ion Details LastModified Time Do you or have you ever used smokeless tobacco? Never used smokeless tobacco MIGRATION.113273 9823 Information not available 05/15/2022 Are you currently employed? No [email or web address] Information not available 10/24/2022 Do you have transportation difficulties? No MIGRATION.113013 3016 Information not available 05/15/2022 Are you able to care for yourself? Yes MIGRATION.935078 6306 Information not available 05/15/2022 Do you have difficulty dressing or bathing? No MIGRATION.818521 6160 Information not available 05/15/2022 Do you or have you ever used e-cigarettes or vape? Never used electronic cigarettes MIGRATION.079848 1278 Information not available 05/15/2022 What is your exercise level? Occasional MIGRATION.826803 9444 Information not available 05/15/2022 Do you use any illicit or recreational drugs? No MIGRATION.681435 7673 Information not available 05/15/2022 Do you or have you ever used any other forms of tobacco or nicotine? No MIGRATION.558868 3479 Information not available 05/15/2022 What is your level of alcohol consumption? Occasional MIGRATION.269002 4030 Information not available 05/15/2022 Are you able to walk? YESWOREST MIGRATION.841561 6520 Information not available 05/15/2022 Do you have difficulty doing errands alone? 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 IA55272-5 MIGRATION.34783581 26 Information not available 05/15/2022 Do you have difficulty concentrating, remembering or making decisions? No MIGRATION.01543427 26 Information not available 05/15/2022 Family History Relationship Description Onset Age of this Age Resolved Age Notes LastModified by Organization Details LastModified Time Mother Rupture of aorta frivastorres Not available 11/2023 12:28:57 Father Myocardial infarction MIGRATION.921 [id number] Not available 05/15/2022 01:23:04 Medical History Condition [...] HAVE YOU BEEN HOSPITALIZED OR SEEN IN [facility] IN THE PAST YEAR ? N ATHEROSCLEROSIS [...] mcg/0.3 mL dose 1 completed Not Available [facility] 04/09/2023 05:10:23 Influenza, split virus, trivalent, preservative 9 completed Not Available [facility] 04/09/2023 05:10:23 COVID-19, mRNA, LNP-S, PF, 30 mcg/0.3 mL dose 1 completed Not Available [facility] 04/09/2023 05:10:23 Influenza, high-dose, quadrivalent, PF 0 completed Not Available [facility] 04/09/2023 05:10:23 pneumococcal polysaccharide PPV23 2 completed Not Available [facility] 04/09/2023 05:10:23 Influenza, high-dose, trivalent, PF 8 completed Not Available [facility] 04/09/2023 05:10:23 Influenza, high-dose, trivalent, PF 7 completed Not Available [facility] 04/09/2023 05:10:23 Pneumococcal conjugate PCV 13 4 completed Not Available [facility] 04/09/2023 05:10:23 Past Encounters Encounter ID Performer Location Encounter Start Date Encounter Closed Date Diagnosis/Indication Diagnosis SNOMED-CT Code Diagnosis ICD10 Code Diagnosis Note [id number] Diane Vitale MD [facility] Internal Med Maryellen armendariz [address] [place] [address] y , [place] [address] 05/23/2020 00:00:00 05/23/2020 20:38:38 [id number] Kee lerner MD [facility] General Surgery 4 [facility], [address] [place] [address] 06/13/2020 00:00:00 06/13/2020 14:17:10 [id number] Diane Vitale MD [facility] Internal Med Maryellen armendariz [address] [place] [address] y , [place] [address] 11/14/2020 00:00:00 11/20/2020 13:06:17 [id number] Diane Vitale MD [facility] Internal Med [place] [address] [place] [address] [place] [address] 03/13/2021 00:00:00 03/15/2021 14:00:57 [id number] Diane Vitale MD [facility] Internal Med [place] [address] [place] [address] [place] [address] 05/01/2021 00:00:00 05/12/2021 20:33:11 [id number] Diane Vitale MD [facility] Internal Med [place] [address] [place] [address] [place] [address] 06/21/2021 00:00:00 06/21/2021 22:19:05 [id number] [facility] Pod[facility]ry [address] [address] 06/25/2021 00:00:00 07/12/2021 13:49:39 [id number] Jairo Munoz DPM [facility] Podiatry [address] [address] 2021 00:00:00 2021 12:56:02 [id number] Diane Vitale MD [facility] Internal Med [place] [address] [place] [address] [place] [address] 08/16/2021 00:00:00 09/17/2021 21:59:01 [id number] Diane Vitale MD [facility] Internal Med [place] [address] [place] [address] [place] [address] 12/20/2021 00:00:00 12/20/2021 22:45:32 [id number] Diane Vitale MD [facility] Internal Med [place] [address] [place] [address] [place] [address] 05/16/2022 15:06:49 05/16/2022 16:06:01 Essential hypertension 41008741 I10 Nodule of lung 683790098 R91.1 Sciatica 90324215 M54.31 Anxiety 07721960 F41.9 Hypothyroidism 36590942 E03.9 [id number] Diane Vitale MD [facility] Internal Med [place] [address] [place] [address] [place] [address] 06/27/2022 14:59:20 06/27/2022 16:14:33 Anxiety 19984049 F41.9 Nodule of lung 283514058 R91.1 Coronary arteriosclerosis 13396537 I25.10 Essential hypertension 04261711 I10 Sciatica 61776401 M54.31 [id number] Diane Vitale MD [facility] Internal Med [place] [address] [facility] [place] [address] 10/24/2022 14:57:05 10/24/2022 16:00:53 Essential hypertension 95751246 I10 Hypothyroidism 84725329 E03.9 Long-term drug therapy 859860076 Z79.899 Coronary arteriosclerosis 10068416 I25.10 Anxiety 25264099 F41.9 [id number] Morelia Gudino MD [facility] Primary Care [facility] [address] [place] [address] 01/21/2023 09:17:38 01/21/2023 10:05:15 Pain in throat 215576094 R07.0 take home covid test Coronary arteriosclerosis 11031518 I25.10 s/p cardiac stentsees Dr. Giles Osteoporosis 31057737 M8 1.0 DEXA 11/06starte d fosamax this yeardaily walking Essential hypertension 95741948 I10 stable Hypothyroidism 42272427 E03.9 stable Long-term drug therapy 352810928 Z79.044 [id number] Morelia Gudino MD [facility] Primary Care [place] [address] [place] [address] 07/22/2023 14:00:05 07/22/2023 14:59:21 Adult health examination 650057303 Z00.00 Mammogram done 11/06DEXA done 11/06RSV given 02/06Covid given 02/06Flu vaccine annuallyPr evnar 13 given 01/28Shing les series given 10/06, 01/06Pneum ovax 23 given 01/05Colon oscopy referral given Screening for disorder 360824510 Z13.9 Osteoporosis 32114391 M8 1.0 DEXA 11/06starte d fosamax this yeardaily walking 07/22/23: was on fosamax but had to d/c while having dental work doneshe is not done yet with dental workwill restart fosamax when dental work is completede clines referral to endocrinol ogycontinu e daily walking Screening for malignant neoplasm of colon 067175968 Z12.11 Coronary arteriosclerosis 69777452 I25.10 Z79.899 E78.5 s/p cardiac stentsees Dr. Giles Essential hypertension 52791269 I10 stable Hypothyroidism 57513945 E03.9 stable Renewal of prescription 357568301 Z76.[address] ess incontinence 81463472 N39.3 Urge incon tinence of urine 39723064 N39.41 [id number] SARAHI Morales [facility] Primary Care [facility] [address] [place] [address] 09/26/2023 09:01:02 09/26/2023 09:46:40 Nausea, vomiting and diarrhea 5111575 R19.7 recently seen in UC for diarrhea and nauseawas given antibiotic s, completedw as given nausea medsdiarrh ea and nausea has resolvedco lonoscopy scheduled for end october Nodule of lung 986639426 R91.1 Dysuria 60302085 R30.0 [id number] SARAHI Morales [facility] [address] [place] [address] 10/24/2023 12:27:28 10/24/2023 12:57:05 Viral gastroenteritis 661664044 A08.4 Anxiety 83394147 F41.9 currently uses sertraline 50mgfinds that it doesn't help on most daysincrea sing to sertraline 100mg Health Concerns Section Related Observation LastModified by Organization Detai ls LastModified Time None Recorded Concern Status LastModified by Organization Details LastModified Time None Recorded Advance Directives Directive N: Information provided Payers Insurance Date Sequence Insurance Name Policy Number Policy Roth Covered Member ID Roth Member ID Guarantor Name 10/22/2023 [facility] Liz Palacios AETNA SR PLAN AETNA SR PLAN Liz Palacios 10/22/2023 1 MEDICARE-AR (MEDICARE) Liz Palacios [id number] Liz Palacios 10/25/2023 2 [employer] LIFE INSURANCE [employer] (MEDICARE SUPPLEMENT) Liz Palacios [id number] Liz Palacios Notes Date Note Type Note Provider Name and Address Organization Details Recorded Time 10/24/2022 text/html hypertension no headache or dizzines LDCT largely unchanged maybe a little bit of fibrosi CAD no chest pain anxiety stabl dyslipidemia following low-fat diet. Hypothyroid no heat or cold intolerance and her anxiety stable Diane Vitale MD [address], [place], [address], [employer] 01/12/2023 17:18:44 01/21/2023 text/html Here to [facility], started feeling a bit sick over weekend. Yesterday had hoarse voice. She found some old levofloxacin 750 mg and took 1 yesterday. She was able to cough up some sputum yesterday. Morelia Gudino MD [address], [place], [address], [employer] 02/11/2023 21:04:43 07/22/2023 text/html Here for wellnes s exam increased urinary frequency, but not urinating as much at a timeno dysuria, no hematuria but she has h/o microscopic hematuria and had normal work up in past she has h/o stress incontinence, considered bladder lift in the past Morelia Gudino MD [address], [place], [address], [employer] 08/03/2023 13:07:13 09/26/2023 text/html pt is here for U C f/u SARAHI Morales [address], [place], [address], [facility] [employer] [facility] [employer] [facility] 09/26/2023 09:26:08 10/24/2023 text/html pt is here for f/u Viraj renteria, SOCIETY EDITOR-C [address], [place], [address], [facility] [employer] [facility] [employer] [facility] 10/24/2023 12:55:11 OBGyn Episode No OBEpisode recorded.
--- OUTSIDE RECORDS SUMMARY | 2024-09-01 17:40 | XMS_ITS | Clinical Summary ---
Author Organization [facility] [address] Address [address] [place] [address] Care Team Providers Care Blaster Helper Name Role Phone Raymond Vitale MD Primary Care Provider [phone] Allergies No known active allergies Medications lisinopril-hydro CHLOROthiazide (ZESTORETIC) 20-25 mg per tablet Take 1 tablet by mouth daily 04/20/19 22 Active levothyroxine (SYNTHROID) 88 mcg tablet daily Active montelukast (SINGULAIR) 10 mg tablet montelukast 10 mg tablet Active simvastatin (ZOCOR) 20 mg tablet simvastatin 20 mg tablet TAKE 1 TABLET BY MOUTH EVERY DAY 03/16/20 19 Active sertraline (ZOLOFT) 50 mg tablet Take 1 tablet (50 mg total) by mouth daily 04/06/19 22 Active azelastine (ASTELIN) 137 mcg (0.1 %) nasal spray azelastine 137 mcg (0.1 %) nasal spray aerosol USE 2 SPRAYS IN EACH NOSTRIL TWICE DAILY 03/16/20 19 Active aspirin 81 mg enteric coated tablet ASPIRIN 81 MG ORAL TABLET 03/17/18 70 Active albuterol HFA (PROVENTIL HFA,VENTOLIN HFA,PROAIR HFA) 90 mcg/actuation inhaler Ventolin HFA 90 mcg/actuation aerosol inhaler INHALE 2 PUFFS BY MOUTH EVERY 4 HOURS Active multivitamin tablet multivitamin tablet TAKE 1 TABLET BY MOUTH EVERY DAY Active alendronate (FOSAMAX) 70 mg tablet Take 1 tablet (70 mg total) by mouth once a week Active azithromycin (ZITHROMAX) 250 mg tabletIndication s:COPD with acute exacerbation (HCC) Take 2 tabs (500 mg) by mouth today, than 1 tab (250 mg) daily for 4 days. 6 tablet 08/21/19 25 025 predniSONE (DELTASONE) 20 mg tabletIndication s:COPD with acute exacerbation (HCC) Take 2 tablets (40 mg) by mouth daily for 5 days Take with food 10 tablet 08/21/19 25 025 Active Problems Problem Noted Date Diagnosed Date Acute bronchitis 08/20/2024 Rhinitis 08/20/2024 Urinary tract infectious disease 08/20/2024 Chronic obstructive pulmonary disease 04/06/2024 Viral gastroenteritis 10/24/2023 Dysuria 09/26/2023 Nausea, vomiting and diarrhea 09/26/2023 Female stress incontinence 07/22/2023 Microscopic hematuria 07/22/2023 Overview (08/20/2024): had normal work up with urology Urge incontinence of urine 07/22/2023 Acute sinusitis 03/02/2023 Diarrhea 02/16/2023 Nausea 02/16/2023 Leukopenia 02/15/2023 Overview (08/20/2024): Normal work up with hematology Osteoporosis 01/20/2023 Sore throat 07/16/2022 Sore throat 07/16/2022 Sciatica 05/15/2022 Neuropathy 05/02/2022 Cough 04/09/2022 Shortness of breath 04/09/2022 Upper respiratory infection 08/03/2021 Closed fracture of phalanx of foot 06/25/2021 Fracture of great toe 06/21/2021 Lung nodule 09/14/2019 Anxiety 02/20/2019 Gastroesophageal reflux disease 09/06/2015 Arteriosclerosis of coronary artery 12/22/2007 Depression 12/22/2007 Hyperlipidemia 12/22/2007 Hypothyroidism 12/22/2007 Obesity 12/22/2007 Primary hypertension 12/22/2007 Encounters Date Type Department Care Team Description 08/20/2024 3:15 PM CDT Office Visit [facility] at [address] [address] Evelyn Joel NP COPD with acute exacerbation (HCC) (Primary Dx) from Last 3 Months Surgical History Surgery Date Site/Laterality Comments CARDIAC STENT PLACEMENT Social History Tobacco Use Types Packs/Day Years Used Date Smoking Tobacco: Former Comments Unknown Sex and Gender Information Value Date Recorded Sex Assigned at Not on file 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 Gender Identity Not on file Sexual Orientation Not on file Obstetrics History Last Filed Vital Signs Vital Sign Reading Time Taken Comments Blood Pressure 120/53 08/20/2024 3:42 PM CDT Pulse 74 08/20/2024 3:42 PM CDT Temperature 36.3 C (97.4 F) 08/20/2024 3:42 PM CDT Respiratory Rate 18 08/20/2024 3:42 PM CDT Oxygen Saturation 97% 08/20/2024 3:42 PM CDT Inhaled Oxygen Concentration - - Weight 71.7 kg (158 lb) 08/20/2024 3:42 PM CDT Height 165.1 cm (5' 5) 06/16/2021 5:31 PM CDT Body Mass Index 26.29 06/16/2021 5:31 PM CDT Plan of Treatment Health Maintenance Due Date Last Done Comments Colon Cancer Screening-Colonoscopy 1950 Depression Screening 1950 Fall Risk Assessment 1950 Hepatitis C Screening 1950 Osteoporosis Screening-Bone Density Scan 1950 DTaP/Tdap/Td Vaccine (1 - Tdap) 1961 Hepatitis B Screening 1968 Zoster Vaccine (1 of 2) 2000 Breast Cancer Screening-Mammogram 06/09/2015 06/08/2014, 06/10/2013, 06/03/2012 Well Visit 65+ 07/24/2015 Covid-19 Vaccine (4 [...] signed by: Dr. Joel Ly nh/:06/09/2014 10:37:38 Base Filler: Emperatriz Del Valle)(Lissette), [facility] letter sent: Normal Exam Reading location: BI-RADS: 1 Negative [EOD] Narrative 06/09/2014 10:39 AM CDT - [facility] BILATERAL SCREENING W/CAD BILATERAL DIGITAL SCREENING MAMMOGRAM WITH CAD: 06/08/2014 The study was acquired using full field digital technology and interpreted from soft copy. Current study was also evaluated with ICAD version 7.2. COMPARISONS: Comparison is made to exams dated: 06/10/2013 mammogram and 06/03/2012 mammogram - [facility]. BREAST TISSUE: There are scattered areas [...] mammogram and 06/03/2012 mammogram - [facility]. BREAST TISSUE: There are scattered areas [...] signed by: Dr. Joel Ly nh/:06/09/2014 10:37:38 Base Filler: Emperatriz Paez RT (R)(M), [facility] letter sent: Normal Exam Reading location: BI-RADS: 1 Negative [EOD] Ethan Mcrae MD IMG MAMMO PROCEDURES Final Result from Last 3 Months or Most Recently Relevant to Health Maintenance Insurance MEDICARE MEDICARE Care Teams Blaster Helper Relationship Specialty Start Date End Date Raymond Vitale MD PCP - General Internal Medicine 06/16/21
--- OUTSIDE RECORDS SUMMARY | 2024-09-01 17:40 | XMS_ITS | Continuity of Care Document ---
Author Organization [facility] Address [address] [place] [address] Phone Care Team Providers Care Hand Cooper Helper Name Role Phone Bishnu Newman DO Unavailable Unavailable Advance Directives Directive Yes / No Effective Date File Name No Information Encounters Encounter Description Practice Location Reason(s) For Visit Diagnoses Date Provider Providers Copied on Encounter [facility], [id number] [place] [address] [address], [place], [place], [id number], [place] tel:[phone] [facility] No Information Paty Sow. [address] [facility], [place], [address], [place]. tel: [phone] Family History Family Member Type Diagnosis Age At Onset No Information Payers Payer name Insurance type Covered libertarian ID Authoriza tivladimir(s) [employer] SOI CI [id number] Social History Type Description Quantity Date Captured [...]
--- OUTSIDE RECORDS SUMMARY | 2024-09-01 17:40 | XMS_ITS | Clinical Summary ---
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
--- OUTSIDE RECORDS SUMMARY | 2024-09-01 17:40 | XMS_ITS | Referral Summary ---
Author Organization [facility] [address] Address [address] [place] [address] Care Team Providers Care School Bus Mechanic Name Role Phone Raymond Vitale MD Primary Care Provider [phone] Encounters Date Type Department Care Team Description 08/20/2024 3:15 PM CDT Office Visit [facility] at [address] [address] Evelyn Joel NP COPD with acute exacerbation (HCC) (Primary Dx) from Last 3 Months Allergies No known active allergies Medications lisinopril-hydro [...] Hypothyroidism 12/22/2007 Obesity 12/22/2007 Primary hypertension 12/22/2007 Social History Tobacco Use Types Packs/Day Years Used Date Smoking Tobacco: Former Comments Unknown Sex and Gender Information Value Date Recorded Sex Assigned at Not on file 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 Joel Ly nh/:06/09/2014 10:37:38 Stumper Feller: Emperatriz MEANS (Grey)(M), [facility] letter sent: Normal Exam Reading location: [...] dated: 06/10/2013 mammogram and 06/03/2012 mammogram - [facility]. BREAST TISSUE: There are scattered areas of [...] dated: 06/10/2013 mammogram and 06/03/2012 mammogram - [facility]. BREAST TISSUE: There are scattered areas of [...] signed by: Dr. Joel Ly nh/:06/09/2014 10:37:38 Stumper Feller: Emperatriz Paez RT (R)(M), [facility] letter sent: Normal Exam Reading location: BI-RADS: 1 Negative [EOD] us Ethan Mcrae MD IMG MAMMO PROCEDURES Final Result from Last 3 Months or Most Recently Relevant to Health Maintenance Insurance [place] [id number] Care Teams School Bus Mechanic Relationship Specialty Start Date End Date Raymond Vitale MD PCP - General Internal Medicine 06/16/21
--- OUTSIDE RECORDS SUMMARY | 2024-09-01 17:40 | XMS_ITS | CONTINUITY OF CARE DOCUMENT ---
Author Name joanne rubio Address Unknown Organization [facility] Address [address] [place] [address] Phone [phone] Care Team Providers Care Research Attorney Name Role Phone Tisha MAYES, Wallace Unavailable DIANE COURTNEY MD Unavailable BALWINDER MAYES, BERTIN Unavailable [phone] PROBLEMS Condition Status Date Provider Notes HYPOTHYROIDISM active Fe Stahlschmidt OBESITY active Fe Stahlschmidt DEPRESSION active Fe Stahlschmidt HTN ESSENTIAL active Fe Stahlschmidt CAD active Fe Stahlschmidt Hyperlipidemia active Wallace Giles MD TOBACCO USE active Wallace Giles MD GERD-esophageal reflux active Wallace Giles MD Shortness of breath active Irlanda Ventimigl ia MANAGER RADIATION COPD active Irlanda Ventimiglia MANAGER RADIATION ENCOUNTERS Date Type Provider Location Encounter Diag nosis - In-person encounter Office Visit Wallace Giles MD [facility] - In-person encounter Office Visit Wallace Giles MD [facility] COPD - In-person encounter Office Visit Wallace Giles MD [facility] - In-person encounter Office Visit Wallace Giles MD [facility] Shortness of breath - In-person encounter Office Visit Wallace Giles MD [facility] - In-person encounter Office Visit Wallace Giles MD [facility] - In-person encounter Office Visit Wallace Giles MD [facility] - In-person encounter Office Visit Wallace Giles MD [facility] Hyperlipidemia - In-person encounter Office Visit Wallace Giles MD [facility] - In-person encounter Office Visit Wallace Giles MD [facility] - In-person encounter Office Visit Wallace Giles MD [facility] GERD-esophageal reflux - In-person encounter Office Visit Candice Mejía MD [facility] - In-person encounter Office Visit Wallace Giles MD [facility] - In-person encounter Office Visit Wallace Giles MD [facility] - In-person encounter Office Visit Wallace Giles MD [facility] - In-person encounter Office Visit Wallace Giles MD [facility] TOBACCO USE - In-person encounter Office Visit Wallace Giles MD [facility] - In-person encounter Office Visit Wallace Giles MD [facility] - In-person encounter Office Visit Wallace Giles [facility] - In-person encounter Office Visit Wallace Giles MD [facility] - In-person encounter Office Visit Wallace Giles MD [facility] VITAL SIGNS Date Observation Value Provider Body Mass Index (Ratio) 26.62 kg/m2 Estevan Giles MD blood pressure, diastolic 74 mm[Hg] Randi lea Jennings blood pressure, systolic 133 mm[Hg] Monica steele Jennings oxygen saturation, oximetry 97 % Kiara Jennings pulse rate 61 /min Kiara Jennings respiratory rate E&M 12 /[facility] 160 [lb_av] [facility] height E&M 65 [in_i] [facility] blood pressure, cuff size regular Randi lea Jennings Body Mass Index (Ratio) 26.62 kg/m2 Estevan Giles MD blood pressure, diastolic 70 mm[Hg] Randi lea Jennings blood pressure, systolic 124 mm[Hg] [facility] oxygen saturation, oximetry 97 % [facility] pulse rate 62 /min [facility] respiratory rate E&M 12 /min [facility] weight E&M 160 [lb_av] [facility] height E&M 65 [in_i] [facility] blood pressure, cuff size regular Randi lea Jennings blood pressure, diastolic 71 mm[Hg] nkLog blood [...] kLogic oxygen saturation, oximetry 95 % Peggy [place] pulse rate 63 /min Peggy Lexi perez blood pressure, diastolic 70 mm[Hg] Nona thomas [place] blood pressure, systolic 121 mm[Hg] [facility] niseren [place] respiratory rate E&M 16 /min Daly jenny [place] blood pressure, cuff size large Nona thomas [place] weight E&M 161 [lb_av] Peggy perez height E&M 65 [in_i] ePggy perez Body Mass Index (Ratio) 27.62 kg/m2 [...] systolic, left arm 134 mm [Hg] Reba eTo MA blood pressure, diastolic, right arm 74 m m[Hg] Reba Teo WILSON blood pressure, systolic, right arm 132 m m[Hg] Reba Kearneycristhian WILSON blood pressure, diastolic 74 mm[Hg] farhan Dukeslisa [place] blood pressure, systolic 132 mm[Hg] Hellen aviles Toe WLISON pulse rate 91 /min Reba Dukes rn, [...] Mark MA weight E&M 140 [lb_av] Salud [place] blood pressure, diastolic 81 mm[Hg] Fe aniceto Arianna blood pressure, systolic 163 mm[Hg] Fel icia Arianna pulse rate 73 /min Salud [place]anna oxygen saturation, oximetry 99 % Salud [place] respiratory rate E&M 16 /min Salud [place] ALLERGIES Allergy Name Onset Date Reaction Criticality Status PREDNISONE High Criticality active RESULTS Date Observation Value Provider Reference Range Interpretation Location lipoprotein, beta, serum, point, quantitative, calculated 71 mg/dL [facility] 0-99 HDL cholesterol, serum 57 mg/dL [facility] >39 triglyceride, serum, random 97 mg/dL [facility] 0-149 cholesterol, serum 146 mg/dL [facility] [id number] 8543/05/ 17 thyroid stimulating hormone, serum 0.270 ??IU/ML [...] 6.0 alanine aminotransferase (SGPT), serum 13 L [facility] aspartate aminotransferase (SGOT), serum 16 1/L [facility] creatinine, serum 0.7 mg/dL [facility] urea nitrogen, blood 20 mg/dL [facility] potassium, serum 4.6 mmol/L [facility] sodium, serum 143 mmol/L [facility] triglyceride, serum, fasting 59 mg/dL [facility] HDL cholesterol, serum 60 mg/dL [facility] LDL cholesterol, serum 98 mg/dL [facility] cholesterol, serum 170 mg/dL [facility] HISTORY OF MEDICATION USE Medication Status Instructions Dates Provider Indications Com ments amoxicillin-pot clavulanate 875-125 mg tablet completed 1 tablet twice a day - Irlanda Ventimiglia MANAGER RADIATION levothyroxine 88 mcg tablet active Irlanda Ventimiglia MANAGER RADIATION lisinopril-hydro chlorothiazide 20-25 mg tablet active TAKE [...] tablet once a day - Irlanda Ventimiglia [facility] ASPIRIN 81 MG ORAL TABLET active 1 tablet once a day Frank Hawk MD ZOCOR 40 MG ORAL TABLET completed ONE TAB. AT BEDTIME - Salud [place] SOCIAL HISTORY Date Observation Value Provider personal history of marijuana use no Irlanda Ventimiglia [facility] drug use no Irlanda Ventimig vikash MANAGER RADIATION alcohol use, average drinks per day social Irlanda Ventimiglia [facility] alcohol use yes Irlanda Ventimig vikash [facility] passive cigarette sm andrea exposure no Irlanda Ventimiglia MANAGER RADIATION chewing tobacco use no Irlanda V entimiglia MANAGER RADIATION cigar use no Irlanda Ventimig vikash MANAGER RADIATION number of years as a smoker 10 years or m ore Irlanda Ventimiglia MANAGER RADIATION smoking, date started 2011 Irlanda Ventimiglia MANAGER RADIATION smoking history, tot al pack/year 5 Irlanda Ventimiglia MANAGER RADIATION smoking history, tot al pack/day 1 Irlanda Ventimiglia MANAGER RADIATION cigarette use yes Irlanda Ventimi glia MANAGER RADIATION smoking status Former smoker Irlanda Venti miglia MANAGER RADIATION personal history of marijuana use no Irlanda Ventimiglia [facility] drug use no Irlanda Ventimig vikash [facility] alcohol use, average drinks per day social Irlanda Ventimiglia [facility] alcohol use yes Irlanda Ventimig vikash [facility] passive cigarette sm andrea exposure no Irlanda Ventimiglia [facility] chewing tobacco use no Irlanda V entimiglia MANAGER RADIATION cigar use no Irlanda Ventimig vikash [facility] number of years as a smoker 10 years or m ore Irlanda Ventimiglia MANAGER RADIATION smoking, date started 2011 Irlanda Ventimiglia MANAGER RADIATION smoking history, tot al pack/year 5 Irlanda Ventimiglia MANAGER RADIATION smoking history, tot al pack/day 1 Irlanda Ventimiglia MANAGER RADIATION cigarette use yes Irlanda Ventimi glia MANAGER RADIATION smoking status Former smoker Irlanda Venti miglia [facility] drug use no Wallace Perez alcohol [...] MD drug use no Irlanda Ventimig vikash [facility] alcohol use, average drinks per day social Irlanda Ventimiglia MANAGER RADIATION alcohol use yes Irlanda Ventimig vikash [facility] seatbelt usage 100 % Peggy Jackman [...] average drinks per day social basis only [facility] alcohol use yes Mariana Haseeb caffeine use, averag e drinks per day yes [facility] drug use no Mariana Haseeb smoking/tobacco cess ation, patient education and counseling yes [facility] passive cigarette sm andrea exposure no Mariana Haseeb chewing tobacco use no Mariana Vo cigar use no [facility] number of years as a smoker 10 years or m ore [facility] smoking, date started 2011 [facility] smoking history, tot al pack/year 5 [facility] smoking history, tot al pack/day 1 [facility] cigarette use yes [facility] smoking status Current every day smoker [facility] social history E&M Marital Statu s: L juan daniel alone E thnicity: Smoking History: P christa currently smokes every day. P atbetyt has been counseled to quit. 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 continued cessation encouraged Irlanda Wright [facility] [id number],C,L DL 82 on recent labs per PCP. Will continue statin therapy H er updated medication list for this problem includes: Simvastatin 20 Mg Tablet (Simvastatin) ..... 1 tablet once a day Irlanda Wright [facility] [id number],C,c urrently chest pain free. EKG done and reviewed no acute ST/T wave changes. Will update echo. f/u in a year or sooner if needed. H er updated medication list for this problem includes: Lisinopril-hydrochlorothiazide 20-25 Mg Tablet (Lisinopril-hydrochlorothiazide) ..... Take 1 tablet by mouth daily Nitrostat 0.4 Mg Tablet, Sublingual (Nitroglycerin) ..... Place 1 tablet under tongue as needed Irlanda Wright [facility] [id number],C,P christa has had chronic SOB every since PNA in 2018. She has had f/u CT of chest per PCP. She is reporting exertional SOB. Will do f/u echo and PFT. H er updated medication list for this problem includes: Lisinopril-hydrochlorothiazide 20-25 Mg Tablet (Lisinopril-hydrochlorothiazide) ..... Take 1 tablet by mouth daily Orders: 9 9214 MOD 30-39min (CPT-81633) Complete Echo (CPT-14993) F VC - 48043 (71708) F RC - 38879 (43017) D LCO - 42615 (69262) Irlanda Wright [facility] [id number],B, Wallace daen MD [id number],S, Wallace dean MD [id number],S, Wallace dean MD [id number],S, Wallace dean MD [id number],S, Wallace dean MD Cardiology [place] Shayydereje bal [facility] Cardiology: H er updated medication list for this problem includes: Simvastatin 20 Mg Tablet (Simvastatin) ..... 1 tablet once a day [place] Hersonnonadom [facility] Cardiology:BP at goa l continue present medication regimen H er updated medication list for this problem includes: Lisinopril-hydrochlorothiazide 20-25 Mg Tablet (Lisinopril-hydrochlorothiazide) ..... Take 1 tablet by mouth daily [place] H[place]adom [facility] Cardiology:No new ch est pain or [...] tablet under tongue as needed Irlanda Shayydom [facility] Cardiology: H er updated medication list for this problem includes: Levothyroxine 88 Mcg Tablet (Levothyroxine) [facility] Cardiology:continued cessation e ncouraged [facility] Cardiology: H er updated medication list for this problem includes: Simvastatin 20 Mg Tablet (Simvastatin) ..... 1 tablet once a day [place] Shayyglmally [facility] Cardiology:severe ob structive airway disease r ecommend f/u PFTs C onswise Tharos study [facility] Cardiology:BP 124/70 well controlled c ontinue present medication regimen H er updated medication list for this problem includes: Lisinopril-hydrochlorothiazide 20-25 Mg Tablet (Lisinopril-hydrochlorothiazide) ..... Take 1 tablet by mouth daily Irlandadaryn Wright [facility] Cardiology:She has r emote history of stents H ad chest discomfort while shoveling snow G najmaen known CAD have recommended PET/CT stress Her updated medication list for this problem includes: Lisinopril-hydrochlorothiazide 20-25 Mg Tablet (Lisinopril-hydrochlorothiazide) ..... Take 1 tablet by mouth daily Nitrostat 0.4 Mg Tablet, Sublingual (Nitroglycerin) ..... Place 1 tablet under tongue as needed [facility] Cardiology Wallace Giles MD Cardiology Wallace Giles MD Cardiology Wallace Giles MD Cardiology Wallace Giles MD Cardiology Wallace Giles MD Cardiology:lifestyle modificatio n encouraged [facility] Cardiology:she quit 12 years ago. continued cessation encouraged [facility] Cardiology:LDL 82 on recent labs per PCP. Will continue statin therapy H er updated medication list for this problem includes: Simvastatin 20 Mg Tablet (Simvastatin) ..... 1 tablet once a day [facility] Cardiology:currently chest pain free. EKG done and reviewed no acute ST/T wave changes. Will update echo. f/u in a year or sooner if needed. H er updated medication list for this problem includes: Lisinopril-hydrochlorothiazide 20-25 Mg Tablet (Lisinopril-hydrochlorothiazide) ..... Take 1 tablet by mouth daily Nitrostat 0.4 Mg Tablet, Sublingual (Nitroglycerin) ..... Place 1 tablet under tongue as needed [facility] Cardiology:Patient h as had chronic SOB every since PNA in 2018. She has had f/u CT of chest per PCP. She is reporting exertional SOB. Will do f/u echo and PFT. H er updated medication list for this problem includes: Lisinopril-hydrochlorothiazide 20-25 Mg Tablet (Lisinopril-hydrochlorothiazide) ..... Take 1 tablet by mouth daily Orders: 9 9214 MOD 30-39min (CPT-77571) C omplete Echo (CPT-89757) F VC - 54640 (87493) F RC - 30970 (77926) D LCO - 00683 (11990) Irlanda Wright MANAGER RADIATION Cardiology Wallace Tisha MAYES Cardiology Wallace Giles [...] Giles MD Cardiology Wallace Giles MD Cardiology Walalce Tisha MAYES Cardiology Wallace Tisha MAYES Cardiology [...] Giles MD Cardiology Wallace Giles MD Cardiology:S/P CO wi th stent 2003 S econd stent [...] ..... One tab. daily Orders: E KG (CPT-46523) C omplete Echo (CPT-63883) Wallace Giles MD follow up: O rders: E KG (CPT-99064) Wallace Glies MD follow up: H er updated medication [...] One tab. daily Orders: C omplete Echo (CPT-95026) BP today: 122/68 P rior BP: 132/74 (05/10/2010) Labs Reviewed: C reat: 0.7 (12/04/2007) C hol: 170 (12/04/2007) HDL: 60 (12/04/2007) LDL: 98 (12/04/2007) T (12/04/2007) Wallace Giles MD follow up: H er updated medication list for this problem includes: Aspirin 81 Mg Tabs (Aspirin) ..... One tab. daily Crestor 10 Mg Tabs (Rosuvastatin calcium) ..... One tab. daily & #13;Orders: E KG (CPT-77162) S tress Test - Nuclear (21224) C omplete Echo (CPT-51867) BP today: 122/68 Prior BP: 132/74 (05/10/2010) [...] (12/04/2007) T (12/04/2007) Orders: C omplete Echo (CPT-09896) Wallace Giles MD fo;;ow up: H er updated medication list for this problem includes: Aspirin 81 Mg Tabs (Aspirin) ..... One tab. daily Orders: E KG (CPT-79676) S tress Test - Nuclear (31112) BP today: 129/81 Prior BP: 152/92 (02/03/2008) [...] ..... One tab. daily Orders: E KG (CPT-09419) BP today: 129/81 Prior BP: 152/92 (02/03/2008) [...] ..... One tab. daily Orders: E KG (CPT-30478) C omplete Echo (CPT-30869) BP today: 163/81 Wallace Giles MD : T he following medications were removed from the medication list: Zocor 40 Mg Tabs (Simvastatin) ..... One tab. at bedtime Her updated medication list for this problem includes: Aspirin 81 Mg Tabs (Aspirin) ..... One tab. daily Orders: S tress Test - Nuclear (14405) BP today: 163/81 Prior BP: / () [...] (PET) Stress Cardiac PET-C T DLCO - 93116 FRC - 90373 FVC - 22190 DLCO - 69960 FRC - 48898 FVC - 33630 Complete Echo TSH, 3RD GENERATION W/REFLEX TO [...] d FVC / MVV with bronchodilator - 46307 Wallace Giles MD completed BLOOD COUNT HEMOGLOBIN Wallace Giles MD completed FRC - 72372 Wallace Giles MD complet ed SpO2 w/o 6min walk/titration Wallace Giles MD completed SVC - 30871 Wallace Giles MD complet ed DLCO - 74485 Wallace Giles MD comple apolonia EKG Wallace Giles MD complete d EKG Wallace Giles MD complete d EKG Wallace Giles MD complete d EKG Wallace Giles MD complete d SNOMED-CT: 292885697 234102 Current Medications Documented Wallace Giles MD completed SNOMED-CT: 921732359 790430 Current Medications Documented Wallace Giles MD completed SNOMED-CT: 924931857 Smoking Cessation Counseling Wallace Giles MD completed SNOMED-CT: 884500252 827937 Current Medications Documented Wallace Giles MD completed Stress EKG Rogelio Fu MD complete d Regadenoson, 4 units Wallace Giles MD completed Cardiolite, 2 units Wallace Giles MD completed SPECT Images Candice Mejía MD complet ed SNOMED-CT: 61791080 Physical Exam, Performed: Pulse Exam of Foot Candice Mejía MD completed EKG Candice Mejía MD completed SNOMED-CT: 034516339 826068 Current Medications Documented Candice Mejía MD completed SNOMED-CT: 046468079 250279 Current Medications Documented Wallace Giles MD completed SNOMED-CT: 820755824 Smoking Cessation Counseling Wallace Giles MD completed EKG Wallace Giles MD complete d EKG Wallace Giles MD complete d EKG Wallace Giles MD complete d EKG Wallace Giles MD complete d EKG Wallace Giles MD complete d EKG Wallace Giles MD complete d
== END 2024-09-01 16:18 | disposition home or self-care (01) ==
PROVIDERS: PCP Family Medicine; Visit Provider Nurse Practitioner Family
DX: Z12.2 Encounter for screening for malignant neoplasm of respiratory organs (principal); Z87.891 Personal history of nicotine dependence; M47.22 Other spondylosis with radiculopathy, cervical region
CPT/HCPCS: 71271; 72040

== ENCOUNTER 2024-10-15 14:32 | Emergency (ER) | payer MEDICARE, SELFPAY ==
--- NOTE | ~2024-10-15 | CT_ITS ---
EXAMINATION: CT cervical spine wo con DATE: 10/15/2024 16:43 INDICATION: Trauma post fall with head injury TECHNIQUE: Computed tomography (CT) of the cervical spine was performed without intravenous contrast. Automated exposure control and iterative reconstruction technique were employed. The dose-length pro duct was 277.01 mGy-cm. COMPARISON: None FINDINGS: Alignment is normal. Vertebral body heights are normal. No fracture. Moderate disc height loss at C4- C5 and mild disc height loss at C5-C6. Posterior disc osteophyte complex result in mild central canal stenosis at both levels. Severe bilateral uncovertebral osteoarthritis at C5-C6 and mild uncovertebr al osteoarthritis at many of the remaining cervical levels. Multilevel bilateral cervical facet osteo arthritis, moderate severity on the left at C3-C4 and otherwise mild. There is mild to moderate bilat eral neural foraminal stenosis at C5-C6. Minimal neural foraminal stenosis at a few additional levels . Cervical soft tissues are unremarkable. Visualized apices of lungs are clear. IMPRESSION: 1. Mild to moderate lower cervical predominant spondylosis with no acute osseous abnormality. Reviewed, dictated and finalized at location A. IMPRESSION: 1. Mild to moderate lower cervical predominant spondylosis with no acute osseou s abnormality.
--- NOTE | ~2024-10-15 | CT_ITS ---
EXAMINATION: CT brain wo con DATE: 10/15/2024 16:40 INDICATION: Trauma after tripping over a dog leash. TECHNIQUE: Computed tomography (CT) of the head was performed without intravenous contrast. Sagittal and coronal reconstructions were performed. The mA was adjusted according to patient size. Iterative reconstruction technique was employed. The dose-length product was 681.00 mGy-cm. COMPARISON: None FINDINGS: Small anterior left frontal scalp hematoma. No fracture. No acute intracranial hemorrhage, acute infa rction or abnormal extra axial fluid collection. There is mild scattered white matter hypoattenuation consistent with chronic small vessel ischemic disease. Ventricles are normal and symmetric. No mass/ mass effect. The orbits, paranasal sinuses and mastoid air cells are normal. IMPRESSION: 1. No fracture or acute intracranial process. 2. Mild scattered white matter hypoattenuation consistent with chronic small vessel ischemic disease. Reviewed, dictated and finalized at location A. IMPRESSION: 1. No fracture or acute intracranial process. 2. Mild scattered white matter hypoattenuation consistent with chronic small ve ssel ischemic disease.
--- OUTSIDE RECORDS SUMMARY | 2024-10-15 14:34 | XMS_ITS | Clinical Summary ---
Author Organization [facility] Address [address] [place] [address] Phone Care Team Providers Care Animal Control Specialist Name Role Phone Unavailable Primary Care Provider Unavailabl e Social History Tobacco Use Types Packs/Day Years Used Date Smoking Tobacco: Never Assessed Comments Unknown Sex and Gender Information Value Date Recorded Sex Assigned at Not on file Legal Sex Female 5:52 AM RADIOLOGIC THERAPIST Gender Identity Not on file Sexual Orientation [...] 05/30/2009 OSTEOPOROSIS SCREENING 07/24/2015 INFLUENZA VACCINE (#1) 2024 RSV VACCINE (60+ or ) (1 - [...]
--- OUTSIDE RECORDS SUMMARY | 2024-10-15 14:34 | XMS_ITS | Clinical Summary ---
Author Organization [facility] [address] Address [address] [place] [id number] Care Team Providers Care New Accounts Clerk Name Role Phone Raymond Vitale MD Primary Care Provider + [phone] Allergies No known active allergies Medications lisinopril-hydr oCHLOROthiazide (ZESTORETIC) 20-25 mg per [...] mouth once a week Active Active Problems Problem Noted Date Diagnosed Date [...] Description 08/20/2024 3:15 PM CDT Office Visit [facility] [address] [address] Evelyn Joel NP COPD with acute exacerbation (HCC) (Primary Dx) from Last 3 Months Surgical History Surgery Date Site/Laterality Comments CARDIAC STENT PLACEMENT Social History Tobacco Use Types Packs/Day Years Used Date Smoking Tobacco: Former Comments Unknown Sex and Gender Information Value Date Recorded Sex Assigned at Not on file Legal Sex Female 8:14 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 Electronically signed by: Dr. Joel Ly ut/:06/09/2014 10:37:38 Health And Safety Director: Emperatriz Paez RT (R)(M), [facility] letter sent: Normal Exam Reading [...] dated: 06/10/2013 mammogram and 06/03/2012 mammogram - [facility]. BREAST TISSUE: There are scattered areas of fibroglandular density. FINDINGS: No significant masses, calcifications, or other findings are seen in either breast. There has been no significant interval change. Procedure Note Provider, MD Amairani - 08/01/2020 - [facility] BILATERAL SCREENING W/CAD BILATERAL DIGITAL SCREENING MAMMOGRAM WITH CAD: 06/08/2014 The study was acquired using full field digital technology and interpretedfrom soft copy. Current study was also evaluated with ICAD version 7.2. COMPARISONS: Comparison is made to exams dated: 06/10/2013 mammogram and 06/03/2012 mammogram - [facility]. BREAST TISSUE: There are scattered areas [...] year. Electronically signed by: Dr. Joel Ly ut/:06/09/2014 10:37:38 Health And Safety Director: Emperatriz Paez RT (R)(M), [facility] letter sent: Normal Exam Reading location: BI-RADS: 1 Negative [EOD] us Ethan S. Clementina MD IMG MAMMO PROCEDURES Final Result from Last 3 Months or Most Recently Relevant to Health Maintenance Insurance MEDICARE [facility] MEDICARE [facility] Care Teams New Accounts Clerk Relationship Specialty Start Date End Date Raymond Vitale MD PCP - General Internal Medicine 06/16/21
--- OUTSIDE RECORDS SUMMARY | 2024-10-15 14:34 | XMS_ITS | Referral Summary ---
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 Joel Ly nh/:06/09/2014 10:37:38 Paradichlorobenzene Machine Operator: Emperatriz Paez RT (R)(M), [facility] letter sent: Normal Exam Reading location: [...] dated: 06/10/2013 mammogram and 06/03/2012 mammogram - [facility]. BREAST TISSUE: There are scattered areas [...] dated: 06/10/2013 mammogram and 06/03/2012 mammogram - [facility]. BREAST TISSUE: There are scattered areas [...] signed by: Dr. Joel Ly nh/:06/09/2014 10:37:38 Paradichlorobenzene Machine Operator: Emperatriz Paez RT (R)(M), [facility] letter sent: Normal Exam Reading location: BI-RADS: 1 Negative [EOD] Ethan Mcrae MD IMG MAMMO PROCEDURES Final Result from Last 3 Months or Most Recently Relevant to Health Maintenance Insurance MEDICARE AET MEDICARE Member Subscriber Plan / Payer (Ef fective 2016-Present) Name:Liz Palacios Member ID:[id number] Relation to Subscriber:Self Name:Liz Palacios Subscriber ID:[id number] Payer ID:[id number] Group ID:Not on file Type:MEDICARE TRADITIONAL Address: [place] [id number] AET Care Teams Unarmed Security Guard Relationship Specialty Start Date End Date Raymond Vitale MD PCP - General Internal Medicine 06/16/21
--- OUTSIDE RECORDS SUMMARY | 2024-10-15 14:34 | XMS_ITS | Continuity of Care Document ---
Author Organization [facility] Address [address] [place] [address] Phone Care Team Providers Care Conche Operator Name Role Phone Bishnu Newman DO Unavailable Unavailable Advance Directives Directive Yes / No Effective Date File Name No Information Encounters Encounter Description Practice Location Reason(s) For Visit Diagnoses Date Provider Providers Copied on Encounter [facility], [id number] [place] [address] [address], [place], [place], [id number], [place] tel:[phone] [facility] No Information Paty Sow. [address] [facility], [place], [address], [place]. tel: [phone] Family History Family Member Type Diagnosis Age At Onset No Information Payers Payer name Insurance type Covered green party ID Authoriza tivladimir(s) [employer] SOI CI [id number] Social History Type Description Quantity Date Captured [...]
[2024-10-15 14:44] VITALS: BP 141/59; PULSE 64; RESP 16; TEMP 36.8; O2SAT 99
[2024-10-15 15:30] VITALS: BP 102/84; PULSE 63; RESP 20; TEMP 36.7; O2SAT 99
--- NOTE | 2024-10-15 16:23 | ED.GENADULT ---
HPI - General Adult General Chief complaint: Fall Stated complaint: fall, hit head] Time Seen by Provider: 10/15/24 16:18 History of Present Illness HPI narrative: [age] old female present to the emergency department for evaluation for a head injury. Patient reports that she tripped over a dog leash struck her forehead on the ground. Patient denies having loss consciousness. Patient does have a hematoma on her forehead does complain of headache. Does have an abrasion to her right knee and left hand. Patient does have a past medical history of coronary disease, hypertension, high cholesterol Related Data Home Medications ?Medication ?Instructions ?Recorded ?Confirmed ?Last Taken ?Type levothyroxine 88 mcg capsule 88 mcg PO DAILY 09/04/21 09/28/24 11/09/23 History lisinopril 20 1 tablet PO DAILY 09/04/21 09/28/24 11/09/23 History mg-hydrochlorothiazide 12.5 mg tablet multivitamin 1 tablet PO DAILY 09/04/21 09/28/24 11/09/23 History sertraline 50 mg tablet 50 mg PO DAILY 09/04/21 09/28/24 11/09/23 History simvastatin 20 mg tablet 20 mg PO DAILY 09/04/21 09/28/24 11/09/23 History montelukast 10 mg tablet 10 mg PO DAILY 01/14/24 09/28/24 Unknown History Allergies Allergy/AdvReac Type Severity Reaction Status Date / Time No Known Allergies Allergy Mild Verified 10/15/24 14:49 Review of Systems Review of Systems: All systems reviewed & are unremarkable except as noted in HPI and below PMFSH Past Medical History Medical History (Updated 10/15/24 @ 17:07 by Walter Mark MD) Thyroid disorder Osteoporosis Heart disease Heart attack Anxiety Allergies CAD (coronary artery disease) Hypertension Hyperlipidemia Surgical History Surgical History History of coronary artery stent placement 2003, 2004 Family History Family History Mother Heart disease Depression Anxiety Social History Social History Smoking status: Never smoker Tobacco type: cigarettes Alcohol intake: current Substance use: never Substance use type: does not use Living arrangements: with family Spiritual care concerns: No Exam Narrative: APPEARANCE: Well appearing, no pain, no distress, well-nourished. HEAD: normocephalic, contusion. EYES: PERRLA/EOMI, conjunctivae clear. NOSE: Normal no drainage EARS:TMS clear with good light reflex. THROAT: Pharynx clear, no exudate. NECK: Supple. No adenopathy, no masses. RESPIRATORY: Airway patent, respirations nonlabored. Clear to auscultation bilaterally, no rales, rhonchi, wheezing. CARDIOVASCULAR: Regular rate and rhythm without murmurs rubs or gallops. ABDOMINAL: Soft, nontender, nondistended, normal bowel sounds MUSCULOSKELETAL: Moves all extremities. Strength/ROM intact, No edema, No calf tenderness. NEURO: Alert. Cranial nerves II through XII intact. Good gait. Good coordination SKIN: Abrasions to left hand and right Course Vital Signs Vital signs: Vital Signs Temperature 98.2 F 10/15/24 14:44 Pulse Rate 64 10/15/24 14:44 Respiratory Rate 16 10/15/24 14:44 Blood Pressure 141/59 H 10/15/24 14:44 Pulse Oximetry 99 10/15/24 14:44 Oxygen Delivery Room Air 10/15/24 14:44 Temperature 98.0 F 10/15/24 15:30 Pulse Rate 63 10/15/24 15:30 Respiratory Rate 20 10/15/24 15:30 Blood Pressure 102/84 10/15/24 15:30 Pulse Oximetry 99 10/15/24 15:30 Oxygen Delivery Room Air 10/15/24 15:30 Medical Decision Making [facility] Narrative Medical decision making narrative: [age] old female presents emergency department for evaluation for head injury after a ground level fall. Patient's head CT and neck CT were negative for acute findings. Patient was able ambulate at baseline. Patient is left hand abrasion and left knee abrasion were cleaned and dressed by nursing staff. Patient was updated the results of her workup patient was comfortable plan for discharge and close follow-up. Differential Diagnosis Differential Diagnosis: Subdural hematoma, subarachnoid hemorrhage, hip fracture, leg fracture, abrasion Vital Signs Vital Signs: Vital Signs Temperature 98.2 F 10/15/24 14:44 Pulse Rate 64 10/15/24 14:44 Respiratory Rate 16 10/15/24 14:44 Blood Pressure 141/59 H 08/01/25 14:44 Pulse Oximetry 99 10/15/24 14:44 Oxygen Delivery Room Air 10/15/24 14:44 Temperature 98.0 F 10/15/24 15:30 Pulse Rate 63 10/15/24 15:30 Respiratory Rate 20 10/15/24 15:30 Blood Pressure 102/84 10/15/24 15:30 Pulse Oximetry 99 10/15/24 15:30 Oxygen Delivery Room Air 10/15/24 15:30 Lab Data Lab results reviewed: Yes I reviewed the patient's lab results. Imaging Data Radiologist's impression: Impressions Head CT 10/15/24 16:44 IMPRESSION: 1. No fracture or acute intracranial process. 2. Mild scattered white matter hypoattenuation consistent with chronic small vessel ischemic disease. Cervical Spine CT 10/15/24 16:48 IMPRESSION: 1. Mild to moderate lower cervical predominant spondylosis with no acute osseous abnormality. Discharge Plan Discharge Clinical Impression: Head injury, Contusion Patient Disposition: Home Condition: Stable Instructions: Antibiotic Form, Head Injury (ED), Contusion in Adults (ED) Additional Instructions: Tylenol for pain control. Have close follow-up with your primary care physician. If you have any worsening symptoms then please call or return to the emergency department. Patient Language: Sami Prescriptions: No Action montelukast 10 mg tablet 10 mg PO DAILY albuterol sulfate 90 mcg/actuation HFA aerosol inhaler 2 inh inhalation Q4H PRN (Reason: shortness of breath or wheezing) Qty: 8.5 2RF fluticasone fur. 100 mcg-umeclid 62.5 mcg-vilant 25 mcg inhalat.powder 100-62.5-25 mcg blister with device 0RF naproxen 500 mg tablet 500 mg PO BID Qty: 60 0RF Prolia 60 mg/mL syringe 60 mg subcut [id number] Qty: 1 1RF lisinopril-hydrochlorothiazide 20-12.5 mg tablet 1 tablet PO DAILY levothyroxine 88 mcg capsule 88 mcg PO DAILY simvastatin 20 mg tablet 20 mg PO DAILY sertraline 50 mg tablet 50 mg PO DAILY multivitamin Tablet 1 tablet PO DAILY fluticasone propionate 50 mcg/actuation spray,suspension 1 spray intranasal .prn Qty: 48 1RF Rx Instructions: administer into each nostril calcium carbonate-vitamin D3 600 mg-10 mcg (400 unit) tablet 1 tablet PO DAILY Qty: 90 1RF Follow-up/Referrals: Angel Acuna MD [Primary Care Provider] -
--- OUTSIDE RECORDS SUMMARY | 2024-10-15 17:19 | XMS_ITS | Clinical Summary ---
Author Organization [facility] [address] Address [address] [place] [address] Care Team Providers Care Ceramic Design Engineer Name Role Phone Raymond Vitale MD Primary Care Provider [phone] Allergies No known active allergies Medications lisinopril-hydr [...] Description 08/20/2024 3:15 PM CDT Office Visit [facility]ient Care at [address] [address] Evelyn Joel NP COPD with acute exacerbation (HCC) (Primary Dx) from Last 3 Months Surgical History Surgery Date Site/Laterality Comments CARDIAC STENT PLACEMENT Social History Tobacco Use Types Packs/Day Years Used Date Smoking Tobacco: Former Comments Unknown Sex and Gender Information Value Date Recorded Sex Assigned at Not on file 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 Electronically signed by: Dr. Joel Ly sc/:06/09/2014 10:37:38 Ship Pilot Dispatcher: Emperatriz Paez RT (R)(M), [facility] letter sent: Normal Exam Reading location: [...] dated: 06/10/2013 mammogram and 06/03/2012 mammogram - [facility]. BREAST TISSUE: There are scattered areas of fibroglandular density. FINDINGS: No significant masses, calcifications, or other findings are seen in either breast. There has been no significant interval change. Procedure Note Provider, MD Amairani - 08/01/2020 - [facility] BILATERAL SCREENING W/CAD BILATERAL DIGITAL SCREENING MAMMOGRAM WITH CAD: 06/08/2014 The study was acquired using full field digital technology and interpretedfrom soft copy. Current study was also evaluated with ICAD version 7.2. COMPARISONS: Comparison is made to exams dated: 06/10/2013 mammogram and 06/03/2012 mammogram - [facility]. BREAST TISSUE: There are scattered areas [...] year. Electronically signed by: Dr. Joel Ly sc/:06/09/2014 10:37:38 Ship Pilot Dispatcher: Emperatriz Paez RT (R)(M), [facility] letter sent: Normal Exam Reading location: BI-RADS: 1 Negative [EOD] us Ethan S. Clementina MD IMG MAMMO PROCEDURES Final Result from Last 3 Months or Most Recently Relevant to Health Maintenance Insurance MEDICARE [facility] MEDICARE [facility] Care Teams Ceramic Design Engineer Relationship Specialty Start Date End Date Raymond Vitale MD PCP - General Internal Medicine 06/16/21
--- OUTSIDE RECORDS SUMMARY | 2024-10-15 17:19 | XMS_ITS | Referral Summary ---
Author Organization [facility] [address] Address [address] [place] [address] Care Team Providers Care Associate Professor Of Criminal Justice Name Role Phone Raymond Vitale MD Primary Care Provider [phone] Encounters Date Type Department Care Team Description 08/20/2024 3:15 PM CDT Office Visit [facility] Medical [facility] Convenient Care at [address] [address] Evelyn Joel NP COPD with [...] on file Legal Sex Female 8:14 PM DISEASE MANAGEMENT NURSE Gender Identity Not on file Sexual Orientation [...] signed by: Dr. Joel Ly nh/:06/09/2014 10:37:38 Trap Setter: Emperatriz Paez RT (R)(M), [facility] letter sent: Normal Exam Reading location: [...] dated: 06/10/2013 mammogram and 06/03/2012 mammogram - [facility]. BREAST TISSUE: There are scattered areas [...] dated: 06/10/2013 mammogram and 06/03/2012 mammogram - [facility]. BREAST TISSUE: There are scattered areas [...] signed by: Dr. Joel Ly nh/:06/09/2014 10:37:38 Trap Setter: Emperatriz Paez RT (R)(M), [facility] letter sent: Normal Exam Reading location: BI-RADS: 1 Negative [EOD] Ethan Mcrae MD IMG MAMMO PROCEDURES Final Result from Last 3 Months or Most Recently Relevant to Health Maintenance Insurance MEDICARE AET MEDICARE Member Subscriber Plan / Payer (Ef fective 2016-Present) Name:Liz Palacios Member ID:[id number] Relation to Subscriber:Self Name:Liz Palacios Subscriber ID:[id number] Payer ID:[id number] Group ID:Not on file Type:MEDICARE TRADITIONAL Address: [place] [id number] AET Care Teams Associate Professor Of Criminal Justice Relationship Specialty Start Date End Date Raymond Vitale MD PCP - General Internal Medicine 06/16/21
--- OUTSIDE RECORDS SUMMARY | 2024-10-15 17:19 | XMS_ITS | Continuity of Care Document ---
Author Organization [facility] Address [address] [place] [address] Phone Care Team Providers Care Redeye Gunner Name Role Phone Bishnu Newman DO Unavailable Unavailable Advance Directives Directive Yes / No Effective Date File Name No Information Encounters Encounter Description Practice Location Reason(s) For Visit Diagnoses Date Provider Providers Copied on Encounter [facility], [address] [place] [address] [address], [place], [place], [id number], [place] tel:[phone] [facility] No Information Paty Sow. [address] [facility], [place], [address], [place]. tel: [phone] Family History Family Member Type Diagnosis Age At Onset No Information Payers Payer name Insurance type Covered alliance party ID Authoriza tivladimir(s) [employer] SOI CI [id number] Social History Type Description Quantity Date Captured [...]
--- OUTSIDE RECORDS SUMMARY | 2024-10-15 17:19 | XMS_ITS | Clinical Summary ---
Author Organization [facility] Address [address] [facility] [address] [place] [address] Phone Care Team Providers Care Buck Swamper Name Role Phone Unavailable Primary Care Provider Unavailabl e Social History Tobacco Use Types Packs/Day Years Used Date Smoking Tobacco: Never Assessed Comments Unknown Sex and Gender Information Value Date Recorded Sex Assigned at Not on file Legal Sex Female 5:52 AM THREADER Gender Identity Not on file Sexual Orientation [...]
== END 2024-10-15 18:00 | disposition home or self-care (01) ==
LOC: ANHED 17:17
PROVIDERS: Emergency Provider Emergency Medicine; PCP Family Medicine
DX: S00.83XA Contusion of other part of head, initial encounter (principal); S80.211A Abrasion, right knee, initial encounter; S60.512A Abrasion of left hand, initial encounter; I10 Essential (primary) hypertension; I25.10 Atherosclerotic heart disease of native coronary artery without angina pectoris; I25.2 Old myocardial infarction; E78.00 Pure hypercholesterolemia, unspecified; E07.9 Disorder of thyroid, unspecified; M81.0 Age-related osteoporosis without current pathological fracture; Z95.5 Presence of coronary angioplasty implant and graft; M47.812 Spondylosis without myelopathy or radiculopathy, cervical region; R93.0 Abnormal findings on diagnostic imaging of skull and head, not elsewhere classified; W18.09XA Striking against other object with subsequent fall, initial encounter
CPT/HCPCS: 70450; 72125; 99284

== ENCOUNTER 2024-12-13 14:14 | Outpatient (CLI) | payer MEDICARE, SELFPAY ==
--- OUTSIDE RECORDS SUMMARY | 2002-12-27 09:00 | XMS_ITS | Continuity of Care Document ---
Author Organization [facility] Address [address] [place] [address] Phone Care Team Providers Care [employer] Sealer Name Role Phone Bishnu Newman DO Unavailable Unavailable Advance Directives Directive Yes / No Effective Date File Name No Information Encounters Encounter Description Practice Location Reason(s) For Visit Diagnoses Date Provider Providers Copied on Encounter [facility], [id number] [place] [address] [address], [place], [place], [id number], [place] tel:[phone] [facility] No Information Paty Sow. [address] [facility], [place], [address], [place]. tel: [phone] Family History Family Member Type Diagnosis Age At Onset No Information Payers Payer name Insurance type Covered alliance party ID Authoriza tivladimir(s) [employer] SOI CI [id number] Social History Type Description Quantity Date Captured Comments Sex Female Smoking Status No Information Chief Complaint And Reason For Visit No Information Reason For Referral Reason For Referral No Information History Of Present Illness Encounter Date Complaint History Of Prese nt Illness No Information Functional Status Date Functional Assessmen t No Information Instructions Date Instruction Additional Infor mation No Information Assessments Type Assessment Date No Information Patient Care Teams Name Effective Dates (start - stop) Status Members No Information
--- NOTE | ~2024-12-13 | XR_ITS ---
EXAMINATION: XR shoulder RT min 2V, 12/13/2024 14:35 CDT HISTORY: M25.519 - Pain in unspecified shoulder COMPARISON: No comparisons available. Findings: No acute fracture or malalignment. No significant degenerative changes. Soft tissues unremarkable. Impression: No acute fracture or malalignment. Reviewed, dictated and finalized at location P. Impression: No acute fracture or malalignment.
--- OUTSIDE RECORDS SUMMARY | 2024-12-13 14:57 | XMS_ITS | Clinical Summary ---
Author Organization [facility] [address] [place] Address [address] [place] [address] Care Team Providers Care Help Desk Operator Name Role Phone Raymond Vitale MD Primary Care Provider + [phone] Allergies No known active allergies Medications lisinopril-hydr [...] Hypothyroidism 12/22/2007 Obesity 12/22/2007 Primary hypertension 12/22/2007 Surgical History Surgery Date Site/Laterality Comments CARDIAC STENT PLACEMENT Social History Tobacco Use Types Packs/Day Years Used Date Smoking Tobacco: Former Comments Unknown Sex and Gender Information Value Date Recorded Sex Assigned at Not on file 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 Joel Ly nh/:06/09/2014 10:37:38 Power Saw Mechanic: Emperatriz Paez RT (R)(M), [facility] letter sent: Normal Exam Reading [...] dated: 06/10/2013 mammogram and 06/03/2012 mammogram - [facility]. BREAST TISSUE: There are scattered areas [...] dated: 06/10/2013 mammogram and 06/03/2012 mammogram - [facility]. BREAST TISSUE: There are scattered areas [...] signed by: Dr. Joel Ly nh/:06/09/2014 10:37:38 Power Saw Mechanic: Emperatriz Paez RT RodneyR)(M), [facility] letter sent: Normal Exam Reading location: BI-RADS: 1 Negative [EOD] Ethan Mcrae MD IMG MAMMO PROCEDURES Final Result from Last 3 Months or Most Recently Relevant to Health Maintenance Insurance MEDICARE T MEDICARE T Care Teams Help Desk Operator Relationship Specialty Start Date End Date Raymond Vitale MD PCP - General Internal Medicine 4/2/22
--- OUTSIDE RECORDS SUMMARY | 2024-12-13 14:57 | XMS_ITS | Clinical Summary ---
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
--- OUTSIDE RECORDS SUMMARY | 2024-12-13 14:57 | XMS_ITS | Data Portability ---
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 Lab urinalysis, dipstick 2023 024 [facility] [address], [place], [address], 4 09:43:42 urinalysis complete, reflex culture 2023 024 [email or web address] [facility] (Lab), [address] [facility], [place], [address], 4 09:42:55 urinalysis complete, reflex culture 2023 [...] *Please call pt to schedule* 2023 024 [email or web address] 256 Paramjit Iqbal MD, [address], [facility] [address], [place], [address], 09:22:55 Surgeries None recorded. Imaging CT, chest, w/o contrast - *Please call pt to schedule* 2023 024 [email or web address] 256 [facility] (Radiology), [address] [place], [address], 4 09:17:50 Medication Orders sertraline 100 mg tablet 2023 024 [facility] #[id number], [address], [place], [id number], 4 12:54:46 montelukast 10 mg tablet 2023 024 [facility] #[id number], [address], [place], [id number], 4 14:41:23 lisinopril 20 mg-hydrochl orothiazide 25 mg tablet 2023 024 [facility] [email or web address] [facility] #[id number], [address], [place], [id number], 4 14:41:24 simvastatin 20 mg tablet 2023 024 [facility] [email or web address] [facility] #[id number], [address], [place], [id number], 4 14:41:22 levothyroxi ne 88 mcg tablet 2023 024 [facility] [email or web address] [facility] #[id number], [address], [place], [id number], 4 14:41:23 levofloxaci n 750 mg tablet 2022 023 [email or web address] 477 [facility] [email or web address] [facility] #[id number], [address], [place], [id number], 4 14:05:33 COVID-19 At-Home Test kit 2022 023 [facility] [email or web address] [facility] #[id number] [place], [id number], 3 09:49:10 Patient TargetsNo targets recorded. Patient Instructions Encounter Date Encounter Id Patient Instructions Last Modified By Organization Details Last Modified Time 07/22/2023 [id number] dementia rating scale-2* [email or web address] Not available 2023 08:02:20 physical therapy for pelvic health Not available 07/22/2023 14:41:16 Personalized a lt Plan and Screening Recommendations Advance Directives - [...] .8 below low normal Not Available [facility] ([facility]) [address] [place], [address], 02/14/2023 08:27:46 02/14/20 23 02/14/2023 CBC/D IFF AMBIG UOUS DEFAU LT RBC 4.42 x10e6 /uL 3.77-5 .28 Ovalo cytes prese nt. Not Available [facility] ([facility]) [address] [place], [address], 02/14/2023 08:27:46 02/14/20 23 02/14/2023 CBC/D IFF AMBIG UOUS DEFAU LT hemoglobin 14.2 g/dL 11.1-1 5.9 Not Available [facility] ([facility]) [address] [place], [address], 02/14/2023 08:27:46 02/14/20 23 02/14/2023 CBC/D IFF AMBIG UOUS DEFAU LT hematocrit 40.8 % 34.0-4 6.6 Not Available [facility] ([facility]) [address] [facility], [place], [address], 02/14/2023 08:27:46 02/14/20 23 02/14/2023 CBC/D IFF AMBIG UOUS DEFAU LT MCV 92 fL 79-97 Not Available [facility] ([facility]) [address] [facility], [place], [address], 02/14/2023 08:27:46 02/14/20 23 02/14/2023 CBC/D IFF AMBIG UOUS DEFAU LT MCH 32.1 pg 26.6-3 3.0 Not Available [facility] ([facility]) [address] [facility], [place], [address], 02/14/2023 08:27:46 02/14/20 23 02/14/2023 CBC/D IFF AMBIG UOUS DEFAU LT MCHC 34.8 g/dL 31.5-3 5.7 Not Available [facility] ([facility]) [address] [facility], [place], [address], 02/14/2023 08:27:46 02/14/20 23 02/14/2023 CBC/D IFF AMBIG UOUS DEFAU LT RDW 12.2 % 11.7-1 5.4 Not Available [facility] ([facility]) [address] [place], [address], 02/14/2023 08:27:46 02/14/20 23 02/14/2023 CBC/D IFF AMBIG UOUS DEFAU LT platelets 217 x10e3 /uL 150-45 0 Not Available [facility] ([facility]) [address] [facility], [place], [address], 02/14/2023 08:27:46 02/14/20 23 02/14/2023 CBC/D IFF AMBIG UOUS DEFAU LT neutrophils 37 % not estab. Not Available [facility] ([facility]) [address] [facility], [place], [address], 02/14/2023 08:27:46 02/14/20 23 02/14/2023 CBC/D IFF AMBIG UOUS DEFAU LT lymphs 52 % not estab. Not Available [facility] ([facility]) [address] [facility], [place], [address], 02/14/2023 08:27:46 02/14/20 23 02/14/2023 CBC/D IFF AMBIG UOUS DEFAU LT monocytes 9 % not estab. Not Available [facility] ([facility]) [address] [facility], [place], [address], 02/14/2023 08:27:46 02/14/20 23 02/14/2023 CBC/D IFF AMBIG UOUS DEFAU LT eos 1 % not estab. Not Available [facility] ([facility]) [address] [facility], [place], [address], 02/14/2023 08:27:46 02/14/20 23 02/14/2023 CBC/D IFF AMBIG UOUS DEFAU LT basos 1 % not estab. Not Available [facility] ([facility]) [address] [facility], [place], [address], 02/14/2023 08:27:46 02/14/20 23 02/14/2023 CBC/D IFF AMBIG UOUS DEFAU LT immature cells [employer] Not Available [facility] ([facility]) [address] [facility], [place], [address], 02/14/2023 08:27:46 02/14/20 23 02/14/2023 CBC/D IFF AMBIG UOUS DEFAU LT neutrophils (absolute) 1.1 x10e3 /uL 1.4-7. 0 below low normal Not Available [facility] ([facility]) [address] [facility], [place], [address], 02/14/2023 08:27:46 02/14/20 23 02/14/2023 CBC/D IFF AMBIG UOUS DEFAU LT lymphs (absolute) 1.6 x10e3 /uL 0.7-3. 1 Not Available [facility] ([facility]) [address] [facility], [place], [address], 02/14/2023 08:27:46 02/14/20 23 02/14/2023 CBC/D IFF AMBIG UOUS DEFAU LT monocytes(ab solute) 0.3 x10e3 /uL 0.1-0. 9 Not Available [facility] ([facility]) [address] [facility], [place], [address], 02/14/2023 08:27:46 02/14/20 23 02/14/2023 CBC/D IFF AMBIG UOUS DEFAU LT eos (absolute) 0.0 x10e3 /uL 0.0-0. 4 Not Available [facility] ([facility]) [address] [facility], [place], [address], 02/14/2023 08:27:46 02/14/20 23 02/14/2023 CBC/D IFF AMBIG UOUS DEFAU LT baso (absolute) 0.0 x10e3 /uL 0.0-0. 2 Not Available [facility] ([facility]) [address] [facility], [place], [address], 02/14/2023 08:27:46 02/14/20 23 02/14/2023 CBC/D IFF AMBIG UOUS DEFAU LT immature granulocytes [employer] Not Available [facility] ([facility]) [address] [facility], [place], [address], 02/14/2023 08:27:46 02/14/20 23 02/14/2023 CBC/D IFF AMBIG UOUS DEFAU LT immature grans (abs) [employer] Not Available [facility] ([facility]) [address] [facility], [place], [address], 02/14/2023 08:27:46 02/14/20 23 02/14/2023 CBC/D IFF RICH ELAINE LT NRBC [employer] Not Available [facility] ([facility]) [address] [facility], [place], [address], 02/14/2023 08:27:46 02/14/20 23 02/14/2023 CBC/D IFF [...] ciate your busin ess. Not Available [facility] ([facility]) [address] [facility], [place], [address], 02/14/2023 08:27:46 02/14/20 23 02/14/2023 COMP. METAB OLIC PANEL (14) glucose 94 mg/dL 70-99 Not Available [facility] ([facility]) [address] [facility], [place], [address], 02/14/2023 08:27:48 02/14/20 23 02/14/2023 COMP. METAB OLIC PANEL (14) BUN 21 mg/dL 8-27 Not Available [facility] ([facility]) [address] [facility], [place], [address], 02/14/2023 08:27:48 02/14/20 23 02/14/2023 COMP. METAB OLIC PANEL (14) creatinine 0.95 mg/dL 0.57-1 .00 Not Available [facility] ([facility]) [address] [facility] [place], [address], 02/14/2023 08:27:48 02/14/20 23 02/14/2023 COMP. METAB OLIC PANEL (14) eGFR 64 mL/mi n/1.7 3 >59 Not Available [facility] ([facility]) [address] [facility] [place], [address], 02/14/2023 08:27:48 02/14/20 23 02/14/2023 COMP. METAB OLIC PANEL (14) BUN/creatini ne ratio 22 12-28 Not Available [facility] ([facility]) [address] [facility], [place], [address], 02/14/2023 08:27:48 02/14/20 23 02/14/2023 COMP. METAB OLIC PANEL (14) sodium 141 mmol/ L 134-14 4 Not Available [facility] ([facility]) [address] [facility] [place], [address], 02/14/2023 08:27:48 02/14/20 23 02/14/2023 COMP. METAB OLIC PANEL (14) potassium 4.7 mmol/ L 3.5-5. 2 Not Available [facility] ([facility]) [address] [facility], [place], [address], 02/14/2023 08:27:48 02/14/20 23 02/14/2023 COMP. METAB OLIC PANEL (14) chloride 102 mmol/ L 96-106 Not Available [facility] ([facility]) [address] [facility] [place], [address], 02/14/2023 08:27:48 02/14/20 23 02/14/2023 COMP. METAB OLIC PANEL (14) carbon dioxide, total 24 mmol/ L 20-29 Not Available [facility] ([facility]) [address] [facility], [place], [address], 02/14/2023 08:27:48 02/14/20 23 02/14/2023 COMP. METAB OLIC PANEL (14) calcium 9.6 mg/dL 8.7-10 .3 Not Available [facility] ([facility]) [address] [place], [address], 02/14/2023 08:27:48 02/14/20 23 02/14/2023 COMP. METAB OLIC PANEL (14) protein, total 7.0 g/dL 6.0-8. 5 Not Available [facility] ([facility] [address] [facility] [place], [address], 02/14/2023 08:27:48 02/14/20 23 02/14/2023 COMP. METAB OLIC PANEL (14) albumin 4.6 g/dL 3.8-4. 8 Not Available [facility] ([facility]) [address] [facility], [place], [address], 02/14/2023 08:27:48 02/14/20 23 02/14/2023 COMP. METAB OLIC PANEL (14) globulin, total 2.4 g/dL 1.5-4. 5 Not Available [facility] ([facility]) [address] [facility] [place], [address], 02/14/2023 08:27:48 02/14/20 23 02/14/2023 COMP. METAB OLIC PANEL (14) A/G ratio 1.9 1.2-2. 2 Not Available [facility] ([facility] [address] [facility] [place], [address], 02/14/2023 08:27:48 02/14/20 23 02/14/2023 COMP. METAB OLIC PANEL (14) bilirubin, total 0.6 mg/dL 0.0-1. 2 Not Available [facility] ([facility]) [address] [facility] [place], [address], 02/14/2023 08:27:48 02/14/20 23 02/14/2023 COMP. METAB OLIC PANEL (14) alkaline phosphatase 89 IU/L 44-121 Not Available [facility] ([facility]) [address] [facility], [place], [address], 02/14/2023 08:27:48 02/14/20 23 02/14/2023 COMP. METAB OLIC PANEL (14) AST (SGOT) 19 IU/L 0-40 Not Available [facility] ([facility]) [address] [facility] [place], [address], 02/14/2023 08:27:48 02/14/20 23 02/14/2023 COMP. METAB OLIC PANEL (14) ALT (SGPT) 18 IU/L 0-32 Not Available [facility] ([facility]) [address] [place], [address], 02/14/2023 08:27:48 02/14/20 23 02/14/2023 LIPID PANEL cholesterol, total 152 mg/dL 100-19 9 Not Available [facility] ([facility]) [address] [facility], [place], [address], 02/14/2023 08:27:49 02/14/20 23 02/14/2023 LIPID PANEL triglyceride s 58 mg/dL 0-149 Not Available [facility] ([facility]) [address] [place], [address], 02/14/2023 08:27:49 02/14/20 23 02/14/2023 LIPID PANEL HDL cholesterol 64 mg/dL >39 Not Available [facility] ([facility]) [address] [place], [address], 02/14/2023 08:27:49 02/14/20 23 02/14/2023 LIPID PANEL VLDL cholesterol xander 12 mg/dL 5-40 Not Available [facility] ([facility]) [address], [place], [address], 02/14/2023 08:27:49 02/14/20 23 02/14/2023 LIPID PANEL LDL chol calc ([facility]) 76 mg/dL 0-99 Not Available [facility] ([facility]) [address] [place], [address], 02/14/2023 08:27:49 02/14/20 23 02/14/2023 LIPID PANEL comment: [employer] Not Available [facility] ([facility]) [address] [facility] [place], [address], 02/14/2023 08:27:49 02/14/20 23 02/14/2023 VITAM IN B12 AND FOLAT E vitamin B12 667 pg/mL 232-12 45 Not Available [facility] ([facility]) [address] [facility], [place], [address], 02/14/2023 08:27:50 02/14/2002/14/2023 VITAM IN B12 AND FOLAT E folate (folic acid), serum 17.5 NG/mL >3.0 A serum folat e jayden ntrat ion of less than 3.1 ng/mL is consi dered to repre sent clini xander defic iency . Not Available [facility] ([facility]) [address] [facility], [place], [address], 02/14/2023 08:27:50 02/14/2002/14/2023 THYRO XINE (T4) FREE, DIREC T T4,free(dire ct) 1.48 NG/dL 0.82-1 .77 Not Available [facility] ([facility]) [address] [facility] [place], [address], 02/14/2023 08:27:51 02/14/20 23 02/14/2023 TSH TSH 1.700 uIU/m L 0.450- 4.500 Not Available Not Available 02/14/2023 08:27:52 02/14/20 23 02/14/2023 TRIIO DOTHY NELSON E (T3), FREE triiodothyro nine (T3), free 2.6 pg/mL 2.0-4. 4 Not Available [facility] ([facility]) [address] [facility], [place], [address], 02/14/2023 08:27:52 07/22/19 24 07/22/2023 CBC/C OMPLE TE BLD COUNT W/DIF F white blood cells 3.4 x10'3 /uL 4.2-10 .8 low Not Available [facility] (Lab) [address] [place], [address], 07/22/2023 20:27:45 07/22/19 24 07/22/2023 CBC/C OMPLE TE BLD COUNT W/DIF F red blood cells 4.28 x10'6 /uL 3.80-5 .20 Not Available [facility] (Lab) [address] [place], [address], 07/22/2023 20:27:45 07/22/19 24 07/22/2023 CBC/C OMPLE TE BLD COUNT W/DIF F hemoglobin 14.2 g/dL 12.0-1 5.6 Not Available [facility] (Lab) [address] [place], [address], 07/22/2023 20:27:45 07/22/19 24 07/22/2023 CBC/C OMPLE TE BLD COUNT W/DIF F hematocrit 39.6 % 35.7-4 5.7 Not Available [facility] (Lab) [address] [place], [address], 07/22/2023 20:27:45 07/22/19 24 07/22/2023 CBC/C OMPLE TE BLD COUNT W/DIF F mean red cell volume 92.5 fL 82.0-9 9.0 Not Available [facility] (Lab) [address] [place], [address], 07/22/2023 20:27:45 07/22/19 24 07/22/2023 CBC/C OMPLE TE BLD COUNT W/DIF F mean red cell hemoglobin 33.2 pg 27.0-3 3.0 high Not Available [facility] (Lab) [address] [facility] [place], [address], 07/22/2023 20:27:45 07/22/19 24 07/22/2023 CBC/C OMPLE TE BLD COUNT W/DIF F mean RBC HGB concentratio n 35.9 g/dL 31.0-3 6.0 Not Available [facility] (Lab) [address] [place], [address], 07/22/2023 20:27:45 07/22/19 24 07/22/2023 CBC/C OMPLE TE BLD COUNT W/DIF F red cell distribution width 12.4 % 11.8-1 5.5 Not Available [facility] (Lab) [address] [place], [address], 07/22/2023 20:27:45 07/22/19 24 07/22/2023 CBC/C OMPLE TE BLD COUNT W/DIF F platelets 237 x10'3 /uL 150-40 0 Not Available [facility] (Lab) [address] [place], [address], 07/22/2023 20:27:45 07/22/19 24 07/22/2023 CBC/C OMPLE TE BLD COUNT W/DIF F mean platelet volume 11.3 fL 9.0-12 .4 Not Available [facility] (Lab) [address] [place], [address], 07/22/2023 20:27:45 07/22/19 24 07/22/2023 CBC/C OMPLE TE BLD COUNT W/DIF F neutrophils 35.9 % 39.0-7 2.0 low Not Available [facility] (Lab) [address] [place], [address], 07/22/2023 20:27:45 07/22/19 24 07/22/2023 CBC/C OMPLE TE BLD COUNT W/DIF F lymphocytes 40.9 % 16.0-4 7.0 Not Available [facility] (Lab) [address] [place], [address], 07/22/2023 20:27:45 07/22/19 24 07/22/2023 CBC/C OMPLE TE BLD COUNT W/DIF F monocytes 19.4 % 5.0-12 .0 high Not Available [facility] (Lab) [address] [place], [address], 07/22/2023 20:27:45 07/22/19 24 07/22/2023 CBC/C OMPLE TE BLD COUNT W/DIF F eosinophils 2.6 % 1.0-7. 0 Not Available [facility] (Lab) [address] [place], [address], 07/22/2023 20:27:45 07/22/19 24 07/22/2023 CBC/C OMPLE TE BLD COUNT W/DIF F basophils 1.2 % 0.0-2. 0 Not Available [facility] (Lab) [address] [place], [address], 07/22/2023 20:27:45 07/22/19 24 07/22/2023 CBC/C OMPLE TE BLD COUNT W/DIF F immature granulocytes 0.0 % 0.00-0 .50 Not Available [facility] (Lab) [address] [place], [address], 07/22/2023 20:27:45 07/22/19 24 07/22/2023 CBC/C OMPLE TE BLD COUNT W/DIF F neutrophils, absolute count 1.22 x10'3 /uL 1.5-8. 0 low Not Available [facility] (Lab) [address] [place], [address], 07/22/2023 20:27:45 07/22/19 24 07/22/2023 CBC/C OMPLE TE BLD COUNT W/DIF F lymphocytes, absolute count 1.39 x10'3 /uL 1.07-3 .43 Not Available [facility] (Lab) [address] [place], [address], 07/22/2023 20:27:45 07/22/19 24 07/22/2023 CBC/C OMPLE TE BLD COUNT W/DIF F monocytes, absolute count 0.66 x10'3 /uL 0.29-0 .99 Not Available [facility] (Lab) [address] [place], [address], 07/22/2023 20:27:45 07/22/19 24 07/22/2023 CBC/C OMPLE TE BLD COUNT W/DIF F eosinophils, absolute count 0.09 x10'3 /uL 0.02-0 .53 Not Available [facility] (Lab) [address] [place], [address], 07/22/2023 20:27:45 07/22/19 24 07/22/2023 CBC/C OMPLE TE BLD COUNT W/DIF F basophils, absolute count 0.04 x10'3 /uL 0.01-0 .08 Not Available [facility] (Lab) [address] [place], [address], 07/22/2023 20:27:45 07/22/19 24 07/22/2023 CBC/C OMPLE TE BLD COUNT W/DIF F immature granulocytes ,absolute 0.00 x10'3 /uL 0.00-0 .05 Not Available [facility] (Lab) [address] [place], [address], 07/22/2023 20:27:45 07/22/19 24 07/22/2023 CBC/C OMPLE TE BLD COUNT W/DIF F nucleated red blood cells 0.0 % -0 Not Available [facility] (Lab) [address] [place], [address], 07/22/2023 20:27:45 07/22/19 24 07/22/2023 CBC/C OMPLE TE BLD COUNT W/DIF F NRBC# 0.00 x10'3 /uL Not Available [facility] (Lab) [address] [place], [address], 07/22/2023 20:27:45 07/22/19 24 07/22/2023 LIPID PANEL cholesterol 161 mg/dL 140-19 9 NIH JAYDEN NSUS RECOM MENDA TION FOR IBIS STERO L: ADULT CHILD LOW RISK: <200 <170 BORDE RLINE : <200- 239 ----- HIGH RISK: >240 >200 Not Available [facility] (Lab) [address] [place], [address], 07/22/2023 20:38:27 07/22/19 24 07/22/2023 LIPID PANEL triglyceride s 104 mg/dL 0-150 NIH JAYDEN NSUS REPOR T RECOM MENDA TION FOR TRIGL YCERI CAROLINE: ADULT CHILD LOW RISK: <150 ----- BODER LINE: 150-1 99 ----- HIGH RISK: >200 ----- Not Available [facility] (Lab) [address] [place], [address], 07/22/2023 20:38:27 07/22/19 24 07/22/2023 LIPID PANEL HDL cholesterol 66 mg/dL 40- Not Available [facility] (Lab) [address] [place], [address], 07/22/2023 20:38:27 07/22/19 24 07/22/2023 LIPID PANEL [...] WILL NOT BE REPOR ZEE. Not Available [facility] (Lab) [address] [place], [address], 07/22/2023 20:38:27 07/22/19 24 07/22/2023 HEPAT IC/LI ADRIEL PANEL alkaline phosphatase 83 U/L 38-126 Not Available [facility] (Lab) [address] [place], [address], 07/22/2023 20:38:32 07/22/19 24 07/22/2023 HEPAT IC/LI ADRIEL PANEL alanine aminotransfe rase 21 U/L 0-35 Not Available [facility] (Lab) [address] [place], [address], 07/22/2023 20:38:32 07/22/19 24 07/22/2023 HEPAT IC/LI ADRIEL PANEL aspartate aminotransfe rase 28 U/L 15-37 Not Available [facility] (Lab) [address] [place], [address], 07/22/2023 20:38:32 07/22/19 24 07/22/2023 HEPAT IC/LI ADRIEL PANEL bilirubin, total 0.90 mg/dL 0.20-1 .30 Not Available [facility] (Lab) [address] [place], [address], 07/22/2023 20:38:32 07/22/19 24 07/22/2023 HEPAT IC/LI ADRIEL PANEL bilirubin, conjugated (direct) 0.00 mg/dL 0.00-0 .30 Not Available [facility] (Lab) [address] [place], [address], 07/22/2023 20:38:32 07/22/19 24 07/22/2023 HEPAT IC/LI ADRIEL PANEL biliurubin,u ncong. (indirect) 0.70 mg/dL 0.00-1 .1 Not Available [facility] (Lab) [address] [place], [address], 07/22/2023 20:38:32 07/22/19 24 07/22/2023 HEPAT IC/LI ADRIEL PANEL total protein 7.2 g/dL 6.3-8. 2 Not Available [facility] (Lab) [address] [place], [address], 07/22/2023 20:38:32 07/22/19 24 07/22/2023 HEPAT IC/LI ADRIEL PANEL albumin 4.4 g/dL 3.0-4. 4 Not Available [facility] (Lab) [address] [place], [address], 07/22/2023 20:38:32 07/22/19 24 07/22/2023 HEPAT IC/LI ADRIEL PANEL globulin 2.8 g/dL 2.6-4. 2 Not Available [facility] (Lab) [address] [place], [address], 07/22/2023 20:38:32 07/22/19 24 07/22/2023 HEPAT IC/LI ADRIEL PANEL A/G ratio 1.6 ratio 1.0-2. 0 Not Available [facility] (Lab) [address] [place], [address], 07/22/2023 20:38:32 07/22/19 24 07/22/2023 BASIC METAB OLIC PANEL sodium 138 mmol/ L 137-14 5 Not Available [facility] (Lab) [address] [place], [address], 07/22/2023 20:38:43 07/22/19 24 07/22/2023 BASIC METAB OLIC PANEL potassium 4.1 mmol/ L 3.5-5. 1 Not Available [facility] (Lab) [address] [place], [address], 07/22/2023 20:38:43 07/22/19 24 07/22/2023 BASIC METAB OLIC PANEL chloride 104 mmol/ L 98-107 Not Available [facility] (Lab) [address] [place], [address], 07/22/2023 20:38:43 07/22/19 24 07/22/2023 BASIC METAB OLIC PANEL carbon dioxide 26 mmol/ L 22-30 Not Available [facility] (Lab) [address] [place], [address], 07/22/2023 20:38:43 07/22/19 24 07/22/2023 BASIC METAB OLIC PANEL anion gap 12.1 mmol/ L 14-22 low Not Available [facility] (Lab) [address] [place], [address], 07/22/2023 20:38:43 07/22/19 24 07/22/2023 BASIC METAB OLIC PANEL glucose 95 mg/dL 70-99 Not Available [facility] (Lab) [address] [place], [address], 07/22/2023 20:38:43 07/22/19 24 07/22/2023 BASIC METAB OLIC PANEL BUN 20 mg/dL 8-19 high Not Available [facility] (Lab) [address] [place], [address], 07/22/2023 20:38:43 07/22/19 24 07/22/2023 BASIC METAB OLIC PANEL creatinine 0.78 mg/dL 0.66-1 .25 Not Available [facility] (Lab) [address] [place], [address], 07/22/2023 20:38:43 07/22/19 24 07/22/2023 BASIC METAB OLIC PANEL GFR >60 Refer ence Range : [place] GFR Healt hy Adult : >60 [...] calcu lator is avail able on the [facility] websi te: [email or web address]/gf [email or web address] culat or Not Available [facility] (Lab) [address] [place], [address], 07/22/2023 20:38:43 07/22/19 24 07/22/2023 BASIC METAB OLIC PANEL calcium 10.0 mg/dL 8.4-10 .2 Not Available [facility] (Lab) [address] [place], [address], 07/22/2023 20:38:43 07/22/19 24 07/22/2023 URINA LYSIS [...] T4 1.82 NG/dL 0.78-2 .19 Not Available [facility] (Lab) [address] [place], [address], 07/22/2023 20:49:23 07/22/19 24 07/22/2023 TSH thyroid-stim ulating hormone 1.330 uIU/m L 0.465- 4.680 Not Available [facility] (Lab) [address] [place], [address], 07/22/2023 20:58:48 09/26/19 24 09/26/2023 urina lysis , dipst ick Leukocytes (reference range: negative girish/ l) Negati ve Not Available [facility] [address], [place], [address], 09/26/2023 09:22:46 09/26/19 24 09/26/2023 urina lysis , dipst ick Nitrite (reference rage: negative mg/dl) negati ve Not Available [address], [place], [address], 09/26/2023 09:22:46 09/26/19 24 09/26/2023 urina lysis , dipst ick Urobilinogen (reference range: 0.2-1 mg/dl) 0.2 Not Available [address], [place], [address], 09/26/2023 09:22:46 09/26/19 24 09/26/2023 urina lysis , dipst ick Protein (reference range: negative mg/dl) Negati ve Not Available [address], [place], [address], 09/26/2023 09:22:46 09/26/19 24 09/26/2023 urina lysis , dipst ick pH (reference range: 5-7) 7.5 Not Available [address], [place], [address], 09/26/2023 09:22:46 09/26/19 24 09/26/2023 urina lysis , dipst ick Blood (reference range: negative Quan/ l) Negati ve Not Available [address], [place], [address], 09/26/2023 09:22:46 09/26/19 24 09/26/2023 urina lysis , dipst ick Specific Argenta (reference range: 1.005-1.030) 1.030 Not Available [address], [place], [address], 09/26/2023 09:22:46 09/26/19 24 09/26/2023 urina lysis , dipst ick Ketone (reference range: negative mg/dl) Negati ve Not Available [address], [place], [address], 09/26/2023 09:22:46 09/26/19 24 09/26/2023 urina lysis , dipst ick Bilirubin (reference range: negative mg/dl) Negati ve Not Available [address], [place], [address], 09/26/2023 09:22:46 09/26/19 24 09/26/2023 urina lysis , dipst ick Glucose (reference range: negative mg/dl) Negati ve Not Available [address], [place], [address], 09/26/2023 09:22:46 09/26/19 24 09/26/2023 urina lysis , dipst ick Appearance Clear Not Available [address], [place], [address], 09/26/2023 09:22:46 09/26/19 24 09/26/2023 urina lysis , dipst ick Color Yellow Not Available [address], [place], [address], 09/26/2023 09:22:46 10/31/19 24 05/29/2022 CT, chest , w/o contr ast No observ ation record ed. [facility] [address] [place], [address], 11/06/2023 23:25:53 Result Notes None recorded. 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 Active Not Available [facility] 4 05:10:23 Coronary arterios clerosis 33131434 Active Not Available [facility] 4 05:10:23 Essentia l hyperten jacque 13378942 Active Not Available [facility] 4 05:10:23 Urinary tract infectio us disease 58690238 Completed Not Available [facility] 3 01:37:18 Rhinitis 09681622 Completed Not Available [facility] 3 01:37:19 Anxiety 88660032 Active 2018 Not Available [facility] 4 05:10:23 Nodule of lung 563822729 Active 2019 Not Available [facility] 4 05:10:23 Fracture of great toe 317326872 Active 2021 Not Available [facility] 4 05:10:22 Closed fracture of phalanx of foot 54239490 Active 2021 Not Available [facility] 4 05:10:23 Fracture of great toe 475469755 Active 2021 Not Available [facility] 4 05:10:22 Upper respirat ory infectio n 84662398 Active 2021 Not Available [facility] 4 05:10:23 Cough 59538834 Active 2022 Not Available [facility] 4 05:10:23 Neuropat hy 631381579 Active 2022 Not Available [facility] 4 05:10:22 Sciatica 89307987 Active 2022 Not Available [facility] 4 05:10:22 Sore throat 799701467 Active 2022 Not Available [facility] 4 05:10:22 Osteopor osis 00244789 Active 2022 Not Available [facility] 4 05:10:23 Pain in throat 529477952 Active 2022 Not Available [facility] 4 05:10:22 Leukopen ia 64242760 Active 2022 Normal work up with hematolo gy Morelia Gudino MD [address], [place], [address] , [employer] 4 14:34:54 Nausea 154466802 Active 2022 Not Available [facility] 4 05:10:23 Diarrhea 85817011 Active 2022 Not Available [facility] 4 05:10:23 Acute sinusiti s 24250716 Active 2022 Not Available [facility] 4 05:10:22 Microsco pic hematuri a 695146375 Active 2023 had normal work up with urology Morelia Gudino MD [address], [address], [place], [address] , [facility] 4 14:34:08 Female stress incontin ence 87260208 Active 2023 Morelia Gudino MD [address], [place] [address], [place], [address] , [facility] 4 14:35:36 Urge incontin ence of urine 49088393 Active 2023 Morelia Gudino MD [address], [address], [place], [address] , [facility] 4 14:38:20 Nausea, vomiting and diarrhea 0216658 Active 2023 SARAHI Morales [address], [place] [address], [place], [address] , [facility] 4 09:11:48 Dysuria 05630658 Active 2023 SARAHI Morales [address], [place], [address] , [employer] 4 09:22:44 Viral gastroen teritis 084672817 Active 2023 SARAHI Morales [address], [place], [address] , [facility] 4 12:42:59 Problem Notes None recorded. Procedures Surgical History Date Name Laterality Status Provider Name and Address Organization Details Recorded Time 07/22/19 24 Medicare Wellness CPT Code, subsequent completed Catherine Begum RN [facility] [employer] [facility] [employer] 07/22/2023 14:02:44 04/11/19 21 Most Recent Bone Density completed Not Available [facility] 05/15/2022 01:22:49 07/03/19 18 Date of Last Colonoscopy completed Not Available [facility] 05/15/2022 01:22:49 Tubal Ligation completed Not Available [facility] 05/15/2022 01:22:56 Cardiac Stent Placement completed Not Available [facility] 05/15/2022 01:22:56 Imaging Results None recorded. Procedure [...] leg swell ing Not Available [facility] 3 01:55:14 Medications Name Sig Start Date [...] active Not Available Not Available Not Desirae boone triamcinolo ne acetonide 0.1 % topical cream [...] Not Available Not Available amoxicillin 875 mg-aldo m clavulanate 125 mg tablet TAKE 1 [...] in Arterial blood by Pulse oximetry Systolic And Diastolic Provider Name and Address Organization Details Last Updated DateTime 4 160.02 cm 28.3 kg/m2 83078.7 8 g 97.2 [degF] 67 /min 98 % 98 % 120/74 mm[Hg] Catherine Begum RN [facility] [employer] [facility] 4 14:04:52 Date Recorded Body height Body mass index (BMI) Body weight Body temperature Heart rate Oxygen saturation Oxygen saturation in Arterial blood by Pulse oximetry Systolic And Diastolic Provider Name and Address Organization Details Last Updated DateTime 4 160.02 cm 27.5 kg/m2 77679.8 2 g 97.4 [degF] 69 /min 94 % 94 % 128/74 mm[Hg] Griselda Galvin RN [facility] [employer] [facility] 4 09:06:26 Date Recorded Body height Body mass index (BMI) Body weight Body temperature Heart rate Oxygen saturation Oxygen saturation in Arterial blood by Pulse oximetry Systolic And Diastolic Provider Name and Address Organization Details Last Updated DateTime 4 160.02 cm 27.3 kg/m2 61058.2 2 g 97.7 [degF] 79 /min 95 % 95 % 122/76 mm[Hg] Griselda Galvin RN [facility] [employer] [facility] 4 12:34:49 Date Recorded Body height Body mass index (BMI) Body weight Body temperature Heart rate Systolic And Diastolic Provider Name and Address Organization Details Last Updated DateTime 3 160.02 cm 27.6 kg/m2 81987.4 1 g 98.2 [degF] 76 /min 112/72 mm[Hg] Dedra dupree RN [facility] [employer] [facility] 3 15:06:12 Date Recorded Body height Body mass index (BMI) Body weight Body temperature Heart rate Oxygen saturation Oxygen saturation in Arterial blood by Pulse oximetry Systolic And Diastolic Provider Name and Address Organization Details Last Updated DateTime 3 160.02 cm 28.2 kg/m2 63484.1 9 g 97.8 [degF] 68 /min 96 % 96 % 122/70 mm[Hg] Catherine Begum RN [facility] [employer] 09:26:32 Social History Question Answer Notes LastModified by Organization Details LastModified Time Tobacco Smoking Status Former Smoker quit 01/2019 Not Available [facility] 05/15/2022 01:18:30 Do You Have An Advance Directive? No Information Provided MIGRATION.603 [id number] Information not available 05/15/2022 Are You Blind Or Do You Have Difficulty Seeing? No MIGRATION.204 1979467 Information not available 05/15/2022 What Is Your Level Of Caffeine Consumption? Moderate MIGRATION.160 [id number] Information not available 05/15/2022 How Much Tobacco Do You Chew? None MIGRATION.267 [id number] Information not available 05/15/2022 In The 14 Days Before Symptom Onset, Have You Had Close Contact With A Laboratory-conf irmed COVID-19 While That Case Was Ill? No MIGRATION.905 [id number] Information not available 05/15/2022 In The 14 Days Before Symptom Onset, Have You Had Close Contact With A Person Who Is Under Investigation For COVID-19 While That Person Was Ill? No MIGRATION.837 [id number] Information not available 05/15/2022 Are You Deaf Or Do You Have Serious Difficulty Hearing? No MIGRATION.342 3520325 Information not available 05/15/2022 What Type Of Diet Are You Following? REGULAR MIGRATION.757 5318048 Information not available 05/15/2022 Which Illicit Or Recreational Drugs Have You Used? None MIGRATION.020 6617262 Information not available 05/15/2022 What Is The Highest Grade Or Level Of School You Have Completed Or The Highest Degree You Have Received? HG81911-4 MIGRATION.933 [id number] Information not available 05/15/2022 Have There Been Any Changes To Your Family Or Social Situation? No MIGRATION.342 6576713 Information not available 05/15/2022 What Is The Fluoride Status Of Your Home? Unknown MIGRATION.572 9981661 Information not available 05/15/2022 When Did You Quit Smoking? 1-5yearssincelastc igarette MIGRATION.009 0843544 Information not available 05/15/2022 Are There Any Guns Present In Your Home? No MIGRATION.374 9992576 Information not available 05/15/2022 Do You Use Insect Repellent Routinely? Yes MIGRATION.014 [id number] Information not available 05/15/2022 Where Do You Live? SingleLevelHouse With Basement MIGRATION.038 [id number] Information not available 05/15/2022 Do You Have A Medical Power Of Paper Sorter? No MIGRATION.172 8298585 Information not available 05/15/2022 What Was The Date Of Your Most Recent Tobacco Screening? 01/21/2023 Information not available 01/21/2023 What Is Your Current Pack Years? 30ormorepackyears MIGRATION.900 3206771 Information not available 05/15/2022 Have You Ever Been Counseled For Unhealthy Alcohol Use? No MIGRATION.678 9857144 Information not available 05/15/2022 Do You Have Any Pets? No MIGRATION.219 6647258 Information not available 05/15/2022 What Is Your Relationship Status? MIGRATION.439 8397963 Information not available 05/15/2022 Do You Use Your Seat Belt Or Car Seat Routinely? Yes MIGRATION.241 4007553 Information not available 05/15/2022 Do You Have Smoke And Carbon Monoxide Detectors In Your Home? Yes MIGRATION.606 4922302 Information not available 05/15/2022 At What Age Did You Start Smoking Tobacco? 20 MIGRATION.937 4903449 Information not available 05/15/2022 Are You Passively Exposed To Smoke? No MIGRATION.487 0672437 Information not available 05/15/2022 Are There Any Smokers In Your House? No MIGRATION.812 0835139 Information not available 05/15/2022 How Much Tobacco Do You Smoke? No MIGRATION.814 4978815 Information not available 05/15/2022 What Types Of Sporting Activities Do You Participate In? None MIGRATION.450 1777432 Information not available 05/15/2022 Do You Use Sunscreen Routinely? Yes MIGRATION.455 2850926 Information not available 05/15/2022 Has Tobacco Cessation Counseling Been Provided? No MIGRATION.379 6845365 Information not available 05/15/2022 Have You Recently Traveled Abroad? No MIGRATION.052 3042151 Information not available 05/15/2022 Do You Have Difficulty Walking Or Climbing Stairs? No MIGRATION.460 8929692 Information not available 05/15/2022 Do You Have Any Dietary Restrictions? No MIGRATION.861 8673701 Information not available 05/15/2022 Sex: Female Functional Status Question Answer Note LastModified by Organizat ion Details LastModified Time Do you or have you ever used smokeless tobacco? Never used smokeless tobacco MIGRATION.590180 0259 Information not available 05/15/2022 Are you currently employed? No [email or web address] Information not available 10/24/2022 Do you have access to reliable transportation? No MIGRATION.509176 1207 Information not available 05/15/2022 Are you able to care for yourself independently? Yes MIGRATION.649791 7589 Information not available 05/15/2022 Do you have difficulty dressing, bathing, grooming, or toileting? No MIGRATION.253607 5871 Information not available 05/15/2022 Do you or have you ever used e-cigarettes or vape? Never used electronic cigarettes MIGRATION.351881 1963 Information not available 05/15/2022 What is your exercise level? Occasional MIGRATION.491451 1374 Information not available 05/15/2022 Do you use any illicit or recreational drugs? No MIGRATION.411354 6812 Information not available 05/15/2022 Do you or have you ever used any other forms of tobacco or nicotine? No MIGRATION.600878 7602 Information not available 05/15/2022 What is your level of alcohol consumption? Occasional MIGRATION.829319 0027 Information not available 05/15/2022 Are you able to walk independently without assistance or assistive devices? YESWOREST MIGRATION.470414 2977 Information not available 05/15/2022 Do you have difficulty doing errands alone? 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 [id number] MIGRATION.49404326 26 Information not available 05/15/2022 Do you have difficulty concentrating, remembering or making decisions? No MIGRATION.92323613 26 Information not available 05/15/2022 Family History Relationship Description Onset Age of this Age Resolved Age Notes LastModified by Organization Details LastModified Time Mother Rupture of aorta frivastorres Not available 11/2023 12:28:57 Father Myocardial infarction MIGRATION.321 [id number] Not available 05/15/2022 01:23:04 Medical History Condition Response NERVE DISEASE N BLINDNESS N RHEUMATIC FEVER N KIDNEY STONES N BLADDER PROBLEMS N OTHER # 1 N POLIO N LUNG DISEASE/DISORDER Y COPD N RADIATION / CHEMOTHERAPY N Other # 2 N BLOOD DISEASES N SURGERY N EAR OR HEARING PROBLEMS N MUMPS N DEPRESSION (INCLUDING POST ) N BOWEL PROBLEMS N STROKE/TIA N ULCERS N BENIGN PROSTATIC HYPERPLASIA N MEASLES N MYOCARDIAL INFARCTION N OBESITY N GERD/NAUSEA N ANEURYSM N URINARY/BLADDER/KIDNEY PROBLEMS N CORONARY ARTERY DISEASE (CAD) Y INPATIENT PSYCH CARE N ADDICTION CONCERNS N Impotence N ENDOMETRIOSIS N USE OF BLOOD THINNERS N SKIN [...] APNEA N CHICKENPOX N INFECTIOUS DISEASE N PROSTATE N HEART ARRHYTHMIA N INSOMNIA N HIGH CHOLESTEROL / HYPERLIPIDEMIA Y HYPERTHYROIDISM N EYE PROBLEMS N NEUROLOGICAL PROBLEMS N EDEMA N CHRONIC PAIN SYNDROME N HYPOTHYROIDISM Y CONSTIPATION N CAROTID BLOCKAGE N BACK / NECK PROBLEMS N HAVE [...] Brain Problems N HERPES Y DEMENTIA N SEIZURES/EPILEPSY N HEADACHES/MIGRAINES N VASCULAR DISEASE N PACEMAKER N Blood Disorder N DIZZINESS N KIDNEY DISEASE N HEART DISEASE/HEART PROBLEMS N MULTIPLE SCLEROSIS N CARDIAC ARRHYTHMIA N CANCER: SPECIFY N ANESTHESIA COMPLICATIONS N Gall Stones N ATRIAL FIBRILLATION N PULMONARY EMBOLISM N AUTOIMMUNE DISEASE N [...] dose 1 completed Not Available [facility] 04/09/2023 05:10:23 Influenza, split virus, trivalent, preservative 9 completed Not Available [facility] 04/09/2023 05:10:23 COVID-19, mRNA, LNP-S, PF, 30 mcg/0.3 mL dose 1 completed Not Available [facility] 04/09/2023 05:10:23 Influenza, high-dose, quadrivalent, PF 0 completed Not Available [facility] 04/09/2023 05:10:23 pneumococcal polysaccharide PPV23 2 completed Not Available [facility] 04/09/2023 05:10:23 Influenza, high-dose, trivalent, PF 8 completed Not Available [facility] 04/09/2023 05:10:23 Influenza, high-dose, trivalent, PF 7 completed Not Available [facility] 04/09/2023 05:10:23 Pneumococcal conjugate PCV 13 4 completed Not Available [facility] 04/09/2023 05:10:23 Past Encounters Encounter ID Performer Location Encounter Start Date Encounter Closed Date Diagnosis/Indication Diagnosis SNOMED-CT Code Diagnosis ICD10 Code Diagnosis IMO Codes Diagnosis Note [id number] Diane Vitale MD [facility] Internal Med Maryellen armendariz [address] [place] [address] [place] [address] 05/23/2020 00:00:00 05/23/2020 20:38:38 [id number] Kee lerner MD [facility] General Surgery [address] [facility], [address] [place] [address] 06/13/2020 00:00:00 06/13/2020 14:17:10 [id number] Diane Vitale MD [facility] Internal Med Maryellen armendariz [address] [place] [address] [place] [address] 11/14/2020 00:00:00 11/20/2020 13:06:17 [id number] Diane Vitale MD [facility] Internal Med [place] [address] [place] [address] [place] [address] 03/13/2021 00:00:00 03/15/2021 14:00:57 [id number] Diane Vitale MD [facility] Internal Med [place] [address] [place] [address] [place] [address] 05/01/2021 00:00:00 05/12/2021 20:33:11 [id number] Diane Vitale MD [facility] Internal Med [place] [address] [place] [address] [place] [address] 06/21/2021 00:00:00 06/21/2021 22:19:05 [id number] Jairo Munoz DPM [facility] Podiatry [place] [address] [place] [address] 06/25/2021 00:00:00 07/12/2021 13:49:39 [id number] Jairo Munoz DPM [facility] Podiatry [address] [address] 2021 00:00:00 2021 12:56:02 [id number] Diane Vitale MD [facility] Internal Med [place] [address] [place] [address] [place] [address] 08/16/2021 00:00:00 09/17/2021 21:59:01 [id number] Diane Vitale MD [facility] Internal Med [place] [address] [place] [address] [place] [address] 12/20/2021 00:00:00 12/20/2021 22:45:32 [id number] Diane Vitale MD [facility] Internal Med [place] [address] [place] [address] [place] [address] 05/16/2022 15:06:49 05/16/2022 16:06:01 Essential hypertension 88503426 I10 Nodule of lung 560397556 R91.1 Sciatica 92833427 M54.31 Anxiety 88246993 F41.9 Hypothyroidism 37198049 E03.9 [id number] Diane Vitale MD [facility] Internal Med [place] [address] [place] [address] y , [place] [address] 06/27/2022 14:59:20 06/27/2022 16:14:33 Anxiety 45895684 F41.9 Nodule of lung 910648387 R91.1 Coronary arteriosclerosis 54434860 I25.10 Essential hypertension 04762882 I10 Sciatica 53653230 M54.31 [id number] Diane Vitale MD [facility] Internal Med [place] [address] [facility] [place] [address] 10/24/2022 14:57:05 10/24/2022 16:00:53 Essential hypertension 83350017 I10 Hypothyroidism 63221934 E03.9 Long-term drug therapy 924305681 Z79.899 Coronary arteriosclerosis 77228551 I25.10 Anxiety 32371950 F41.9 [id number] Morelia Gudino MD [facility] Primary Care [place] [address] [place] [address] 01/21/2023 09:17:38 01/21/2023 10:05:15 Pain in throat 598599257 R07.0 take home covid test Coronary arteriosclerosis 78716016 I25.10 s/p cardiac stentsees Dr. Giles Osteoporosis 63420682 M8 1.0 DEXA 11/06starte d fosamax this yeardaily walking Essential hypertension 75585634 I10 stable Hypothyroidism 49941212 E03.9 stable Long-term drug therapy 763129332 Z79.668 [id number] Morelia Gudino MD [facility] Primary Care [place] [address] [facility] [place] [address] 07/22/2023 14:00:05 07/22/2023 14:59:21 Adult health examination 124204344 Z00.00 Mammogram done 11/06DEXA done 11/06RSV given 02/06Covid given 02/06Flu vaccine annuallyPr evnar 13 given 11/14Shing les series given 10/06, 01/06Pneum ovax 23 given 01/05Colon oscopy referral given Screening for disorder 206717584 Z13.9 Osteoporosis 72396403 M8 1.0 DEXA 11/06starte d fosamax this yeardaily walking 07/22/23: was on fosamax but had to d/c while having dental work doneshe is not done yet with dental workwill restart fosamax when dental work is completede clines referral to endocrinol ogycontinu e daily walking Screening for malignant neoplasm of colon 165156314 Z12.11 Coronary arteriosclerosis 18649000 I25.10 Z79.899 E78.5 s/p cardiac stentsees Dr. Giles Essential hypertension 59767883 I10 stable Hypothyroidism 19111825 E03.9 stable Renewal of prescription 872811669 Z76.[address] ess incontinence 69566249 N39.3 Urge incon tinence of urine 08360390 N39.41 [id number] SARAHI Morales [facility] Primary Care [facility] [address] [facility] [address] [place] [address] 09/26/2023 09:01:02 09/26/2023 09:46:40 Nausea, vomiting and diarrhea 7984151 R19.7 recently seen in UC for diarrhea and nauseawas given antibiotic s, completedw as given nausea medsdiarrh ea and nausea has resolvedco lonoscopy scheduled for end october Nodule of lung 892699126 R91.1 Dysuria 89066016 R30.0 [id number] SARAHI Morales [facility] [address] [facility] [address] [place] [address] 10/24/2023 12:27:28 10/24/2023 12:57:05 Viral gastroenteritis 677288833 A08.4 Anxiety 99991822 F41.9 currently uses sertraline 50mgfinds that it [...] Name 10/22/2023 [facility] Liz Palacios AETNA SR PLAN AETNA SR PLAN Liz Palacios 10/22/2023 1 MEDICARE-[place] (MEDICARE) Liz Palacios [id number] Liz Palacios 10/25/2023 2 [employer]ETidiag INSURANCE NJOY (MEDICARE SUPPLEMENT) Liz Palacios [id number] Liz Palacios Notes Date Note Type Note Provider Name and Address Organization Details Recorded Time 10/24/2022 text/html hypertension no headache or dizzines LDCT largely unchanged maybe a little bit of fibrosi CAD no chest pain anxiety stabl dyslipidemia following low-fat diet. Hypothyroid no heat or cold intolerance and her anxiety stable Diane Vitale MD [address], [place], [address], [employer] 01/12/2023 17:18:44 01/21/2023 text/html ROS as noted in the HPI Here to establish care, started feeling a bit sick over weekend. Yesterday had hoarse voice. She found some old levofloxacin 750 mg and took 1 yesterday. She was able to cough up some sputum yesterday. Morelia Gudino MD [address], [place], [address], [employer] 02/11/2023 21:04:43 07/22/2023 text/html ROS as noted in the HPI Here for wellness exam increased urinary frequency, but not urinating as much at a timeno dysuria, no hematuria but she has h/o microscopic hematuria and had normal work up in past she has h/o stress incontinence, considered bladder lift in the past Morelia Gudino MD [address], [address], [place], [address], [employer] 08/03/2023 13:07:13 09/26/2023 text/html pt is here for UC f/u SARAHI Morales [address], [place], [address], [facility] 09/26/2023 09:26:08 10/24/2023 text/html pt is here for f/u SIRENA Morales-Sunil [address], [address], [place], [address], [facility] 10/24/2023 12:55:11 OBGyn Episode No OBEpisode recorded.
--- OUTSIDE RECORDS SUMMARY | 2024-12-13 14:57 | XMS_ITS | Data Portability ---
Author Organization [facility] Charline [facility] Address [address] [place] [address] Care Team Providers Care Stone Setter Name Role Phone KING DUCKWORTH Product Marketing Programs Manager Assessment Encounter Date Assessment Date Assessment LastModified by Organization Details LastModified Time 06/05/2021 06/05/2021 IMMANUEL Moore Not available 06/05/2021 22:26:39 Plan of Treatment Reminders Order Date Submit Date Provider Last Modified By Organization Details Last Modified Time Details Appointments None recorded . Lab urinalys is, dipstick 2021 022 [email or web address] In-Office Order, Internal Use Only DO Not Attach Compendium DO Not Attach Compendium, Do Not Delete/merge, [id number] 17:27:43 urinalys is, dipstick 2018 019 meenu In-Office Order, Internal Use Only DO Not Attach Compendium DO Not Attach Compendium, Do Not Delete/merge, [id number] 9 12:58:41 methicil ofelia resistan t staphylo coccus aureus, culture, unspecif ied specimen 2018 019 TARA [facility], 2022 Nan Vasques, [address], [address], 9 16:08:20 Referral None recorded . Procedures None recorded . Surgeries None recorded . Imaging DEXA 2022 023 [facility], [address] [place] [address] [place], [address], 3 22:53:32 MAMMO, screenin g, bilatera l 2022 023 [facility], [address] [place] [address] [place], [address], 3 13:23:40 MAMMO, screenin g, bilatera l [address] ([facility]), [address] [place], [address], 2 10:04:21 Medication Orders acyclovi r 400 mg tablet [address] [facility], [address] [place], [place], [id number], 3 14:24:06 Calcium 600 with Vitamin D3 600 mg-10 mcg (400 unit) chewable tablet 2021 022 [facility], [address] [place], [place], [id number], 3 15:35:28 acyclovi r 400 mg tablet 2021 022 [facility], [address], [place], [id number], 2 15:46:18 multivit garcia tablet 2018 019 [facility], [address], [place], [id number], 3 09:26:46 Calcium with Vitamin D 600 mg-10 mcg (400 unit) tablet 2018 019 [facility], [address], [place], [id number], 14:56:16 norethin drone (contrac eptive) 0.35 mg tablet 2018 019 [facility] #73370, [address] [place], [place], [id number], 14:57:44 sertrali ne 100 mg tablet 2018 019 [facility] #69731, [address], [place], [id number], 14:57:08 Cipro 500 mg tablet 2018 [facility] #10592, [address], [place], [id number], 14:56:21 Patient TargetsNo targets recorded. Patient Instructions Encounter Date Encounter Id Patient Instructions Last Modified By Organization Details Last Modified Time 11/12/2018 [id number] learning about mood disorders [email or web address] Not available 11/12/2018 13:00:45 06/05/2021 [id number] learning about breast cancer screening Not available 06/05/2021 15:45:57 angelica exercises: care instructions [email or web address] Not available 06/05/2021 16:00:30 10/23/2022 [id number] learning about breast cancer screening Not available 10/23/2022 15:50:46 Reason for Referral None Reported. Results Created Date Observation Date Name Description Value Unit Range Abnormal Flag Note LastModifiedBy Organization Detail LastModifiedTime 11/13/1911/12/2018 urina lysis , dipst ick Leukocytes Negati ve Not Available In-Office Order Internal Use Only DO Not Attach Compendium DO Not Attach Compendium, Do Not Delete/merge, [id number] 11/12/2018 12:37:00 11/13/19 19 11/12/2018 urina lysis , dipst ick Nitrite negati ve Not Available In-Office Order Internal Use Only DO Not Attach Compendium DO Not Attach Compendium, Do Not Delete/merge, [id number] 11/12/2018 12:37:00 11/13/1911/12/2018 urina lysis , dipst ick Urobilinogen .2 Not Available In-Of fice Order Internal Use Only DO Not Attach Compendium DO Not Attach Compendium, Do Not Delete/merge, [id number] 11/12/2018 12:37:00 11/13/1911/12/2018 urina lysis , dipst ick Protein Negati ve Not Available In-Office Order Internal Use Only DO Not Attach Compendium DO Not Attach Compendium, Do Not Delete/merge, [id number] 11/12/2018 12:37:00 11/13/1911/12/2018 urina lysis , dipst ick pH 6.0 Not Available In-Office Order Internal Use Only DO Not Attach Compendium DO Not Attach Compendium, Do Not Delete/merge, [id number] 11/12/2018 12:37:00 11/13/1911/12/2018 urina lysis , dipst ick Blood Non-He molyze d: Trace Not Available In-Office Order Internal Use Only DO Not Attach Compendium DO Not Attach Compendium, Do Not Delete/merge, [id number] 11/12/2018 12:37:00 11/13/1911/12/2018 urina lysis , dipst ick Specific Dragoon 1.020 Not Available In-Off ice Order Internal Use Only DO Not Attach Compendium DO Not Attach Compendium, Do Not Delete/merge, [id number] 11/12/2018 12:37:00 11/13/1911/12/2018 urina lysis , dipst ick Ketone Negati ve Not Available In-Office Order Internal Use Only DO Not Attach Compendium DO Not Attach Compendium, Do Not Delete/merge, 11/12/2018 12:37:00 11/13/1911/12/2018 urina lysis , dipst ick Bilirubin Negati ve Not Available In-Office Order Internal Use Only DO Not Attach Compendium DO Not Attach Compendium, Do Not Delete/merge, [id number] 11/12/2018 12:37:00 11/13/19 19 11/12/2018 urina lysis , dipst ick Glucose Negati ve Not Available In-Office Order Internal Use Only DO Not Attach Compendium DO Not Attach Compendium, Do Not Delete/merge, [id number] 11/12/2018 12:37:00 11/13/19 19 11/14/2018 methi cilli n resis tant staph yloco ccus aureu s, cultu re, unspe cifie d speci men MRSA screening culture Negati ve Not Available [facility] ([facility]) [address] [facility], [place], [address], 11/14/2018 16:08:20 06/06/19 22 06/05/2021 urina lysis [...] DO Not Attach Compendium, Do Not Delete/merge, [facility] 06/05/2021 15:51:32 06/06/1906/05/2021 urina lysis , dipst ick Specific Dragoon 1.030 Not Available In-Off ice Order Internal Use Only DO Not Attach Compendium DO Not Attach Compendium, Do Not Delete/merge, [facility] 06/05/2021 15:51:32 06/06/1906/05/2021 urina lysis , dipst ick Ketone Negati ve Not Available In-Office Order Internal Use Only DO Not Attach Compendium DO Not Attach Compendium, Do Not Delete/merge, [facility] 06/05/2021 15:51:32 06/06/1906/05/2021 urina lysis , dipst ick Bilirubin Negati ve Not Available In-Office Order Internal Use Only DO Not Attach Compendium DO Not Attach Compendium, Do Not Delete/merge, [facility] 06/05/2021 15:51:32 06/06/1906/05/2021 urina lysis , dipst ick Glucose Negati ve Not Available In-Office Order Internal Use Only DO Not Attach Compendium DO Not Attach Compendium, Do Not Delete/merge, [facility] 06/05/2021 15:51:32 12/19/1912/19/2022 CREAT ININE creatinine 0.76 mg/dL 0.57-1 .00 Not Available [facility] ([facility]) [address] [facility], [place], [address], 12/19/2022 20:08:51 12/19/19 23 12/19/2022 CREAT ININE eGFR 83 mL/mi n/1.7 3 >59 Not Available [facility] ([facility]) [address] [facility], [place], [address], 12/19/2022 20:08:51 12/19/19 23 12/19/2022 CALCI UM, IONIZ ED, SERUM calcium, ionized, serum 5.0 mg/dL 4.5-5. 6 Not Available [facility] ([facility]) [address] [facility], [place], [address], 12/19/2022 20:08:51 12/19/19 23 12/19/2022 VITAM IN [...] 1. IOM (Inst itute of Medic ine). 2009. Dieta ry refer ence mariely es for calci um and D. Bill muller [place]: [facility] . 2. Mohit chavira MF, Bon johnson [place], Debbi off-F errar i MORRIS, et al. Evalu ation , treat ment, and preve ntion of vitam in D defic iency : an Endoc rine Socie ty clini xander pract ice guide line. JCEM. 2010; 96(7) :1911 -30. Not Available [facility] ([facility]) [address] [facility], [place], [address], 12/19/2022 20:08:52 04/12/19 21 04/11/2020 DEXA No observ ation record ed. [address] ([facility]) [address] [place], [address], 06/05/2021 15:21:05 04/14/19 21 04/11/2020 MAMMO , scree alex, digit al, bilat eral No observ ation record ed. [address] ([facility]) [address] [place], [address], 06/05/2021 15:21:05 10/12/19 22 10/11/2021 MAMMO , scree alex, bilat eral No observ ation record ed. [address] [facility] [address] [place], [address], 10/23/2022 15:42:04 10/25/19 22 10/24/2021 MAMMO , diagn ostic , unila teral No observ ation record ed. [address] [facility] [address] [place], [address], 10/23/2022 15:42:04 10/25/19 22 10/24/2021 US, breas t, unila teral No observ ation record ed. [address] [facility] [address] [place], [address], 10/23/2022 15:42:04 12/06/19 23 12/05/2022 DEXA No observ ation record ed. [facility] [address] [place], [address], 12/11/2022 15:25:32 12/10/19 23 12/05/2022 MAMMO , scree alex, bilat eral No observ ation record ed. [facility] [address] [place], [address], 12/10/2022 23:28:27 05/25/19 25 05/17/2024 PET-C T, myoca rdial perfu jacque, multi ple studi es at rest and stres s No observ ation record ed. [facility] [address], [place], [address], 05/25/2024 09:46:26 05/26/19 25 05/17/2024 PET-C T, myoca rdial perfu jacque, singl e study at rest or stres s No observ ation record ed. nathan [facility] [address], [place], [address], 05/25/2024 10:05:03 Result Notes None recorded. Problems Name Problem SNOMED Code Status Onset Date Resolution Date Notes Provider Name and Address Organization Details Recorded Time Herpes simplex 45604629 Active Ethan sellers, [place] - [place] 5 10:19:04 Hemorrhoids 18380572 Active 2016 Ethan sellers, [place] 7 16:55:44 Depressive disorder 46863779 Active 2018 Ethan sellers [place] 9 13:00:23 Osteoporosis 80635514 Active 2020 Ethan MilnerClementinasukhdev sellers [facility] SI 1 19:34:40 Problem Notes None recorded. Procedures Surgical History Date Name Laterality Status Provider Name and Address Organization Details Recorded Time 2 Date of Last Mammogram completed Louise Marcial MA [facility] 10/22/2022 11:08:02 8 Most Recent Mammogram completed Louise Marcial MA [facility] 11/25/2018 17:17:38 Tubal Ligation completed Lina Lees MA [facility] 05/21/2016 16:34:57 Other completed Lina Lees MA [facility] 05/21/2016 16:35:47 Heart Surgery completed Lina Lees MA [facility] 05/21/2016 16:36:06 Imaging Results None recorded. Procedure [...] Body mass index (BMI) Body weight Systolic And Diastolic Provider Name and Address Organization Details Last Updated DateTime 06/05/2021 165.1 cm 27.3 kg/m2 68577.15 g 114/70 mm[Hg] Louise Marcial MA [facility] 06/05/2021 15:03:20 Date Recorded Body height Body mass index (BMI) Body weight Systolic And Diastolic Provider Name and Address Organization Details Last Updated DateTime 10/23/2022 165.1 cm 25.8 kg/m2 62922.82 g 122/72 mm[Hg] Louise Marcial MA [facility] 10/23/2022 15:38:45 Date Recorded Body height Body mass index (BMI) Body weight Systolic And Diastolic Provider Name and Address Organization Details Last Updated DateTime 11/12/2018 162.56 cm 24.2 kg/m2 33121.52 g 116/60 mm[Hg] Morelia Bruno MA [facility] 11/12/2018 12:44:42 Date Recorded Body height Body mass index (BMI) Body weight Systolic And Diastolic Provider Name and Address Organization Details Last Updated DateTime 11/25/2018 162.56 cm 24.5 kg/m2 58840.71 g 108/74 mm[Hg] Louise Marcial MA [facility] 11/25/2018 17:19:32 Social History Question Answer Notes LastModified by Organizat ion Details LastModified Time Tobacco Smoking Status Former Smoker Louise Marcial MA null, [facility] 06/05/2021 15:01:26 Do You Have An Advance [...] used smokeless tobacco? Never used smokeless tobacco [email or web address] Information not available 11/12/2018 Are you currently employed? Yes Information not available 05/21/2016 What is your occupation? retired [email or web address] Information not available 09/01/2018 Do you or have you ever used e-cigarettes or vape? Never used electronic cigarettes [email or web address] Information not available 11/12/2018 What is your exercise level? Occasional Information not available 05/21/2016 Mental Status None recorded. Family History Relationship Description Onset Age of this Age Resolved Age Notes LastModified by Organization Details LastModified Time Mother Osteoporosis Not availa ble 05/21/2016 16:31:12 Mother Heart disease Not available 2016 16:31:31 Medical History Condition Response Other N High Blood Pressure Y Breast Cancer N Kidney or Bladder Problems N Thyroid Problems N GI Problems N Lung Disease N Depression Y Blood Clots N Acne N Breast Problem N Eating Disorder N Anemia N Anesthesia Complications N Headaches/Migraines N Anxiety Disorder N Ovarian Cancer N Diabetes N Muscle, Joint, or Bone Problems N [...] 6 completed MARGARITA LOYOLA Attn: Accounting,[address] [place], [place], [address] [place] [address], [facility] 10/23/2022 15:49:57 zoster recombinant 3 completed MARGARITA LOYOLA Attn: Accounting,[address] [place], [place], [address] [place] [address], [facility] 10/23/2022 15:49:57 Influenza, high-dose, quadrivalent, PF 1 completed MARGARITA LOYOLA Attn: Accounting,[address] [place], [place], [address] [place] [address], [facility] 10/23/2022 15:49:57 Influenza, high-dose, quadrivalent, PF 2 completed MARGARITA LOYOLA Attn: Accounting,[address] [place], [place], [address] [place] [address], [facility] 10/23/2022 15:49:57 Influenza, high-dose, quadrivalent, PF 0 completed MARGARITA LOYOLA Attn: Accounting,[address] [place], [address] [place] [address], [place] [facility] 10/23/2022 15:49:57 COVID-19, mRNA, LNP-S, PF, 30 mcg/0.3 mL dose 1 completed MARGARITA LOYOLA Attn: Accounting,[address] [place], [place], [address] [place] [address], [facility] 10/23/2022 15:49:57 COVID-19, mRNA, LNP-S, PF, 30 mcg/0.3 mL dose 1 completed MARGARITA LOYOLA Attn: Accounting,[address] [facility] [place], [place], [address] [place] [address], [facility] 10/23/2022 15:49:57 COVID-19, mRNA, LNP-S, PF, 30 mcg/0.3 mL dose 1 completed MARGARITA LOYOLA Attn: Accounting,[address] [facility], [place], [place], [address] [place] [address], [facility] 10/23/2022 15:49:57 pneumococcal polysaccharide PPV23 2 completed MARGARITA LOYOLA Attn: Accounting,[address] [facility], [place], [place], [address] [place] [address], [facility] 10/23/2022 15:49:57 Pneumococcal conjugate PCV 13 4 completed MARGARITA LOYOLA Attn: Accounting,[address] [facility], [place], [place], [address] [place] [address], [facility] 10/23/2022 15:49:57 Influenza, high-dose, trivalent, PF 8 completed MARGARITA LOYOLA Attn: Accounting,[address] [facility], [place], [place], [address] [place] [address], [facility] 10/23/2022 15:49:57 Influenza, high-dose, trivalent, PF 7 completed MARGARITA LOYOLA Attn: Accounting,[address] [facility], [place], [place], [address] [place] [address], [place] [facility] 10/23/2022 15:49:57 Influenza, split virus, trivalent, preservative 9 completed MARGARITA LOYOLA Attn: Accounting,[address] [facility], [place], [place], [address] [place] [address], [place] [facility] 10/23/2022 15:49:57 Influenza, split virus, trivalent, preservative 3 completed MARGARITA LOYOLA Attn: Accounting,[address] 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 Hemorrhoids 20327064 K64 .9 Gynecologi c examination 94471035 Z01.568 [id number] MD Demarcus Figueroa (ELECTRONICS LEAD) [address] [place] [id number] 09/01/2018 11:04:57 09/02/2018 12:05:41 Gynecologic examination 41493000 Z01.419 Z11.51 Herpes simplex 78707630 B00.9 Female str ess incontinence 31839801 N39.3 Screening for malignant neoplasm of ovary 273548165 Z12.73 Screening for osteoporosis 538205433 Z13.820 Vitamin B1 2 deficiency (non anemic) 69374452 E53.8 [id number] MD Demarcus Figueroa (ELECTRONICS LEAD) [address] [place] [phone] 11/12/2018 11:35:19 11/13/2018 13:53:39 Folliculitis 74589282 L73.9 Menopausal flushing 1984 46024 N95.1 Depressive disorder 3548 9007 F32.9 Gynecologi c examination 80747029 Z01.419 Z11.51 [id number] MD Demarcus Figueroa (ELECTRONICS LEAD) [address] [place] [phone] 11/25/2018 16:33:04 11/27/2018 10:58:41 Folliculitis 40404419 L73.9 [id number] MARGARITA LOYOLA (ELECTRONICS LEAD) [address] [place] [id number] 06/05/2021 14:49:10 06/06/2021 13:47:36 Screening for malignant neoplasm of breast 271354600 Z12.31 Last MAMMO on 04/11/2020, WNL. No breast complaints such as lumps, tenderness , or discharge. MAMMO ordered as part of routine annual screening. Herpes simplex 92620056 B00.9 Patient takes antiviral when she feels the onset of an outbreak with tingling/p ruritis on her lips. Her last outbreak was about 3 years ago. Seeking return to acyclovir as valacyclov ir caused her jitterines s. Osteoporosis 90991589 M8 1.0 DEXA scan performed 04/11/2020 demonstrat [...] Discussed weight bearing exercises. Urinary incontinence 165 752209 R32 Patient complains of urinary incontinen ce [...] kegel exercises as conservati ve first-line approach. [id number] MARGARITA LOYOLA (ELECTRONICS LEAD) [address] [place] [phone] 10/23/2022 15:20:08 11/05/2022 10:33:31 Screening for malignant neoplasm of breast 120644021 Z12.31 Last MAMMO on 10/24/21 WNL. MAMMO ordered as part of routine annual screening. Osteoporosis 68663681 M8 1.0 DEXA scan performed 04/11/2020 demonstrat es osteoporos is of the lumbar spine and osteopenia of the bilateral hips. She takes Calcium/Vi tamin D pill daily. Repeat DEXA this year. Discussed weight bearing exercises. Herpes simplex 90921519 B00.9 Patient takes antiviral when she feels [...] Guarantor Name 11/20/2022 1 [place] Liz Palacios [id number] Liz [place] 10/20/2022 [place] [facility] Liz Palacios [id number] Liz [place] 06/05/2021 2 CONTINENTAL LIFE INSURANCE (MEDICARE SUPPLEMENT) Liz Appleoli [id number] Liz [place] 11/20/2022 2 AETNA [place] - [place] ON OR AFTER 2020 (MEDICAID REPLACEMENT - HMO) Liz Perez [place] [id number] Liz [place] 11/20/2022 [place] WHEN MEDICARE OR MEDICARE REPLACEMENT PRIMARY) Liz Perez [place] [id number] Liz [place] 06/05/2021 2 [place] ON [place] AFTER 2020 (MEDICAID REPLACEMENT - HMO) Liz Bronx [id number] Liz [place] 09/01/[address] [facility] [id number] Liz Bronx [id number] Liz [place] 11/20/2022 2 AETNA (MEDICARE SUPPLEMENT) Liz Perez [place] [id number] Liz [place] Notes Date Note Type Note Provider Name and Address Organization Details Recorded Time 11/12/2018 text/html ROS as noted in the HPI 68 YO post menopausal CF presents today with c/o infected hair follicle on left inner thigh and groin x 3 weeks. Patient also states she is having hot flashes and flushing at night as well as increased irritability. tEhan sellers [place] 11/12/2018 18:44:07 11/25/2018 text/html ROS as noted in the HPI 68 YO post menopausal CF presents today with c/o infected hair follicle on left inner thigh and groin x 3 weeks. Patient also states she is having hot flashes and flushing at night as well as increased irritability. Ethan sellers [place] 11/25/2018 17:59:01 06/05/2021 text/html ROS as noted in the HPI 70 yo female presenting for clinical breast exam and mammogram [...] chest pain. MARGARITA LOYOLA Attn: Accounting,[address] [place], [address], [facility] 06/05/2021 22:29:19 10/23/2022 text/html ROS as noted in the HPI 72 yo female with h/o HSV presenting for clinical breast [...] MARGARITA LOYOLA Attn: Accounting,[address], [place], [address], [place] [facility] 10/30/2022 14:29:24 OBGyn Episode Ob Episode Information Episode Created Date Number of Fetuses Patient Bloodtype Patient rh Status Prepregnancy Weight lbs Domestic Partner Domestic Partner Phone Father Name Manager Support Services Status 05/22/19 17 1 CLOSED Fetus Data First Name Last Name Admitted to NICU Weight (g) Sex Living Outcome Pediatric Complications Fetus ID Race Codes Race Delivery Type 1983.46 5 F Prematur e [id number] Vaginal Javan Calculation Initial Javan Date Initial [...]
== END 2024-12-13 14:15 | disposition home or self-care (01) ==
PROVIDERS: PCP Family Medicine; Visit Provider Family Medicine
DX: M25.512 Pain in left shoulder (principal)
CPT/HCPCS: 73030